=== PATIENT | female | born 1985 | race Caucasian/White ===

== ENCOUNTER 2016-11-10 17:27 | Emergency (ER) | payer OTHER ==
[~2016-11-10] VITALS: Ht 167.6 cm; Wt 62.6 kg
[~2016-11-10 17:27] MED LIST: DULO60CA44 PO; FOLI1TAB7 PO; IUD'IUD INT UTER; LAMO100T PO; METH2.5T PO; RMCI IV
[2016-11-10 17:31] VITALS: TEMP 36.8; Ht 167.6 cm; Wt 62.6 kg
[2016-11-10] MEDS ORDERED: NAPR1TAB9 PO (19:05)
[2016-11-10] MEDS ORDERED: SODIUM CHLORIDE 0.9% 1000ML 1,000 ML IV STA ×2 (19:12)
[2016-11-10] MEDS ORDERED: ONDANSETRON INJ 2 MG/ML 2 ML VIAL IV STA (19:12)
[2016-11-10] MEDS ORDERED: METHYLPREDNISOLONE 125 MG VIAL IV STA (19:12)
--- NOTE | 2016-11-10 19:20 | EMERGENCY ROOM VISIT NOTE ---
History Report prepared by Biancaibovi: Elham Alvarado Under the Supervision of: Dr. David Fabian D.O. First contact with patient: 18:57 Chief Complaint: ABDOMINAL PAIN Stated Complaint: STOMACH PAIN,NAUSEA,VOMITING,BLOODY STOOLS Nursing Triage Summary: thinks having flare of ulcerative colitis. diarrhea with some blood, past 4 days. n/v. just moved here doesn't have gastro md yet History of Present Illness The patient is a 31 year old female who presents to the Emergency Room with complaints of worsening LLQ abdominal pain for the past 4 days. She rates her discomfort as a 7/10. She admits to a history of ulcerative colitis and complains of increased nausea, vomiting and bloody diarrhea. She states "I cannot eat without vomiting". She had been on Remicade when she was living in [place], but states she has not yet established with a dry kiln burner here locally yet. She reports she has undergone an appendectomy, cholecystectomy and . Source of History: patient Onset: 4 days OUTSIDE [employer] Position: abdomen (LLQ) Symptom Intensity: 7/10 Timing: worsening Associated Symptoms: + diarrhea, + nausea, + vomiting Review of Systems See HPI for pertinent positives & negatives. A total of 10 systems reviewed and were otherwise negative. Past Medical & Surgical Medical Problems: (1) Anxiety (2) Depression (3) Kidney stone (4) Pericarditis (5) Ulcerative colitis Surgical Problems: (1) H/O section (2) Hx of appendectomy (3) Hx of cholecystectomy Family History FHx: heart disease FATHER UNCLES Hypertension Kidney disease THYROID DISEASE MOTHER Social History Smoking Status: Never Smoker Alcohol Use: none Drug Use: none Marital Status: in relationship Housing Status: lives with significant other Occupation Status: unemployed Current/Historical Medications Scheduled Duloxetine Hcl (Cymbalta), 120 MG PO DAILY Iud's (Paragard Intrauterine Hedis Review Nurse), 1 DOSE INT UTER CONTINOUS Lamotrigine (Lamictal), 200 MG PO DAILY Naproxen (Aleve), 220 MG PO DIRECTED Ondasetron Odt (Zofran Odt), 4 MG SL Q6H Prednisone (Prednisone Tab), 40 MG PO DAILY Scheduled PRN Oxycodone Immediate Rel Tab (Roxicodone Ir), 1-2 TAB PO Q4H PRN for Severe Pain Allergies Coded Allergies: Levofloxacin (Verified Allergy, Unknown, ., 11/10/16) Metoclopramide (Verified Allergy, Unknown, ., 11/10/16) Morphine (Verified Allergy, Unknown, RASH, 11/10/16) Promethazine (Verified Allergy, Unknown, ., 11/10/16) Fentanyl (Verified Adverse Reaction, Unknown, "aggitates me", 11/10/16) Physical Exam Vital Signs Date Time Temp Pulse Resp B/P Pulse Ox O2 Delivery O2 Flow Rate FiO2 11/10/16 20:50 105 18 135/87 99 Room Air 11/10/16 19:42 86 18 117/79 100 Room Air 11/10/16 17:31 36.8 110 16 122/79 100 Room Air Physical Exam GENERAL: Patient is awake and alert somewhat anxious appearing and appears to be uncomfortable EYES: The conjunctivae are clear. The pupils are round and reactive. EARS, NOSE, MOUTH AND THROAT: The nose is without any evidence of any deformity. Mucous membranes are moist tongue is midline NECK: The neck is nontender and supple. RESPIRATORY: Normal respiratory effort is noted there is no evidence of wheezing rhonchi or rales CARDIOVASCULAR: Regular rate and rhythm noted there no murmurs rubs or gallops normal S1 normal S2 GASTROINTESTINAL: The abdomen is soft and non-distended. Diffuse tenderness to palpation, no guarding or rigidity noted. MUSCULOSKELETAL/EXTREMITIES: There is no evidence of gross deformity full range of motion is noted in the hips and shoulders SKIN: There is no obvious evidence of any rash. There are no petechiae, pallor or cyanosis noted. NEUROLOGIC: Patient is awake alert and oriented x3 strength is symmetric patellar reflexes are 2+ bilaterally Medical Decision & Procedures ER Provider Diagnostic Interpretation: This X-Ray was reviewed and interpreted by myself and the radiologist. CHEST AND ABDOMEN 2 VIEWS IMPRESSION: No acute cardiopulmonary process. No evidence for bowel obstruction. Moderate well-formed stool seen throughout the colon. Electronically signed by: Jose Alfredo Allan M.D. 11/10/2016 8:20 PM Laboratory Results 11/10/16 18:50 Red Blood Count 5.45, Mean Corpuscular Volume 69.4, Mean Corpuscular Hemoglobin 22.2, Mean Corpuscular Hemoglobin Concent 32.0, Mean Platelet Volume 9.1, Neutrophils (%) (Auto) 60.1, Lymphocytes (%) (Auto) 27.5, Monocytes (%) (Auto) 7.0, Eosinophils (%) (Auto) 4.1, Basophils (%) (Auto) 1.1, Neutrophils # (Auto) 5.68, Lymphocytes # (Auto) 2.60, Monocytes # (Auto) 0.66, Eosinophils # (Auto) 0.39, Basophils # (Auto) 0.10 11/10/16 18:50 Test 11/10/16 18:45 11/10/16 18:50 Urine Color YELLOW Urine Appearance CLEAR (CLEAR) Urine pH 7.5 (4.5-7.5) Urine Specific [place] 1.016 (1.000-1.030) Urine Protein NEG (NEG) Urine Glucose (UA) NEG (NEG) Urine Ketones NEG (NEG) Urine Occult Blood NEG (NEG) Urine Nitrite NEG (NEG) Urine Bilirubin NEG (NEG) Urine Urobilinogen NEG (NEG) Urine Leukocyte Esterase NEG (NEG) White Blood Count 9.45 K/uL (4.8-10.8) Red Blood Count 5.45 M/uL (4.2-5.4) Hemoglobin 12.1 g/dL (12.0-16.0) Hematocrit 37.8 % (37-47) Mean Corpuscular Volume 69.4 fL (80-100) Mean Corpuscular Hemoglobin 22.2 pg (25-34) Mean Corpuscular Hemoglobin Concent 32.0 g/dl (32-36) Platelet Count 345 K/uL (130-400) Mean Platelet Volume 9.1 fL (7.4-10.4) Neutrophils (%) (Auto) 60.1 % Lymphocytes (%) (Auto) 27.5 % Monocytes (%) (Auto) 7.0 % Eosinophils (%) (Auto) 4.1 % Basophils (%) (Auto) 1.1 % Neutrophils # (Auto) 5.68 K/uL (1.4-6.5) Lymphocytes # (Auto) 2.60 K/uL (1.2-3.4) Monocytes # (Auto) 0.66 K/uL (0.11-0.59) Eosinophils # (Auto) 0.39 K/uL (0-0.5) Basophils # (Auto) 0.10 K/uL (0-0.2) RDW Standard Deviation 42.8 fL (36.4-46.3) RDW Coefficient of Variation 16.8 % (11.5-14.5) Immature Granulocyte % (Auto) 0.2 % Immature Granulocyte # (Auto) 0.02 K/uL (0.00-0.02) Microcytosis PRESENT Anion Gap 10.0 mmol/L (3-11) Est Creatinine Clear Calc Drug Dose 106.9 ml/min Estimated GFR () 131.9 Estimated GFR (Non- 113.8 BUN/Creatinine Ratio 11.3 (10-20) Calcium Level 9.0 mg/dl (8.5-10.1) Total Bilirubin 0.2 mg/dl (0.2-1) Direct Bilirubin < 0.1 mg/dl (0-0.2) Aspartate Amino Transf (AST/SGOT) 19 U/L (15-37) Alanine Aminotransferase (ALT/SGPT) 19 U/L (12-78) Alkaline Phosphatase 125 U/L (45-117) Total Protein 7.2 gm/dl (6.4-8.2) Albumin 3.8 gm/dl (3.4-5.0) Lipase 122 U/L (73-393) Human Chorionic Gonadotropin, Qual NEG (NEG) Laboratory results per my review. Medications Administered Medications (Trade) Dose Ordered Sig/Sally Route Start Time Stop Time Status Last Admin Dose Admin Sodium Chloride (Nss 1000ml) 1,000 ml @ 999 mls/hr Q1H1M STAT IV 11/10/16 19:12 11/10/16 20:12 DC 11/10/16 19:35 999 MLS/HR Ondansetron HCl (Zofran Inj) 4 mg NOW STAT IV 11/10/16 19:12 11/10/16 19:13 DC 11/10/16 19:35 4 MG Hydromorphone HCl (Dilaudid Inj) 1 mg Q30M PRN IV 11/10/16 19:15 11/10/16 21:46 DC 11/10/16 20:37 1 MG Methylprednisolone Sodium Succinate (Solu-Medrol IV) 125 mg NOW STAT IV 11/10/16 19:12 11/10/16 19:13 DC 11/10/16 19:35 125 MG Oxycodone HCl (Roxicodone Immediate Rel 5MG Home Pack) 1 homepack UD ONCE PO 11/10/16 20:45 11/10/16 20:46 DC 11/10/16 20:58 1 HOMEPACK Ondansetron HCl (ZOFRAN ODT 4MG Home Pack) 1 homepack UD ONCE PO 11/10/16 20:45 11/10/16 20:46 DC 11/10/16 20:59 1 L[facility] [place] ED Course 1910: The patient was evaluated in room A12. A complete history and physical examination were performed. 1911: Solu-Medrol 125 mg IV, Zofran 4 mg IV, NSS 1000 ml @ 250 mls/hr IV, NSS 1000 ml @ 999 mls/hr IV. 1914: Dilaudid 1 mg IV. 2044: Zofran 4 mg 1 home pack PO, Roxicodone 5 mg 1 home pack PO. 2029: I reevaluated the patient. She is feeling much better. I discussed her results and discharge instructions and she verbalized complete understanding and agreement. Medical Decision Prior records/ancillary studies reviewed. Triage Nursing notes reviewed. The patient's history was concerning for abdominal pain. Differential diagnosis: Etiologies such as appendicitis, diverticulitis, PUD, biliary pathology, UTI, pancreatitis, obstruction, mesenteric ischemia, aortic pathology, infections, inflammatory bowel disease, renal colic, as well as others were entertained. The patient is a 31-year-old female who presented to the emergency department for evaluation of abdominal pain and rectal bleeding. The patient feels that this is consistent with her previous episodes of ulcerative colitis. The patient was treated with IV fluids IV pain medicine IV antiemetics. She was also given steroids in emergency department. On subsequent reevaluation she was feeling much better. She was encouraged to continue all his as prescribed and drink plenty clear liquids. She is also in between dry kiln burner and she was encouraged to follow-up with one assist possible. Otherwise she was encouraged to return to the emergency department immediately if symptoms change worsen or the need arises. Impression Primary Impression: Abdominal pain Additional Impression: Ulcerative colitis Scribe Attestation The scribe's documentation has been prepared under my direction and personally reviewed by me in its entirety. I confirm that the note above accurately reflects all work, treatment, procedures, and medical decision making performed by me. Departure Information Dispostion Home / Self-Care Prescriptions Ondasetron Odt (ZOFRAN ODT) 4 Mg Tab 4 MG SL Q6H for Nausea, #15 TAB Prov: David Fabian, DO 11/10/16 Prednisone (Prednisone Tab) 20 Mg Tab 40 MG PO DAILY, #10 TAB Prov: David Fabian, DO 11/10/16 Oxycodone Immediate Rel Tab (ROXICODONE IR) 5 Mg Tab 1-2 TAB PO Q4H Y for Severe Pain, #24 TAB Prov: David Fabian, DO 11/10/16 Patient Instructions Colitis Ulcerative, My [facility] Additional Instructions Call your family doctor in the morning to schedule a follow-up appointment. Rest and avoid any strenuous activity. Drink plenty clear liquids. Problem Qualifiers
[2016-11-10 19:21] LABS: BASO % 1.1 %; EOS % 4.1 %; HEMATOCRIT 37.8 % (37-47); IG% 0.2 %; LYMPH % 27.5 %; MEAN CELL VOLUME 69.4 fL (80-100); MEAN CORPUSCULAR HEMOGLOBIN 22.2 pg (25-34); MEAN PLATELET VOLUME 9.1 fL (7.4-10.4); NEUT % 60.1 %; PLATELET COUNT 345 K/uL (130-400); RED BLOOD COUNT 5.45 M/uL (4.2-5.4); WHITE BLOOD COUNT 9.45 K/uL (4.8-10.8)
[2016-11-10 19:28] LABS: ALT/SGPT 19 U/L (12-78); BLOOD UREA NITROGEN 8 mg/dl (7-18); BUN/CREATININE RATIO 11.3 (10-20); CARBON DIOXIDE 28 mmol/L (21-32); CHLORIDE 104 mmol/L (98-107); GLUCOSE 83 mg/dl (70-99); POTASSIUM 3.7 mmol/L (3.5-5.1); SODIUM 142 mmol/L (136-145)
[2016-11-10 19:31] LABS: ALKALINE PHOSPHATASE 125 U/L (45-117); AST/SGOT 19 U/L (15-37)
[2016-11-10] MEDS: HYDROmorphone INJ 1 MG/ML SYR IV PRN ×2 (19:36→20:37)
[2016-11-10 19:45] LABS: URINE APPEARANCE CLEAR (CLEAR); URINE BILIRUBIN NEG (NEG); URINE COLOR YELLOW; URINE NITRITE NEG (NEG); URINE PH 7.5 (4.5-7.5); URINE SPECIFIC GRAVITY 1.016 (1.000-1.030); UROBILINOGEN NEG (NEG)
[2016-11-10 19:50] LABS: MANUAL MICROSCOPIC REQUIRED? NO; REVIEW REQ? NO
[2016-11-10 19:51] LABS: PREG INTERNAL NEGATIVE QC NEG CLEAR BACKGROUND; PREG INTERNAL POSITIVE QC POS CONTROL LINE
[2016-11-10 20:01] LABS: COMPLETE YES; MICROCYTOSIS PRESENT
--- NOTE | 2016-11-10 20:22 | DIAGNOSTIC IMAGING REPORT ---
CHEST AND ABDOMEN 2 VIEWS HISTORY: Generalized abdominal pain. COMPARISON: [facility] 10/06/2015. Abdomen and pelvis CT 10/14/2015. FINDINGS: The lungs are clear. The cardiomediastinal silhouette is within normal limits. There is no pneumoperitoneum or pneumatosis. The bowel gas pattern is unremarkable. No evidence for bowel obstruction. No pathologic calcifications. Prior cholecystectomy. Moderate well-formed stool seen throughout the colon. An intrauterine device is seen within the midline of the pelvis. Stable cervical within the left lower quadrant and multiple stable pelvic phleboliths. IMPRESSION: No acute cardiopulmonary process. No evidence for bowel obstruction. Moderate well-formed stool seen throughout the colon. Electronically signed by: Jose Alfredo Allan M.D. 11/10/2016 8:20 PM Dictated Date/Time: 11/10/2016 8:17 PM
[2016-11-10] MEDS ORDERED: OXYC1TAB3 PO (20:33)
[2016-11-10] MEDS ORDERED: PRED20TA2 PO (20:33)
[2016-11-10] MEDS ORDERED: ONDA4TAB10 SL (20:33)
[2016-11-10] MEDS ORDERED: OXYCODONE IR HOME PACK PO ONE (20:45)
[2016-11-10] MEDS ORDERED: ONDANSETRON HOME PACK 4MG OD TAB PO ONE (20:45)
[2016-11-10 20:50] VITALS: BP 135/87; PULSE 105; O2SAT 99
[2017-05-19] MEDS ORDERED: LORA0.5T12 PO (15:58)
[2017-06-16] MEDS ORDERED: ATR25 PO (15:16)
[2017-06-16] MEDS ORDERED: PRT40 PO (15:16)
[2017-06-16] MEDS ORDERED: CLC100 PO (15:16)
[2017-06-16] MEDS ORDERED: TRAM-10 PO (15:16)
[2017-06-16] MEDS ORDERED: ONDA4TAB10 SL (15:16)
[2017-06-16] MEDS ORDERED: PRED10TA PO (15:16)
[2017-06-16] MEDS ORDERED: RWSE PR (15:16)
[2017-06-16] MEDS ORDERED: ACET-1047 PO (15:16)
[2017-06-16] MEDS ORDERED: KLN1 PO (15:16)
[2017-06-16] MEDS ORDERED: MRLP17X PO (15:16)
[2017-06-25] MEDS ORDERED: LPR25 PO (15:56)
[2017-06-25] MEDS ORDERED: PRED10TA PO (15:56)
[2017-06-25] MEDS ORDERED: NCY50 PO (15:56)
== END 2016-11-10 21:00 | disposition home or self-care (01) ==
LOC: C.EDB 17:29 → C.EDA 21:00
DX: K51.911 Ulcerative colitis, unspecified with rectal bleeding (principal); R10.32 Left lower quadrant pain; Z87.442 Personal history of urinary calculi; F41.9 Anxiety disorder, unspecified; F32.9 Major depressive disorder, single episode, unspecified; Z79.899 Other long term (current) drug therapy

== ENCOUNTER 2017-01-19 19:48 | Emergency (ER) | payer OTHER ==
[~2017-01-19] VITALS: Ht 167.6 cm; Wt 63.5 kg
[~2017-01-19 19:48] MED LIST changes: -FOLI1TAB7 PO; -METH2.5T PO; +NAPR1TAB9 PO; +ONDA4TAB10 SL; +OXYC1TAB3 PO; +PRED20TA2 PO; -RMCI IV
[2017-01-19 20:12] VITALS: BP 128/84; PULSE 97; TEMP 36.6; O2SAT 100; Ht 167.6 cm; Wt 63.5 kg
--- NOTE | 2017-01-19 20:34 | EMERGENCY ROOM VISIT NOTE ---
ED Visit Note First contact with patient: 20:15 CHIEF COMPLAINT: Toothache HISTORY OF PRESENT ILLNESS: This 31-year-old female patient presented to the emergency department ambulatory with a progressive toothache for past to 4 days. The patient believes it is coming from her right lower back molars. The pain is now steady and severe and radiates to the face. The patient does not have a dentist appointment set up, but states that she called them and left a message. They rate their pain a 7/10 and the Aleve they have been taking has not relieved the pain. She denies taking any other medications for pain. Denies facial swelling. The patient denies any discharge from the mouth. The patient states that she believes she has had fevers intermittently. REVIEW OF SYSTEMS: A 6 system review of systems was completed with positives and pertinent negatives listed in the HPI. ALLERGIES: Fentanyl, Levaquin, metoclopramide, morphine, promethazine MEDICATIONS: See med list PMH: No significant past medical history. SOCIAL HISTORY: The patient lives with family. Nonsmoker. PHYSICAL EXAM: Vitals are noted on the nurse's note and reviewed by myself. Vital signs stable. Temperature 36.6C orally. GENERAL: This is a 31-year-old female, in no acute distress, nondiaphoretic, well-developed well-nourished. Mouth: The right lower back molar tooth is very carious and the gum is swollen and tender around it, without any discharge or signs of an abscess. The remainder of the pharynx and tonsils are without erythema, edema, or exudate. The airway is patent. There is no facial swelling, cervical or submandibular lymphadenopathy. The patient appears uncomfortable and in pain. The patient has overall poor dental hygiene. EARS: External auditory canals clear, tympanic membranes pearly gale without erythema or effusion bilaterally. ED COURSE: The patient was evaluated as above. She does have symptoms consistent with an early dental infection. There is no evidence of a drainable abscess or Werner angina at this time. The [place] prescription drug monitoring program was queried and it does appear that the patient had received a prescription for narcotic pain medication just 2 days ago from a provider at the [place] emergency department. I did ask the patient several times if she had received any other prescriptions and she adamantly denied this each time. I did confront the patient regarding this and she then admitted that she had received a prescription, but states "they didn't do anything for me." I explained to her that as she had lied about this prescription, I did not feel comfortable providing her with any further pain medication. The patient did report that she has a prescription for penicillin and I encouraged her to continue this. She was instructed to follow-up with a dentist and was given information for a local dentist for follow-up. The patient verbalized understanding of my assessment and treatment plan and was discharged home in good condition. DIAGNOSIS: Odontalgia Problem List Medical Problems: (1) Anxiety Status: Chronic (2) Depression Status: Chronic (3) Kidney stone Status: Resolved (4) Pericarditis Status: Chronic (5) Ulcerative colitis Status: Chronic Surgical Problems: (1) H/O section Status: Resolved (2) Hx of appendectomy Status: Resolved (3) Hx of cholecystectomy Status: Resolved Current/Historical Medications Scheduled Duloxetine Hcl (Cymbalta), 120 MG PO DAILY Iud's (Paragard Intrauterine Electric Cutter Operator), 1 DOSE INT UTER CONTINOUS Lamotrigine (Lamictal), 200 MG PO DAILY Naproxen (Aleve), 220 MG PO DIRECTED Ondasetron Odt (Zofran Odt), 4 MG SL Q6H Prednisone (Prednisone Tab), 40 MG PO DAILY Scheduled PRN Oxycodone Immediate Rel Tab (Roxicodone Ir), 1-2 TAB PO Q4H PRN for Severe Pain Allergies Coded Allergies: Levofloxacin (Verified Allergy, Unknown, ., 11/10/16) Metoclopramide (Verified Allergy, Unknown, ., 11/10/16) Morphine (Verified Allergy, Unknown, RASH, 11/10/16) Promethazine (Verified Allergy, Unknown, ., 11/10/16) Fentanyl (Verified Adverse Reaction, Unknown, "aggitates me", 11/10/16) Vital Signs Date Time Temp Pulse Resp B/P Pulse Ox O2 Delivery O2 Flow Rate FiO2 01/19/17 20:12 36.6 97 18 128/84 100 Room Air Departure Information Impression Primary Impression: Dental caries Dispostion Home / Self-Care Condition GOOD Referrals No Doctor, Assigned (PCP) Patient Instructions My [facility] Additional Instructions You have been treated in the Emergency Department for Dental Pain. Continue penicillin as prescribed. Please contact: Dr. Hola Quan, DMD. [address], [address], [place] [phone] For pain control, you can use the following [id number] medicines (if >12 yo): - Regular strength (325mg/tab) Tylenol (acetaminophen) 2 tabs every 4-6 hours as needed. Do not exceed 12 tablets in a 24 hour period. Avoid taking more than 4 grams (4000 mg) of Tylenol per day. This includes any other sources of acetaminophen you may take on a regular basis. - Regular strength (200 mg/tab) Advil (ibuprofen) 1-2 tabs every 4-6 hours as needed. Do not exceed a dose of 3200 mg per day. Refrain from smoking cigarettes or using chewing tobacco until you have been evaluated by your dentist. Keeping beverages lukewarm and consuming soft foods can decrease your pain. Warm compresses over the affected area may offer some relief. You MUST seek evaluation of your dental pain by a dentist following your visit to the Emergency Department. The Emergency Department is not capable of treating dental issues long-term. You should call your dentist as soon as possible to make an appointment for evaluation of your dental pain. Return to the emergency department if you develop the following symptoms despite treatment course outlined above: fever, intractable pain, increased redness, swelling, or purulent discharge.
[2017-05-19] MEDS ORDERED: LORA0.5T12 PO (15:58)
[2017-06-16] MEDS ORDERED: ONDA4TAB10 SL (15:16)
[2017-06-16] MEDS ORDERED: PRT40 PO (15:16)
[2017-06-16] MEDS ORDERED: ACET-1047 PO (15:16)
[2017-06-16] MEDS ORDERED: RWSE PR (15:16)
[2017-06-16] MEDS ORDERED: MRLP17X PO (15:16)
[2017-06-16] MEDS ORDERED: KLN1 PO (15:16)
[2017-06-16] MEDS ORDERED: TRAM-10 PO (15:16)
[2017-06-16] MEDS ORDERED: ATR25 PO (15:16)
[2017-06-16] MEDS ORDERED: PRED10TA PO (15:16)
[2017-06-16] MEDS ORDERED: CLC100 PO (15:16)
[2017-06-25] MEDS ORDERED: NCY50 PO (15:56)
[2017-06-25] MEDS ORDERED: PRED10TA PO (15:56)
[2017-06-25] MEDS ORDERED: LPR25 PO (15:56)
== END 2017-01-19 20:40 | disposition home or self-care (01) ==
LOC: C.EDB 19:49 → C.EDD 20:40
DX: K02.9 Dental caries, unspecified (principal); F41.9 Anxiety disorder, unspecified; F32.9 Major depressive disorder, single episode, unspecified; Z87.442 Personal history of urinary calculi; K51.90 Ulcerative colitis, unspecified, without complications; Z90.49 Acquired absence of other specified parts of digestive tract; Z79.899 Other long term (current) drug therapy; Z79.3 Long term (current) use of hormonal contraceptives

== ENCOUNTER 2017-05-21 23:56 | Emergency (ER) | payer OTHER ==
[~2017-05-21] VITALS: Ht 167.6 cm; Wt 59.4 kg
[~2017-05-21 23:56] MED LIST changes: +LORA0.5T12 PO; -ONDA4TAB10 SL; -OXYC1TAB3 PO; -PRED20TA2 PO
[2017-05-22 00:04] VITALS: TEMP 36.5; Ht 167.6 cm; Wt 59.4 kg
[2017-05-22] MEDS ORDERED: CLONIDINE HCL 0.1 MG TAB PO STA (00:21)
[2017-05-22 00:53] VITALS: O2SAT 100
[2017-05-22 00:59] LABS: BASO % 0.5 %; BASO ABS # 0.05 K/uL (0-0.2); EOS % 0.7 %; HEMATOCRIT 31.6 % (37-47); IG% 0.2 %; LYMPH % 26.2 %; LYMPH ABS # 2.53 K/uL (1.2-3.4); MEAN CELL VOLUME 62.3 fL (80-100); MEAN CORPUSCULAR HEMOGLOBIN 18.1 pg (25-34); MEAN CORPUSCULAR HGB CONC 29.1 g/dl (32-36); MONO % 7.1 %; NEUT % 65.3 %; PLATELET COUNT 508 K/uL (130-400); RED BLOOD COUNT 5.07 M/uL (4.2-5.4); WHITE BLOOD COUNT 9.66 K/uL (4.8-10.8)
[2017-05-22 01:22] LABS: BUN/CREATININE RATIO 18.2 (10-20); CALCIUM 9.1 mg/dl (8.5-10.1); CREATININE 0.8 mg/dl (0.60-1.20); POTASSIUM 3.5 mmol/L (3.5-5.1)
[2017-05-22] MEDS ORDERED: LORAZEPAM 2 MG/ML 1 ML VIAL IV STA (01:26)
[2017-05-22] MEDS ORDERED: ONDANSETRON INJ 2 MG/ML 2 ML VIAL IV STA (01:26)
[2017-05-22 01:36] LABS: COMPLETE YES; HYPOCHROMIA PRESENT; MICROCYTOSIS PRESENT
[2017-05-22] MEDS ORDERED: CLON0.2T PO (01:50)
[2017-05-22] MEDS ORDERED: ONDA4TAB10 SL (01:50)
--- NOTE | 2017-05-22 01:51 | EMERGENCY ROOM VISIT NOTE ---
History Report prepared by Biancaibovi: Gerardo Beltre Under the Supervision of: Dr. Maury Beck D.O. First contact with patient: 00:15 Chief Complaint: OTHER COMPLAINT Stated Complaint: OPIOID WITHDRAWAL, RACING HEART, RESTLESSNESS History of Present Illness The patient is a 31 year old female who presents to the Emergency Room with complaints of worsening opiate withdrawal symptoms beginning this week. She was seen in the [place] ED yesterday for similar symptoms. She states that she has been on chronic opiate pain medication for the past 10 years due to an autoimmune disease. The patient states that she put herself into a detox program 14 days ago because she was "sick of it". Her symptoms include racing heart rate, and restlessness. Nothing has improved her symptoms. Source of History: patient Onset: This week Quality: other (opiate withdrawal symptoms) Timing: worsening Modifying Factors (Relieving): other (none) Note: The patient's symptoms include racing heart rate, and restlessness. Review of Systems See HPI for pertinent positives and negatives. A total of ten systems were reviewed and were otherwise negative. Past Medical & Surgical Medical Problems: (1) Anxiety (2) Depression (3) Kidney stone (4) Pericarditis (5) Ulcerative colitis Surgical Problems: (1) H/O section (2) Hx of appendectomy (3) Hx of cholecystectomy Family History FHx: heart disease FATHER UNCLES Hypertension Kidney disease THYROID DISEASE MOTHER Social History Smoking Status: Former Smoker Alcohol Use: none Drug Use: none Marital Status: in relationship Housing Status: lives with significant other Occupation Status: unemployed Current/Historical Medications Scheduled Duloxetine Hcl (Cymbalta), 120 MG PO DAILY Iud's (Paragard Intrauterine Community Midwife), 1 DOSE INT UTER CONTINOUS Lamotrigine (Lamictal), 200 MG PO DAILY Allergies Coded Allergies: Diphenhydramine (Verified Allergy, Intermediate, Crawling out of skin, ) Levofloxacin (Verified Allergy, Unknown, ., 05/22/17) Metoclopramide (Verified Allergy, Unknown, ., 05/22/17) Morphine (Verified Allergy, Unknown, RASH, 05/22/17) Promethazine (Verified Allergy, Unknown, ., 05/22/17) Fentanyl (Verified Adverse Reaction, Unknown, "aggitates me", 05/22/17) Physical Exam Vital Signs Date Time Temp Pulse Resp B/P (MAP) Pulse Ox O2 Delivery O2 Flow Rate FiO2 05/22/17 01:36 104 18 137/90 98 Room Air 05/22/17 00:53 100 Room Air 05/22/17 00:53 114 18 122/83 100 Room Air 05/22/17 00:53 100 Room Air 05/22/17 00:35 95 05/22/17 00:04 36.5 145 18 122/84 100 Room Air Physical Exam GENERAL: Awake, alert, well-appearing, in no distress, appears shaky HENT: Normocephalic, atraumatic. Oropharynx unremarkable. EYES: Normal conjunctiva. Sclera non-icteric. NECK: Supple. No nuchal rigidity. FROM. No JVD. RESPIRATORY: Clear to auscultation. CARDIAC: Tachycardic rate, normal rhythm. Extremities warm and well perfused. Pulses equal. ABDOMEN: Soft, non-distended. No tenderness to palpation. No rebound or guarding. No masses. RECTAL: Deferred. MUSCULOSKELETAL: Chest examination reveals no tenderness. The back is symmetrical on inspection without obvious abnormality. There is no CVA tenderness to palpation. No joint edema. LOWER EXTREMITIES: Calves are equal size bilaterally and non-tender. No edema. No discoloration. NEURO: Normal sensorium. No sensory or motor deficits noted. SKIN: No rash or jaundice noted. Medical Decision & Procedures Laboratory Results 05/22/17 00:45 Red Blood Count 5.07, Mean Corpuscular Volume 62.3, Mean Corpuscular Hemoglobin 18.1, Mean Corpuscular Hemoglobin Concent 29.1, Mean Platelet Volume 9.0, Neutrophils (%) (Auto) 65.3, Lymphocytes (%) (Auto) 26.2, Monocytes (%) (Auto) 7.1, Eosinophils (%) (Auto) 0.7, Basophils (%) (Auto) 0.5, Neutrophils # (Auto) 6.30, Lymphocytes # (Auto) 2.53, Monocytes # (Auto) 0.69, Eosinophils # (Auto) 0.07, Basophils # (Auto) 0.05 05/22/17 00:45 Test 05/22/17 00:45 White Blood Count 9.66 K/uL (4.8-10.8) Red Blood Count 5.07 M/uL (4.2-5.4) Hemoglobin 9.2 g/dL (12.0-16.0) Hematocrit 31.6 % (37-47) Mean Corpuscular Volume 62.3 fL (80-100) Mean Corpuscular Hemoglobin 18.1 pg (25-34) Mean Corpuscular Hemoglobin Concent 29.1 g/dl (32-36) Platelet Count 508 K/uL (130-400) Mean Platelet Volume 9.0 fL (7.4-10.4) Neutrophils (%) (Auto) 65.3 % Lymphocytes (%) (Auto) 26.2 % Monocytes (%) (Auto) 7.1 % Eosinophils (%) (Auto) 0.7 % Basophils (%) (Auto) 0.5 % Neutrophils # (Auto) 6.30 K/uL (1.4-6.5) Lymphocytes # (Auto) 2.53 K/uL (1.2-3.4) Monocytes # (Auto) 0.69 K/uL (0.11-0.59) Eosinophils # (Auto) 0.07 K/uL (0-0.5) Basophils # (Auto) 0.05 K/uL (0-0.2) RDW Standard Deviation 37.6 fL (36.4-46.3) RDW Coefficient of Variation 16.6 % (11.5-14.5) Immature Granulocyte % (Auto) 0.2 % Immature Granulocyte # (Auto) 0.02 K/uL (0.00-0.02) Hypochromasia PRESENT Microcytosis PRESENT Anion Gap 8.0 mmol/L (3-11) Est Creatinine Clear Calc Drug Dose 93.6 ml/min Estimated GFR () 112.3 Estimated GFR (Non- 96.9 BUN/Creatinine Ratio 18.2 (10-20) Calcium Level 9.1 mg/dl (8.5-10.1) Total Bilirubin 0.5 mg/dl (0.2-1) Direct Bilirubin 0.1 mg/dl (0-0.2) Aspartate Amino Transf (AST/SGOT) 15 U/L (15-37) Alanine Aminotransferase (ALT/SGPT) 18 U/L (12-78) Alkaline Phosphatase 139 U/L (45-117) Total Protein 7.4 gm/dl (6.4-8.2) Albumin 4.0 gm/dl (3.4-5.0) Laboratory results reviewed by me Medications Administered Medications (Trade) Dose Ordered Sig/Sally Route Start Time Stop Time Status Last Admin Dose Admin Clonidine HCl (Catapres Tab) 0.2 mg ONE STAT PO 05/22/17 00:21 05/22/17 00:22 DC 05/22/17 00:52 0.2 MG Lorazepam (Ativan Inj) 1 mg NOW STAT IV 05/22/17 01:26 05/22/17 01:28 DC 05/22/17 01:34 1 MG Ondansetron HCl (Zofran Inj) 4 mg NOW STAT IV 05/22/17 01:26 05/22/17 01:28 DC 05/22/17 01:32 4 MG ED Course 0016: The patient was evaluated in room C2B. A complete history and physical exam was performed. 0021: Ordered Catapres Tab 0.2 mg PO. 0126: Ordered Zofran Inj 4 mg IV, Ativan Inj 1 mg IV. 0145: I reevaluated the patient. Discussed results and discharge instructions: she verbalized understanding and agreement. The patient is ready for discharge. Medical Decision Differential diagnoses include but are not limited to; anxiety, and opiate withdrawal. Impression Primary Impression: Opiate withdrawal Scribe Attestation The scribe's documentation has been prepared under my direction and personally reviewed by me in its entirety. I confirm that the note above accurately reflects all work, treatment, procedures, and medical decision making performed by me. Departure Information Dispostion Home / Self-Care Prescriptions Clonidine Hcl (CATAPRES) 0.2 Mg Tab 0.2 MG PO TID, #30 TAB 2 Refills Prov: Maury Beck, DO 05/22/17 Ondasetron Odt (ZOFRAN ODT) 4 Mg Tab 4 MG SL Q6H for Nausea for 5 Days, #20 TAB Prov: Maury Beck, DO 05/22/17 Referrals No Doctor, Assigned (PCP) Patient Instructions ED Withdrawal Narcotic, My [facility]
[2017-05-22 02:28] VITALS: BP 112/73; PULSE 108; O2SAT 98
[2017-05-22] MEDS ORDERED: ONDANSETRON HOME PACK 4MG OD TAB PO ONE (04:00)
[2017-05-22] MEDS ORDERED: CTP2 PO (15:58)
[2017-05-22] MEDS ORDERED: PROP20TA67 PO (15:58)
[2017-06-16] MEDS ORDERED: ONDA4TAB10 SL (15:16)
[2017-06-16] MEDS ORDERED: TRAM-10 PO (15:16)
[2017-06-16] MEDS ORDERED: PRT40 PO (15:16)
[2017-06-16] MEDS ORDERED: CLC100 PO (15:16)
[2017-06-16] MEDS ORDERED: MRLP17X PO (15:16)
[2017-06-16] MEDS ORDERED: ACET-1047 PO (15:16)
[2017-06-16] MEDS ORDERED: RWSE PR (15:16)
[2017-06-16] MEDS ORDERED: PRED10TA PO (15:16)
[2017-06-16] MEDS ORDERED: ATR25 PO (15:16)
[2017-06-16] MEDS ORDERED: KLN1 PO (15:16)
[2017-06-25] MEDS ORDERED: PRED10TA PO (15:56)
[2017-06-25] MEDS ORDERED: LPR25 PO (15:56)
[2017-06-25] MEDS ORDERED: NCY50 PO (15:56)
== END 2017-05-22 02:28 | disposition home or self-care (01) ==
LOC: C.EDB 23:58 → C.EDC 05-22 02:28
DX: F11.23 Opioid dependence with withdrawal (principal); F41.9 Anxiety disorder, unspecified; F32.9 Major depressive disorder, single episode, unspecified; M35.9 Systemic involvement of connective tissue, unspecified; Z87.891 Personal history of nicotine dependence; Z87.442 Personal history of urinary calculi; Z82.49 Family history of ischemic heart disease and other diseases of the circulatory system

== ENCOUNTER 2017-05-28 15:25 | Inpatient (IN) | payer OTHER ==
[~2017-05-28] VITALS: Ht 167.6 cm; Wt 59.1 kg
[~2017-05-28 15:25] MED LIST changes: +CLON0.2T PO; +CTP2 PO; -NAPR1TAB9 PO; +ONDA4TAB10 SL; +PROP20TA67 PO
[2017-05-28] MEDS ORDERED: ONDANSETRON INJ 2 MG/ML 2 ML VIAL IV STA ×2 (15:47→20:50)
[2017-05-28] MEDS ORDERED: SODIUM CHLORIDE 0.9% 1000ML 1,000 ML IV STA (15:47)
[2017-05-28] MEDS ORDERED: HYDROmorphone INJ 0.5 MG/0.5 ML SYR IV STA ×3 (15:47→22:02)
[2017-05-28] MEDS ORDERED: OPTIRAY 320 IV PRN (16:00)
--- NOTE | 2017-05-28 16:04 | EMERGENCY ROOM VISIT NOTE ---
History First contact with patient: 15:40 Chief Complaint: GI ASSESSMENT Stated Complaint: BLOODY STOOL/STOMACH PAIN, VOMITING Nursing Triage Summary: pt c/o "i'm having a flare up of my ulcerative colitis." pt c/o nausea, vomiting and diarrhea. pt states she has had bloody stools for past couple weeks History of Present Illness The patient is a 31 year old female who presents to the Emergency Room with complaints of left-sided abdominal pain for the past week and half with bright red blood per rectum and loose stools. She states that the pain and bleeding have been increasing over the past few days. She states large amounts of blood that "make the toilet water look like Riley-Aid." She states 2 days ago she also began to have nausea and vomiting associated with this. 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 She has been on Humira in the past, but has been off of this for the past 1-1/2 years. She states today that her pain became so severe that she decided come to the ER. She states she did speak with her PCP who told her to go to the ER. She denies any fevers or chills, chest pain, shortness of breath, back pain, vomiting up blood, dysuria or frequency. She has an IUD, states last menstrual period was 05/09. Review of Systems A complete 10 point review of systems was reviewed with the patient with pertinent positives and negatives as per history of present illness. All else were negative. Past Medical/Surgical History Medical Problems: (1) Anxiety (2) Depression (3) Kidney stone (4) Pericarditis (5) Ulcerative colitis Surgical Problems: (1) H/O section (2) Hx of appendectomy (3) Hx of cholecystectomy Family History FHx: heart disease FATHER UNCLES Hypertension Kidney disease THYROID DISEASE MOTHER Social History Smoking Status: Never Smoker Alcohol Use: none Drug Use: none Marital Status: in relationship Housing Status: lives with significant other Occupation Status: unemployed Current/Historical Medications Scheduled Clonidine HCl (Clonidine HCl), 1 TAB PO TID Duloxetine Hcl (Cymbalta), 120 MG PO DAILY Iud's ([employer]), 1 DOSE INT UTER CONTINOUS Lamotrigine (Lamictal), 200 MG PO DAILY Prednisone (Prednisone Tab), 0 PO DAILY Propranolol (Inderal), 1 TAB PO BID Miscellaneous Medications Lorazepam (Lorazepam), 1 TAB PO Physical Exam Vital Signs Date Time Temp Pulse Resp B/P (MAP) Pulse Ox O2 Delivery O2 Flow Rate FiO2 05/28/17 22:34 69 20 106/78 100 Room Air 05/28/17 19:42 74 18 107/75 98 Room Air 05/28/17 18:00 107/75 05/28/17 17:59 74 18 97/70 100 Room Air 05/28/17 17:55 76 19 05/28/17 17:30 97/70 05/28/17 17:25 76 19 05/28/17 17:22 73 18 97/71 100 Room Air 05/28/17 17:00 97/71 05/28/17 16:55 74 23 100 05/28/17 16:50 72 18 117/78 100 Room Air 05/28/17 16:49 117/78 05/28/17 16:25 65 15 05/28/17 16:21 69 05/28/17 15:36 36.8 84 18 104/73 94 Room Air Physical Exam CONSTITUTIONAL: No acute distress, but patient is visibly uncomfortable and holding her left side. Alert and oriented X 4 with normal affect. HEENT: Normocephalic, atraumatic. Pupils equal, round and reactive to light, EOMI. TMs normal. Pharynx normal. Tacky mucus membranes. NECK: Supple, full active range of motion without discomfort. RESPIRATORY: Clear to auscultation bilaterally with no wheezing, crackles, rhonchi or stridor. Equal expansion bilaterally. CARDIOVASCULAR: Regular rate and rhythm with no murmurs, rubs or gallops. Normal peripheral perfusion. No edema. GASTROINTESTINAL: Significantly tender in the left lower quadrant and left flank area. No rebound tenderness. Soft, nondistended. Bowel sounds present in all quadrants. MUSCULOSKELETAL: Full range of motion of all joints without discomfort. INTEGUMENTARY: No rash or other significant dermatologic conditions noted. NEUROLOGIC: Cranial nerves II-XII grossly intact. No focal neurologic deficits noted. Medical Decision & Procedures Laboratory Results 05/28/17 16:05 Red Blood Count 5.12, Mean Corpuscular Volume 62.7, Mean Corpuscular Hemoglobin 18.6, Mean Corpuscular Hemoglobin Concent 29.6, Mean Platelet Volume 9.2, Neutrophils (%) (Auto) 72.2, Lymphocytes (%) (Auto) 17.6, Monocytes (%) (Auto) 7.6, Eosinophils (%) (Auto) 1.8, Basophils (%) (Auto) 0.6, Neutrophils # (Auto) 8.88, Lymphocytes # (Auto) 2.16, Monocytes # (Auto) 0.94, Eosinophils # (Auto) 0.22, Basophils # (Auto) 0.07 05/28/17 16:05 Test 05/28/17 16:00 05/28/17 16:05 05/28/17 16:12 05/28/17 22:44 Urine Color YELLOW Urine Appearance TURBID (CLEAR) Urine pH 7.5 (4.5-7.5) Urine Specific [place] 1.023 (1.000-1.030) Urine Protein NEG (NEG) Urine Glucose (UA) NEG (NEG) Urine Ketones NEG (NEG) Urine Occult Blood NEG (NEG) Urine Nitrite NEG (NEG) Urine Bilirubin NEG (NEG) Urine Urobilinogen NEG (NEG) Urine Leukocyte Esterase NEG (NEG) Urine WBC (Auto) 1-5 /hpf (0-5) Urine RBC (Auto) 5-10 /hpf (0-4) Urine Hyaline Casts (Auto) 5-10 /lpf (0-5) Urine Epithelial Cells (Auto) >30 /lpf (0-5) Urine Bacteria (Auto) NEG (NEG) Urine Test NEG (NEG) White Blood Count 12.30 K/uL (4.8-10.8) Red Blood Count 5.12 M/uL (4.2-5.4) Hemoglobin 9.5 g/dL (12.0-16.0) Hematocrit 32.1 % (37-47) Mean Corpuscular Volume 62.7 fL (80-100) Mean Corpuscular Hemoglobin 18.6 pg (25-34) Mean Corpuscular Hemoglobin Concent 29.6 g/dl (32-36) Platelet Count 485 K/uL (130-400) Mean Platelet Volume 9.2 fL (7.4-10.4) Neutrophils (%) (Auto) 72.2 % Lymphocytes (%) (Auto) 17.6 % Monocytes (%) (Auto) 7.6 % Eosinophils (%) (Auto) 1.8 % Basophils (%) (Auto) 0.6 % Neutrophils # (Auto) 8.88 K/uL (1.4-6.5) Lymphocytes # (Auto) 2.16 K/uL (1.2-3.4) Monocytes # (Auto) 0.94 K/uL (0.11-0.59) Eosinophils # (Auto) 0.22 K/uL (0-0.5) Basophils # (Auto) 0.07 K/uL (0-0.2) RDW Standard Deviation 38.1 fL (36.4-46.3) RDW Coefficient of Variation 16.7 % (11.5-14.5) Immature Granulocyte % (Auto) 0.2 % Immature Granulocyte # (Auto) 0.03 K/uL (0.00-0.02) Microcytosis PRESENT Ovalocytes 1+ Erythrocyte Sedimentation Rate 15 mm/hr (0-21) Anion Gap 5.0 mmol/L (3-11) Est Creatinine Clear Calc Drug Dose 78.6 ml/min Estimated GFR () 91.2 Estimated GFR (Non- 78.7 BUN/Creatinine Ratio 13.3 (10-20) Calcium Level 9.1 mg/dl (8.5-10.1) Total Bilirubin 0.4 mg/dl (0.2-1) Direct Bilirubin 0.1 mg/dl (0-0.2) Aspartate Amino Transf (AST/SGOT) 14 U/L (15-37) Alanine Aminotransferase (ALT/SGPT) 17 U/L (12-78) Alkaline Phosphatase 120 U/L (45-117) C-Reactive Protein < 0.29 mg/dl (0-0.29) Total Protein 7.4 gm/dl (6.4-8.2) Albumin 3.7 gm/dl (3.4-5.0) Lipase 222 U/L (73-393) Bedside Lactic Acid Venous 1.22 mmol/L (0.90-1.70) Date/Time Source Procedure Growth Status 05/28/17 21:30 Stool C.difficile Toxin B Gene (PCR) - Final No C. difficile toxin B gene detected Complete Medications Administered Medications (Trade) Dose Ordered Sig/Sally Route Start Time Stop Time Status Last Admin Dose Admin Ondansetron HCl (Zofran Inj) 4 mg NOW STAT IV 05/28/17 15:47 05/28/17 15:51 DC 05/28/17 16:09 4 MG Sodium Chloride 1,000 ml @ 999 mls/hr Q1H1M STAT IV 05/28/17 15:47 05/28/17 16:47 DC 05/28/17 16:09 999 MLS/HR Hydromorphone HCl (Dilaudid Inj) 0.5 mg NOW STAT IV 05/28/17 15:47 05/28/17 15:51 DC 05/28/17 16:09 0.5 MG Dicyclomine HCl (Bentyl Cap) 10 mg NOW ONCE PO 05/28/17 17:00 05/28/17 17:01 DC 05/28/17 17:06 10 MG Acetaminophen (Ofirmev Iv) 1,000 mg STK-MED ONCE IV 05/28/17 16:58 05/28/17 16:59 DC 05/28/17 17:08 1,000 MG Hydromorphone HCl (Dilaudid Inj) 0.5 mg NOW ONCE IV 05/28/17 19:00 05/28/17 19:01 CA 05/28/17 18:52 0.5 MG Prednisone (PredniSONE TAB) 40 mg NOW STAT PO 05/28/17 20:20 05/28/17 20:23 DC 05/28/17 20:59 40 MG Ondansetron HCl (Zofran Inj) 4 mg NOW STAT IV 05/28/17 20:50 05/28/17 20:51 CA 05/28/17 20:59 4 MG Hydromorphone HCl (Dilaudid Inj) 0.5 mg NOW STAT IV 05/28/17 22:02 05/28/17 22:03 CA 05/28/17 22:29 0.5 MG Medical Decision CC: Patient presenting with complaint of left-sided abdominal pain and bloody stools Interpretation of Labs: Leukocytosis with left shift, anemia, no significant electrolyte abnormalities, normal renal function, normal liver enzymes and lipase, lactic acid within normal limits, negative inflammatory markers, no UTI. Differential Diagnosis: Includes, but not limited to ulcerative colitis flare, gastroenteritis, infectious colitis, lower GI bleed, anemia, among others. Medication Reconciliation: I attest that I have personally reviewed the patient' s current medication list. Vital signs review: I reviewed the patient's vital signs and interpret them as follows: T: Afebrile; BP: Normotensive; HR: Within normal limits; RR: Within normal limits; Pulse Ox: Within normal limits on room air. Blood pressure screening: The patient was found to have normal blood pressure on screening and does not require follow-up for repeat blood pressure check. Summary: Patient was evaluated at bedside, history of physical exam performed. She is alert and in no acute distress but appears uncomfortable and in pain. Left lower abdomen is tender with minimal guarding, but not rigid and no rebound tenderness. Orders were placed at bedside for labs, UA, IV fluids, morphine and Zofran, and CT abdomen/pelvis to evaluate for ulcerative colitis flare other intra- abdominal pathology. Patient discussed with Dr. Arciniega, who agrees with my assessment and plan. Labs reviewed as above, concerning for leukocytosis and anemia in setting of abdominal pain and GI bleeding. Otherwise unremarkable. CT reviewed, findings consistent with mild colitis, no evidence of abscess or perforation. Patient was discussed with Dr. Izquierdo, GI, who recommends sending additional stool studies and starting the patient on steroid treatment. He agrees to see the patient tomorrow for follow-up. Patient reassessed multiple times throughout ED stay, she initially appears much more comfortable after pain medication and IV fluids, reports that she is feeling much better. However, upon reassessment later, patient is nauseated and vomiting multiple times and states her pain has gotten worse again. Nursing staff also notified me of a large amount of bright red blood and blood clots in patient's stool sample. I discussed the option of admission with the patient, she states she would like to be admitted because of her pain and vomiting. Patient was discussed with Dr. Tayolr, hospitalist, who agrees to evaluate the patient for admission. Impression Primary Impression: Colitis, acute Departure Information Dispostion Admitted as an inpatient Condition FAIR Prescriptions Prednisone (Prednisone Tab) 20 Mg Tab 0 PO DAILY for 7 Days, #14 TAB 2 TABS DAILY FOR 2 DAYS, THEN 1 TAB DAILY FOR 2 DAYS, THEN 1/2 TAB DAILY FOR 2 DAYS. Prov: Chayo Mac CRNP 05/28/17 Referrals No Doctor, Assigned (PCP) Gibran Izquierdo D.O. Patient Instructions [facility]
[2017-05-28 16:15] LABS: BASO % 0.6 %; BASO ABS # 0.07 K/uL (0-0.2); EOS % 1.8 %; HEMATOCRIT 32.1 % (37-47); IG% 0.2 %; LYMPH % 17.6 %; LYMPH ABS # 2.16 K/uL (1.2-3.4); MEAN CELL VOLUME 62.7 fL (80-100); MEAN CORPUSCULAR HEMOGLOBIN 18.6 pg (25-34); MEAN CORPUSCULAR HGB CONC 29.6 g/dl (32-36); MEAN PLATELET VOLUME 9.2 fL (7.4-10.4); MONO % 7.6 %; NEUT % 72.2 %; PLATELET COUNT 485 K/uL (130-400); RED BLOOD COUNT 5.12 M/uL (4.2-5.4)
[2017-05-28 16:21] LABS: URINE APPEARANCE TURBID (CLEAR); URINE BILIRUBIN NEG (NEG); URINE COLOR YELLOW; URINE EPITHELIAL CELL AUTO >30 /lpf (0-5); URINE NITRITE NEG (NEG); URINE PH 7.5 (4.5-7.5); URINE SPECIFIC GRAVITY 1.023 (1.000-1.030); UROBILINOGEN NEG (NEG)
[2017-05-28 16:22] LABS: MANUAL MICROSCOPIC REQUIRED? NO; REVIEW REQ? NO
[2017-05-28 16:31] LABS: ALT/SGPT 17 U/L (12-78); BLOOD UREA NITROGEN 13 mg/dl (7-18); BUN/CREATININE RATIO 13.3 (10-20); CALCIUM 9.1 mg/dl (8.5-10.1); CARBON DIOXIDE 29 mmol/L (21-32); CHLORIDE 105 mmol/L (98-107); CREATININE 0.95 mg/dl (0.60-1.20); GLUCOSE 94 mg/dl (70-99); SODIUM 139 mmol/L (136-145)
[2017-05-28 16:34] LABS: ALKALINE PHOSPHATASE 120 U/L (45-117); AST/SGOT 14 U/L (15-37)
[2017-05-28 16:38] LABS: COMPLETE YES; MICROCYTOSIS PRESENT; OVALOCYTES 1+
[2017-05-28 16:48] LABS: C-REACTIVE PROTEIN < 0.29 mg/dl (0-0.29)
[2017-05-28] MEDS ORDERED: ACETAMINOPHEN IV 1,000 MG in EMPTY BAG 0 ML IV STA (16:52)
[2017-05-28] MEDS ORDERED: ACETAMINOPHEN 1000 MG/100 ML IV IV ONE (16:58)
[2017-05-28] MEDS ORDERED: DICYCLOMINE HCL 10 MG CAP PO ONE (17:00)
--- NOTE | 2017-05-28 18:43 | DIAGNOSTIC IMAGING REPORT ---
ABD/PELVIS IV AND ORAL CONT CT DOSE: 263.70 mGy.cm HISTORY: Pain. Nausea. ABD. PAIN/GI TECHNIQUE: Multiaxial CT images of the abdomen and pelvis were performed following the use of intravenous and oral contrast. A dose lowering technique was utilized adhering to the principles of ALARA. COMPARISON STUDY: 10/14/2015 FINDINGS: Lung bases are clear. Mild fatty infiltration of liver. Prior cholecystectomy. Upper abdominal bowel pattern is unremarkable. Evaluation of the pelvis confirms moderate edematous change of the sigmoid and distal descending colon. There is a small amount of pericolonic infiltrative change. Bladder is midline. Intrauterine device appears to be present. 1.3 cm right ovarian cyst. Several small left ovarian follicular cyst. IMPRESSION: 1. Mild/moderate nonspecific colitis of the sigmoid and distal descending colon. 2. No evidence for abscess collection or obstruction. 3. Prior appendectomy and cholecystectomy. 4. Mild fatty infiltration of liver. Small bilateral ovarian follicular cyst. The above report was generated using voice recognition software. It may contain grammatical, syntax or spelling errors. Electronically signed by: Kole London M.D. 05/28/2017 6:41 PM Dictated Date/Time: 05/28/2017 6:38 PM
[2017-05-28] MEDS ORDERED: NURSING VERBAL MED ORDER ONE (18:45)
[2017-05-28] MEDS: HYDROmorphone INJ 0.5 MG/0.5 ML SYR IV ONE ×2 (18:50→18:52)
[2017-05-28] MEDS ORDERED: PRED20TA2 PO (20:34)
[2017-05-28] MEDS ORDERED: LORAZEPAM 2 MG/ML 1 ML VIAL IV PRN (23:45)
[2017-05-28] MEDS ORDERED: METOCLOPRAMIDE HCL INJ 5 MG/ML 2 ML VIAL IV PRN (23:45)
[2017-05-28] MEDS ORDERED: ACETAMINOPHEN 325 MG TAB PO PRN (23:45)
[2017-05-28 23:46] LABS: MAGNESIUM 2.4 mg/dl (1.8-2.4)
[2017-05-29] VITALS (8 sets, daily range): BP systolic 103–158; BP diastolic 68–95; PULSE 73–146; TEMP 36.3–36.8; O2SAT 98–99; Ht 167.6 cm; Wt 59.1 kg
[2017-05-29] MEDS ORDERED: IBUPROFEN 200 MG TAB PO PRN
[2017-05-29] MEDS ORDERED: KETOROLAC TROMETHAMINE 15 MG/ML VIAL IV. STA (00:09)
[2017-05-29] MEDS ORDERED: SODIUM CHLORIDE 0.9% 1000ML 1,000 ML IV ONE (00:15)
[2017-05-29 00:22] LABS: PARTIAL THROMBOPLASTIN RATIO 0.9; PROTHROMBIN TIME (PATIENT) 11.2 SECONDS (9.0-12.0)
[2017-05-29 00:29] LABS: FERRITIN 1.7 ng/ml (8.0-388.0)
[2017-05-29] MEDS ORDERED: LORAZEPAM INJ 0.5 MG in SYRINGE 0.75 ML IV PRN (00:30)
[2017-05-29 00:47] LABS: HEMATOCRIT 30.7 % (37-47)
[2017-05-29] MEDS: METHYLPREDNISOLONE IV 20 MG in SYRINGE 0 ML IV SCH ×2 (00:57→07:29)
[2017-05-29] MEDS: CEFTRIAXONE SOD INJ 1 GM in DEXTROSE 5% ADD-VANTAGE 50ML 50 ML IV SCH ×2 (01:06→22:29)
[2017-05-29] MEDS: METRONIDAZOLE / NSS 500 MG in PREMIXED NSS 100 ML IV SCH ×4 (01:06→23:53)
--- NOTE | 2017-05-29 03:15 | HISTORY & PHYSICAL EXAMINATION ---
DATE OF ADMISSION: 05/28/2017 PRIMARY CARE PHYSICIAN: Dr. Everett. CHIEF COMPLAINT: Abdominal pain, bloody diarrhea. HISTORY OF PRESENT ILLNESS: History obtained from patient and records. Medical history significant for ulcerative colitis, IBD arthropathy, past tobacco abuse, mood disorder. Recent confinement September 2015 for abdominal flank pain attributed to constipation, UTI and incomplete bladder emptying. Patient had moved back into [place] after living in [place] last year. She had not been in touch with her assistant project manager from [place], [place] (Dr. Flores) the last 2 years. Patient also has not reconnected with a desizing machine back tender for her IBD arthropathy after her desizing machine back tender left [place] more than a year ago. Patient consequently has been off biological agents for her autoimmune disease. Tolerable abdominal pain, occasional blood streaking. Worsening chronic back and bilateral hip pain from IBD arthropathy. Patient was seen at the Emergency Room last week for worsening opioid withdrawal symptoms. Hemoglobin noted to be 9.2 during visit. She felt she was getting addicted to her home Vicodin and she decided to stop it. The patient was prescribed clonidine and Zofran outpatient. At home bloody diarrhea 10 episodes a day, worsening generalized abdominal pain with nausea, and nonbloody (neither coffee-ground) emesis. No fever, no chills. Intractable pain in the Emergency Room despite prednisone administration for IBD flare up as per GI recommendation. MEDICAL HISTORY: As above. History of pericarditis as per records. SURGICAL HISTORY: She has had cholecystectomy, appendectomy, section. HOME MEDICATIONS: Include lorazepam, clonidine, Vicodin. ALLERGIES: BENADRYL, FENTANYL, LEVAQUIN, REGLAN, MORPHINE, PROMETHAZINE. FAMILY HISTORY: No family history of IBD. Family history of hypertension, thyroid disease, heart disease. PERSONAL AND SOCIAL HISTORY: Past tobacco abuse. No chronic intake of alcohol beverages. 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 REVIEW OF SYSTEMS: As per HPI, all other ROS negative. PHYSICAL EXAMINATION: VITAL SIGNS: Blood pressure was noted to be 105/72, pulse rate 70, RR 16, temperature 36.6, sats 98 on room air. GENERAL: Noted to be uncomfortable. No respiratory distress. SKIN: Pallor. HEENT: Pale palpebral conjunctivae. Dry mucosa. NECK: No JVD. Supple. CHEST: Clear to auscultation. HEART: Regular rate and rhythm. ABDOMEN: Generalized abdominal tenderness. EXTREMITIES: No edema, nontender. NEUROLOGIC: No gross focality. LABORATORY DATA: Hemoglobin was noted to 9, white cells 10 platelets 400. Sodium 139, potassium 4, chloride 105, CO2 of 29, BUN 13, creatinine 0.9, glucose 94. Abdomen CT pelvis, [id number] nonspecific colitis, sigmoid and distal descending colon, no abscess, prior appendectomy, cholecystectomy, mild fatty infiltration of the liver, small bilateral ovarian cyst. C. diff was negative. ASSESSMENT: 1. Lower gastrointestinal bleed secondary to inflammatory bowel disease flare- up. No signs of toxicity. Patient has not seen her assistant project manager and has been off biologicals for the last 2 years, 2. worsening inflammatory bowel disease arthropathy. 3. Anemia secondary to chronic disease /slow LGIB over the last several months. 4. Past tobacco abuse. PLAN: GMF Analgesia, antiemetics IV steroids for now for IBD flare up Ceftriaxone and Flagyl for hemorrhagic colitis. GI consult. Re: IBD flare up ER provider already in touch with Dr. Izquierdo, Rheumatology consult for worsening IBD arthropathy. Anemia workup Follow H&H, transfuse packed RBC if hemoglobin less than 7 and/or for symptomatic anemia. DVT prophylaxis, SCDs RE LGIB Full code. MTDD
[2017-05-29] MEDS: ONDANSETRON INJ 2 MG/ML 2 ML VIAL IV PRN ×3 (03:25→23:50)
[2017-05-29] MEDS ORDERED: PROMETHAZINE HCL INJ 12.5 MG in SODIUM CHLORIDE 0.9% 50ML 50 ML IV ONE (04:37)
[2017-05-29] MEDS: HYDROmorphone INJ 0.5 MG/0.5 ML SYR IV PRN ×2 (05:10→11:17)
[2017-05-29 06:00] LABS: BASO % 0.4 %; BASO ABS # 0.04 K/uL (0-0.2); EOS % 0.4 %; HEMATOCRIT 30.7 % (37-47); IG% 0.2 %; LYMPH % 10.5 %; LYMPH ABS # 1.13 K/uL (1.2-3.4); MEAN CELL VOLUME 62.7 fL (80-100); MEAN CORPUSCULAR HEMOGLOBIN 18.2 pg (25-34); MEAN PLATELET VOLUME 9.5 fL (7.4-10.4); MONO % 0.8 %; NEUT % 87.7 %; PLATELET COUNT 423 K/uL (130-400); WHITE BLOOD COUNT 10.73 K/uL (4.8-10.8)
[2017-05-29 06:23] LABS: COMPLETE YES; HYPOCHROMIA PRESENT; OVALOCYTES 1+
[2017-05-29 06:31] LABS: BUN/CREATININE RATIO 9.3 (10-20); CALCIUM 8.8 mg/dl (8.5-10.1); CREATININE 0.76 mg/dl (0.60-1.20)
[2017-05-29] MEDS: DULOXETINE HCL 60 MG CAP PO SCH (07:30)
--- NOTE | 2017-05-29 09:52 | Gastrointestinal Consultation ---
Gastrointestinal Consultation Date of Consultation: May 29, 2017 Attending Physician: Dr. Salinas Consulting Physician: Pina Pollock PA-C Reason for Consultation: Abdominal pain, bloody diarrhea History of Present Illness Patient is a 31 year old female who presented to the emergency room with abdominal pain & diarrhea. The patient has a past medical history of Ulcerative Colitis for which she has been very noncompliant with therapy as prescribed by her hearing aid specialist Dr. Flores of [place], [place]. Patient reports she took herself off of her UC medications including biologic therapy several years ago. She had been living in [place] prior to moving back to [place], so she has not had follow-up with her GI. She has followed in the past with a metal bench patternmaker for her IBD arthropathy but has been noncompliant with this as well. She reports that recently her pain medication was stopped and she began to have a flare of her UC symptoms. She describes left sided abdominal pain and cramping accompanied by bloody stools. She reports that her back pain and hip pain has escalated as well. She was seen in the ER last week with opioid withdrawal symptoms. She was previously prescribed Vicodin to take for her pain , but discontinued this at home for fear of addiction. She reports bloody diarrhea started at home with 10 episodes daily. She reports nausea and vomiting (without blood). Her hemoglobin has been around 9 as of late. She reports fatigue. She denies fever or chills. She reportedly has no family history of IBD or GI malignancy. Her CT scan indicated bowel wall thickening consistent with a mild to moderate nonspecific colitis in the sigmoid and distal descending colon. Past Medical/Surgical History Medical Problems: (1) Abdominal pain Status: Acute (2) Colitis, acute Status: Acute (3) Opiate withdrawal Status: Acute Past Medical History: UC, IBD arthropathy, opioid addiction and withdrawal Past Surgical History: cholecystectomy, appendectomy, section Family History FHx: heart disease FATHER UNCLES Hypertension Kidney disease THYROID DISEASE MOTHER Social History Smoking Status: Never Smoker Alcohol Use: none Drug Use: none Marital Status: in relationship Housing Status: lives with significant other Occupation Status: unemployed Allergies Coded Allergies: Diphenhydramine (Verified Allergy, Intermediate, Crawling out of skin, 05/28) Levofloxacin (Verified Allergy, Unknown, ., 05/28/17) Morphine (Verified Allergy, Unknown, RASH, 05/28/17) Metoclopramide (Verified Adverse Reaction, Mild, ., 05/29/17) makes skin crawl as per px Promethazine (Verified Adverse Reaction, Mild, ., 05/29/17) makes skin crawl as per px Fentanyl (Verified Adverse Reaction, Unknown, "aggitates me", 05/28/17) Current Medications Home Meds and Scripts Medications Dose Route/Sig Max Daily Dose Days Date Category Dose Instructions Prednisone Tab (Prednisone) 20 Mg Tab 0 PO DAILY 7 05/28/17 Rx 2 TABS DAILY FOR 2 DAYS, THEN 1 TAB DAILY FOR 2 DAYS, THEN 1/2 TAB DAILY FOR 2 DAYS. Lorazepam 0.5 Mg Tab 1 Tab PO 05/28/17 Reported Clonidine HCl 0.2 Mg Tab 1 Tab PO TID 10 05/28/17 Reported Inderal (Propranolol HCl) 20 Mg Tab 1 Tab PO BID 05/28/17 Reported Paragard Intrauterine Welfare Service Aide (Iud's) 1 Iud Iud 1 Dose INT UTER CONTINOUS 03/05/16 Reported Lamictal (Lamotrigine) 100 Mg Tab 200 Mg PO DAILY 10/14/15 Reported Cymbalta (Duloxetine Hcl) 60 Mg Cap 120 Mg PO DAILY 10/14/15 Reported Review of Systems Constitutional: + fatigue, No fever, No chills Eyes: No problem reported Respiratory: No cough, No dyspnea on exertion Cardiac: No chest pain Abdomen: + pain, + nausea, + diarrhea, + GI bleeding, No vomiting, No constipation Musculoskeletal: + joint pain Psych: No problem reported Endo: + fatigue Skin: No problem reported Physical Exam Date Time Temp Pulse Resp B/P (MAP) Pulse Ox O2 Delivery O2 Flow Rate FiO2 05/29/17 07:45 36.3 73 16 103/68 (80) 99 Room Air 05/29/17 00:31 36.6 73 16 105/72 Room Air 05/28/17 23:41 65 20 123/87 98 05/28/17 23:30 65 20 123/87 98 Room Air 05/28/17 22:56 63 05/28/17 22:34 69 20 106/78 100 Room Air 05/28/17 19:42 74 18 107/75 98 Room Air 05/28/17 18:00 107/75 05/28/17 17:59 74 18 97/70 100 Room Air 05/28/17 17:55 76 19 05/28/17 17:30 97/70 05/28/17 17:25 76 19 05/28/17 17:22 73 18 97/71 100 Room Air 05/28/17 17:00 97/71 05/28/17 16:55 74 23 100 05/28/17 16:50 72 18 117/78 100 Room Air 05/28/17 16:49 117/78 05/28/17 16:25 65 15 05/28/17 16:21 69 05/28/17 15:36 36.8 84 18 104/73 94 Room Air General Appearance: WD/WN, no apparent distress Eyes: normal inspection, PERRL Respiratory/Chest: lungs clear Cardiovascular: regular rate, rhythm Abdomen: normal bowel sounds, non tender, soft Extremities: non-tender Neurologic/Psych: alert, oriented x 3 Skin: normal color Laboratory Results Last 24 Hours Test 05/28/17 16:00 05/28/17 16:05 05/28/17 16:12 05/28/17 23:48 Urine Color YELLOW Urine Appearance TURBID Urine pH 7.5 Urine Specific [place] 1.023 Urine Protein NEG Urine Glucose (UA) NEG Urine Ketones NEG Urine Occult Blood NEG Urine Nitrite NEG Urine Bilirubin NEG Urine Urobilinogen NEG Urine Leukocyte Esterase NEG Urine WBC (Auto) 1-5 /hpf Urine RBC (Auto) 5-10 /hpf Urine Hyaline Casts (Auto) 5-10 /lpf Urine Epithelial Cells (Auto) >30 /lpf Urine Bacteria (Auto) NEG Urine Test NEG White Blood Count 12.30 K/uL Red Blood Count 5.12 M/uL Hemoglobin 9.5 g/dL 8.9 g/dL Hematocrit 32.1 % 30.7 % Mean Corpuscular Volume 62.7 fL Mean Corpuscular Hemoglobin 18.6 pg Mean Corpuscular Hemoglobin Concent 29.6 g/dl Platelet Count 485 K/uL Mean Platelet Volume 9.2 fL Neutrophils (%) (Auto) 72.2 % Lymphocytes (%) (Auto) 17.6 % Monocytes (%) (Auto) 7.6 % Eosinophils (%) (Auto) 1.8 % Basophils (%) (Auto) 0.6 % Neutrophils # (Auto) 8.88 K/uL Lymphocytes # (Auto) 2.16 K/uL Monocytes # (Auto) 0.94 K/uL Eosinophils # (Auto) 0.22 K/uL Basophils # (Auto) 0.07 K/uL RDW Standard Deviation 38.1 fL RDW Coefficient of Variation 16.7 % Immature Granulocyte % (Auto) 0.2 % Immature Granulocyte # (Auto) 0.03 K/uL Microcytosis PRESENT Ovalocytes 1+ Erythrocyte Sedimentation Rate 15 mm/hr Sodium Level 139 mmol/L Potassium Level 4.0 mmol/L Chloride Level 105 mmol/L Carbon Dioxide Level 29 mmol/L Anion Gap 5.0 mmol/L Blood Urea Nitrogen 13 mg/dl Creatinine 0.95 mg/dl Est Creatinine Clear Calc Drug Dose 78.6 ml/min Estimated GFR () 91.2 Estimated GFR (Non- 78.7 BUN/Creatinine Ratio 13.3 Random Glucose 94 mg/dl Calcium Level 9.1 mg/dl Magnesium Level 2.4 mg/dl Total Bilirubin 0.4 mg/dl Direct Bilirubin 0.1 mg/dl Aspartate Amino Transf (AST/SGOT) 14 U/L Alanine Aminotransferase (ALT/SGPT) 17 U/L Alkaline Phosphatase 120 U/L C-Reactive Protein < 0.29 mg/dl Total Protein 7.4 gm/dl Albumin 3.7 gm/dl Lipase 222 U/L Thyroid Stimulating Hormone (TSH) 2.070 uIu/ml Bedside Lactic Acid Venous 1.22 mmol/L Absolute Reticulocyte Count 0.04 10^6/uL Percent Reticulocyte Count 0.8 % Prothrombin Time 11.2 SECONDS Prothromb Time International Ratio 1.0 Activated Partial Thromboplast Time 22.9 SECONDS Partial Thromboplastin Ratio 0.9 Iron Level 18 mcg/dl Total Iron Binding Capacity 397 mcg/dl Transferrin 314 mg/dl Transferrin % Saturation 4 % Ferritin 1.7 ng/ml Vitamin B12 Level 809 pg/mL Folate 22.62 ng/mL Test 05/29/17 05:23 White Blood Count 10.73 K/uL Red Blood Count 4.90 M/uL Hemoglobin 8.9 g/dL Hematocrit 30.7 % Mean Corpuscular Volume 62.7 fL Mean Corpuscular Hemoglobin 18.2 pg Mean Corpuscular Hemoglobin Concent 29.0 g/dl Platelet Count 423 K/uL Mean Platelet Volume 9.5 fL Neutrophils (%) (Auto) 87.7 % Lymphocytes (%) (Auto) 10.5 % Monocytes (%) (Auto) 0.8 % Eosinophils (%) (Auto) 0.4 % Basophils (%) (Auto) 0.4 % Neutrophils # (Auto) 9.41 K/uL Lymphocytes # (Auto) 1.13 K/uL Monocytes # (Auto) 0.09 K/uL Eosinophils # (Auto) 0.04 K/uL Basophils # (Auto) 0.04 K/uL RDW Standard Deviation 38.3 fL RDW Coefficient of Variation 16.7 % Immature Granulocyte % (Auto) 0.2 % Immature Granulocyte # (Auto) 0.02 K/uL Hypochromasia PRESENT Ovalocytes 1+ Sodium Level 138 mmol/L Potassium Level 4.0 mmol/L Chloride Level 106 mmol/L Carbon Dioxide Level 25 mmol/L Anion Gap 7.0 mmol/L Blood Urea Nitrogen 7 mg/dl Creatinine 0.76 mg/dl Est Creatinine Clear Calc Drug Dose 98.2 ml/min Estimated GFR () 119.5 Estimated GFR (Non- 103.1 BUN/Creatinine Ratio 9.3 Random Glucose 111 mg/dl Calcium Level 8.8 mg/dl Impression Patient is a 31 year old female with a history of Ulcerative colitis and noncompliance with medications & GI follow-up who presents 1 week after being evaluated for opioid withdrawal for abdominal pain, bloody stools, & CT findings of nonspecific colitis of the sigmoid & descending colon. Differential diagnosis to include UC flare vs ischemic colitis vs infectious colitis vs other. Plan 1) Will initiate IV Solumedrol 40 mg BID at present with intentions of tapering to eventual oral course. She is presently also prescribed Ceftriaxone & Flagyl per primary team. 2) Check stool studies to include culture, gram stain, & C diff studies. 3) Patient will need eventual colonoscopy (timing to be determined) and will need outpatient follow-up to discuss maintenance therapy & screening for her UC. 4) Continue to monitor H/H. 5) Supportive care per primary team. Thank you for allowing us to participate in the care of this patient. If you should have any further questions or concerns, do not hesitate to contact us. Agree with Pina Finch, SAHIL Abd: Soft, Tender throughout, ND, +BS Continue IV solumedrol Stool studies normal thusfar Will need prednisone taper when discharged.
--- NOTE | 2017-05-29 10:48 | Rheumatology Consultation ---
Rheumatology Consultation Date of Consultation: May 29, 2017. Reason for Consultation: Ulcerative colitis now with bloody diarrhea abdominal pain could be ulcerative colitis flare ischemia or infection Also has a history of arthritis that is associated with active ulcerative colitis. Patient has been noncompliant History of Present Illness Patient is a 31-year-old female who has long history of ulcerative colitis. Her ulcerative colitis has been managed in the past by GI. She has been on biologics and had been well controlled. She has been noncompliant with her medication and she has been off her ulcerative colitis medicine for over 2 years. She has not followed up with her employment agency manager. She had seen a debrander in the past and she has some arthritis that can be associated with active ulcerative colitis. But she has not followed up with debrander either. One week ago she noticed that she had increased pain and bloody diarrhea. The patient was admitted. The differential diagnosis at this point would be ulcerative colitis flare ischemia or infection. Gastroenterology has been consulted appreciate their note. In terms of her arthralgias she has some hip discomfort and some low back discomfort. This would be expected with active ulcerative colitis flare. Past Medical/Surgical History Medical History: colitis Social History Smoking Status: Never Smoker History of Alcohol Use: No Drug Use: none Marital Status: in relationship Occupation Status: unemployed Review of Systems Constitutional: + fatigue Eyes: No see HPI, No worsening of vision, No eye pain, No redness, No discharge , No diplopia, No problem reported ENT: No see HPI, No hearing loss, No unusual epistaxis, No nasal symptoms, No sore throat, No tinnitus, No dental problems, No trouble swallowing, No problem reported Respiratory: No see HPI, No cough, No sputum, No wheezing, No shortness of breath, No dyspnea on exertion, No dyspnea at rest, No hemoptysis, No problem reported Cardiac: No see HPI, No chest pain, No orthopnea, No PND, No edema, No claudication, No palpitations, No problem reported Abdomen: + diarrhea, + GI bleeding Musculoskeletal: + joint pain (Mild bilateral hips good range of motion.) Endo: + fatigue Allergies Coded Allergies: Diphenhydramine (Verified Allergy, Intermediate, Crawling out of skin, 05/28) Levofloxacin (Verified Allergy, Unknown, ., 05/28/17) Morphine (Verified Allergy, Unknown, RASH, 05/28/17) Metoclopramide (Verified Adverse Reaction, Mild, ., 05/29/17) makes skin crawl as per px Promethazine (Verified Adverse Reaction, Mild, ., 05/29/17) makes skin crawl as per px Fentanyl (Verified Adverse Reaction, Unknown, "aggitates me", 05/28/17) Medications Current Inpatient Medications Medications (Trade) Dose Ordered Sig/Sally Route Start Time Stop Time Status Last Admin Dose Admin Ioversol (Optiray 320) 111 ml UD PRN IV 05/28/17 16:00 06/01/17 15:59 Ceftriaxone Sodium 1 gm/ Dextrose 50 ml @ 100 mls/hr DAILY@2300 IV 05/29/17 00:15 06/08/17 00:14 05/29/17 01:06 100 MLS/HR Metronidazole 500 mg/Prmx 100 ml @ 100 mls/hr Q8H IV 05/29/17 00:00 06/08/17 00:00 05/29/17 07:29 100 MLS/HR Ketorolac Tromethamine (Toradol Inj) 15 mg Q6H PRN IV. 05/28/17 23:45 06/02/17 23:44 Ondansetron HCl (Zofran Inj) 4 mg Q6H PRN IV 05/28/17 23:45 06/27/17 23:44 05/29/17 03:25 4 MG Lorazepam (Ativan Inj) 0.5 mg Q4H PRN IV 05/28/17 23:45 06/27/17 23:44 Tramadol HCl (Ultram Tab) not relieved by tylenol @ Q6H PRN PO 05/28/17 23:45 06/27/17 23:44 Hydromorphone HCl (Dilaudid Inj) 0.5 mg Q6H PRN IV 05/28/17 23:45 06/11/17 23:44 05/29/17 05:10 0.5 MG Sodium Chloride 1,000 ml @ 75 mls/hr [id number] ONCE IV 05/29/17 00:15 05/29/17 13:34 05/29/17 00:57 75 MLS/HR Duloxetine HCl (Cymbalta Cap) 120 mg DAILY PO 05/29/17 08:00 06/28/17 08:59 05/29/17 07:30 120 MG Lamotrigine (Lamictal Tab) 200 mg DAILY PO 05/29/17 08:00 06/28/17 08:59 05/29/17 07:30 200 MG Acetaminophen (Tylenol Tab) 650 mg Q4H PRN PO 05/28/17 23:45 06/27/17 23:44 Ibuprofen (Advil Tab) 400 mg Q6H PRN PO 05/29/17 00:00 06/28/17 00:00 Lorazepam 0.5 mg/ Syringe 1 ml @ 1 mls/min Q4H PRN IV 05/29/17 00:30 06/28/17 00:29 05/29/17 01:41 1 MLS/MIN Promethazine HCl 12.5 mg/Sodium Chloride 50.5 ml @ 204 mls/hr Q6H PRN IV 05/29/17 04:45 06/28/17 04:44 Methylprednisolone Sodium Succinate 40 mg/Syringe 0.64 ml @ 1.5 mls/min BID IV 05/29/17 20:00 06/28/17 19:59 UNV Physical Exam Date Time Temp Pulse Resp B/P (MAP) Pulse Ox O2 Delivery O2 Flow Rate FiO2 05/29/17 08:00 99 Room Air 05/29/17 07:45 36.3 73 16 103/68 (80) 99 Room Air 05/29/17 00:31 36.6 73 16 105/72 Room Air 05/28/17 23:41 65 20 123/87 98 05/28/17 23:30 65 20 123/87 98 Room Air 05/28/17 22:56 63 05/28/17 22:34 69 20 106/78 100 Room Air 05/28/17 19:42 74 18 107/75 98 Room Air 05/28/17 18:00 107/75 05/28/17 17:59 74 18 97/70 100 Room Air 05/28/17 17:55 76 19 05/28/17 17:30 97/70 05/28/17 17:25 76 19 05/28/17 17:22 73 18 97/71 100 Room Air 05/28/17 17:00 97/71 05/28/17 16:55 74 23 100 05/28/17 16:50 72 18 117/78 100 Room Air 05/28/17 16:49 117/78 05/28/17 16:25 65 15 05/28/17 16:21 69 05/28/17 15:36 36.8 84 18 104/73 94 Room Air Eyes: bilateral eyes normal inspection, bilateral eyes PERRL, bilateral eyes EOMI ENT: normal ENT inspection Neck: supple Respiratory: chest non-tender, lungs clear Cardiovascular: regular rate, rhythm, no edema Abdomen: normal bowel sounds, + tenderness Musculoskeletal: Patient has some bilateral hip the discomfort in low back discomfort this is mechanical in nature. No active synovitis at this time. Laboratory Results Last 24 Hours Test 05/28/17 16:00 05/28/17 16:05 05/28/17 16:12 05/28/17 23:48 Urine Color YELLOW Urine Appearance TURBID Urine pH 7.5 Urine Specific [place] 1.023 Urine Protein NEG Urine Glucose (UA) NEG Urine Ketones NEG Urine Occult Blood NEG Urine Nitrite NEG Urine Bilirubin NEG Urine Urobilinogen NEG Urine Leukocyte Esterase NEG Urine WBC (Auto) 1-5 /hpf Urine RBC (Auto) 5-10 /hpf Urine Hyaline Casts (Auto) 5-10 /lpf Urine Epithelial Cells (Auto) >30 /lpf Urine Bacteria (Auto) NEG Urine Test NEG White Blood Count 12.30 K/uL Red Blood Count 5.12 M/uL Hemoglobin 9.5 g/dL 8.9 g/dL Hematocrit 32.1 % 30.7 % Mean Corpuscular Volume 62.7 fL Mean Corpuscular Hemoglobin 18.6 pg Mean Corpuscular Hemoglobin Concent 29.6 g/dl Platelet Count 485 K/uL Mean Platelet Volume 9.2 fL Neutrophils (%) (Auto) 72.2 % Lymphocytes (%) (Auto) 17.6 % Monocytes (%) (Auto) 7.6 % Eosinophils (%) (Auto) 1.8 % Basophils (%) (Auto) 0.6 % Neutrophils # (Auto) 8.88 K/uL Lymphocytes # (Auto) 2.16 K/uL Monocytes # (Auto) 0.94 K/uL Eosinophils # (Auto) 0.22 K/uL Basophils # (Auto) 0.07 K/uL RDW Standard Deviation 38.1 fL RDW Coefficient of Variation 16.7 % Immature Granulocyte % (Auto) 0.2 % Immature Granulocyte # (Auto) 0.03 K/uL Microcytosis PRESENT Ovalocytes 1+ Erythrocyte Sedimentation Rate 15 mm/hr Sodium Level 139 mmol/L Potassium Level 4.0 mmol/L Chloride Level 105 mmol/L Carbon Dioxide Level 29 mmol/L Anion Gap 5.0 mmol/L Blood Urea Nitrogen 13 mg/dl Creatinine 0.95 mg/dl Est Creatinine Clear Calc Drug Dose 78.6 ml/min Estimated GFR () 91.2 Estimated GFR (Non- 78.7 BUN/Creatinine Ratio 13.3 Random Glucose 94 mg/dl Calcium Level 9.1 mg/dl Magnesium Level 2.4 mg/dl Total Bilirubin 0.4 mg/dl Direct Bilirubin 0.1 mg/dl Aspartate Amino Transf (AST/SGOT) 14 U/L Alanine Aminotransferase (ALT/SGPT) 17 U/L Alkaline Phosphatase 120 U/L C-Reactive Protein < 0.29 mg/dl Total Protein 7.4 gm/dl Albumin 3.7 gm/dl Lipase 222 U/L Thyroid Stimulating Hormone (TSH) 2.070 uIu/ml Bedside Lactic Acid Venous 1.22 mmol/L Absolute Reticulocyte Count 0.04 10^6/uL Percent Reticulocyte Count 0.8 % Prothrombin Time 11.2 SECONDS Prothromb Time International Ratio 1.0 Activated Partial Thromboplast Time 22.9 SECONDS Partial Thromboplastin Ratio 0.9 Iron Level 18 mcg/dl Total Iron Binding Capacity 397 mcg/dl Transferrin 314 mg/dl Transferrin % Saturation 4 % Ferritin 1.7 ng/ml Vitamin B12 Level 809 pg/mL Folate 22.62 ng/mL Test 05/29/17 05:23 White Blood Count 10.73 K/uL Red Blood Count 4.90 M/uL Hemoglobin 8.9 g/dL Hematocrit 30.7 % Mean Corpuscular Volume 62.7 fL Mean Corpuscular Hemoglobin 18.2 pg Mean Corpuscular Hemoglobin Concent 29.0 g/dl Platelet Count 423 K/uL Mean Platelet Volume 9.5 fL Neutrophils (%) (Auto) 87.7 % Lymphocytes (%) (Auto) 10.5 % Monocytes (%) (Auto) 0.8 % Eosinophils (%) (Auto) 0.4 % Basophils (%) (Auto) 0.4 % Neutrophils # (Auto) 9.41 K/uL Lymphocytes # (Auto) 1.13 K/uL Monocytes # (Auto) 0.09 K/uL Eosinophils # (Auto) 0.04 K/uL Basophils # (Auto) 0.04 K/uL RDW Standard Deviation 38.3 fL RDW Coefficient of Variation 16.7 % Immature Granulocyte % (Auto) 0.2 % Immature Granulocyte # (Auto) 0.02 K/uL Hypochromasia PRESENT Ovalocytes 1+ Sodium Level 138 mmol/L Potassium Level 4.0 mmol/L Chloride Level 106 mmol/L Carbon Dioxide Level 25 mmol/L Anion Gap 7.0 mmol/L Blood Urea Nitrogen 7 mg/dl Creatinine 0.76 mg/dl Est Creatinine Clear Calc Drug Dose 98.2 ml/min Estimated GFR () 119.5 Estimated GFR (Non- 103.1 BUN/Creatinine Ratio 9.3 Random Glucose 111 mg/dl Calcium Level 8.8 mg/dl Assessment & Plan Assessment & Plan: Patient presents with a history of ulcerative colitis now with bloody diarrhea Bloody diarrhea: The differential would include infection ischemia or ulcerative colitis flare. Recommendations as per GI Arthralgia associated with active bowel disease: No specific therapy or workup at this time. The arthropathy that can be associated with bowel disease the goal is to treat the underlying bowel disease.
[2017-05-29 12:27] LABS: HEMATOCRIT 32.6 % (37-47)
[2017-05-29] MEDS: HYDROmorphone INJ 1 MG/ML SYR IV PRN ×3 (16:41→23:47)
[2017-05-29] MEDS: FERROUS SULFATE 325 MG TAB PO SCH (17:00)
--- NOTE | 2017-05-29 18:19 | Progress Note ---
Internal Med Progress Note Date of Service: May 29, 2017. Provider Documentation: SUBJECTIVE: pt found crying in abdominal pain , still having bloody diarrhea feels pain radiating to her rt side of chest very anxious OBJECTIVE: Vital Signs-as noted below Exam: General-in distress due to abdominal pain Eyes-sclera non icteric ENT-nad Neck-no JVD Lungs-CTA , tenderness on rt chest wall Heart-regular Abdomen-soft, tenderness in lower abdomen , RUQ Extremities-no rash or deformity , complain of diffuse joint pain , no swelling or rash noted Neuro-AAO x3, no focal deficit Lab data as noted below. ASSESSMENT & PLAN: ABDOMINAL PAIN /BLOODY DIARRHEA -due to Inflammatory bowel disease /ulcerative colitis flare appreciate input form GI started on IV Solumedrol 40 mg BID cont IV Ceftriaxone & Flagyl Patient will need eventual colonoscopy will be done as out patient after acute flare subsides will need outpatient GI follow-up to discuss maintenance therapy & screening for her UC. BLOODY DIARRHEA : due to above ordered for stool studies to include culture, gram stain, & C diff studies. Continue to monitor H/H. RT SIDED CHEST PAIN : No hypoxia , pt mentions of having severe radiating pain form abdomen tenderness on palpation of rt chest wall cont pain control no hypoxia noted ARTHRALGIA /PAIN IN HIP JOINTS ; associated with IBD due to ulcerative colitis flare appreciate input form Rheumatology cont management fo active GI disease which subsequently improved joint pain symptoms cont on IV steroid and later PO prednisone taper as indicated out pt follow up with Rheumatology DVT PROPHYLAXIS scd and teds ambulate DISPOSITION discharge home when medically stable Vital Signs: Date Time Temp Pulse Resp B/P (MAP) Pulse Ox O2 Delivery O2 Flow Rate FiO2 05/29/17 16:50 130 134/84 (101) 98 Room Air 05/29/17 16:40 146 158/95 (116) 99 Room Air 05/29/17 15:44 36.8 107 18 121/85 (97) 99 Room Air 05/29/17 08:00 99 Room Air 05/29/17 07:45 36.3 73 16 103/68 (80) 99 Room Air 05/29/17 00:31 36.6 73 16 105/72 Room Air 05/28/17 23:41 65 20 123/87 98 05/28/17 23:30 65 20 123/87 98 Room Air 05/28/17 22:56 63 05/28/17 22:34 69 20 106/78 100 Room Air 05/28/17 19:42 74 18 107/75 98 Room Air Lab Results: Results Past 24 Hours Test 05/28/17 23:48 05/29/17 05:23 05/29/17 12:03 05/29/17 18:16 Range/Units Hemoglobin 8.9 8.9 9.7 12.0-16.0 g/dL Hematocrit 30.7 30.7 32.6 37-47 % Absolute Reticulocyte Count 0.04 0.02-0.10 10^6/uL Percent Reticulocyte Count 0.8 0.5-2.0 % Prothrombin Time 11.2 9.0-12.0 SECONDS Prothromb Time International Ratio 1.0 0.9-1.1 Activated Partial Thromboplast Time 22.9 21.0-31.0 SECONDS Partial Thromboplastin Ratio 0.9 Iron Level 18 35-150 mcg/dl Total Iron Binding Capacity 397 250-450 mcg/dl Transferrin 314 200-360 mg/dl Transferrin % Saturation 4 15-50 % Ferritin 1.7 8.0-388.0 ng/ml Vitamin B12 Level 809 211-911 pg/mL Folate 22.62 >5.38 ng/mL White Blood Count 10.73 4.8-10.8 K/uL Red Blood Count 4.90 4.2-5.4 M/uL Mean Corpuscular Volume 62.7 80-100 fL Mean Corpuscular Hemoglobin 18.2 25-34 pg Mean Corpuscular Hemoglobin Concent 29.0 32-36 g/dl Platelet Count 423 130-400 K/uL Mean Platelet Volume 9.5 7.4-10.4 fL Neutrophils (%) (Auto) 87.7 % Lymphocytes (%) (Auto) 10.5 % Monocytes (%) (Auto) 0.8 % Eosinophils (%) (Auto) 0.4 % Basophils (%) (Auto) 0.4 % Neutrophils # (Auto) 9.41 1.4-6.5 K/uL Lymphocytes # (Auto) 1.13 1.2-3.4 K/uL Monocytes # (Auto) 0.09 0.11-0.59 K/uL Eosinophils # (Auto) 0.04 0-0.5 K/uL Basophils # (Auto) 0.04 0-0.2 K/uL RDW Standard Deviation 38.3 36.4-46.3 fL RDW Coefficient of Variation 16.7 11.5-14.5 % Immature Granulocyte % (Auto) 0.2 % Immature Granulocyte # (Auto) 0.02 0.00-0.02 K/uL Hypochromasia PRESENT Ovalocytes 1+ Sodium Level 138 136-145 mmol/L Potassium Level 4.0 3.5-5.1 mmol/L Chloride Level 106 98-107 mmol/L Carbon Dioxide Level 25 21-32 mmol/L Anion Gap 7.0 3-11 mmol/L Blood Urea Nitrogen 7 7-18 mg/dl Creatinine 0.76 0.60-1.20 mg/dl Est Creatinine Clear Calc Drug Dose 98.2 ml/min Estimated GFR () 119.5 Estimated GFR (Non- 103.1 BUN/Creatinine Ratio 9.3 10-20 Random Glucose 111 70-99 mg/dl Calcium Level 8.8 8.5-10.1 mg/dl Microbiology Results 05/28/17 C.difficile Toxin B Gene (PCR) - Final, Complete No C. difficile toxin B gene detected 05/28/17 WBC Smear - Final, Resulted 05/28/17 Shiga Toxin Test - Preliminary, Resulted No E. Coli shiga toxin 1 or shiga tox... 05/28/17 Stool Culture - Preliminary, Resulted NO SALMONELLA ISOLATED TO DATE,...
[2017-05-29] MEDS: ALPRAZOLAM 0.5 MG TAB PO PRN (18:27)
[2017-05-29 18:28] LABS: HEMATOCRIT 31.2 % (37-47)
[2017-05-29] MEDS: METHYLPREDNISOLONE IV 40 MG in SYRINGE 0 ML IV SCH (20:02)
[2017-05-29] MEDS: CYCLOBENZAPRINE HCL 10 MG TAB PO SCH (20:12)
[2017-05-30] MEDS: ALPRAZOLAM 0.5 MG TAB PO PRN ×3 (01:19→17:27)
[2017-05-30] MEDS: HYDROmorphone INJ 1 MG/ML SYR IV PRN ×7 (03:42→21:02)
[2017-05-30 06:02] LABS: BASO % 0.1 %; BASO ABS # 0.01 K/uL (0-0.2); HEMATOCRIT 34.2 % (37-47); IG% 0.3 %; LYMPH % 8.8 %; LYMPH ABS # 1.38 K/uL (1.2-3.4); MEAN CELL VOLUME 62.8 fL (80-100); MEAN CORPUSCULAR HEMOGLOBIN 18.5 pg (25-34); MEAN CORPUSCULAR HGB CONC 29.5 g/dl (32-36); MEAN PLATELET VOLUME 9.3 fL (7.4-10.4); NEUT % 88.8 %; PLATELET COUNT 543 K/uL (130-400); RED BLOOD COUNT 5.45 M/uL (4.2-5.4); WHITE BLOOD COUNT 15.71 K/uL (4.8-10.8)
[2017-05-30 06:53] LABS: COMPLETE YES; HYPOCHROMIA PRESENT; MICROCYTOSIS PRESENT; OVALOCYTES 1+
[2017-05-30 07:24] VITALS: BP 113/75; PULSE 77; TEMP 36.6; O2SAT 100
[2017-05-30] MEDS: ONDANSETRON INJ 2 MG/ML 2 ML VIAL IV PRN ×3 (07:24→21:01)
[2017-05-30] MEDS: METRONIDAZOLE / NSS 500 MG in PREMIXED NSS 100 ML IV SCH ×3 (07:25→23:30)
[2017-05-30] MEDS: METHYLPREDNISOLONE IV 40 MG in SYRINGE 0 ML IV SCH ×2 (07:25→21:00)
[2017-05-30] MEDS: DULOXETINE HCL 60 MG CAP PO SCH (09:14)
[2017-05-30] MEDS: CYCLOBENZAPRINE HCL 10 MG TAB PO SCH ×3 (09:15→21:01)
[2017-05-30] MEDS: FERROUS SULFATE 325 MG TAB PO SCH ×2 (09:22→17:27)
--- NOTE | 2017-05-30 13:32 | GASTROENTEROLOGY PROGRESS NOTE ---
DATE: 05/30/2017 DATE: 05/30/2017 HISTORY OF PRESENT ILLNESS: I had the pleasure of seeing Sammie Valladares at her bedside today. She continues to complain today of midepigastric abdominal pain radiating into her right upper quadrant which she describes as a 5/10 in intensity. She describes the pain as chronic ache and does state that it is associated with nausea and vomiting. She currently states that she cannot hold any food down. She states that she continues to have bright red blood per rectum as well and multiple bowel movements daily. She states that she does not feel that she is improving at this time. REVIEW OF SYSTEMS: Negative otherwise times a 10 system review other than pertinent positives listed in the HPI. PHYSICAL EXAMINATION: VITAL SIGNS: Include a temp of 36.6, pulse 77, respirations 18, blood pressure 113/75, pulse ox 100% on room air. GENERAL EXAMINATION: She is awake, cooperative, chronic ill appearing, in no acute distress. HEAD: Normocephalic, atraumatic. EYES: Pupils equally round. Extraocular muscles are intact. EARS, NOSE, THROAT: External evaluation of ears and nose are normal. Oropharynx is clear. NECK: Soft and supple. There is no JVD or lymphadenopathy. CHEST: Clear to auscultation bilaterally. CARDIOVASCULAR SYSTEM: Regular rate and rhythm. ABDOMEN: Soft, tender in the midepigastric area as well as the left lower quadrant, nondistended. There are positive bowel sounds. EXTREMITIES: No clubbing, cyanosis, or edema. LABORATORY STUDIES: Include an H&H of 10.1 and 34.2. White blood cell count 15.71, platelet count 543. IMPRESSION: A 31-year-old female with history of left-sided ulcerative colitis with associated epigastric pain, nausea and vomiting. PLAN: At the present time, I would continue her on methylprednisolone 40 mg IV b.i.d. I would also add Protonix 40 mg p.o. b.i.d. to her regimen. I would recommend continuing Zofran 4 mg IV q. 6 p.r.n. nausea and I would recommend limiting the use of narcotic analgesics or other pain medications as they can decrease GI motility and worsen GI symptoms. Once again, thanks for allowing me to participate in the care of this patient. I will follow her clinical course and make further recommendations as needed.
[2017-05-30 15:32] VITALS: BP 118/74; PULSE 106; TEMP 36.6; O2SAT 95
--- NOTE | 2017-05-30 17:40 | Progress Note ---
Internal Med Progress Note Date of Service: May 30, 2017. Provider Documentation: SUBJECTIVE: continues to complain of abdominal pain vomited earlier with liquid diet -mentions of having blood in vomit " I can taste blood in my mouth" pain in abdomen is worse after vomiting went up higher to her chest no improvement with blood in stool and diarrhea ordered for NPO except ice chips and med OBJECTIVE: Vital Signs-as noted below Exam: General-in distress due to abdominal pain Eyes-sclera non icteric ENT-nad Neck-no JVD Lungs-CTA , tenderness on rt chest wall Heart-regular Abdomen-soft, tenderness in lower abdomen , RUQ Extremities-no rash or deformity , complain of diffuse joint pain , no swelling or rash noted Neuro-AAO x3, no focal deficit Lab data as noted below. ASSESSMENT & PLAN: ABDOMINAL PAIN /BLOODY DIARRHEA -due to Inflammatory bowel disease /ulcerative colitis flare pt has been non compliant , stopped taking her med approx 2 yrs back appreciate input form GI -recommends to limit narcotics cont on IV Solumedrol 40 mg BID cont IV Ceftriaxone & Flagyl Patient will need eventual colonoscopy will be done as out patient after acute flare subsides will need outpatient GI follow-up to discuss maintenance therapy & screening for her UC. BLOODY DIARRHEA : due to above ordered for stool studies to include culture, gram stain, & C diff studies. pt mentions of ongoing passage of blood and blood clots unable to provide any stool sample so far Continue to monitor H/H. NAUSEA /VOMITING : mentions of blood in vomit possible jacqueline jazzy ordered for NPO -hold clear diet as it is making her more nauseas ordered PPI RT SIDED CHEST PAIN : No hypoxia , pt mentions of having severe radiating pain form abdomen tenderness on palpation of rt chest wall cont pain control no hypoxia noted ARTHRALGIA /PAIN IN HIP JOINTS ; associated with IBD due to ulcerative colitis flare appreciate input form Rheumatology cont management fo active GI disease which subsequently improved joint pain symptoms cont on IV steroid and later PO prednisone taper as indicated out pt follow up with Rheumatology DVT PROPHYLAXIS scd and teds ambulate DISPOSITION discharge home when medically stable Vital Signs: Date Time Temp Pulse Resp B/P (MAP) Pulse Ox O2 Delivery O2 Flow Rate FiO2 05/30/17 16:00 Room Air 05/30/17 15:32 36.6 106 18 118/74 (89) 95 Room Air 05/30/17 08:00 Room Air 05/30/17 07:24 36.6 77 18 113/75 (88) 100 Room Air 05/30/17 00:30 Room Air 05/29/17 23:38 36.7 92 18 121/82 (95) 98 Room Air 05/29/17 20:09 102 16 136/89 (105) 98 Room Air Lab Results: Results Past 24 Hours Test 05/29/17 18:16 05/30/17 05:23 Range/Units Hemoglobin 9.2 10.1 12.0-16.0 g/dL Hematocrit 31.2 34.2 37-47 % White Blood Count 15.71 4.8-10.8 K/uL Red Blood Count 5.45 4.2-5.4 M/uL Mean Corpuscular Volume 62.8 80-100 fL Mean Corpuscular Hemoglobin 18.5 25-34 pg Mean Corpuscular Hemoglobin Concent 29.5 32-36 g/dl Platelet Count 543 130-400 K/uL Mean Platelet Volume 9.3 7.4-10.4 fL Neutrophils (%) (Auto) 88.8 % Lymphocytes (%) (Auto) 8.8 % Monocytes (%) (Auto) 2.0 % Eosinophils (%) (Auto) 0.0 % Basophils (%) (Auto) 0.1 % Neutrophils # (Auto) 13.96 1.4-6.5 K/uL Lymphocytes # (Auto) 1.38 1.2-3.4 K/uL Monocytes # (Auto) 0.32 0.11-0.59 K/uL Eosinophils # (Auto) 0.00 0-0.5 K/uL Basophils # (Auto) 0.01 0-0.2 K/uL RDW Standard Deviation 38.2 36.4-46.3 fL RDW Coefficient of Variation 17.0 11.5-14.5 % Immature Granulocyte % (Auto) 0.3 % Immature Granulocyte # (Auto) 0.04 0.00-0.02 K/uL Hypochromasia PRESENT Microcytosis PRESENT Ovalocytes 1+
[2017-05-30] MEDS ORDERED: NURSING VERBAL MED ORDER ONE (18:00)
[2017-05-30] MEDS ORDERED: PANTOprazole SOD 40 MG TAB PO SCH (20:00)
[2017-05-30] MEDS: PANTOprazole INJ 40 MG in SYRINGE 0 ML IV SCH (21:01)
[2017-05-30] MEDS: CEFTRIAXONE SOD INJ 1 GM in DEXTROSE 5% ADD-VANTAGE 50ML 50 ML IV SCH (22:34)
[2017-05-30 23:20] VITALS: BP 129/89; PULSE 95; TEMP 36.6; O2SAT 95
[2017-05-31] MEDS: HYDROmorphone INJ 1 MG/ML SYR IV PRN ×4 (02:39→14:07)
[2017-05-31] MEDS: ONDANSETRON INJ 2 MG/ML 2 ML VIAL IV PRN ×4 (03:03→22:31)
[2017-05-31] MEDS: ALPRAZOLAM 0.5 MG TAB PO PRN ×4 (03:03→22:34)
[2017-05-31 05:58] LABS: HEMATOCRIT 28.6 % (37-47); MEAN CELL VOLUME 63.3 fL (80-100); MEAN CORPUSCULAR HEMOGLOBIN 18.4 pg (25-34); MEAN PLATELET VOLUME 9.5 fL (7.4-10.4); PLATELET COUNT 410 K/uL (130-400); RED BLOOD COUNT 4.52 M/uL (4.2-5.4)
[2017-05-31 06:14] LABS: BASO % 0.1 %; BASO ABS # 0.01 K/uL (0-0.2); COMPLETE YES; HYPOCHROMIA PRESENT; IG% 0.4 %; LYMPH % 7.5 %; LYMPH ABS # 0.98 K/uL (1.2-3.4); MICROCYTOSIS PRESENT; MONO % 2.4 %; NEUT % 89.6 %; OVALOCYTES 1+
[2017-05-31 07:27] VITALS: BP 115/78; PULSE 70; TEMP 36.4; O2SAT 96
[2017-05-31] MEDS: PANTOprazole INJ 40 MG in SYRINGE 0 ML IV SCH ×2 (08:00→20:55)
[2017-05-31] MEDS: CYCLOBENZAPRINE HCL 10 MG TAB PO SCH ×4 (08:00→20:01)
[2017-05-31] MEDS: METRONIDAZOLE / NSS 500 MG in PREMIXED NSS 100 ML IV SCH ×3 (08:00→23:53)
[2017-05-31] MEDS: DULOXETINE HCL 60 MG CAP PO SCH ×2 (08:00→09:15)
[2017-05-31] MEDS: FERROUS SULFATE 325 MG TAB PO SCH ×3 (08:00→17:00)
[2017-05-31] MEDS: METHYLPREDNISOLONE IV 40 MG in SYRINGE 0 ML IV SCH ×2 (08:00→20:03)
[2017-05-31] MEDS: TRAMADOL HCL 50 MG TAB PO PRN (08:01)
[2017-05-31] MEDS: KETOROLAC TROMETHAMINE 15 MG/ML VIAL IV. PRN ×2 (09:17→18:17)
--- NOTE | 2017-05-31 11:22 | GASTROENTEROLOGY PROGRESS NOTE ---
DATE: 05/31/2017 RACE: . I had the pleasure of seeing Sammie Valladares at her bedside today. She continues to complain of midepigastric abdominal pain radiating to her right upper quadrant. She describes the pain as 6/10 in intensity, alleviated with narcotic analgesics. Nursing staff did pull me aside today and is worried that the patient is exhibiting signs of drug-seeking behavior. She currently denies any hematemesis or melena. She does continue to have some bloody bowel movements per the patient. Her H&H this morning did decline to 8.3 and 28.6 from yesterday's of 10.1 and 34.2. She denies any further complaints at this time. REVIEW OF SYSTEMS: Negative x10 system review other than pertinent positives listed in the HPI. PHYSICAL EXAMINATION: VITAL SIGNS: Include a temp 36.4, pulse 70, respirations 16, blood pressure 115/78, and pulse ox 96% on room air. GENERAL: She is awake, cooperative, chronic ill appearing, in no acute distress. HEAD: Normocephalic and atraumatic. EYES: Pupils equally round. Extraocular muscles are intact. ENT: External evaluation of ears and nose is normal. Oropharynx is clear. NECK: Soft and supple. CHEST: Clear to auscultation bilaterally. CARDIOVASCULAR SYSTEM: Regular rate and rhythm. ABDOMEN: Soft. Tender in the mid epigastric area, right upper quadrant and left lower quadrant. Nondistended. There are positive bowel sounds. There is no hepatosplenomegaly or stigmata of chronic liver disease. EXTREMITIES: No clubbing, cyanosis, or edema. LABORATORY DATA: Her laboratory studies from today include the H&H of 8.3 and 28.6. Her white blood cell count is 13.1 and her platelet count is 410. IMPRESSION: This is a 31-year-old female who has a history of ulcerative colitis with continued hematochezia as well as epigastric abdominal pain. PLAN: 1. In regards to her ulcerative colitis and continued hematochezia, I would recommend that she undergo a colonoscopy tomorrow. She will be given a bowel prep tonight and we will evaluate her disease activity with colonoscopy. She will be continued on her current dosing of methylprednisolone 40 mg IV b.i.d. and I will make further recommendations following the above noted testing. 2. In regards to her epigastric abdominal pain, she was started on Protonix 40 mg IV b.i.d. yesterday as well as Carafate 1 gram p.o. q.i.d. I will perform an upper endoscopy tomorrow to further evaluate her symptoms and make further recommendations at that time. I would recommend that nursing staff tries to hold off on giving narcotic analgesics as this can decrease her GI motility and worsen her symptoms. I explained this to the patient as well. She was agitated at this discussion. I would recommend that she be continued on Flagyl and ceftriaxone therapy as per the primary team. I will follow her clinical course and make further recommendations as needed. Once again, thanks for allowing me to participate in the care of this patient. If you have any further questions, please do not hesitate in contacting. STEWART
--- NOTE | 2017-05-31 11:29 | PROGRESS NOTE ---
DATE: 05/31/2017 ADDENDUM She currently denies any hematemesis or melena. She does continue to have some bloody bowel movements per the patient. Her H&H this morning did decline to 8.3 and 28.6 from yesterday's of 10.1 and 34.2. She denies any further complaints at this time. REVIEW OF SYSTEMS: Negative x10 system review other than pertinent positives listed in the HPI. PHYSICAL EXAMINATION: VITAL SIGNS: Include a temp 36.4, pulse 70, respirations 16, blood pressure 115/78, and pulse ox 96% on room air. GENERAL: She is awake, cooperative, chronic ill appearing, in no acute distress. HEAD: Normocephalic and atraumatic. EYES: Pupils equally round. Extraocular muscles are intact. ENT: External evaluation of ears and nose is normal. Oropharynx is clear. NECK: Soft and supple. CHEST: Clear to auscultation bilaterally. CARDIOVASCULAR SYSTEM: Regular rate and rhythm. ABDOMEN: Soft. Tender in the mid epigastric area, right upper quadrant and left lower quadrant. Nondistended. There are positive bowel sounds. There is no hepatosplenomegaly or stigmata of chronic liver disease. EXTREMITIES: No clubbing, cyanosis, or edema. LABORATORY DATA: Her laboratory studies from today include the H&H of 8.3 and 28.6. Her white blood cell count is 13.1 and her platelet count is 410. IMPRESSION: This is a 31-year-old female who has a history of ulcerative colitis with continued hematochezia as well as epigastric abdominal pain. PLAN: 1. In regards to her ulcerative colitis and continued hematochezia, I would recommend that she undergo a colonoscopy tomorrow. She will be given a bowel prep tonight and we will evaluate her disease activity with colonoscopy. She will be continued on her current dosing of methylprednisolone 40 mg IV b.i.d. and I will make further recommendations following the above noted testing. 2. In regards to her epigastric abdominal pain, she was started on Protonix 40 mg IV b.i.d. yesterday as well as Carafate 1 gram p.o. q.i.d. I will perform an upper endoscopy tomorrow to further evaluate her symptoms and make further recommendations at that time. I would recommend that nursing staff tries to hold off on giving narcotic analgesics as this can decrease her GI motility and worsen her symptoms. I explained this to the patient as well. She was agitated at this discussion. I would recommend that she be continued on Flagyl and ceftriaxone therapy as per the primary team. I will follow her clinical course and make further recommendations as needed. Once again, thanks for allowing me to participate in the care of this patient. If you have any further questions, please do not hesitate in contacting.
[2017-05-31] MEDS: SUCRALFATE 1 GM/10 ML UDC PO SCH ×3 (11:49→20:01)
[2017-05-31] MEDS ORDERED: NURSING VERBAL MED ORDER ONE (15:00)
[2017-05-31 15:20] VITALS: O2SAT 96
--- NOTE | 2017-05-31 15:29 | Progress Note ---
Medicine Progress Note Date & Time of Visit: May 31, 2017 at 15:05. Subjective Pt was seen and examined Lying in bed complaint of abdominal pain Pt said that she is having a lot of abdominal pain she said that she has been having episode of bloody stool she said that she is vomiting bile with trace of blood Objective Last 8 Hrs Date Time Temp Pulse Resp B/P (MAP) Pulse Ox O2 Delivery O2 Flow Rate FiO2 05/31/17 09:06 Room Air 05/31/17 07:27 36.4 70 16 115/78 (90) 96 Room Air Physical Exam: General- No acute distress Head- atraumatic Eyes- PERRL, EOMI ENT- oropharynx clear Neck- supple, no JVD Lungs- clear to auscultation Heart- regular rhythm; no murmur Abdomen- normal bowel sounds, +tenderness Extremities-no calf tenderness Neuro- alert, oriented x 3; PERRL, EOMI; no facial palsy Skin- warm & dry Laboratory Results: Last 24 Hours Test 05/31/17 05:04 White Blood Count 13.10 K/uL Red Blood Count 4.52 M/uL Hemoglobin 8.3 g/dL Hematocrit 28.6 % Mean Corpuscular Volume 63.3 fL Mean Corpuscular Hemoglobin 18.4 pg Mean Corpuscular Hemoglobin Concent 29.0 g/dl Platelet Count 410 K/uL Mean Platelet Volume 9.5 fL Neutrophils (%) (Auto) 89.6 % Lymphocytes (%) (Auto) 7.5 % Monocytes (%) (Auto) 2.4 % Eosinophils (%) (Auto) 0.0 % Basophils (%) (Auto) 0.1 % Neutrophils # (Auto) 11.74 K/uL Lymphocytes # (Auto) 0.98 K/uL Monocytes # (Auto) 0.32 K/uL Eosinophils # (Auto) 0.00 K/uL Basophils # (Auto) 0.01 K/uL RDW Standard Deviation 38.7 fL RDW Coefficient of Variation 17.0 % Immature Granulocyte % (Auto) 0.4 % Immature Granulocyte # (Auto) 0.05 K/uL Hypochromasia PRESENT Microcytosis PRESENT Ovalocytes 1+ Assessment & Plan ABDOMINAL PAIN /BLOODY DIARRHEA Has been having multiples episodes Due to Inflammatory bowel disease /ulcerative colitis flare Non compliant has not seen GI for about 2 yrs Stools sample has not collected because pt has not been provided any sample GI on board As per GI recommended to reduce the amount of narcotic due to decrease GI motility Will decrease Dilaudid to 0.5 mg cont on IV Solumedrol 40 mg BID cont IV Ceftriaxone & Flagyl Monitor CBC Bowel prep tonight Keep NPO schedule for colonoscopy in am NAUSEA /VOMITING Mentioned of trace of blood NPO continue PPI monitor H/H schedule for EGD in am ATYPICAL RT SIDED CHEST PAIN tenderness on palpation of rt chest wall cont pain control no hypoxia noted ARTHRALGIA /PAIN IN HIP JOINTS ; associated with IBD due to ulcerative colitis flare Rheumatology ON board cont management fo active GI disease which subsequently improved joint pain symptoms cont on IV steroid Will follow with Rheumatology as an outpatient Anemia Low iron level Hbg 8.3 will transfuse if h/h drops below 8 monitor H/H Continue iron supplement DVT PROPHYLAXIS scd and teds ambulate DISPOSITION discharge home when medically stable Consultants: Gastro Rheumatology Current Inpatient Medications: Current Inpatient Medications Medications (Trade) Dose Ordered Sig/Sally Route Start Time Stop Time Status Last Admin Dose Admin Ioversol (Optiray 320) 111 ml UD PRN IV 05/28/17 16:00 06/01/17 15:59 Ceftriaxone Sodium 1 gm/ Dextrose 50 ml @ 100 mls/hr DAILY@2300 IV 05/29/17 00:15 06/08/17 00:14 05/30/17 22:34 100 MLS/HR Metronidazole 500 mg/Prmx 100 ml @ 100 mls/hr Q8H IV 05/29/17 00:00 06/08/17 00:00 05/31/17 08:00 100 MLS/HR Ketorolac Tromethamine (Toradol Inj) 15 mg Q6H PRN IV. 05/28/17 23:45 06/02/17 23:44 05/31/17 09:17 15 MG Ondansetron HCl (Zofran Inj) 4 mg Q6H PRN IV 05/28/17 23:45 06/27/17 23:44 05/31/17 09:12 4 MG Tramadol HCl (Ultram Tab) not relieved by tylenol @ Q6H PRN PO 05/28/17 23:45 06/27/17 23:44 Duloxetine HCl (Cymbalta Cap) 120 mg DAILY PO 05/29/17 08:00 06/28/17 08:59 05/30/17 09:14 120 MG Lamotrigine (Lamictal Tab) 200 mg DAILY PO 05/29/17 08:00 06/28/17 08:59 05/30/17 09:15 200 MG Acetaminophen (Tylenol Tab) 650 mg Q4H PRN PO 05/28/17 23:45 06/27/17 23:44 Ibuprofen (Advil Tab) 400 mg Q6H PRN PO 05/29/17 00:00 06/28/17 00:00 Promethazine HCl 12.5 mg/Sodium Chloride 50.5 ml @ 204 mls/hr Q6H PRN IV 05/29/17 04:45 06/28/17 04:44 Methylprednisolone Sodium Succinate 40 mg/Syringe 0.64 ml @ 1.5 mls/min BID IV 05/29/17 20:00 06/28/17 19:59 05/31/17 08:00 1.5 MLS/MIN Ferrous Sulfate (Feosol Tab) 325 mg BIDM PO 05/29/17 17:00 06/28/17 16:59 05/30/17 17:27 325 MG Cyclobenzaprine HCl (Flexeril Tab) 10 mg TID PO 05/29/17 20:00 06/28/17 19:59 05/30/17 21:01 10 MG Alprazolam (Xanax Tab) 0.5 mg Q6H PRN PO 05/29/17 18:00 06/28/17 17:59 05/31/17 09:12 0.5 MG Pantoprazole Sodium 40 mg/ Syringe 10 ml @ 5 mls/min DAILY@21 IV 05/30/17 21:00 06/29/17 20:59 05/31/17 08:00 5 MLS/MIN Sucralfate (Carafate Susp) 1 gm QID PO 05/31/17 12:00 06/30/17 11:59 05/31/17 11:49 1 GM Polyethylene (Polyethylene Glycol) 119 gm TODAY@0200,2000 PO 05/31/17 20:00 06/01/17 02:01 Hydromorphone HCl (Dilaudid Inj) 0.5 mg Q3HWA PRN IV 05/31/17 15:15 06/14/17 15:14
[2017-05-31 16:15] VITALS: BP 131/85; PULSE 81; TEMP 36.7; O2SAT 98
[2017-05-31] MEDS: HYDROmorphone INJ 0.5 MG/0.5 ML SYR IV PRN ×3 (17:24→23:54)
[2017-05-31] MEDS: POLYETHYLENE GLYCER PWD 238 GM BTL PO SCH (20:01)
[2017-05-31] MEDS: CEFTRIAXONE SOD INJ 1 GM in DEXTROSE 5% ADD-VANTAGE 50ML 50 ML IV SCH (22:42)
[2017-05-31 23:41] VITALS: BP 115/79; PULSE 75; TEMP 36.6; O2SAT 94
[2017-06-01] MEDS: POLYETHYLENE GLYCER PWD 238 GM BTL PO SCH (01:36)
[2017-06-01] MEDS: HYDROmorphone INJ 0.5 MG/0.5 ML SYR IV PRN ×5 (03:31→22:23)
[2017-06-01] MEDS: ONDANSETRON INJ 2 MG/ML 2 ML VIAL IV PRN ×2 (04:26→19:02)
[2017-06-01] MEDS: ALPRAZOLAM 0.5 MG TAB PO PRN ×3 (04:36→23:45)
[2017-06-01 06:08] LABS: BASO % 0.1 %; BASO ABS # 0.01 K/uL (0-0.2); IG% 0.3 %; LYMPH % 10.7 %; LYMPH ABS # 1.32 K/uL (1.2-3.4); MEAN CELL VOLUME 62.2 fL (80-100); MEAN CORPUSCULAR HEMOGLOBIN 18.5 pg (25-34); MEAN CORPUSCULAR HGB CONC 29.7 g/dl (32-36); MONO % 7.6 %; NEUT % 81.3 %; PLATELET COUNT 421 K/uL (130-400); RED BLOOD COUNT 4.98 M/uL (4.2-5.4); WHITE BLOOD COUNT 12.29 K/uL (4.8-10.8)
[2017-06-01 07:00] LABS: ANISOCYTOSIS PRESENT; COMPLETE YES; HYPOCHROMIA PRESENT; MICROCYTOSIS PRESENT; OVALOCYTES 1+
[2017-06-01 07:21] VITALS: BP 120/77; PULSE 69; TEMP 36.5; O2SAT 99
[2017-06-01] MEDS: METRONIDAZOLE / NSS 500 MG in PREMIXED NSS 100 ML IV SCH ×3 (09:20→23:45)
[2017-06-01] MEDS: PANTOprazole INJ 40 MG in SYRINGE 0 ML IV SCH (09:20)
[2017-06-01] MEDS: METHYLPREDNISOLONE IV 40 MG in SYRINGE 0 ML IV SCH ×2 (09:21→20:14)
[2017-06-01] MEDS: SUCRALFATE 1 GM/10 ML UDC PO SCH ×4 (09:26→20:14)
[2017-06-01] MEDS: DULOXETINE HCL 60 MG CAP PO SCH (09:26)
[2017-06-01] MEDS: FERROUS SULFATE 325 MG TAB PO SCH ×2 (09:27→17:45)
[2017-06-01] MEDS: CYCLOBENZAPRINE HCL 10 MG TAB PO SCH ×3 (09:27→20:15)
[2017-06-01 09:42] VITALS: BP 120/77; PULSE 69; TEMP 36.5; O2SAT 99
[2017-06-01] MEDS: KETOROLAC TROMETHAMINE 15 MG/ML VIAL IV. PRN (09:53)
[2017-06-01] MEDS: PROMETHAZINE HCL INJ 12.5 MG in SODIUM CHLORIDE 0.9% 50ML 50 ML IV PRN ×2 (10:45→23:45)
[2017-06-01] MEDS ORDERED: PROPOFOL IV EMULSION 10 MG/ML 20 ML VIAL IV ONE ×3 (11:53→13:24)
[2017-06-01] MEDS ORDERED: LIDOCAINE HCL 2% 2 ML VIAL (20MG/ML) ONE ×2 (11:53→12:09)
[2017-06-01] MEDS ORDERED: ONDANSETRON INJ 2 MG/ML 2 ML VIAL ONE (12:09)
[2017-06-01] MEDS ORDERED: DEXAMETHASONE SOD INJ 4 MG/ML VIAL ONE ×2 (12:09)
[2017-06-01] MEDS ORDERED: MIDAZOLAM HCL 1 MG/ML 2ML VIAL ONE (12:40)
--- NOTE | 2017-06-01 12:59 | Gastroenterology Progress Note ---
Progress Note Date of Service: Jun 01, 2017 Subjective Pt evaluation today including: conversation w/ patient, physical exam, chart review, review of inpatient medication list Continues to complain of midepigastric abdominal pain, 4/10 in intensity, radiating to RUQ, alleviated with Narcotic analgesia. Continued hematochezia. Review of Systems Constitutional: No fever, No chills Abdomen: + pain, + diarrhea, + GI bleeding, No nausea, No vomiting Medications Current Inpatient Medications Medications (Trade) Dose Ordered Sig/Sally Route Start Time Stop Time Status Last Admin Dose Admin Ioversol (Optiray 320) 111 ml UD PRN IV 05/28/17 16:00 06/01/17 15:59 Ceftriaxone Sodium 1 gm/ Dextrose 50 ml @ 100 mls/hr DAILY@2300 IV 05/29/17 00:15 06/08/17 00:14 05/31/17 22:42 100 MLS/HR Metronidazole 500 mg/Prmx 100 ml @ 100 mls/hr Q8H IV 05/29/17 00:00 06/08/17 00:00 06/01/17 09:20 100 MLS/HR Ketorolac Tromethamine (Toradol Inj) 15 mg Q6H PRN IV. 05/28/17 23:45 06/02/17 23:44 06/01/17 09:53 15 MG Ondansetron HCl (Zofran Inj) 4 mg Q6H PRN IV 05/28/17 23:45 06/27/17 23:44 06/01/17 04:26 4 MG Tramadol HCl (Ultram Tab) not relieved by tylenol @ Q6H PRN PO 05/28/17 23:45 06/27/17 23:44 Duloxetine HCl (Cymbalta Cap) 120 mg DAILY PO 05/29/17 08:00 06/28/17 08:59 06/01/17 09:26 120 MG Lamotrigine (Lamictal Tab) 200 mg DAILY PO 05/29/17 08:00 06/28/17 08:59 06/01/17 09:26 200 MG Acetaminophen (Tylenol Tab) 650 mg Q4H PRN PO 05/28/17 23:45 06/27/17 23:44 Ibuprofen (Advil Tab) 400 mg Q6H PRN PO 05/29/17 00:00 06/28/17 00:00 Promethazine HCl 12.5 mg/Sodium Chloride 50.5 ml @ 204 mls/hr Q6H PRN IV 05/29/17 04:45 06/28/17 04:44 06/01/17 10:45 204 MLS/HR Methylprednisolone Sodium Succinate 40 mg/Syringe 0.64 ml @ 1.5 mls/min BID IV 05/29/17 20:00 06/28/17 19:59 06/01/17 09:21 1.5 MLS/MIN Ferrous Sulfate (Feosol Tab) 325 mg BIDM PO 05/29/17 17:00 06/28/17 16:59 05/30/17 17:27 325 MG Cyclobenzaprine HCl (Flexeril Tab) 10 mg TID PO 05/29/17 20:00 06/28/17 19:59 05/31/17 20:01 10 MG Alprazolam (Xanax Tab) 0.5 mg Q6H PRN PO 05/29/17 18:00 06/28/17 17:59 06/01/17 04:36 0.5 MG Pantoprazole Sodium 40 mg/ Syringe 10 ml @ 5 mls/min DAILY@09,21 IV 05/30/17 21:00 06/29/17 20:59 06/01/17 09:20 5 MLS/MIN Sucralfate (Carafate Susp) 1 gm QID PO 05/31/17 12:00 06/30/17 11:59 05/31/17 20:01 1 GM Hydromorphone HCl (Dilaudid Inj) 0.5 mg Q3HWA PRN IV 05/31/17 15:15 06/14/17 15:14 06/01/17 06:37 0.5 MG Objective Vital Signs Date Time Temp Pulse Resp B/P (MAP) Pulse Ox O2 Delivery O2 Flow Rate FiO2 06/01/17 11:58 36.6 80 16 124/78 (93) 97 Room Air 80 06/01/17 09:42 36.5 69 16 120/77 99 Room Air 06/01/17 09:20 Room Air 06/01/17 07:21 36.5 69 16 120/77 (91) 99 Room Air 06/01/17 00:00 Room Air 05/31/17 23:41 36.6 75 18 115/79 (91) 94 Room Air 05/31/17 16:15 36.7 81 18 131/85 (100) 98 Room Air 05/31/17 15:20 96 Room Air Physical Exam General Appearance: WD/WN, no apparent distress Respiratory/Chest: lungs clear Cardiovascular: regular rate, rhythm Abdomen: non tender, soft Laboratory Results Last 24 Hours Test 05/31/17 17:28 06/01/17 05:37 Hemoglobin 9.1 g/dL 9.2 g/dL Hematocrit 31.0 % 31.0 % White Blood Count 12.29 K/uL Red Blood Count 4.98 M/uL Mean Corpuscular Volume 62.2 fL Mean Corpuscular Hemoglobin 18.5 pg Mean Corpuscular Hemoglobin Concent 29.7 g/dl Platelet Count 421 K/uL Mean Platelet Volume 9.0 fL Neutrophils (%) (Auto) 81.3 % Lymphocytes (%) (Auto) 10.7 % Monocytes (%) (Auto) 7.6 % Eosinophils (%) (Auto) 0.0 % Basophils (%) (Auto) 0.1 % Neutrophils # (Auto) 9.99 K/uL Lymphocytes # (Auto) 1.32 K/uL Monocytes # (Auto) 0.93 K/uL Eosinophils # (Auto) 0.00 K/uL Basophils # (Auto) 0.01 K/uL RDW Standard Deviation 38.0 fL RDW Coefficient of Variation 17.1 % Immature Granulocyte % (Auto) 0.3 % Immature Granulocyte # (Auto) 0.04 K/uL Hypochromasia PRESENT Anisocytosis PRESENT Microcytosis PRESENT Ovalocytes 1+ Assessment and Plan Assessment: 31 yo CF with Ulcerative colitis, hematochezia and Epigastric abdominal pain. Plan: Proceed with EGD and Colonoscopy.
--- NOTE | 2017-06-01 13:36 | GI REPORT ---
Procedure Date: 06/01/2017 12:34 PM Procedure: Colonoscopy Indications: Ulcerative colitis Medicines: Monitored Anesthesia Care Complications: No immediate complications. Estimated Blood Loss: Estimated blood loss: none. Procedure: Pre-Anesthesia Assessment: - Prior to the procedure, a History and Physical was performed, and patient medications and allergies were reviewed. The patient's tolerance of previous anesthesia was also reviewed. The risks and benefits of the procedure and the sedation options and risks were discussed with the patient. All questions were answered, and informed consent was obtained. Prior Anticoagulants: The patient has taken no previous anticoagulant or antiplatelet agents. ASA Grade Assessment: II - A patient with mild systemic disease. After reviewing the risks and benefits, the patient was deemed in satisfactory condition to undergo the procedure. After I obtained informed consent, the scope was passed under direct vision. Throughout the procedure, the patient's blood pressure, pulse, and oxygen saturations were monitored continuously. The On-site loaner was introduced through the anus and advanced to the terminal ileum. The colonoscopy was performed without difficulty. The patient tolerated the procedure well. The quality of the bowel preparation was good. The terminal ileum, the ileocecal valve and the appendiceal orifice were photographed. Findings: Inflammation characterized by erosions, erythema and friability was found in a continuous and circumferential pattern from the anus to the sigmoid colon. This was moderate in severity. Biopsies were taken with a cold forceps for histology. Several random biopsies were obtained with cold forceps for histology in the descending colon, in the transverse colon, in the ascending colon and in the cecum. Impression: - Inflammation was found from the anus to the sigmoid colon secondary to proctosigmoid ulcerative colitis. Biopsied. - Several random biopsies were obtained in the descending colon, in the transverse colon, in the ascending colon and in the cecum. Recommendation: - Resume previous diet. - Continue present medications. - Return patient to [facility] for ongoing care. Gibran Izquierdo DO 06/01/2017 1:35:21 PM This report has been signed electronically. Note Initiated On: 06/01/2017 12:34 PM I attest to the content of the Intraoperative Record and orders documented therein, exceptions below
--- NOTE | 2017-06-01 13:58 | GI REPORT ---
Procedure Date: 06/01/2017 12:34 PM Procedure: Upper GI endoscopy Indications: Epigastric abdominal pain Medicines: Monitored Anesthesia Care Complications: No immediate complications. Estimated Blood Loss: Estimated blood loss: none. Procedure: Pre-Anesthesia Assessment: - Prior to the procedure, a History and Physical was performed, and patient medications and allergies were reviewed. The patient's tolerance of previous anesthesia was also reviewed. The risks and benefits of the procedure and the sedation options and risks were discussed with the patient. All questions were answered, and informed consent was obtained. Prior Anticoagulants: The patient has taken no previous anticoagulant or antiplatelet agents. ASA Grade Assessment: II - A patient with mild systemic disease. After reviewing the risks and benefits, the patient was deemed in satisfactory condition to undergo the procedure. After obtaining informed consent, the endoscope was passed under direct vision. Throughout the procedure, the patient's blood pressure, pulse, and oxygen saturations were monitored continuously. The scope was introduced through the mouth, and advanced to the second part of duodenum. The upper GI endoscopy was accomplished without difficulty. The patient tolerated the procedure well. Findings: The examined esophagus was normal. Localized mild inflammation characterized by erythema was found in the gastric antrum. Biopsies were taken with a cold forceps for histology. The examined duodenum was normal. Impression: - Normal esophagus. - Gastritis. Biopsied. - Normal examined duodenum. Recommendation: - [facility]. - Await pathology results. - Continue present medications. Gibran Izquierdo DO 06/01/2017 1:57:51 PM This report has been signed electronically. Note Initiated On: 06/01/2017 12:34 PM I attest to the content of the Intraoperative Record and orders documented therein, exceptions below
--- NOTE | 2017-06-01 14:22 | Anesthesiology Progress Note ---
Anesthesia Post Op Note Date & Time Jun 01, 2017 at 14:22 Vital Signs Pain Intensity: 0 Vital Signs Past 12 Hours Date Time Temp Pulse Resp B/P (MAP) Pulse Ox O2 Delivery O2 Flow Rate FiO2 06/01/17 14:02 70 20 97/66 (76) 98 Room Air 06/01/17 13:47 73 20 93/64 (74) 97 Room Air 06/01/17 13:32 85 20 93/59 (70) 99 Room Air 06/01/17 11:58 36.6 80 16 124/78 (93) 97 Room Air 80 06/01/17 09:42 36.5 69 16 120/77 99 Room Air 06/01/17 09:20 Room Air 06/01/17 07:21 36.5 69 16 120/77 (91) 99 Room Air Notes Mental Status: alert / awake / arousable, participated in evaluation Pt Amnestic to Procedure: Yes Nausea / Vomiting: adequately controlled Pain: adequately controlled Airway Patency, RR, SpO2: stable & adequate BP & HR: stable & adequate Hydration State: stable & adequate Anesthetic Complications: no major complications apparent
[2017-06-01 14:30] VITALS: BP 128/87; PULSE 73; TEMP 36.4; O2SAT 99
[2017-06-01 15:01] VITALS: BP 134/86; PULSE 68; TEMP 36.4; O2SAT 100
[2017-06-01 15:48] VITALS: BP 122/84; PULSE 98; TEMP 36.6; O2SAT 97
[2017-06-01 16:48] VITALS: BP 131/81; PULSE 98; TEMP 36.7; O2SAT 100
--- NOTE | 2017-06-01 18:53 | Progress Note ---
Medicine Progress Note Date & Time of Visit: Jun 01, 2017 at 18:33. Subjective Pt was seen and examined lying in bed with no distress with mother at bedside pt said that she continues to have abdominal pain she said that pain is the same continue to have diarrhea, but she thinks the diarrhea might be related to the bowel prep denies any chest pain, palpitation and sob Objective Last 8 Hrs Date Time Temp Pulse Resp B/P (MAP) Pulse Ox O2 Delivery O2 Flow Rate FiO2 06/01/17 16:48 36.7 98 18 131/81 (98) 100 Room Air 06/01/17 16:00 Room Air 06/01/17 15:48 36.6 98 18 122/84 (97) 97 Room Air 06/01/17 15:01 36.4 68 18 134/86 (102) 100 Room Air 06/01/17 14:30 36.4 73 18 128/87 (101) 99 Room Air 06/01/17 14:02 70 20 97/66 (76) 98 Room Air 06/01/17 13:47 73 20 93/64 (74) 97 Room Air 06/01/17 13:32 85 20 93/59 (70) 99 Room Air 06/01/17 11:58 36.6 80 16 124/78 (93) 97 Room Air 80 Physical Exam: General- No acute distress Head- atraumatic Eyes- PERRL, EOMI ENT- oropharynx clear Neck- supple, no JVD Lungs- clear to auscultation Heart- regular rhythm; no murmur Abdomen- normal bowel sounds, +tenderness Extremities-no calf tenderness Neuro- alert, oriented x 3; PERRL, EOMI; no facial palsy Skin- warm & dry Laboratory Results: Last 24 Hours Test 06/01/17 05:37 White Blood Count 12.29 K/uL Red Blood Count 4.98 M/uL Hemoglobin 9.2 g/dL Hematocrit 31.0 % Mean Corpuscular Volume 62.2 fL Mean Corpuscular Hemoglobin 18.5 pg Mean Corpuscular Hemoglobin Concent 29.7 g/dl Platelet Count 421 K/uL Mean Platelet Volume 9.0 fL Neutrophils (%) (Auto) 81.3 % Lymphocytes (%) (Auto) 10.7 % Monocytes (%) (Auto) 7.6 % Eosinophils (%) (Auto) 0.0 % Basophils (%) (Auto) 0.1 % Neutrophils # (Auto) 9.99 K/uL Lymphocytes # (Auto) 1.32 K/uL Monocytes # (Auto) 0.93 K/uL Eosinophils # (Auto) 0.00 K/uL Basophils # (Auto) 0.01 K/uL RDW Standard Deviation 38.0 fL RDW Coefficient of Variation 17.1 % Immature Granulocyte % (Auto) 0.3 % Immature Granulocyte # (Auto) 0.04 K/uL Hypochromasia PRESENT Anisocytosis PRESENT Microcytosis PRESENT Ovalocytes 1+ Assessment & Plan ABDOMINAL PAIN /BLOODY DIARRHEA Has been having multiples episodes Due to Inflammatory bowel disease /ulcerative colitis flare Non compliant has not seen GI for about 2 yrs Stools sample has not collected because pt has not been provided any sample GI on board As per GI recommended to reduce the amount of narcotic due to decrease GI motility Will decrease Dilaudid to 0.5 mg cont on IV Solumedrol 40 mg BID cont IV Ceftriaxone & Flagyl Monitor CBC resume clear liquid diet Will need to follow with GI as an outpatient Colonoscopy done today showed: Inflammation characterized by erosions, erythema and friability was found in a continuous and circumferential pattern from the anus to the sigmoid colon NAUSEA /VOMITING Mentioned of trace of blood continue PPI monitor H/H Resume clear liquid diet and advanced as tolerated EGD done today showed: Localized mild inflammation characterized by erythema was found in the gastric antrum. ATYPICAL RT SIDED CHEST PAIN tenderness on palpation of rt chest wall cont pain control no hypoxia noted ARTHRALGIA /PAIN IN HIP JOINTS ; associated with IBD due to ulcerative colitis flare Rheumatology ON board cont management fo active GI disease which subsequently improved joint pain symptoms cont on IV steroid Will follow with Rheumatology as an outpatient Anemia Low iron level Hbg 9.2- stable will transfuse if h/h drops below 8 monitor H/H Continue iron supplement DVT PROPHYLAXIS scd and teds ambulate DISPOSITION discharge home when medically stable Consultants: Gastro Rheumatology Procedures: Colonoscopy and EGD Current Inpatient Medications: Current Inpatient Medications Medications (Trade) Dose Ordered Sig/Sally Route Start Time Stop Time Status Last Admin Dose Admin Ceftriaxone Sodium 1 gm/ Dextrose 50 ml @ 100 mls/hr DAILY@2300 IV 05/29/17 00:15 06/08/17 00:14 05/31/17 22:42 100 MLS/HR Metronidazole 500 mg/Prmx 100 ml @ 100 mls/hr Q8H IV 05/29/17 00:00 06/08/17 00:00 06/01/17 15:37 100 MLS/HR Ketorolac Tromethamine (Toradol Inj) 15 mg Q6H PRN IV. 05/28/17 23:45 06/02/17 23:44 06/01/17 09:53 15 MG Ondansetron HCl (Zofran Inj) 4 mg Q6H PRN IV 05/28/17 23:45 06/27/17 23:44 06/01/17 04:26 4 MG Tramadol HCl (Ultram Tab) not relieved by tylenol @ Q6H PRN PO 05/28/17 23:45 06/27/17 23:44 Duloxetine HCl (Cymbalta Cap) 120 mg DAILY PO 05/29/17 08:00 06/28/17 08:59 06/01/17 09:26 120 MG Lamotrigine (Lamictal Tab) 200 mg DAILY PO 05/29/17 08:00 06/28/17 08:59 06/01/17 09:26 200 MG Acetaminophen (Tylenol Tab) 650 mg Q4H PRN PO 05/28/17 23:45 06/27/17 23:44 Ibuprofen (Advil Tab) 400 mg Q6H PRN PO 05/29/17 00:00 06/28/17 00:00 Promethazine HCl 12.5 mg/Sodium Chloride 50.5 ml @ 204 mls/hr Q6H PRN IV 05/29/17 04:45 06/28/17 04:44 06/01/17 10:45 204 MLS/HR Methylprednisolone Sodium Succinate 40 mg/Syringe 0.64 ml @ 1.5 mls/min BID IV 05/29/17 20:00 06/28/17 19:59 06/01/17 09:21 1.5 MLS/MIN Ferrous Sulfate (Feosol Tab) 325 mg BIDM PO 05/29/17 17:00 06/28/17 16:59 06/01/17 17:45 325 MG Cyclobenzaprine HCl (Flexeril Tab) 10 mg TID PO 05/29/17 20:00 06/28/17 19:59 05/31/17 20:01 10 MG Alprazolam (Xanax Tab) 0.5 mg Q6H PRN PO 05/29/17 18:00 06/28/17 17:59 06/01/17 17:44 0.5 MG Pantoprazole Sodium 40 mg/ Syringe 10 ml @ 5 mls/min DAILY@,21 IV 05/30/17 21:00 06/29/17 20:59 06/01/17 09:20 5 MLS/MIN Sucralfate (Carafate Susp) 1 gm QID PO 05/31/17 12:00 06/30/17 11:59 06/01/17 17:44 1 GM Hydromorphone HCl (Dilaudid Inj) 0.5 mg Q3HWA PRN IV 05/31/17 15:15 06/14/17 15:14 06/01/17 15:35 0.5 MG
[2017-06-01] MEDS: CEFTRIAXONE SOD INJ 1 GM in DEXTROSE 5% ADD-VANTAGE 50ML 50 ML IV SCH (22:22)
[2017-06-02 00:06] VITALS: BP 133/89; PULSE 68; TEMP 36.8; O2SAT 94
[2017-06-02] MEDS: HYDROmorphone INJ 0.5 MG/0.5 ML SYR IV PRN ×2 (01:27→04:31)
[2017-06-02] MEDS: ONDANSETRON INJ 2 MG/ML 2 ML VIAL IV PRN ×3 (04:31→20:45)
[2017-06-02 06:02] LABS: BASO % 0.1 %; BASO ABS # 0.01 K/uL (0-0.2); HEMATOCRIT 32.8 % (37-47); IG% 0.3 %; LYMPH % 8.6 %; MEAN CELL VOLUME 62.6 fL (80-100); MEAN CORPUSCULAR HEMOGLOBIN 18.3 pg (25-34); MEAN CORPUSCULAR HGB CONC 29.3 g/dl (32-36); MEAN PLATELET VOLUME 9.3 fL (7.4-10.4); MONO % 8.4 %; NEUT % 82.6 %; PLATELET COUNT 407 K/uL (130-400); RED BLOOD COUNT 5.24 M/uL (4.2-5.4)
[2017-06-02] MEDS: ALPRAZOLAM 0.5 MG TAB PO PRN (06:33)
[2017-06-02] MEDS: PROMETHAZINE HCL INJ 12.5 MG in SODIUM CHLORIDE 0.9% 50ML 50 ML IV PRN (06:33)
[2017-06-02 06:35] LABS: COMPLETE YES; HYPOCHROMIA PRESENT; MICROCYTOSIS PRESENT; OVALOCYTES 1+; VACUOLIZATION 1+
[2017-06-02 07:18] VITALS: BP 120/78; PULSE 79; TEMP 36.9; O2SAT 99
[2017-06-02] MEDS: METRONIDAZOLE / NSS 500 MG in PREMIXED NSS 100 ML IV SCH ×3 (09:33→23:53)
[2017-06-02] MEDS: METHYLPREDNISOLONE IV 40 MG in SYRINGE 0 ML IV SCH ×2 (09:37→20:45)
[2017-06-02] MEDS: CYCLOBENZAPRINE HCL 10 MG TAB PO SCH ×3 (09:38→20:44)
[2017-06-02] MEDS: FERROUS SULFATE 325 MG TAB PO SCH ×2 (09:38→16:39)
[2017-06-02] MEDS: DULOXETINE HCL 60 MG CAP PO SCH (09:38)
[2017-06-02] MEDS: SUCRALFATE 1 GM/10 ML UDC PO SCH ×4 (09:38→20:45)
--- NOTE | 2017-06-02 10:50 | Progress Note ---
Medicine Progress Note Date & Time of Visit: Jun 02, 2017 at 10:34. (Regina Redmond, P.A.-C.) Subjective Patient seen and examined. Continued to experience bloody episodes of diarrhea with associated abd pain, followed by nausea and vomiting. Endorsed 3 episodes overnight, with the last one occurring at 6 am. Was tearful and anxious about returning home without narcotics (patient has self -identified dependence on narcotics and wants to d/c all use). Has noticed some improvement with appetite while on anti-emetics. Denies lightheadedness, CP, SOB, hematemesis. (Regina Redmond, P.A.-C.) Objective Last 8 Hrs Date Time Temp Pulse Resp B/P (MAP) Pulse Ox O2 Delivery O2 Flow Rate FiO2 06/02/17 07:18 36.9 79 16 120/78 (92) 99 Room Air Physical Exam: General Appearance: WD/WN, +mild distress. Tearful 2/2 anxiety. Head: normocephalic, atraumatic Eyes: normal inspection, PERRL ENT: hearing grossly normal, Neck: supple, no JVD, no adenopathy Respiratory/Chest: lungs clear to auscultation. No wheezes, rales or rhonci. No respiratory distress or accessory muscle use Cardiovascular: regular rate, rhythm, no murmur, normal peripheral pulses Abdomen/GI: normal bowel sounds, soft, Tender to palpation of bilateral lower quadrants, LLQ > RLQ Extremities/Musculoskelatal: normal inspection, no calf tenderness, normal capillary refill, no pedal edema Neurologic/Psych: alert, oriented x 3. Anxious with tearful episodes during interview Skin: normal color, warm/dry Laboratory Results: Last 24 Hours Test 06/02/17 05:44 White Blood Count 13.90 K/uL Red Blood Count 5.24 M/uL Hemoglobin 9.6 g/dL Hematocrit 32.8 % Mean Corpuscular Volume 62.6 fL Mean Corpuscular Hemoglobin 18.3 pg Mean Corpuscular Hemoglobin Concent 29.3 g/dl Platelet Count 407 K/uL Mean Platelet Volume 9.3 fL Neutrophils (%) (Auto) 82.6 % Lymphocytes (%) (Auto) 8.6 % Monocytes (%) (Auto) 8.4 % Eosinophils (%) (Auto) 0.0 % Basophils (%) (Auto) 0.1 % Neutrophils # (Auto) 11.48 K/uL Lymphocytes # (Auto) 1.20 K/uL Monocytes # (Auto) 1.17 K/uL Eosinophils # (Auto) 0.00 K/uL Basophils # (Auto) 0.01 K/uL RDW Standard Deviation 38.7 fL RDW Coefficient of Variation 17.2 % Immature Granulocyte % (Auto) 0.3 % Immature Granulocyte # (Auto) 0.04 K/uL Toxic Vacuolation 1+ Hypochromasia PRESENT Microcytosis PRESENT Ovalocytes 1+ Date/Time Source Procedure Growth Status 06/01/17 22:27 Stool Gram Stain - Final Complete (Regina Redmond, P.A.-C.) Assessment & Plan Bloody diarrhea/abdominal pain: -Continues to have multiples episodes/day -2/2 to Inflammatory bowel disease /ulcerative colitis flare -Non-compliant; has not seen GI for about 2 yrs -Stools sample has not collected because pt has not been provided any sample -GI on board; recommended to reduce the amount of narcotic due to decrease GI motility -Colonoscopy (06/01/17): "inflammation characterized by erosions, erythema and friability...was found in a continuous and circumferential pattern from anus to sigmoid colon" -Stopped Dilaudid today to prepare pt for discharge home without narcotics -Pain regimen includes Toradol, Tylenol, tapentadol -Cont on IV Solumedrol 40 mg BID, Ceftriaxone and Flagyl for UC flare -Monitor CBC -Will need to follow with GI as an outpatient Nausea/vomiting: -Associated with episodes of abd pain/bloody diarrhea -Continue PPI -Monitor H/H. -Advance diet as tolerated -EGD (06/01/17): "Localized mild inflammation characterized by erythema was found in the gastric antrum" Anxiety/depression: -H/o depression and anxiety managed by PCP -On Cymbalta, Lamictal as home meds -Has heightened anxiety 2/2 making a decision to stop taking Vicodin at home due to self-identified dependence -Switched from Xanax to Klonopin per pain management recs Opioid withdrawal: -Patient with h/o narcotic dependence -Unable to tolerate side effects of withdrawal at home previous to admission -Has been on Dilaudid as an in-patient for UC Flare. Stopped today -Per pain management recs, will trial Tapentadol and monitor for serotonin syndrome symptoms -If tolerated, will schedule Tapentadol 50mg Q6 -Discussed what to expect while in withdrawal. Patient is motivated. Atypical R-Sided Chest Pain: -Tenderness on palpation of rt chest wall -Cont pain control -No hypoxia noted Arthralgia/Pain in Hip Joints: -Associated with IBD 2/2 UC flare -Rheumatology on board -Cont management for active GI disease which subsequently improved joint pain symptoms -Cont on IV steroid -Will follow with Rheumatology as an out-patient Anemia: -Low iron level -Hbg improved to 9.6; stable -Will transfuse if h/h drops below 8 -Monitor H/H -Continue iron supplement DVT Ppx: SCDs and Teds Code status: FULL Dispo: Plan to return home once medically stable/ Consultants: Gastro Rheumatology Procedures: Colonoscopy and EGD Current Inpatient Medications: Current Inpatient Medications Medications (Trade) Dose Ordered Sig/Sally Route Start Time Stop Time Status Last Admin Dose Admin Ceftriaxone Sodium 1 gm/ Dextrose 50 ml @ 100 mls/hr DAILY@2300 IV 05/29/17 00:15 06/08/17 00:14 06/01/17 22:22 100 MLS/HR Metronidazole 500 mg/Prmx 100 ml @ 100 mls/hr Q8H IV 05/29/17 00:00 06/08/17 00:00 06/02/17 09:33 100 MLS/HR Ketorolac Tromethamine (Toradol Inj) 15 mg Q6H PRN IV. 05/28/17 23:45 06/02/17 23:44 06/01/17 09:53 15 MG Ondansetron HCl (Zofran Inj) 4 mg Q6H PRN IV 05/28/17 23:45 06/27/17 23:44 06/02/17 04:31 4 MG Tramadol HCl (Ultram Tab) not relieved by tylenol @ Q6H PRN PO 05/28/17 23:45 06/27/17 23:44 Duloxetine HCl (Cymbalta Cap) 120 mg DAILY PO 05/29/17 08:00 06/28/17 08:59 06/02/17 09:38 120 MG Lamotrigine (Lamictal Tab) 200 mg DAILY PO 05/29/17 08:00 06/28/17 08:59 06/02/17 09:39 200 MG Acetaminophen (Tylenol Tab) 650 mg Q4H PRN PO 05/28/17 23:45 06/27/17 23:44 Ibuprofen (Advil Tab) 400 mg Q6H PRN PO 05/29/17 00:00 06/28/17 00:00 Promethazine HCl 12.5 mg/Sodium Chloride 50.5 ml @ 204 mls/hr Q6H PRN IV 05/29/17 04:45 06/28/17 04:44 06/02/17 06:33 204 MLS/HR Methylprednisolone Sodium Succinate 40 mg/Syringe 0.64 ml @ 1.5 mls/min BID IV 05/29/17 20:00 06/28/17 19:59 06/02/17 09:37 1.5 MLS/MIN Ferrous Sulfate (Feosol Tab) 325 mg BIDM PO 05/29/17 17:00 06/28/17 16:59 06/02/17 09:38 325 MG Cyclobenzaprine HCl (Flexeril Tab) 10 mg TID PO 05/29/17 20:00 06/28/17 19:59 06/02/17 09:38 10 MG Alprazolam (Xanax Tab) 0.5 mg Q6H PRN PO 05/29/17 18:00 06/28/17 17:59 06/02/17 06:33 0.5 MG Pantoprazole Sodium 40 mg/ Syringe 10 ml @ 5 mls/min DAILY@09,21 IV 05/30/17 21:00 06/29/17 20:59 Future Hold 06/01/17 09:20 5 MLS/MIN Sucralfate (Carafate Susp) 1 gm QID PO 05/31/17 12:00 06/30/17 11:59 06/02/17 09:38 1 GM Lansoprazole (Prevacid Solutab) 30 mg BID SL 06/02/17 08:00 07/02/17 07:59 (Regina Redmond ., P.A.-C.) ATTENDING ADDENDUM care coordinated with FIDE Rosas please refer to her notes for full details, I agree with her notes patient seen and examined, records reviewed by myself as well on exam, patient seen and examined, comfortable, smiling states pain is under control denies nausea, requesting to advance diet no other symptoms VS noted and reviewed oriented x 3, not in distress, speaks in sentences with no effort nor accessory muscle use normal rate, regular rhythm, no murmurs clear breath sounds bilaterally non distended, soft, nontender no bipedal edema, erythema, warmth no neuro deficits WBC 13.9 Hg 9.6 ASSESSMENT/PLAN> ULCERATIVE COLITIS FLARE - continue IV Solumedrol Prednisone taper on discharge - on Ceftri + Metro - transition opiates to Nucynta Xanax to Klonipin - appreciate Pain management input other diagnoses and plan of care as per FIDE Rosas's notes Nelson Bright MD (Nelson Bright MD)
[2017-06-02] MEDS: LANSOPRAZOLE SOLUTAB 30 MG SL SCH ×2 (10:52→20:45)
[2017-06-02] MEDS ORDERED: ALPRAZOLAM 0.5 MG TAB PO PRN (12:00)
--- NOTE | 2017-06-02 12:02 | Gastroenterology Progress Note ---
Progress Note Date of Service: Jun 02, 2017 Subjective Pt evaluation today including: conversation w/ patient, physical exam, lab review, review of studies Patient is a 31 yo female with colitis. The patient underwent an EGD and colonoscopy. Colonoscopy indicated inflammation from the anus to the sigmoid colon. Biopsies are pending. The patient reports nausea & vomiting 3 times in the past 24 hours. She reports she has requested to be off of her pain medications entirely. She is currently on IV steroid therapy. She denies further diarrhea. She reports minimal abdominal pain at present. She offers no further complaints. Review of Systems Constitutional: No fever, No chills Respiratory: No cough, No shortness of breath Cardiac: No chest pain Abdomen: No pain, No nausea, No vomiting Musculoskeletal: + joint pain, No problem reported Psych: No problem reported Skin: No problem reported Medications Current Inpatient Medications Medications (Trade) Dose Ordered Sig/Sally Route Start Time Stop Time Status Last Admin Dose Admin Ceftriaxone Sodium 1 gm/ Dextrose 50 ml @ 100 mls/hr DAILY@2300 IV 05/29/17 00:15 06/08/17 00:14 06/01/17 22:22 100 MLS/HR Metronidazole 500 mg/Prmx 100 ml @ 100 mls/hr Q8H IV 05/29/17 00:00 06/08/17 00:00 06/02/17 09:33 100 MLS/HR Ketorolac Tromethamine (Toradol Inj) 15 mg Q6H PRN IV. 05/28/17 23:45 06/02/17 23:44 06/01/17 09:53 15 MG Ondansetron HCl (Zofran Inj) 4 mg Q6H PRN IV 05/28/17 23:45 06/27/17 23:44 06/02/17 04:31 4 MG Tramadol HCl (Ultram Tab) not relieved by tylenol @ Q6H PRN PO 05/28/17 23:45 06/27/17 23:44 Duloxetine HCl (Cymbalta Cap) 120 mg DAILY PO 05/29/17 08:00 06/28/17 08:59 06/02/17 09:38 120 MG Lamotrigine (Lamictal Tab) 200 mg DAILY PO 05/29/17 08:00 06/28/17 08:59 06/02/17 09:39 200 MG Acetaminophen (Tylenol Tab) 650 mg Q4H PRN PO 05/28/17 23:45 06/27/17 23:44 Ibuprofen (Advil Tab) 400 mg Q6H PRN PO 05/29/17 00:00 06/28/17 00:00 Promethazine HCl 12.5 mg/Sodium Chloride 50.5 ml @ 204 mls/hr Q6H PRN IV 05/29/17 04:45 06/28/17 04:44 06/02/17 06:33 204 MLS/HR Methylprednisolone Sodium Succinate 40 mg/Syringe 0.64 ml @ 1.5 mls/min BID IV 05/29/17 20:00 06/28/17 19:59 06/02/17 09:37 1.5 MLS/MIN Ferrous Sulfate (Feosol Tab) 325 mg BIDM PO 05/29/17 17:00 06/28/17 16:59 06/02/17 09:38 325 MG Cyclobenzaprine HCl (Flexeril Tab) 10 mg TID PO 05/29/17 20:00 06/28/17 19:59 06/02/17 09:38 10 MG Pantoprazole Sodium 40 mg/ Syringe 10 ml @ 5 mls/min DAILY@09,21 IV 05/30/17 21:00 06/29/17 20:59 Future Hold 06/01/17 09:20 5 MLS/MIN Sucralfate (Carafate Susp) 1 gm QID PO 05/31/17 12:00 06/30/17 11:59 06/02/17 09:38 1 GM Lansoprazole (Prevacid Solutab) 30 mg BID SL 06/02/17 08:00 07/02/17 07:59 06/02/17 10:52 30 MG Alprazolam (Xanax Tab) 1 mg Q6H PRN PO 06/02/17 12:00 06/28/17 17:59 Objective Vital Signs Date Time Temp Pulse Resp B/P (MAP) Pulse Ox O2 Delivery O2 Flow Rate FiO2 06/02/17 08:00 Room Air 06/02/17 07:18 36.9 79 16 120/78 (92) 99 Room Air 06/02/17 00:06 36.8 68 16 133/89 (104) 94 Room Air 06/01/17 23:48 Room Air 06/01/17 16:48 36.7 98 18 131/81 (98) 100 Room Air 06/01/17 16:00 Room Air 06/01/17 15:48 36.6 98 18 122/84 (97) 97 Room Air 06/01/17 15:01 36.4 68 18 134/86 (102) 100 Room Air 06/01/17 14:30 36.4 73 18 128/87 (101) 99 Room Air 06/01/17 14:02 70 20 97/66 (76) 98 Room Air 06/01/17 13:47 73 20 93/64 (74) 97 Room Air 06/01/17 13:32 85 20 93/59 (70) 99 Room Air 06/01/17 11:58 36.6 80 16 124/78 (93) 97 Room Air 80 Physical Exam General Appearance: WD/WN, no apparent distress Eyes: normal inspection, PERRL Respiratory/Chest: lungs clear, normal breath sounds Cardiovascular: regular rate, rhythm Abdomen: normal bowel sounds, soft, + tenderness (minimal LLQ ) Extremities: non-tender Neurologic/Psych: alert, oriented x 3 Skin: normal color Laboratory Results Last 24 Hours Test 06/02/17 05:44 White Blood Count 13.90 K/uL Red Blood Count 5.24 M/uL Hemoglobin 9.6 g/dL Hematocrit 32.8 % Mean Corpuscular Volume 62.6 fL Mean Corpuscular Hemoglobin 18.3 pg Mean Corpuscular Hemoglobin Concent 29.3 g/dl Platelet Count 407 K/uL Mean Platelet Volume 9.3 fL Neutrophils (%) (Auto) 82.6 % Lymphocytes (%) (Auto) 8.6 % Monocytes (%) (Auto) 8.4 % Eosinophils (%) (Auto) 0.0 % Basophils (%) (Auto) 0.1 % Neutrophils # (Auto) 11.48 K/uL Lymphocytes # (Auto) 1.20 K/uL Monocytes # (Auto) 1.17 K/uL Eosinophils # (Auto) 0.00 K/uL Basophils # (Auto) 0.01 K/uL RDW Standard Deviation 38.7 fL RDW Coefficient of Variation 17.2 % Immature Granulocyte % (Auto) 0.3 % Immature Granulocyte # (Auto) 0.04 K/uL Toxic Vacuolation 1+ Hypochromasia PRESENT Microcytosis PRESENT Ovalocytes 1+ Assessment and Plan Patient is a 31 yo female who is hospitalized with a flare of her ulcerative colitis. 1) Continue IV Solumedrol while hospitalized. Plan to discharge on an oral Prednisone taper beginning at 40 mg daily and decreasing by 5 mg weekly for a total of 8 weeks. 2) Patient will require outpatient evaluation and plan for maintenance therapy. 3) Supportive care per primary team. Thank you for allowing us to participate in the care of this patient. If you should have any further questions, do not hesitate to contact us. Agree with SAHIL Gamino as above Abd: Soft, NT, ND, +BS Continue current therapy Instructed to followup with our office within 2 weeks of discharge to be started on Maintenance therapy for Ulcerative colitis in addition to her Prednisone taper
[2017-06-02] MEDS: TRAMADOL HCL 50 MG TAB PO PRN ×2 (12:54→22:07)
[2017-06-02] MEDS ORDERED: DIPHENOXYLATE/ATROPINE 2.5/0.025MG TAB PO PRN (16:00)
[2017-06-02 16:04] VITALS: BP 130/84; PULSE 89; TEMP 36.6; O2SAT 94
[2017-06-02] MEDS ORDERED: TAPENTADOL HCL 50 MG TAB PO ONE (16:30)
[2017-06-02] MEDS: CLONAZEPAM 1 MG TAB PO SCH (20:44)
[2017-06-02] MEDS: CEFTRIAXONE SOD INJ 1 GM in DEXTROSE 5% ADD-VANTAGE 50ML 50 ML IV SCH (23:06)
[2017-06-02 23:59] VITALS: BP 145/98; PULSE 77; TEMP 36.5; O2SAT 100
[2017-06-03] MEDS: ONDANSETRON INJ 2 MG/ML 2 ML VIAL IV PRN ×3 (05:14→22:04)
[2017-06-03] MEDS: TRAMADOL HCL 50 MG TAB PO PRN (05:15)
[2017-06-03 07:18] VITALS: BP 130/89; PULSE 64; TEMP 36.5; O2SAT 97
[2017-06-03] MEDS: METHYLPREDNISOLONE IV 40 MG in SYRINGE 0 ML IV SCH ×2 (08:01→19:49)
[2017-06-03] MEDS: METRONIDAZOLE / NSS 500 MG in PREMIXED NSS 100 ML IV SCH (08:01)
[2017-06-03] MEDS: CLONAZEPAM 1 MG TAB PO SCH (08:02)
[2017-06-03] MEDS: LANSOPRAZOLE SOLUTAB 30 MG SL SCH ×2 (08:02→19:50)
[2017-06-03] MEDS: SUCRALFATE 1 GM/10 ML UDC PO SCH ×4 (08:02→19:49)
[2017-06-03] MEDS: CYCLOBENZAPRINE HCL 10 MG TAB PO SCH ×3 (08:03→19:49)
[2017-06-03] MEDS: DULOXETINE HCL 60 MG CAP PO SCH (08:03)
[2017-06-03] MEDS: FERROUS SULFATE 325 MG TAB PO SCH ×2 (08:03→16:20)
--- NOTE | 2017-06-03 08:39 | Pain Management Consultation ---
Pain Management Consultation Date of Consultation Jun 03, 2017. Reason for Consultation Assistance with the pain management and managing symptoms withdrawal after discharge. Pain Location 1 - Diffuse abdominal pain History Sammie Valladares is a 31-year-old female who is admitted to [facility] due to exacerbation of her ulcerative colitis. She experiences chronic abdominal pain with acute episodes with flareups. Her current flareup started several days ago and was treated with symptomatic management including IV hydromorphone for diffuse abdominal pain. She reports that she has been on opiate therapy for prolonged duration with hydrocodone and oxycodone in varying dosages to manage her abdominal pain and multiple large joint pain due to her autoimmune disorder. She further reports that approximately in February, she recognized that she would become dependent on the opiates for more than just analgesia, she elected to discontinue them and participated in a detoxification clinic. She was enrolled in the program for 5 days and then left due to issues with her 12-year-old daughter. She also tried Subutex to mitigate her withdrawal symptoms and at for analgesia without success. She reports experiencing rhinorrhea, constant tearing, abdominal pain, myofascial pain, episodes of anxiety, restlessness, and insomnia. She was able to cope with all the other symptoms of withdrawal however, insomnia and anxiety appears to be intolerable for her. She does have a previous history of depression and anxiety. She denies use of any other opiates and benzodiazepines chronically. She has used alprazolam intermittently for episodes of anxiety in the past. She denies any use of illicit substances in dependence on alcohol or substance abuse disorder. 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 Allergies Coded Allergies: Diphenhydramine (Verified Allergy, Intermediate, Crawling out of skin, 06/01) Levofloxacin (Verified Allergy, Unknown, ., 06/01/17) Morphine (Verified Allergy, Unknown, RASH, 06/01/17) Metoclopramide (Verified Adverse Reaction, Mild, ., 06/01/17) makes skin crawl as per px Promethazine (Verified Adverse Reaction, Mild, ., 06/01/17) makes skin crawl as per px Fentanyl (Verified Adverse Reaction, Unknown, "aggitates me", 06/01/17) Medications Current Inpatient Medications Medications (Trade) Dose Ordered Sig/Sally Route Start Time Stop Time Status Last Admin Dose Admin Ceftriaxone Sodium 1 gm/ Dextrose 50 ml @ 100 mls/hr DAILY@2300 IV 05/29/17 00:15 06/08/17 00:14 06/02/17 23:06 100 MLS/HR Metronidazole 500 mg/Prmx 100 ml @ 100 mls/hr Q8H IV 05/29/17 00:00 06/08/17 00:00 06/02/17 23:53 100 MLS/HR Ondansetron HCl (Zofran Inj) 4 mg Q6H PRN IV 05/28/17 23:45 06/27/17 23:44 06/03/17 05:14 4 MG Tramadol HCl (Ultram Tab) not relieved by tylenol @ Q6H PRN PO 05/28/17 23:45 06/27/17 23:44 06/03/17 05:15 50 MG Duloxetine HCl (Cymbalta Cap) 120 mg DAILY PO 05/29/17 08:00 06/28/17 08:59 06/02/17 09:38 120 MG Lamotrigine (Lamictal Tab) 200 mg DAILY PO 05/29/17 08:00 06/28/17 08:59 06/02/17 09:39 200 MG Acetaminophen (Tylenol Tab) 650 mg Q4H PRN PO 05/28/17 23:45 06/27/17 23:44 Ibuprofen (Advil Tab) 400 mg Q6H PRN PO 05/29/17 00:00 06/28/17 00:00 Promethazine HCl 12.5 mg/Sodium Chloride 50.5 ml @ 204 mls/hr Q6H PRN IV 05/29/17 04:45 06/28/17 04:44 06/02/17 06:33 204 MLS/HR Methylprednisolone Sodium Succinate 40 mg/Syringe 0.64 ml @ 1.5 mls/min BID IV 05/29/17 20:00 06/28/17 19:59 06/02/17 20:45 1.5 MLS/MIN Ferrous Sulfate (Feosol Tab) 325 mg BIDM PO 05/29/17 17:00 06/28/17 16:59 06/02/17 16:39 325 MG Cyclobenzaprine HCl (Flexeril Tab) 10 mg TID PO 05/29/17 20:00 06/28/17 19:59 06/02/17 20:44 10 MG Pantoprazole Sodium 40 mg/ Syringe 10 ml @ 5 mls/min DAILY@09,21 IV 05/30/17 21:00 06/29/17 20:59 Future Hold 06/01/17 09:20 5 MLS/MIN Sucralfate (Carafate Susp) 1 gm QID PO 05/31/17 12:00 06/30/17 11:59 06/02/17 20:45 1 GM Lansoprazole (Prevacid Solutab) 30 mg BID SL 06/02/17 08:00 07/02/17 07:59 06/02/17 20:45 30 MG Clonazepam (Klonopin Tab) 1 mg BID PO 06/02/17 20:00 07/02/17 19:59 06/02/17 20:44 1 MG Diphenoxylate HCl/ Atropine (Lomotil Tab) 1 tab QID PRN PO 06/02/17 16:00 07/02/17 15:59 Physical Exam Height & Weight: Height 5 feet, 6.00 inches. Weight 59.100 (Kilograms) 130 (Pounds) Last Vital Signs Documentation Date Time Temp Pulse Resp B/P (MAP) Pulse Ox O2 Delivery O2 Flow Rate FiO2 06/03/17 07:18 36.5 64 18 130/89 (103) 97 Room Air Exam: Sammie Valladares is alert and oriented. Mood and affect are appropriate. Short- term and long-term memory is intact. Sensorium is clear. She appears comfortable and not in any distress at the present time. [place] Drug Monitoring Program Search Results: patient reviewed within database, no issues identified Opioid Risk Assessment Risk assessment performed, moderate risk identified (due to history of anxiety/ depression, psychosocial stressors and comorbid medical condition.) Assessment 1. Ulcerative colitis with diffuse abdominal pain and joint pain started autoimmune disorder. 2. At risk patient for becoming opiate dependent. Recommendations 1. For analgesia due to acute flareups of ulcerative colitis related pain symptoms recommend Tapentadol 50 mg every 4-6 hours. Close observation is recommended when used with any SSRIs or SSRIs for precipitation of serotonin syndrome. 2. To minimize symptoms of withdrawal, recommend symptomatic management with: -Anti diarrheal medications for GI symptoms and anti-emetics for nausea. -Acetaminophen for musculoskeletal skeletal pain. -Hydroxyzine for anxiety and rhinorrhea. (Patient reports allergic reaction to diphenhydramine with experiencing "crawling out of skin", but these symptoms may be related to withdrawal from opiates rather than true allergic reaction.) -Clonidine 0.1 transdermal patch every weekly to minimize symptoms of sympathetic hyperactivity. -Klonopin on when necessary basis for anxiety. 3. Recommend behavioral health follow-up as an outpatient if she is not seeing a behavioral provider for over one year to optimize her antianxiety and antidepressant medications. 4. Orders written.
[2017-06-03 08:50] LABS: HEMATOCRIT 30.5 % (37-47); MEAN CELL VOLUME 62.2 fL (80-100); MEAN CORPUSCULAR HGB CONC 28.9 g/dl (32-36); MEAN PLATELET VOLUME 9.3 fL (7.4-10.4); PLATELET COUNT 415 K/uL (130-400); WHITE BLOOD COUNT 13.71 K/uL (4.8-10.8)
[2017-06-03 09:11] LABS: BUN/CREATININE RATIO 17.8 (10-20); CREATININE 0.93 mg/dl (0.60-1.20); POTASSIUM 3.8 mmol/L (3.5-5.1)
[2017-06-03 09:22] LABS: COMPLETE YES; IG% 0.2 %; LYMPH % 12.8 %; LYMPH ABS # 1.76 K/uL (1.2-3.4)
[2017-06-03 09:24] LABS: GIANT PLATELETS 1+; HYPERSEGMENTED POLYS 1+; HYPOCHROMIA PRESENT; MICROCYTOSIS PRESENT
[2017-06-03] MEDS: CLONIDINE HCL 0.1 MG/24 HR TRANSDERM SYS TD SCH (09:37)
[2017-06-03] MEDS: TAPENTADOL HCL 50 MG TAB PO PRN ×3 (09:41→22:05)
--- NOTE | 2017-06-03 13:05 | Progress Note ---
Medicine Progress Note Date & Time of Visit: Jun 03, 2017 at 13:04. (Regina Redmond, P.A.-C.) Subjective Patient seen and examined. Continued to experience bloody episodes of diarrhea with associated abd pain with associated nausea/vomiting, but less so than previously. Endorsed 2 episodes overnight, with the last one occurring at 4 am. Has advanced to a normal diet and is tolerating it well with the help of zofran. Says that she feels encouraged with her progress, despite going through withdrawal from opioids. Endorses anxiety, insomnia, excessive tearing from withdrawal. Denies lightheadedness, CP, palpitations, SOB, hematemesis. (Regina Redmond, P.A.-C.) Objective Last 8 Hrs Date Time Temp Pulse Resp B/P (MAP) Pulse Ox O2 Delivery O2 Flow Rate FiO2 06/03/17 08:00 Room Air 06/03/17 07:18 36.5 64 18 130/89 (103) 97 Room Air Physical Exam: General Appearance: WD/WN, +mild distress. Tearful 2/2 anxiety. Head: normocephalic, atraumatic Eyes: normal inspection, PERRL ENT: hearing grossly normal, Neck: supple, no JVD, no adenopathy Respiratory/Chest: lungs clear to auscultation. No wheezes, rales or rhonci. No respiratory distress or accessory muscle use Cardiovascular: regular rate, rhythm, no murmur, normal peripheral pulses Abdomen/GI: normal bowel sounds, soft, Tender to palpation of bilateral lower quadrants, LLQ > RLQ Extremities/Musculoskelatal: normal inspection, no calf tenderness, normal capillary refill, no pedal edema Neurologic/Psych: alert, oriented x 3. Anxious with tearful episodes during interview Skin: normal color, warm/dry Laboratory Results: Last 24 Hours Test 06/03/17 08:19 White Blood Count 13.71 K/uL Red Blood Count 4.90 M/uL Hemoglobin 8.8 g/dL Hematocrit 30.5 % Mean Corpuscular Volume 62.2 fL Mean Corpuscular Hemoglobin 18.0 pg Mean Corpuscular Hemoglobin Concent 28.9 g/dl Platelet Count 415 K/uL Mean Platelet Volume 9.3 fL Neutrophils (%) (Auto) 79.0 % Lymphocytes (%) (Auto) 12.8 % Monocytes (%) (Auto) 8.0 % Eosinophils (%) (Auto) 0.0 % Basophils (%) (Auto) 0.0 % Neutrophils # (Auto) 10.83 K/uL Lymphocytes # (Auto) 1.76 K/uL Monocytes # (Auto) 1.09 K/uL Eosinophils # (Auto) 0.00 K/uL Basophils # (Auto) 0.00 K/uL RDW Standard Deviation 38.9 fL RDW Coefficient of Variation 17.5 % Immature Granulocyte % (Auto) 0.2 % Immature Granulocyte # (Auto) 0.03 K/uL Hypersegmented Polys 1+ Giant Platelets 1+ Hypochromasia PRESENT Microcytosis PRESENT Sodium Level 138 mmol/L Potassium Level 3.8 mmol/L Chloride Level 105 mmol/L Carbon Dioxide Level 27 mmol/L Anion Gap 6.0 mmol/L Blood Urea Nitrogen 17 mg/dl Creatinine 0.93 mg/dl Est Creatinine Clear Calc Drug Dose 80.3 ml/min Estimated GFR () 93.6 Estimated GFR (Non- 80.8 BUN/Creatinine Ratio 17.8 Random Glucose 98 mg/dl Calcium Level 9.0 mg/dl Magnesium Level 2.0 mg/dl (Regina Redmond, P.A.-C.) Assessment & Plan Bloody diarrhea/abdominal pain: -Continues to have multiples episodes/day -2/2 to Inflammatory bowel disease /ulcerative colitis flare -Non-compliant; has not seen GI for about 2 yrs -GI on board; recommended to reduce the amount of narcotic due to decrease GI motility -Colonoscopy (06/01/17): "inflammation characterized by erosions, erythema and friability...was found in a continuous and circumferential pattern from anus to sigmoid colon" -Stopped Dilaudid today to prepare pt for discharge home without narcotics -Pain regimen includes toradol, tylenol, tapentadol -Cont on IV Solumedrol 40 mg BID. Completed course of Ceftriaxone and Flagyl. -Hgb of 8.8 (9.6 yesterday). Will continue to monitor and transfuse if <8. -Will need to follow with GI as an outpatient Nausea/vomiting: -Associated with episodes of abd pain/bloody diarrhea. Endorses one episode of vomiting in the past 24h -Continue PPI -Monitor H/H. -Advanced to regular diet and is tolerating well -EGD (06/01/17): "Localized mild inflammation characterized by erythema was found in the gastric antrum" Anxiety/depression: -H/o depression and anxiety managed by PCP -On Cymbalta, Lamictal as home meds -Has heightened anxiety due to opioid withdrawal -Per pain mgmt recs, started hydroxyzine for anxiety. Klonopin for PRN use. -Recommend out-patient psych follow-up to optimize medications Opioid withdrawal: -Patient with h/o narcotic dependence -Unable to tolerate side effects of withdrawal at home previous to admission -Has been on Dilaudid as an in-patient for UC Flare. Stopped 06/02/17. -Per pain management recs, ordered Tapentadol 50mg Q6 hours. -Close observation is recommended when used with any SSRIs/SNRIs for precipitation of serotonin syndrome. -Patient is experiencing anxiety, insomnia, diarrhea with withdrawal. Is highly motivated to continue process. -Continue managing effects of withdrawal: Lomotil for GI symptoms Anti-emetics for nausea Acetaminophen for MSK pain Hydroxyzine for anxiety/rhinorrhea Clonidine patch for sympathetic hyperactivity Anxiety discussed above Atypical R-Sided Chest Pain: -Tenderness on palpation of rt chest wall -Cont pain control -No hypoxia noted Arthralgia/Pain in Hip Joints: -Associated with IBD 2/2 UC flare -Rheumatology on board -Cont management for active GI disease which subsequently improved joint pain symptoms -Cont on IV steroid -Will follow with Rheumatology as an out-patient Anemia: -Low iron level -Hbg decreased to 8.8 (from 9.6); stable -Will transfuse if h/h drops below 8 -Monitor H/H -Continue iron supplement DVT Ppx: SCDs and Teds Code status: FULL Dispo: Plan to return home once medically stable/ Consultants: Gastro Rheumatology Procedures: Colonoscopy and EGD Current Inpatient Medications: Current Inpatient Medications Medications (Trade) Dose Ordered Sig/Sally Route Start Time Stop Time Status Last Admin Dose Admin Ondansetron HCl (Zofran Inj) 4 mg Q6H PRN IV 05/28/17 23:45 06/27/17 23:44 06/03/17 05:14 4 MG Duloxetine HCl (Cymbalta Cap) 120 mg DAILY PO 05/29/17 08:00 06/28/17 08:59 06/03/17 08:03 120 MG Lamotrigine (Lamictal Tab) 200 mg DAILY PO 05/29/17 08:00 06/28/17 08:59 06/03/17 08:02 200 MG Acetaminophen (Tylenol Tab) 650 mg Q4H PRN PO 05/28/17 23:45 06/27/17 23:44 Ibuprofen (Advil Tab) 400 mg Q6H PRN PO 05/29/17 00:00 06/28/17 00:00 Promethazine HCl 12.5 mg/Sodium Chloride 50.5 ml @ 204 mls/hr Q6H PRN IV 05/29/17 04:45 06/28/17 04:44 06/02/17 06:33 204 MLS/HR Methylprednisolone Sodium Succinate 40 mg/Syringe 0.64 ml @ 1.5 mls/min BID IV 05/29/17 20:00 06/28/17 19:59 06/03/17 08:01 1.5 MLS/MIN Ferrous Sulfate (Feosol Tab) 325 mg BIDM PO 05/29/17 17:00 06/28/17 16:59 06/03/17 08:03 325 MG Cyclobenzaprine HCl (Flexeril Tab) 10 mg TID PO 05/29/17 20:00 06/28/17 19:59 06/03/17 08:03 10 MG Pantoprazole Sodium 40 mg/ Syringe 10 ml @ 5 mls/min DAILY@09,21 IV 05/30/17 21:00 06/29/17 20:59 Future Hold 06/01/17 09:20 5 MLS/MIN Sucralfate (Carafate Susp) 1 gm QID PO 05/31/17 12:00 06/30/17 11:59 06/03/17 12:22 1 GM Lansoprazole (Prevacid Solutab) 30 mg BID SL 06/02/17 08:00 07/02/17 07:59 06/03/17 08:02 30 MG Diphenoxylate HCl/ Atropine (Lomotil Tab) 1 tab QID PRN PO 06/02/17 16:00 07/02/17 15:59 Clonazepam (Klonopin Tab) 1 mg BID PRN PO 06/03/17 20:00 07/02/17 19:59 Tapentadol (Nucynta Tab) 50 mg Q6H PRN PO 06/03/17 08:45 07/03/17 08:44 06/03/17 09:41 50 MG Hydroxyzine HCl (Vistaril Tab) 25 mg Q8 PO 06/03/17 14:00 07/03/17 13:59 Clonidine HCl ([id number]-Tzz-6 0.1mg/24hr Patch) 1 patch Q7D@0900 TD 06/03/17 09:00 07/03/17 08:59 06/03/17 09:37 1 PATCH Miscellaneous (Remove Clonidine Patch) 1 ea Q7D@0859 N/A 06/10/17 08:59 07/10/17 08:58 Miscellaneous Information (Check Clonidine Patch Placement) 1 ea QS N/A 06/03/17 16:00 07/03/17 15:59 (Regina Redmond ., P.A.-C.) ATTENDING ADDENDUM care coordinated with FIDE Redmond please refer to her notes for full details, I agree with her notes patient seen and examined, records reviewed by myself as well on exam, patient seen resting in bed states she feels improved compared to yesterday less hematochezia, abdominal pain pleased with her progress overall no other symptoms VS noted and reviewed oriented x 3 , not in distress, speaks in sentences with no effort nor accessory muscle use normal rate, regular rhythm, no murmurs clear breath sounds bilaterally non distended, soft, nontender no bipedal edema, erythema, warmth no neuro deficits WBC 13.7 Hg 8.8 Crea 0.93 ASSESSMENT/PLAN> ULCERATIVE COLITIS FLARE - improving - will start to taper Solumedrol tomorrow CHRONIC PAIN - tolerating Nucynta well pain well managed - on Clonidine, Klonipin, Vistaril - highly appreciate Dr. Sheffield's input other diagnoses and plan of care as per FIDE Bright MD (Nelson Bright MD)
[2017-06-03] MEDS ORDERED: hydrOXYzine HCL 10 MG TAB PO SCH (14:00)
[2017-06-03 15:46] VITALS: BP 102/69; PULSE 80; TEMP 36.6; O2SAT 98
[2017-06-03] MEDS: CHECK CLONIDINE PATCH PLACEMENT SCH ×2 (16:15→23:51)
[2017-06-03] MEDS: CLONAZEPAM 1 MG TAB PO PRN (19:48)
[2017-06-03] MEDS ORDERED: hydrOXYzine HCL 25 MG TAB PO STA (22:18)
[2017-06-03 23:54] VITALS: BP 141/91; PULSE 80; TEMP 36.7; O2SAT 98
[2017-06-04] MEDS: PROMETHAZINE HCL INJ 12.5 MG in SODIUM CHLORIDE 0.9% 50ML 50 ML IV PRN (00:15)
[2017-06-04] MEDS: TAPENTADOL HCL 50 MG TAB PO PRN ×4 (03:55→22:30)
[2017-06-04] MEDS: hydrOXYzine HCL 25 MG TAB PO SCH ×3 (05:48→21:48)
[2017-06-04 06:37] LABS: HEMATOCRIT 30.9 % (37-47); MEAN CELL VOLUME 62.3 fL (80-100); MEAN CORPUSCULAR HEMOGLOBIN 18.5 pg (25-34); MEAN CORPUSCULAR HGB CONC 29.8 g/dl (32-36); MEAN PLATELET VOLUME 9.3 fL (7.4-10.4); PLATELET COUNT 407 K/uL (130-400); RED BLOOD COUNT 4.96 M/uL (4.2-5.4); WHITE BLOOD COUNT 15.23 K/uL (4.8-10.8)
[2017-06-04 06:41] LABS: BUN/CREATININE RATIO 18.1 (10-20); CALCIUM 8.7 mg/dl (8.5-10.1); CREATININE 0.85 mg/dl (0.60-1.20); MAGNESIUM 2.2 mg/dl (1.8-2.4); POTASSIUM 3.7 mmol/L (3.5-5.1)
[2017-06-04] MEDS: ONDANSETRON INJ 2 MG/ML 2 ML VIAL IV PRN ×2 (06:48→16:56)
[2017-06-04 07:03] LABS: ANISOCYTOSIS PRESENT; COMPLETE YES; HYPOCHROMIA PRESENT; IG% 0.3 %; LYMPH % 10.4 %; LYMPH ABS # 1.58 K/uL (1.2-3.4); MONO % 6.7 %; NEUT % 82.6 %; OVALOCYTES 1+; POLYCHROMASIA 1+
[2017-06-04 07:27] VITALS: BP 113/77; PULSE 72; TEMP 36.9; O2SAT 99
[2017-06-04] MEDS: CLONAZEPAM 1 MG TAB PO PRN ×2 (08:00→21:53)
[2017-06-04] MEDS: METHYLPREDNISOLONE IV 40 MG in SYRINGE 0 ML IV SCH (08:01)
[2017-06-04] MEDS: SUCRALFATE 1 GM/10 ML UDC PO SCH ×4 (08:01→21:46)
[2017-06-04] MEDS: CHECK CLONIDINE PATCH PLACEMENT SCH ×3 (08:01→23:46)
[2017-06-04] MEDS: DULOXETINE HCL 60 MG CAP PO SCH (08:02)
[2017-06-04] MEDS: CYCLOBENZAPRINE HCL 10 MG TAB PO SCH ×3 (08:02→21:46)
[2017-06-04] MEDS: FERROUS SULFATE 325 MG TAB PO SCH ×2 (08:03→16:58)
[2017-06-04] MEDS: LANSOPRAZOLE SOLUTAB 30 MG SL SCH ×2 (08:03→21:47)
[2017-06-04 14:50] VITALS: BP 99/61; PULSE 78; TEMP 36.5; O2SAT 95
--- NOTE | 2017-06-04 14:52 | Progress Note ---
Medicine Progress Note Date & Time of Visit: Jun 04, 2017 at 14:45. (Regina Redmond, P.A.-C.) Subjective Patient seen and examined Having fewer episodes of bloody diarrhea. Last episode was at 8am this morning. Has advanced to a normal diet and is tolerating with the help of zofran. Still endorses lower abd pain associated with episodes of diarrhea. Denies lightheadedness, CP, palpitations, SOB, hematemesis. Feeling better, despite going through withdrawal from opioids. Still experiencing anxiety and insomnia, but both are improving. (Regina Redmond, P.A.-C.) Objective Last 8 Hrs Date Time Temp Pulse Resp B/P (MAP) Pulse Ox O2 Delivery O2 Flow Rate FiO2 06/04/17 08:00 Room Air 06/04/17 07:27 36.9 72 18 113/77 (89) 99 Physical Exam: General Appearance: WD/WN, +mild distress. Tearful 2/2 anxiety. Head: normocephalic, atraumatic Eyes: normal inspection, PERRL ENT: hearing grossly normal, Neck: supple, no JVD, no adenopathy Respiratory/Chest: lungs clear to auscultation. No wheezes, rales or rhonci. No respiratory distress or accessory muscle use Cardiovascular: regular rate, rhythm, no murmur, normal peripheral pulses Abdomen/GI: normal bowel sounds, soft, Tender to palpation of bilateral lower quadrants, LLQ > RLQ Extremities/Musculoskelatal: normal inspection, no calf tenderness, normal capillary refill, no pedal edema Neurologic/Psych: alert, oriented x 3. Anxious with tearful episodes during interview Skin: normal color, warm/dry Laboratory Results: Last 24 Hours Test 06/04/17 05:39 White Blood Count 15.23 K/uL Red Blood Count 4.96 M/uL Hemoglobin 9.2 g/dL Hematocrit 30.9 % Mean Corpuscular Volume 62.3 fL Mean Corpuscular Hemoglobin 18.5 pg Mean Corpuscular Hemoglobin Concent 29.8 g/dl Platelet Count 407 K/uL Mean Platelet Volume 9.3 fL Neutrophils (%) (Auto) 82.6 % Lymphocytes (%) (Auto) 10.4 % Monocytes (%) (Auto) 6.7 % Eosinophils (%) (Auto) 0.0 % Basophils (%) (Auto) 0.0 % Neutrophils # (Auto) 12.58 K/uL Lymphocytes # (Auto) 1.58 K/uL Monocytes # (Auto) 1.02 K/uL Eosinophils # (Auto) 0.00 K/uL Basophils # (Auto) 0.00 K/uL RDW Standard Deviation 38.9 fL RDW Coefficient of Variation 17.5 % Immature Granulocyte % (Auto) 0.3 % Immature Granulocyte # (Auto) 0.05 K/uL Polychromasia 1+ Hypochromasia PRESENT Anisocytosis PRESENT Ovalocytes 1+ Sodium Level 141 mmol/L Potassium Level 3.7 mmol/L Chloride Level 107 mmol/L Carbon Dioxide Level 27 mmol/L Anion Gap 7.0 mmol/L Blood Urea Nitrogen 15 mg/dl Creatinine 0.85 mg/dl Est Creatinine Clear Calc Drug Dose 87.8 ml/min Estimated GFR () 104.3 Estimated GFR (Non- 90.0 BUN/Creatinine Ratio 18.1 Random Glucose 121 mg/dl Calcium Level 8.7 mg/dl Magnesium Level 2.2 mg/dl (Regina Redmond ., P.A.-C.) Assessment & Plan Bloody diarrhea/abdominal pain: improving -Having less episodes per day -2/2 to Inflammatory bowel disease/ulcerative colitis flare -Non-compliant; has not seen GI for about 2 yrs -Colonoscopy (06/01/17): "inflammation characterized by erosions, erythema and friability...was found in a continuous and circumferential pattern from anus to sigmoid colon" -Pain regimen includes tapentadol, tylenol. Stopped dilaudid on 06/02 -Start to taper IV Solumedrol to 40 mg qQM and 20mg aHS. Completed course of Ceftriaxone and Flagyl -Hgb of 9.2 (8.8 yesterday). Will continue to monitor. -Discussed with GI. They are comfortable with patient going home from a GI standpoint -Will need to follow with GI as an outpatient Nausea/vomiting: improving -Associated with episodes of abd pain/bloody diarrhea. Endorses one episode of vomiting in the past 24h -Continue PPI -Monitor H/H. -Advanced to regular diet and is tolerating well -EGD (06/01/17): "Localized mild inflammation characterized by erythema was found in the gastric antrum" Anxiety/depression: -H/o depression and anxiety managed by PCP -On Cymbalta, Lamictal as home meds -Has heightened anxiety due to opioid withdrawal -Per pain mgmt recs, started hydroxyzine for anxiety. Klonopin for PRN use. -Recommend out-patient psych follow-up to optimize medications Generalized weakness: -Likely due to both deconditioning and anemia -Will continue iron supplements; hgb is on the rise with fewer episodes of diarrhea -Encouraged to continue ambulating with supervision to strengthen Opioid withdrawal: -Patient with h/o narcotic dependence -Unable to tolerate side effects of withdrawal at home previous to admission -Has been on Dilaudid as an in-patient for UC Flare. Stopped 06/02/17 -Per pain management recs, ordered Tapentadol 50mg Q6 hours -Close observation is recommended when used with any SSRIs/SNRIs for precipitation of serotonin syndrome -Patient is experiencing anxiety, insomnia, diarrhea with withdrawal. Is highly motivated to continue process -Dr Sheffield is willing to see her in clinic after discharge. Plan to get referral from PCP -Continue managing effects of withdrawal: Lomotil for GI symptoms Anti-emetics for nausea Acetaminophen for MSK pain Hydroxyzine for anxiety/rhinorrhea Clonidine patch for sympathetic hyperactivity Anxiety discussed above Atypical R-Sided Chest Pain: resolved -Tenderness on palpation of rt chest wall -Cont pain control -No hypoxia noted Arthralgia/Pain in Hip Joints: -Associated with IBD 2/2 UC flare -Rheumatology on board -Cont management for active GI disease which subsequently improved joint pain symptoms -Cont on IV steroid -Will follow with Rheumatology as an out-patient Anemia: -Low iron level -Hbg decreased to 9.2 (from 8.8); stable -Will transfuse if h/h drops below 8 -Monitor H/H -Continue iron supplement DVT Ppx: SCDs and Teds Code status: FULL Dispo: Plan to return home once medically stable Consultants: Gastro Rheumatology Procedures: Colonoscopy and EGD Current Inpatient Medications: Current Inpatient Medications Medications (Trade) Dose Ordered Sig/Sally Route Start Time Stop Time Status Last Admin Dose Admin Ondansetron HCl (Zofran Inj) 4 mg Q6H PRN IV 05/28/17 23:45 06/27/17 23:44 06/04/17 06:48 4 MG Duloxetine HCl (Cymbalta Cap) 120 mg DAILY PO 05/29/17 08:00 9/3/17 08:59 06/04/17 08:02 120 MG Lamotrigine (Lamictal Tab) 200 mg DAILY PO 05/29/17 08:00 06/28/17 08:59 06/04/17 08:02 200 MG Acetaminophen (Tylenol Tab) 650 mg Q4H PRN PO 05/28/17 23:45 06/27/17 23:44 Ibuprofen (Advil Tab) 400 mg Q6H PRN PO 05/29/17 00:00 06/28/17 00:00 Promethazine HCl 12.5 mg/Sodium Chloride 50.5 ml @ 204 mls/hr Q6H PRN IV 05/29/17 04:45 06/28/17 04:44 06/04/17 00:15 204 MLS/HR Methylprednisolone Sodium Succinate 40 mg/Syringe 0.64 ml @ 1.5 mls/min BID IV 05/29/17 20:00 06/28/17 19:59 06/04/17 08:01 1.5 MLS/MIN Ferrous Sulfate (Feosol Tab) 325 mg BIDM PO 05/29/17 17:00 06/28/17 16:59 06/04/17 08:03 325 MG Cyclobenzaprine HCl (Flexeril Tab) 10 mg TID PO 05/29/17 20:00 06/28/17 19:59 06/04/17 08:02 10 MG Pantoprazole Sodium 40 mg/ Syringe 10 ml @ 5 mls/min DAILY@09,21 IV 05/30/17 21:00 06/29/17 20:59 Future Hold 06/01/17 09:20 5 MLS/MIN Sucralfate (Carafate Susp) 1 gm QID PO 05/31/17 12:00 06/30/17 11:59 06/04/17 11:19 1 GM Lansoprazole (Prevacid Solutab) 30 mg BID SL 06/02/17 08:00 07/02/17 07:59 06/04/17 08:03 30 MG Diphenoxylate HCl/ Atropine (Lomotil Tab) 1 tab QID PRN PO 06/02/17 16:00 07/02/17 15:59 Clonazepam (Klonopin Tab) 1 mg BID PRN PO 06/03/17 20:00 9/7/17 19:59 06/04/17 08:00 1 MG Tapentadol (Nucynta Tab) 50 mg Q6H PRN PO 06/03/17 08:45 07/03/17 08:44 06/04/17 11:19 50 MG Clonidine HCl ([id number]-Nbw-9 0.1mg/24hr Patch) 1 patch Q7D@0900 TD 06/03/17 09:00 07/03/17 08:59 06/03/17 09:37 1 PATCH Miscellaneous (Remove Clonidine Patch) 1 ea Q7D@0859 N/A 06/10/17 08:59 07/10/17 08:58 Miscellaneous Information (Check Clonidine Patch Placement) 1 ea QS N/A 06/03/17 16:00 07/03/17 15:59 06/04/17 08:01 1 EA Hydroxyzine HCl (Vistaril Tab) 25 mg Q8 PO 06/04/17 06:00 07/04/17 05:59 06/04/17 05:48 25 MG (Regina Redmond ., P.A.-C.) ATTENDING ADDENDUM care coordinated with FIDE Redmond delayed entry, date of service as noted above please refer to her notes for full details, I agree with her notes patient seen and examined, records reviewed by myself as well on exam, patient seen resting in bed, comfortable states nausea, diarrhea continues to improve no other symptoms VS noted and reviewed oriented x 2, not in distress, speaks in sentences with no effort nor accessory muscle use normal rate, regular rhythm, no murmurs clear breath sounds bilaterally non distended, soft, nontender no bipedal edema, erythema, warmth no neuro deficits WBC 15 Hg 9.2 ASSESSMENT/PLAN> ULCERATIVE COLITIS FLARE taper Solumedrol CHRONIC PAIN SYNDROME pain well controlled with Nucynta continue other PRN meds per Pain Mgt other diagnoses and plan of care as per FIDE Redmond's notes Nelson Bright MD (Nelson Bright MD)
[2017-06-04 23:45] VITALS: BP 122/86; PULSE 105; TEMP 36.5; O2SAT 98
[2017-06-05] MEDS: ONDANSETRON INJ 2 MG/ML 2 ML VIAL IV PRN ×4 (04:24→23:54)
[2017-06-05] MEDS: TAPENTADOL HCL 50 MG TAB PO PRN ×4 (04:27→23:54)
[2017-06-05] MEDS: hydrOXYzine HCL 25 MG TAB PO SCH ×3 (06:12→23:53)
[2017-06-05 06:29] LABS: HEMATOCRIT 32.5 % (37-47); MEAN CELL VOLUME 63.1 fL (80-100); MEAN CORPUSCULAR HEMOGLOBIN 17.9 pg (25-34); MEAN CORPUSCULAR HGB CONC 28.3 g/dl (32-36); MEAN PLATELET VOLUME 9.6 fL (7.4-10.4); PLATELET COUNT 394 K/uL (130-400); RED BLOOD COUNT 5.15 M/uL (4.2-5.4); WHITE BLOOD COUNT 15.37 K/uL (4.8-10.8)
[2017-06-05 07:00] LABS: BUN/CREATININE RATIO 15.4 (10-20); CALCIUM 8.8 mg/dl (8.5-10.1); CREATININE 0.98 mg/dl (0.60-1.20); POTASSIUM 3.1 mmol/L (3.5-5.1)
[2017-06-05 07:13] VITALS: BP 120/80; PULSE 90; TEMP 36.3; O2SAT 97
[2017-06-05] MEDS: CHECK CLONIDINE PATCH PLACEMENT SCH ×2 (07:45→15:30)
[2017-06-05] MEDS: LANSOPRAZOLE SOLUTAB 30 MG SL SCH ×2 (07:46→20:29)
[2017-06-05] MEDS: DULOXETINE HCL 60 MG CAP PO SCH (07:46)
[2017-06-05] MEDS: SUCRALFATE 1 GM/10 ML UDC PO SCH ×4 (07:46→19:39)
[2017-06-05] MEDS: CYCLOBENZAPRINE HCL 10 MG TAB PO SCH ×3 (07:46→20:29)
[2017-06-05] MEDS: FERROUS SULFATE 325 MG TAB PO SCH ×2 (07:47→17:20)
[2017-06-05] MEDS: CLONAZEPAM 1 MG TAB PO PRN ×3 (07:49→23:53)
[2017-06-05] MEDS ORDERED: METHYLPREDNISOLONE IV 40 MG in SYRINGE 0 ML IV SCH (08:00)
[2017-06-05 08:30] VITALS: O2SAT 97
[2017-06-05] MEDS ORDERED: POTASSIUM CHLORIDE 10 MEQ TABCR PO ONE (09:15)
[2017-06-05] MEDS ORDERED: POTASSIUM CHLORIDE INJ 40 MEQ in SODIUM CHLORIDE 0.9% 500ML 500 ML IV SCH (10:00)
--- NOTE | 2017-06-05 11:45 | Progress Note ---
Medicine Progress Note Date & Time of Visit: Jun 05, 2017 at 11:36. (Regina Redmond, P.A.-C.) Subjective Patient seen and examined. Feeling okay today; nauseated but no episodes of vomiting. Continues to have episodes of bloody diarrhea but fewer than before.Last episode was overnight. Denies, lightheadedness, CP, SOB, vomiting, pain in extremities. (Regina Redmond, P.A.-C.) Objective Last 8 Hrs Date Time Temp Pulse Resp B/P (MAP) Pulse Ox O2 Delivery O2 Flow Rate FiO2 06/05/17 08:30 97 Room Air 06/05/17 07:13 36.3 90 18 120/80 (93) 97 Physical Exam: General Appearance: WD/WN, +mild distress. Head: normocephalic, atraumatic Eyes: normal inspection, PERRL ENT: hearing grossly normal, Neck: supple, no JVD, no adenopathy Respiratory/Chest: lungs clear to auscultation. No wheezes, rales or rhonci. No respiratory distress or accessory muscle use Cardiovascular: regular rate, rhythm, no murmur, normal peripheral pulses Abdomen/GI: normal bowel sounds, soft, Tender to palpation of bilateral lower quadrants, LLQ > RLQ Extremities/Musculoskelatal: normal inspection, no calf tenderness, normal capillary refill, no pedal edema Neurologic/Psych: Normal mood, alert, oriented x 3. Skin: normal color, warm/dry Laboratory Results: Last 24 Hours Test 06/05/17 05:32 White Blood Count 15.37 K/uL Red Blood Count 5.15 M/uL Hemoglobin 9.2 g/dL Hematocrit 32.5 % Mean Corpuscular Volume 63.1 fL Mean Corpuscular Hemoglobin 17.9 pg Mean Corpuscular Hemoglobin Concent 28.3 g/dl RDW Standard Deviation 40.1 fL RDW Coefficient of Variation 18.0 % Platelet Count 394 K/uL Mean Platelet Volume 9.6 fL Sodium Level 144 mmol/L Potassium Level 3.1 mmol/L Chloride Level 108 mmol/L Carbon Dioxide Level 29 mmol/L Anion Gap 7.0 mmol/L Blood Urea Nitrogen 15 mg/dl Creatinine 0.98 mg/dl Est Creatinine Clear Calc Drug Dose 76.2 ml/min Estimated GFR () 87.8 Estimated GFR (Non- 75.8 BUN/Creatinine Ratio 15.4 Random Glucose 81 mg/dl Calcium Level 8.8 mg/dl Magnesium Level 2.2 mg/dl (Regina Redmond, P.A.-C.) Assessment & Plan Bloody diarrhea/abdominal pain: improving -Having less episodes per day -2/2 to Inflammatory bowel disease/ulcerative colitis flare -Non-compliant; has not seen GI for about 2 yrs -Colonoscopy (06/01/17): "inflammation characterized by erosions, erythema and friability...was found in a continuous and circumferential pattern from anus to sigmoid colon" -Pain regimen includes tapentadol, tylenol. Stopped dilaudid on 06/02 -Continue IV Solumedrol to 40 mg BID -Per GI recs, plan to discharge pt on prednisone taper and follow-up in clinic -GI is comfortable with patient going home from a GI standpoint Nausea/vomiting: -Associated with episodes of abd pain/bloody diarrhea -EGD (06/01/17): "Localized mild inflammation characterized by erythema was found in the gastric antrum" -Continue PPI and PRN anti-emetics -Monitor H/H Hypokalemia: -K of 3.1 secondary to GI losses -Replaced K -Mg is wnl -Monitor labwork and adjust accordingly Opioid withdrawal: -Patient with h/o narcotic dependence -Unable to tolerate side effects of withdrawal at home previous to admission -Has been on Dilaudid as an in-patient for UC Flare. Stopped 06/02/17 -Per pain management recs, ordered Tapentadol 50mg Q6 hours -Patient is experiencing anxiety, insomnia, diarrhea with withdrawal. Is highly motivated to continue process -Dr Sheffield is willing to see her in clinic after discharge. Plan to get referral from PCP -Continue managing effects of withdrawal: Lomotil for GI symptoms Anti-emetics for nausea Acetaminophen for MSK pain Hydroxyzine for anxiety/rhinorrhea Clonidine patch for sympathetic hyperactivity Anxiety discussed above Anxiety/depression: -H/o depression and anxiety managed by PCP -On Cymbalta, Lamictal as home meds -Has heightened anxiety due to opioid withdrawal -Per pain mgmt recs, on hydroxyzine for anxiety. Klonopin for PRN use -Recommend out-patient psych follow-up to optimize medications Generalized weakness: -Likely due to both deconditioning and anemia -Will continue iron supplements; hgb is on the rise with fewer episodes of diarrhea -Encouraged to continue ambulating with supervision to strengthen Atypical R-Sided Chest Pain: resolved -Tenderness on palpation of rt chest wall -Cont pain control -No hypoxia noted Arthralgia/Pain in Hip Joints: -Associated with IBD 2/2 UC flare -Rheumatology on board -Cont management for active GI disease which subsequently improved joint pain symptoms -Cont on IV steroid -Will follow with Rheumatology as an out-patient Anemia 2/2 blood loss: -Low iron level -Hbg stable at 9.2 -Monitor H/H -Continue iron supplement DVT Ppx: SCDs and Teds Code status: FULL Dispo: Plan to return home once medically stable. Consultants: Gastro Rheumatology Procedures: Colonoscopy and EGD Current Inpatient Medications: Current Inpatient Medications Medications (Trade) Dose Ordered Sig/Sally Route Start Time Stop Time Status Last Admin Dose Admin Ondansetron HCl (Zofran Inj) 4 mg Q6H PRN IV 05/28/17 23:45 06/27/17 23:44 06/05/17 10:29 4 MG Duloxetine HCl (Cymbalta Cap) 120 mg DAILY PO 05/29/17 08:00 06/28/17 08:59 06/05/17 07:46 120 MG Lamotrigine (Lamictal Tab) 200 mg DAILY PO 05/29/17 08:00 06/28/17 08:59 06/05/17 07:47 200 MG Acetaminophen (Tylenol Tab) 650 mg Q4H PRN PO 05/28/17 23:45 06/27/17 23:44 Ibuprofen (Advil Tab) 400 mg Q6H PRN PO 05/29/17 00:00 06/28/17 00:00 Promethazine HCl 12.5 mg/Sodium Chloride 50.5 ml @ 204 mls/hr Q6H PRN IV 05/29/17 04:45 06/28/17 04:44 06/04/17 00:15 204 MLS/HR Ferrous Sulfate (Feosol Tab) 325 mg BIDM PO 05/29/17 17:00 06/28/17 16:59 06/05/17 07:47 325 MG Cyclobenzaprine HCl (Flexeril Tab) 10 mg TID PO 05/29/17 20:00 06/28/17 19:59 06/05/17 07:46 10 MG Pantoprazole Sodium 40 mg/ Syringe 10 ml @ 5 mls/min DAILY@09,21 IV 05/30/17 21:00 06/29/17 20:59 Future Hold 06/01/17 09:20 5 MLS/MIN Sucralfate (Carafate Susp) 1 gm QID PO 05/31/17 12:00 06/30/17 11:59 06/05/17 07:46 1 GM Lansoprazole (Prevacid Solutab) 30 mg BID SL 06/02/17 08:00 07/02/17 07:59 06/05/17 07:46 30 MG Diphenoxylate HCl/ Atropine (Lomotil Tab) 1 tab QID PRN PO 06/02/17 16:00 07/02/17 15:59 Clonazepam (Klonopin Tab) 1 mg BID PRN PO 06/03/17 20:00 07/02/17 19:59 06/05/17 07:49 1 MG Tapentadol (Nucynta Tab) 50 mg Q6H PRN PO 06/03/17 08:45 07/03/17 08:44 06/05/17 10:29 50 MG Clonidine HCl (Wlyexcsw-Cxz-5 0.1mg/24hr Patch) 1 patch Q7D@0900 TD 06/03/17 09:00 07/03/17 08:59 06/03/17 09:37 1 PATCH Miscellaneous (Remove Clonidine Patch) 1 ea Q7D@0859 N/A 06/10/17 08:59 07/10/17 08:58 Miscellaneous Information (Check Clonidine Patch Placement) 1 ea QS N/A 06/03/17 16:00 07/03/17 15:59 06/05/17 07:45 1 EA Hydroxyzine HCl (Vistaril Tab) 25 mg Q8 PO 06/04/17 06:00 07/04/17 05:59 06/05/17 06:12 25 MG Methylprednisolone Sodium Succinate 40 mg/Syringe 0.64 ml @ 1.5 mls/min QD@08 IV 06/05/17 08:00 07/05/17 07:59 06/05/17 07:45 1.5 MLS/MIN Methylprednisolone Sodium Succinate 20 mg/Syringe 0.32 ml @ 1.5 mls/min QD@16 IV 06/05/17 16:00 07/05/17 15:59 Potassium Chloride 40 meq/ Sodium Chloride 520 ml @ 125 mls/hr Q4H10M IV 06/05/17 10:00 06/05/17 14:09 06/05/17 10:22 125 MLS/HR (Regina Redmond ., P.A.-C.) ATTENDING ADDENDUM care coordinated with FIDE Redmond delayed entry, date of service as noted above please refer to her notes for full details, I agree with her notes patient seen and examined, records reviewed by myself as well on exam, patient seen resting in bed, comfortable states abdominal pain and diarrhea seems to have increased no other symptoms VS noted and reviewed oriented x 2, not in distress, speaks in sentences with no effort nor accessory muscle use normal rate, regular rhythm clear breath sounds bilaterally non distended, soft, mild tenderness on all quads no bipedal edema, erythema, warmth no neuro deficits K 3.1 Hg 9.2 ASSESSMENT/PLAN> ULCERATIVE COLITIS FLARE resume Solumedrol 40 mg BID monitor CHRONIC PAIN SYNDROME patient satisfied with Nucynta and other PRN meds grateful for the care other diagnoses and plan of care as per FIDE Redmond's notes Nelson Bright MD (Nelson Bright MD)
[2017-06-05 15:33] VITALS: BP 117/78; PULSE 99; TEMP 36.3; O2SAT 96
[2017-06-05] MEDS ORDERED: METHYLPREDNISOLONE IV 20 MG in SYRINGE 0 ML IV SCH (16:00)
[2017-06-05] MEDS: METHYLPREDNISOLONE IV 40 MG in SYRINGE 0 ML IV SCH (19:39)
[2017-06-05 20:00] VITALS: O2SAT 96
[2017-06-05] MEDS ORDERED: CLONAZEPAM 1 MG TAB PO PRN (20:00)
[2017-06-05] MEDS: PROMETHAZINE HCL INJ 12.5 MG in SODIUM CHLORIDE 0.9% 50ML 50 ML IV PRN (20:30)
[2017-06-05 23:49] VITALS: BP 116/77; PULSE 83; TEMP 36.3; O2SAT 97
[2017-06-06] VITALS: O2SAT 96
[2017-06-06] MEDS: CHECK CLONIDINE PATCH PLACEMENT SCH ×3 (00:04→16:00)
[2017-06-06] MEDS: PROMETHAZINE HCL INJ 12.5 MG in SODIUM CHLORIDE 0.9% 50ML 50 ML IV PRN ×5 (02:43→21:50)
[2017-06-06] MEDS: ONDANSETRON INJ 2 MG/ML 2 ML VIAL IV PRN ×3 (05:52→18:37)
[2017-06-06] MEDS: TAPENTADOL HCL 50 MG TAB PO PRN ×3 (05:52→18:37)
[2017-06-06] MEDS: hydrOXYzine HCL 25 MG TAB PO SCH ×3 (05:53→21:50)
[2017-06-06 07:01] LABS: BUN/CREATININE RATIO 16.7 (10-20); CALCIUM 8.9 mg/dl (8.5-10.1); CREATININE 0.92 mg/dl (0.60-1.20); MAGNESIUM 2.2 mg/dl (1.8-2.4); POTASSIUM 3.8 mmol/L (3.5-5.1)
[2017-06-06 07:13] LABS: HEMATOCRIT 32.8 % (37-47); MEAN CELL VOLUME 63.2 fL (80-100); MEAN CORPUSCULAR HEMOGLOBIN 18.9 pg (25-34); MEAN CORPUSCULAR HGB CONC 29.9 g/dl (32-36); MEAN PLATELET VOLUME 9.5 fL (7.4-10.4); PLATELET COUNT 420 K/uL (130-400); RED BLOOD COUNT 5.19 M/uL (4.2-5.4); WHITE BLOOD COUNT 19.83 K/uL (4.8-10.8)
[2017-06-06 07:31] VITALS: BP 99/65; PULSE 100; TEMP 36.8; O2SAT 95
[2017-06-06] MEDS: SUCRALFATE 1 GM/10 ML UDC PO SCH ×5 (08:20→20:19)
[2017-06-06] MEDS: CYCLOBENZAPRINE HCL 10 MG TAB PO SCH ×3 (08:20→20:19)
[2017-06-06] MEDS: LANSOPRAZOLE SOLUTAB 30 MG SL SCH (08:21)
[2017-06-06] MEDS: METHYLPREDNISOLONE IV 40 MG in SYRINGE 0 ML IV SCH (08:21)
[2017-06-06] MEDS: FERROUS SULFATE 325 MG TAB PO SCH ×2 (08:22→16:46)
[2017-06-06] MEDS: CLONAZEPAM 1 MG TAB PO PRN ×2 (08:27→14:42)
[2017-06-06 08:30] VITALS: O2SAT 97
[2017-06-06] MEDS: DULOXETINE HCL 60 MG CAP PO SCH (10:12)
[2017-06-06 15:28] VITALS: BP 109/75; PULSE 101; TEMP 36.6; O2SAT 97
--- NOTE | 2017-06-06 16:06 | Progress Note ---
Medicine Progress Note Date & Time of Visit: Jun 06, 2017 at 16:05. Subjective seen with her mother at bedside seen sitting up in bed, putting nailpolish on states she had multiple episodes of vomiting today, about 3-4x, previously ingested food also had some diarrhea, greenish notes small amount of urine pain and anxiety under control no other symptoms Objective Last 8 Hrs Date Time Temp Pulse Resp B/P (MAP) Pulse Ox O2 Delivery O2 Flow Rate FiO2 06/06/17 15:28 36.6 101 16 109/75 (86) 97 06/06/17 08:30 97 Room Air Physical Exam: Laboratory Results: Last 24 Hours Test 06/06/17 05:32 White Blood Count 19.83 K/uL Red Blood Count 5.19 M/uL Hemoglobin 9.8 g/dL Hematocrit 32.8 % Mean Corpuscular Volume 63.2 fL Mean Corpuscular Hemoglobin 18.9 pg Mean Corpuscular Hemoglobin Concent 29.9 g/dl RDW Standard Deviation 40.4 fL RDW Coefficient of Variation 18.6 % Platelet Count 420 K/uL Mean Platelet Volume 9.5 fL Sodium Level 142 mmol/L Potassium Level 3.8 mmol/L Chloride Level 108 mmol/L Carbon Dioxide Level 25 mmol/L Anion Gap 9.0 mmol/L Blood Urea Nitrogen 15 mg/dl Creatinine 0.92 mg/dl Est Creatinine Clear Calc Drug Dose 81.1 ml/min Estimated GFR () 94.8 Estimated GFR (Non- 81.8 BUN/Creatinine Ratio 16.7 Random Glucose 146 mg/dl Calcium Level 8.9 mg/dl Magnesium Level 2.2 mg/dl Assessment & Plan Bloody diarrhea/abdominal pain: -2/2 to Inflammatory bowel disease/ulcerative colitis flare -Non-compliant; has not seen GI for about 2 yrs -Colonoscopy (06/01/17): "inflammation characterized by erosions, erythema and friability...was found in a continuous and circumferential pattern from anus to sigmoid colon" - having some diarrhea today, non bloody check for C diff decrease Solumedrol to 40mg IV daily -Pain regimen includes tapentadol, tylenol. Stopped dilaudid on 06/02 -Per GI recs, plan to discharge pt on prednisone taper and follow-up in clinic Nausea/vomiting: -Associated with episodes of abd pain/bloody diarrhea -EGD (06/01/17): "Localized mild inflammation characterized by erythema was found in the gastric antrum" -- increased episodes today non bloody -- likely from Withdrawal change to Protonix IV BID clears, IV fluids -- monitor Hypokalemia: -K of 3.1 secondary to GI losses -Replaced K -Mg is wnl -Monitor labwork and adjust accordingly Opioid withdrawal: -Patient with h/o narcotic dependence -Unable to tolerate side effects of withdrawal at home previous to admission -Has been on Dilaudid as an in-patient for UC Flare. Stopped 06/02/17 -Per pain management recs, ordered Tapentadol 50mg Q6 hours -Patient is experiencing anxiety, insomnia, diarrhea with withdrawal. Is highly motivated to continue process -Dr Sheffield is willing to see her in clinic after discharge. Plan to get referral from PCP -Continue managing effects of withdrawal: Lomotil for GI symptoms Anti-emetics for nausea Acetaminophen for MSK pain Hydroxyzine for anxiety/rhinorrhea Clonidine patch for sympathetic hyperactivity Anxiety discussed above Anxiety/depression: -H/o depression and anxiety managed by PCP -On Cymbalta, Lamictal as home meds -Has heightened anxiety due to opioid withdrawal -Per pain mgmt recs, on hydroxyzine for anxiety. Klonopin for PRN use -Recommend out-patient psych follow-up to optimize medications Generalized weakness: -Likely due to both deconditioning and anemia -Will continue iron supplements; h -Encouraged to continue ambulating with supervision to strengthen Atypical R-Sided Chest Pain: resolved -Tenderness on palpation of rt chest wall -Cont pain control -No hypoxia noted Arthralgia/Pain in Hip Joints: -Associated with IBD 2/2 UC flare -Rheumatology on board -Cont management for active GI disease which subsequently improved joint pain symptoms -Will follow with Rheumatology as an out-patient Anemia 2/2 blood loss: -Low iron level -Hbg stable at 9.2 -Monitor H/H -Continue iron supplement DVT Ppx: SCDs and Teds encouraged to ambulate Code status: FULL Dispo: Plan to return home once medically stable. Consultants: Gastro Rheumatology Procedures: Colonoscopy and EGD Current Inpatient Medications: Consultants: Gastro Rheumatology Procedures: Colonoscopy and EGD Current Inpatient Medications: Current Inpatient Medications Medications (Trade) Dose Ordered Sig/Sally Route Start Time Stop Time Status Last Admin Dose Admin Ondansetron HCl (Zofran Inj) 4 mg Q6H PRN IV 05/28/17 23:45 06/27/17 23:44 06/06/17 12:19 4 MG Duloxetine HCl (Cymbalta Cap) 120 mg DAILY PO 05/29/17 08:00 06/28/17 08:59 06/06/17 10:12 120 MG Lamotrigine (Lamictal Tab) 200 mg DAILY PO 05/29/17 08:00 06/28/17 08:59 06/06/17 10:12 200 MG Acetaminophen (Tylenol Tab) 650 mg Q4H PRN PO 05/28/17 23:45 06/27/17 23:44 Ibuprofen (Advil Tab) 400 mg Q6H PRN PO 05/29/17 00:00 06/28/17 00:00 Promethazine HCl 12.5 mg/Sodium Chloride 50.5 ml @ 204 mls/hr Q6H PRN IV 05/29/17 04:45 06/28/17 04:44 06/06/17 10:14 204 MLS/HR Ferrous Sulfate (Feosol Tab) 325 mg BIDM PO 05/29/17 17:00 06/28/17 16:59 06/06/17 08:22 325 MG Cyclobenzaprine HCl (Flexeril Tab) 10 mg TID PO 05/29/17 20:00 06/28/17 19:59 06/06/17 14:42 10 MG Pantoprazole Sodium 40 mg/ Syringe 10 ml @ 5 mls/min DAILY@09,21 IV 05/30/17 21:00 06/29/17 20:59 Future Hold 06/01/17 09:20 5 MLS/MIN Sucralfate (Carafate Susp) 1 gm QID PO 05/31/17 12:00 06/30/17 11:59 06/06/17 11:22 1 GM Lansoprazole (Prevacid Solutab) 30 mg BID SL 06/02/17 08:00 07/02/17 07:59 06/06/17 08:21 30 MG Diphenoxylate HCl/ Atropine (Lomotil Tab) 1 tab QID PRN PO 06/02/17 16:00 07/02/17 15:59 Tapentadol (Nucynta Tab) 50 mg Q6H PRN PO 06/03/17 08:45 07/03/17 08:44 06/06/17 12:19 50 MG Clonidine HCl (Lxmpemed-Brw-4 0.1mg/24hr Patch) 1 patch Q7D@0900 TD 06/03/17 09:00 07/03/17 08:59 06/03/17 09:37 1 PATCH Miscellaneous (Remove Clonidine Patch) 1 ea Q7D@0859 N/A 06/10/17 08:59 07/10/17 08:58 Miscellaneous Information (Check Clonidine Patch Placement) 1 ea QS N/A 06/03/17 16:00 07/03/17 15:59 06/06/17 08:20 1 EA Hydroxyzine HCl (Vistaril Tab) 25 mg Q8 PO 06/04/17 06:00 07/04/17 05:59 06/06/17 14:42 25 MG Methylprednisolone Sodium Succinate 40 mg/Syringe 0.64 ml @ 1.5 mls/min BID IV 06/05/17 20:00 07/05/17 07:59 06/06/17 08:21 1.5 MLS/MIN Clonazepam (Klonopin Tab) 1 mg TID PRN PO 06/05/17 16:00 07/05/17 15:59 06/06/17 14:42 1 MG
[2017-06-06] MEDS: NSS + 20MEQ KCL 1000ML 1,000 ML IV SCH (17:03)
[2017-06-06] MEDS: PANTOprazole INJ 40 MG in SYRINGE 0 ML IV SCH (20:20)
[2017-06-06] MEDS ORDERED: NURSING VERBAL MED ORDER ONE (21:45)
[2017-06-06 23:37] VITALS: BP 113/76; PULSE 85; TEMP 36.6; O2SAT 96
[2017-06-07] MEDS: CHECK CLONIDINE PATCH PLACEMENT SCH ×4 (00:16→23:27)
[2017-06-07] MEDS: NSS + 20MEQ KCL 1000ML 1,000 ML IV SCH ×3 (00:32→16:44)
[2017-06-07] MEDS: TAPENTADOL HCL 50 MG TAB PO PRN ×4 (00:33→20:29)
[2017-06-07] MEDS: CLONAZEPAM 1 MG TAB PO PRN ×3 (00:37→20:28)
[2017-06-07] MEDS: PROMETHAZINE HCL INJ 12.5 MG in SODIUM CHLORIDE 0.9% 50ML 50 ML IV PRN ×3 (04:09→18:35)
[2017-06-07] MEDS: hydrOXYzine HCL 25 MG TAB PO SCH ×3 (05:50→20:30)
[2017-06-07 07:04] VITALS: BP 114/74; PULSE 85; TEMP 36.3; O2SAT 93
[2017-06-07 07:07] LABS: BUN/CREATININE RATIO 14.8 (10-20); CALCIUM 8.7 mg/dl (8.5-10.1); CREATININE 0.77 mg/dl (0.60-1.20); POTASSIUM 3.6 mmol/L (3.5-5.1)
[2017-06-07 07:28] LABS: HEMATOCRIT 30.9 % (37-47); MEAN CELL VOLUME 63.7 fL (80-100); MEAN CORPUSCULAR HEMOGLOBIN 18.4 pg (25-34); MEAN CORPUSCULAR HGB CONC 28.8 g/dl (32-36); MEAN PLATELET VOLUME 9.7 fL (7.4-10.4); PLATELET COUNT 357 K/uL (130-400); RED BLOOD COUNT 4.85 M/uL (4.2-5.4); WHITE BLOOD COUNT 21.03 K/uL (4.8-10.8)
[2017-06-07 07:31] LABS: BASO ABS # 0.01 K/uL (0-0.2); COMPLETE YES; ECHINOCYTES 1+; EOS % 0.1 %; HYPOCHROMIA PRESENT; IG% 0.5 %; LYMPH % 10.4 %; LYMPH ABS # 2.18 K/uL (1.2-3.4); MICROCYTOSIS PRESENT; MONO % 7.2 %; NEUT % 81.8 %; OVALOCYTES 1+
[2017-06-07] MEDS: PANTOprazole INJ 40 MG in SYRINGE 0 ML IV SCH ×2 (07:49→19:24)
[2017-06-07] MEDS: CYCLOBENZAPRINE HCL 10 MG TAB PO SCH ×3 (07:50→19:24)
[2017-06-07] MEDS: DULOXETINE HCL 60 MG CAP PO SCH (07:51)
[2017-06-07] MEDS: FERROUS SULFATE 325 MG TAB PO SCH ×2 (07:51→17:21)
[2017-06-07] MEDS: SUCRALFATE 1 GM/10 ML UDC PO SCH ×4 (07:52→19:24)
[2017-06-07] MEDS: ONDANSETRON INJ 2 MG/ML 2 ML VIAL IV PRN (07:57)
[2017-06-07] MEDS ORDERED: METHYLPREDNISOLONE IV 40 MG in SYRINGE 0 ML IV SCH (08:00)
[2017-06-07 08:30] VITALS: O2SAT 93
[2017-06-07 14:50] VITALS: BP 113/74; PULSE 109; TEMP 36.9; O2SAT 96
[2017-06-07] MEDS ORDERED: ACETAMINOPHEN IV 650 MG in EMPTY BAG 0 ML IV PRN (19:15)
--- NOTE | 2017-06-07 19:18 | Progress Note ---
Medicine Progress Note Date & Time of Visit: Jun 07, 2017 at 19:15. Subjective patient seen sitting up in bed, comfortable states she is having a rough day though still having abdominal pain today with hematochezia, about 3 episodes, and nausea denies dysuria but reports that she is not urinating that much no other symptoms Objective Last 8 Hrs Date Time Temp Pulse Resp B/P (MAP) Pulse Ox O2 Delivery O2 Flow Rate FiO2 06/07/17 16:49 Room Air 06/07/17 14:50 36.9 109 16 113/74 (87) 96 Physical Exam: General- oriented x 3, not in distress, speaks in sentences with no effort Eyes- anicteric Neck- supple, no JVD Lungs- clear breath sounds bilaterally no rales/wheezes Heart- regular rhythm; no murmur, normal rate Abdomen- normal bowel sounds, soft, non distended, mild LLQ tenderness Extremities- no pretibial edema, no calf tenderness Neuro- alert, oriented x 3; no gross focal deficits Skin- warm & dry Laboratory Results: Last 24 Hours Test 06/07/17 05:18 White Blood Count 21.03 K/uL Red Blood Count 4.85 M/uL Hemoglobin 8.9 g/dL Hematocrit 30.9 % Mean Corpuscular Volume 63.7 fL Mean Corpuscular Hemoglobin 18.4 pg Mean Corpuscular Hemoglobin Concent 28.8 g/dl Platelet Count 357 K/uL Mean Platelet Volume 9.7 fL Neutrophils (%) (Auto) 81.8 % Lymphocytes (%) (Auto) 10.4 % Monocytes (%) (Auto) 7.2 % Eosinophils (%) (Auto) 0.1 % Basophils (%) (Auto) 0.0 % Neutrophils # (Auto) 17.18 K/uL Lymphocytes # (Auto) 2.18 K/uL Monocytes # (Auto) 1.52 K/uL Eosinophils # (Auto) 0.03 K/uL Basophils # (Auto) 0.01 K/uL RDW Standard Deviation 41.1 fL RDW Coefficient of Variation 19.6 % Immature Granulocyte % (Auto) 0.5 % Immature Granulocyte # (Auto) 0.11 K/uL Hypochromasia PRESENT Microcytosis PRESENT Ovalocytes 1+ Echinocytes 1+ Sodium Level 142 mmol/L Potassium Level 3.6 mmol/L Chloride Level 109 mmol/L Carbon Dioxide Level 24 mmol/L Anion Gap 9.0 mmol/L Blood Urea Nitrogen 11 mg/dl Creatinine 0.77 mg/dl Est Creatinine Clear Calc Drug Dose 97.0 ml/min Estimated GFR () 117.6 Estimated GFR (Non- 101.4 BUN/Creatinine Ratio 14.8 Random Glucose 100 mg/dl Calcium Level 8.7 mg/dl Magnesium Level 2.0 mg/dl Date/Time Source Procedure Growth Status 06/07/17 00:35 Stool C.difficile Toxin B Gene (PCR) - Final No C. difficile toxin B gene detected Complete Assessment & Plan Bloody diarrhea/abdominal pain: -2/2 to Inflammatory bowel disease/ulcerative colitis flare -Non-compliant; has not seen GI for about 2 yrs -Colonoscopy (06/01/17): "inflammation characterized by erosions, erythema and friability...was found in a continuous and circumferential pattern from anus to sigmoid colon" - still having abdominal pain, hematochezia today check for C diff restart Solumedrol 40mg IV BID will reconsult GI -Pain regimen includes tapentadol, tylenol. Stopped dilaudid on 06/02 will add IV ofirmev per patient request Nausea/vomiting: -Associated with episodes of abd pain/bloody diarrhea -EGD (06/01/17): "Localized mild inflammation characterized by erythema was found in the gastric antrum" -- about the same Protonix IV BID clears, IV fluids -- will reconsult GI -- monitor Hypokalemia: -K of 3.1 secondary to GI losses -Replaced K -Mg is wnl -Monitor labwork and adjust accordingly Opioid withdrawal: -Patient with h/o narcotic dependence -Unable to tolerate side effects of withdrawal at home previous to admission -Has been on Dilaudid as an in-patient for UC Flare. Stopped 06/02/17 -Per pain management recs, ordered Tapentadol 50mg Q6 hours -Patient is experiencing anxiety, insomnia, diarrhea with withdrawal. Is highly motivated to continue process -Dr Sheffield is willing to see her in clinic after discharge. Plan to get referral from PCP -Continue managing effects of withdrawal: Lomotil for GI symptoms Anti-emetics for nausea Acetaminophen for MSK pain Hydroxyzine for anxiety/rhinorrhea Clonidine patch for sympathetic hyperactivity Anxiety discussed above Anxiety/depression: -H/o depression and anxiety managed by PCP -On Cymbalta, Lamictal as home meds -Has heightened anxiety due to opioid withdrawal -Per pain mgmt recs, on hydroxyzine for anxiety. Klonopin for PRN use -Recommend out-patient psych follow-up to optimize medications Generalized weakness: -Likely due to both deconditioning and anemia Atypical R-Sided Chest Pain: resolved -Tenderness on palpation of rt chest wall -Cont pain control -No hypoxia noted Arthralgia/Pain in Hip Joints: -Associated with IBD 2/2 UC flare -Rheumatology on board -Cont management for active GI disease which subsequently improved joint pain symptoms -Will follow with Rheumatology as an out-patient Anemia 2/2 blood loss: -Low iron level -Hbg stable so far -Monitor H/H -Continue iron supplement DVT Ppx: SCDs and Teds encouraged to ambulate Code status: FULL Dispo: Plan to return home once medically stable. Consultants: Gastro Rheumatology Procedures: Colonoscopy and EGD Current Inpatient Medications: Consultants: Gastro Rheumatology Procedures: Colonoscopy and EGD Consultants: Gastro Rheumatology Procedures: Colonoscopy and EGD Current Inpatient Medications: Current Inpatient Medications Medications (Trade) Dose Ordered Sig/Sally Route Start Time Stop Time Status Last Admin Dose Admin Ondansetron HCl (Zofran Inj) 4 mg Q6H PRN IV 05/28/17 23:45 06/27/17 23:44 06/07/17 07:57 4 MG Duloxetine HCl (Cymbalta Cap) 120 mg DAILY PO 05/29/17 08:00 06/28/17 08:59 06/07/17 07:51 120 MG Lamotrigine (Lamictal Tab) 200 mg DAILY PO 05/29/17 08:00 06/28/17 08:59 06/07/17 07:51 200 MG Acetaminophen (Tylenol Tab) 650 mg Q4H PRN PO 05/28/17 23:45 06/27/17 23:44 Ibuprofen (Advil Tab) 400 mg Q6H PRN PO 05/29/17 00:00 06/28/17 00:00 Promethazine HCl 12.5 mg/Sodium Chloride 50.5 ml @ 204 mls/hr Q6H PRN IV 05/29/17 04:45 06/28/17 04:44 06/07/17 18:35 204 MLS/HR Ferrous Sulfate (Feosol Tab) 325 mg BIDM PO 05/29/17 17:00 06/28/17 16:59 06/07/17 17:21 325 MG Cyclobenzaprine HCl (Flexeril Tab) 10 mg TID PO 05/29/17 20:00 06/28/17 19:59 06/07/17 14:22 10 MG Sucralfate (Carafate Susp) 1 gm QID PO 05/31/17 12:00 06/30/17 11:59 06/07/17 17:20 1 GM Diphenoxylate HCl/ Atropine (Lomotil Tab) 1 tab QID PRN PO 06/02/17 16:00 07/02/17 15:59 Tapentadol (Nucynta Tab) 50 mg Q6H PRN PO 06/03/17 08:45 07/03/17 08:44 06/07/17 14:25 50 MG Clonidine HCl (Nnnltmqv-Ytn-2 0.1mg/24hr Patch) 1 patch Q7D@0900 TD 06/03/17 09:00 07/03/17 08:59 06/03/17 09:37 1 PATCH Miscellaneous (Remove Clonidine Patch) 1 ea Q7D@0859 N/A 06/10/17 08:59 07/10/17 08:58 Miscellaneous Information (Check Clonidine Patch Placement) 1 ea QS N/A 06/03/17 16:00 07/03/17 15:59 06/07/17 17:21 1 EA Hydroxyzine HCl (Vistaril Tab) 25 mg Q8 PO 06/04/17 06:00 07/04/17 05:59 06/07/17 14:22 25 MG Clonazepam (Klonopin Tab) 1 mg TID PRN PO 06/05/17 16:00 07/05/17 15:59 06/07/17 12:35 1 MG Potassium Chloride/Sodium Chloride 1,000 ml @ 125 mls/hr Q8H IV 06/06/17 16:30 07/06/17 16:29 06/07/17 16:44 125 MLS/HR Pantoprazole Sodium 40 mg/ Syringe 10 ml @ 5 mls/min DAILY@09,21 IV 06/06/17 21:00 07/06/17 20:59 06/07/17 07:49 5 MLS/MIN Methylprednisolone Sodium Succinate 40 mg/Syringe 0.64 ml @ 1.5 mls/min DAILY IV 06/07/17 08:00 07/07/17 07:59 06/07/17 07:50 1.5 MLS/MIN
[2017-06-07] MEDS: METHYLPREDNISOLONE IV 40 MG in SYRINGE 0 ML IV SCH (19:36)
[2017-06-07 23:25] VITALS: BP 126/87; PULSE 85; TEMP 36.7; O2SAT 95
[2017-06-08] MEDS: NSS + 20MEQ KCL 1000ML 1,000 ML IV SCH ×3 (01:52→15:56)
[2017-06-08] MEDS: PROMETHAZINE HCL INJ 12.5 MG in SODIUM CHLORIDE 0.9% 50ML 50 ML IV PRN ×4 (01:52→21:22)
[2017-06-08] MEDS: TAPENTADOL HCL 50 MG TAB PO PRN ×4 (03:50→22:14)
[2017-06-08] MEDS: ONDANSETRON INJ 2 MG/ML 2 ML VIAL IV PRN ×3 (03:53→17:27)
[2017-06-08] MEDS: CLONAZEPAM 1 MG TAB PO PRN ×3 (04:58→21:29)
[2017-06-08 07:19] VITALS: BP 132/97; PULSE 108; TEMP 36.6; O2SAT 96
[2017-06-08 07:38] LABS: BUN/CREATININE RATIO 8.8 (10-20); CALCIUM 8.9 mg/dl (8.5-10.1); CREATININE 0.86 mg/dl (0.60-1.20); MAGNESIUM 2.1 mg/dl (1.8-2.4); POTASSIUM 3.9 mmol/L (3.5-5.1)
[2017-06-08 07:59] LABS: HEMATOCRIT 30.9 % (37-47); MEAN CELL VOLUME 63.8 fL (80-100); MEAN CORPUSCULAR HEMOGLOBIN 18.4 pg (25-34); MEAN CORPUSCULAR HGB CONC 28.8 g/dl (32-36); MEAN PLATELET VOLUME 9.1 fL (7.4-10.4); PLATELET COUNT 421 K/uL (130-400); RED BLOOD COUNT 4.84 M/uL (4.2-5.4); WHITE BLOOD COUNT 17.55 K/uL (4.8-10.8)
[2017-06-08 08:15] LABS: ANISOCYTOSIS PRESENT; BASO % 0.1 %; BASO ABS # 0.01 K/uL (0-0.2); COMPLETE YES; HYPOCHROMIA PRESENT; IG% 0.7 %; LYMPH % 5.5 %; LYMPH ABS # 0.97 K/uL (1.2-3.4); MICROCYTOSIS PRESENT; MONO % 4.3 %; NEUT % 89.4 %; OVALOCYTES 1+; POIKILOCYTOSIS PRESENT
[2017-06-08] MEDS: FERROUS SULFATE 325 MG TAB PO SCH ×2 (08:30→15:57)
[2017-06-08] MEDS: CYCLOBENZAPRINE HCL 10 MG TAB PO SCH ×3 (08:30→20:28)
[2017-06-08] MEDS: DULOXETINE HCL 60 MG CAP PO SCH (08:30)
[2017-06-08] MEDS: CHECK CLONIDINE PATCH PLACEMENT SCH ×2 (08:31→16:00)
[2017-06-08] MEDS: PANTOprazole INJ 40 MG in SYRINGE 0 ML IV SCH ×2 (08:31→20:28)
[2017-06-08] MEDS: SUCRALFATE 1 GM/10 ML UDC PO SCH ×4 (08:31→20:28)
--- NOTE | 2017-06-08 09:01 | Progress Note ---
Medicine Progress Note Date & Time of Visit: Jun 08, 2017 at 08:57. Subjective patient seen sitting up in bed, not in distress, seems anxious states she had significant hematochezia today still having some abdominal pain and nausea reports mild dizziness no chest pain, dyspnea, palpitations no other symptoms Objective Last 8 Hrs Date Time Temp Pulse Resp B/P (MAP) Pulse Ox O2 Delivery O2 Flow Rate FiO2 06/08/17 07:19 36.6 108 16 132/97 (109) 96 Room Air Physical Exam: General- oriented x 3, not in distress, speaks in sentences with no effort Neck- no JVD Lungs- clear BS BL Heart- regular rhythm; no murmur, normal rate Abdomen- normal bowel sounds, soft, non distended, mild LLQ tenderness Extremities- no pretibial edema, no calf tenderness Neuro- alert, oriented x 3; no gross focal deficits Skin- warm & dry Laboratory Results: Last 24 Hours Test 06/08/17 06:50 White Blood Count 17.55 K/uL Red Blood Count 4.84 M/uL Hemoglobin 8.9 g/dL Hematocrit 30.9 % Mean Corpuscular Volume 63.8 fL Mean Corpuscular Hemoglobin 18.4 pg Mean Corpuscular Hemoglobin Concent 28.8 g/dl Platelet Count 421 K/uL Mean Platelet Volume 9.1 fL Neutrophils (%) (Auto) 89.4 % Lymphocytes (%) (Auto) 5.5 % Monocytes (%) (Auto) 4.3 % Eosinophils (%) (Auto) 0.0 % Basophils (%) (Auto) 0.1 % Neutrophils # (Auto) 15.69 K/uL Lymphocytes # (Auto) 0.97 K/uL Monocytes # (Auto) 0.75 K/uL Eosinophils # (Auto) 0.00 K/uL Basophils # (Auto) 0.01 K/uL RDW Standard Deviation 41.5 fL RDW Coefficient of Variation 20.1 % Immature Granulocyte % (Auto) 0.7 % Immature Granulocyte # (Auto) 0.13 K/uL Hypochromasia PRESENT Poikilocytosis PRESENT Anisocytosis PRESENT Microcytosis PRESENT Ovalocytes 1+ Sodium Level 141 mmol/L Potassium Level 3.9 mmol/L Chloride Level 106 mmol/L Carbon Dioxide Level 27 mmol/L Anion Gap 8.0 mmol/L Blood Urea Nitrogen 8 mg/dl Creatinine 0.86 mg/dl Est Creatinine Clear Calc Drug Dose 86.8 ml/min Estimated GFR () 102.9 Estimated GFR (Non- 88.8 BUN/Creatinine Ratio 8.8 Random Glucose 111 mg/dl Calcium Level 8.9 mg/dl Magnesium Level 2.1 mg/dl Date/Time Source Procedure Growth Status 06/07/17 21:40 Stool C.difficile Toxin B Gene (PCR) - Final No C. difficile toxin B gene detected Complete 06/07/17 21:40 Urine , Clean Catch Urine Culture Pending Received Assessment & Plan Bloody diarrhea/abdominal pain: -2/2 to Inflammatory bowel disease/ulcerative colitis flare -Non-compliant; has not seen GI for about 2 yrs -Colonoscopy (06/01/17): "inflammation characterized by erosions, erythema and friability...was found in a continuous and circumferential pattern from anus to sigmoid colon" - had significant hematochezia this AM will repeat H&H at noon repeat C diff negative resumed Solumedrol 40mg IV BID will reconsult GI -Pain regimen includes tapentadol, tylenol. Stopped dilaudid on 06/02 will add IV ofirmev per patient request Nausea/vomiting: -Associated with episodes of abd pain/bloody diarrhea -EGD (06/01/17): "Localized mild inflammation characterized by erythema was found in the gastric antrum" -- about the same Protonix IV BID clears, IV fluids, advance diet as tolerated -- will reconsult GI -- monitor Hypokalemia: -K of 3.1 secondary to GI losses -Replaced K -Mg is wnl -Monitor labwork and adjust accordingly Opioid withdrawal: -Patient with h/o narcotic dependence -Unable to tolerate side effects of withdrawal at home previous to admission -Has been on Dilaudid as an in-patient for UC Flare. Stopped 06/02/17 -Per pain management recs, ordered Tapentadol 50mg Q6 hours -Patient is experiencing anxiety, insomnia, diarrhea with withdrawal. Is highly motivated to continue process -Dr Sheffield is willing to see her in clinic after discharge. Plan to get referral from PCP -Continue managing effects of withdrawal: Lomotil for GI symptoms Anti-emetics for nausea Acetaminophen for MSK pain Hydroxyzine for anxiety/rhinorrhea Clonidine patch for sympathetic hyperactivity Anxiety discussed above Anxiety/depression: -H/o depression and anxiety managed by PCP -On Cymbalta, Lamictal as home meds -Has heightened anxiety due to opioid withdrawal -Per pain mgmt recs, on hydroxyzine for anxiety. Klonopin for PRN use -Recommend out-patient psych follow-up to optimize medications Generalized weakness: -Likely due to both deconditioning and anemia Atypical R-Sided Chest Pain: resolved -Tenderness on palpation of rt chest wall -Cont pain control -No hypoxia noted Arthralgia/Pain in Hip Joints: -Associated with IBD 2/2 UC flare -Rheumatology on board -Cont management for active GI disease which subsequently improved joint pain symptoms -Will follow with Rheumatology as an out-patient Anemia 2/2 blood loss: -Low iron level -Hbg stable so far -Monitor H/H -Continue iron supplement DVT Ppx: SCDs and Teds encouraged to ambulate Code status: FULL Dispo: Plan to return home once medically stable. Consultants: [facility] Procedures: Colonoscopy and EGD Current Inpatient Medications: Consultants: [facility] Procedures: Colonoscopy and EGD Consultants: [facility] Procedures: Colonoscopy and EGD Current Inpatient Medications: Current Inpatient Medications Medications (Trade) Dose Ordered Sig/Sally Route Start Time Stop Time Status Last Admin Dose Admin Ondansetron HCl (Zofran Inj) 4 mg Q6H PRN IV 05/28/17 23:45 06/27/17 23:44 06/08/17 03:53 4 MG Duloxetine HCl (Cymbalta Cap) 120 mg DAILY PO 05/29/17 08:00 06/28/17 08:59 06/08/17 08:30 120 MG Lamotrigine (Lamictal Tab) 200 mg DAILY PO 05/29/17 08:00 06/28/17 08:59 06/08/17 08:31 200 MG Acetaminophen (Tylenol Tab) 650 mg Q4H PRN PO 05/28/17 23:45 06/27/17 23:44 Ibuprofen (Advil Tab) 400 mg Q6H PRN PO 05/29/17 00:00 06/28/17 00:00 Promethazine HCl 12.5 mg/Sodium Chloride 50.5 ml @ 204 mls/hr Q6H PRN IV 05/29/17 04:45 06/28/17 04:44 06/08/17 08:41 204 MLS/HR Ferrous Sulfate (Feosol Tab) 325 mg BIDM PO 05/29/17 17:00 06/28/17 16:59 06/08/17 08:30 325 MG Cyclobenzaprine HCl (Flexeril Tab) 10 mg TID PO 05/29/17 20:00 06/28/17 19:59 06/08/17 08:30 10 MG Sucralfate (Carafate Susp) 1 gm QID PO 05/31/17 12:00 06/30/17 11:59 06/08/17 08:31 1 GM Diphenoxylate HCl/ Atropine (Lomotil Tab) 1 tab QID PRN PO 06/02/17 16:00 07/02/17 15:59 Tapentadol (Nucynta Tab) 50 mg Q6H PRN PO 06/03/17 08:45 07/03/17 08:44 06/08/17 03:50 50 MG Clonidine HCl (Gegzmfqf-Fgu-3 0.1mg/24hr Patch) 1 patch Q7D@0900 TD 06/03/17 09:00 07/03/17 08:59 06/03/17 09:37 1 PATCH Miscellaneous (Remove Clonidine Patch) 1 ea Q7D@0859 N/A 06/10/17 08:59 07/10/17 08:58 Miscellaneous Information (Check Clonidine Patch Placement) 1 ea QS N/A 06/03/17 16:00 07/03/17 15:59 06/08/17 08:31 1 EA Hydroxyzine HCl (Vistaril Tab) 25 mg Q8 PO 06/04/17 06:00 07/04/17 05:59 06/07/17 20:30 25 MG Clonazepam (Klonopin Tab) 1 mg TID PRN PO 06/05/17 16:00 07/05/17 15:59 06/08/17 04:58 1 MG Potassium Chloride/Sodium Chloride 1,000 ml @ 125 mls/hr Q8H IV 06/06/17 16:30 07/06/17 16:29 06/08/17 01:52 125 MLS/HR Pantoprazole Sodium 40 mg/ Syringe 10 ml @ 5 mls/min DAILY@, IV 06/06/17 21:00 07/06/17 20:59 06/08/17 08:31 5 MLS/MIN Methylprednisolone Sodium Succinate 40 mg/Syringe 0.64 ml @ 1.5 mls/min BID IV 06/07/17 20:00 07/07/17 07:59 06/07/17 19:36 1.5 MLS/MIN Acetaminophen 650 mg/Empty Bag 65 ml @ 260 mls/hr Q6H PRN IV 06/07/17 19:15 07/07/17 19:14
[2017-06-08] MEDS: METHYLPREDNISOLONE IV 40 MG in SYRINGE 0 ML IV SCH ×2 (09:33→20:28)
--- NOTE | 2017-06-08 10:20 | Gastroenterology Progress Note ---
Progress Note Date of Service: Jun 08, 2017 Subjective Pt evaluation today including: conversation w/ patient, physical exam, chart review, lab review, review of inpatient medication list Patient reports worsening abdominal pain and bleeding. She rates her pain as 7/ 10 at present on the left side of her abdomen. There is nausea without vomiting today although she states she was vomiting over the weekend. Passed 4 softly formed stools in the past 24 hours with blood. States she passed a large, mostly bloody bm this morning. She has been noted to have a 1 g drop in hemoglobin overnight. Continues IV corticosteroids. On a full liquid diet. C Diff testing has been negative. Review of Systems Constitutional: No fever, No chills Respiratory: No problem reported Cardiac: No problem reported Abdomen: + see HPI Medications Current Inpatient Medications Medications (Trade) Dose Ordered Sig/Sally Route Start Time Stop Time Status Last Admin Dose Admin Ondansetron HCl (Zofran Inj) 4 mg Q6H PRN IV 05/28/17 23:45 06/27/17 23:44 06/08/17 03:53 4 MG Duloxetine HCl (Cymbalta Cap) 120 mg DAILY PO 05/29/17 08:00 06/28/17 08:59 06/08/17 08:30 120 MG Lamotrigine (Lamictal Tab) 200 mg DAILY PO 05/29/17 08:00 06/28/17 08:59 06/08/17 08:31 200 MG Acetaminophen (Tylenol Tab) 650 mg Q4H PRN PO 05/28/17 23:45 06/27/17 23:44 Ibuprofen (Advil Tab) 400 mg Q6H PRN PO 05/29/17 00:00 06/28/17 00:00 Promethazine HCl 12.5 mg/Sodium Chloride 50.5 ml @ 204 mls/hr Q6H PRN IV 05/29/17 04:45 06/28/17 04:44 06/08/17 08:41 204 MLS/HR Ferrous Sulfate (Feosol Tab) 325 mg BIDM PO 05/29/17 17:00 06/28/17 16:59 06/08/17 08:30 325 MG Cyclobenzaprine HCl (Flexeril Tab) 10 mg TID PO 05/29/17 20:00 06/28/17 19:59 06/08/17 08:30 10 MG Sucralfate (Carafate Susp) 1 gm QID PO 05/31/17 12:00 06/30/17 11:59 06/08/17 08:31 1 GM Diphenoxylate HCl/ Atropine (Lomotil Tab) 1 tab QID PRN PO 06/02/17 16:00 07/02/17 15:59 Tapentadol (Nucynta Tab) 50 mg Q6H PRN PO 06/03/17 08:45 07/03/17 08:44 06/08/17 09:33 50 MG Clonidine HCl (Eqbzrbni-Xej-3 0.1mg/24hr Patch) 1 patch Q7D@0900 TD 06/03/17 09:00 07/03/17 08:59 06/03/17 09:37 1 PATCH Miscellaneous (Remove Clonidine Patch) 1 ea Q7D@0859 N/A 06/10/17 08:59 07/10/17 08:58 Miscellaneous Information (Check Clonidine Patch Placement) 1 ea QS N/A 06/03/17 16:00 07/03/17 15:59 06/08/17 08:31 1 EA Hydroxyzine HCl (Vistaril Tab) 25 mg Q8 PO 06/04/17 06:00 07/04/17 05:59 06/07/17 20:30 25 MG Clonazepam (Klonopin Tab) 1 mg TID PRN PO 06/05/17 16:00 07/05/17 15:59 06/08/17 04:58 1 MG Potassium Chloride/Sodium Chloride 1,000 ml @ 125 mls/hr Q8H IV 06/06/17 16:30 07/06/17 16:29 06/08/17 01:52 125 MLS/HR Pantoprazole Sodium 40 mg/ Syringe 10 ml @ 5 mls/min DAILY@09,21 IV 06/06/17 21:00 07/06/17 20:59 06/08/17 08:31 5 MLS/MIN Methylprednisolone Sodium Succinate 40 mg/Syringe 0.64 ml @ 1.5 mls/min BID IV 06/07/17 20:00 07/07/17 07:59 06/08/17 09:33 1.5 MLS/MIN Acetaminophen 650 mg/Empty Bag 65 ml @ 260 mls/hr Q6H PRN IV 06/07/17 19:15 07/07/17 19:14 Mesalamine (Rowasa Enema) 4 gm BID IA 06/08/17 10:00 07/08/17 09:59 Objective Vital Signs Date Time Temp Pulse Resp B/P (MAP) Pulse Ox O2 Delivery O2 Flow Rate FiO2 06/08/17 07:19 36.6 108 16 132/97 (109) 96 Room Air 06/08/17 00:00 Room Air 06/07/17 23:25 36.7 85 18 126/87 (100) 95 Room Air 06/07/17 20:00 Room Air 06/07/17 16:49 Room Air 06/07/17 14:50 36.9 109 16 113/74 (87) 96 Physical Exam General Appearance: no apparent distress Eyes: EOMI Respiratory/Chest: lungs clear, normal breath sounds, no respiratory distress Cardiovascular: regular rate, rhythm, no gallop, no murmur Abdomen: normal bowel sounds, soft, + tenderness Neurologic/Psych: alert, normal mood/affect, oriented x 3 Skin: warm/dry Laboratory Results Last 24 Hours Test 06/08/17 06:50 White Blood Count 17.55 K/uL Red Blood Count 4.84 M/uL Hemoglobin 8.9 g/dL Hematocrit 30.9 % Mean Corpuscular Volume 63.8 fL Mean Corpuscular Hemoglobin 18.4 pg Mean Corpuscular Hemoglobin Concent 28.8 g/dl Platelet Count 421 K/uL Mean Platelet Volume 9.1 fL Neutrophils (%) (Auto) 89.4 % Lymphocytes (%) (Auto) 5.5 % Monocytes (%) (Auto) 4.3 % Eosinophils (%) (Auto) 0.0 % Basophils (%) (Auto) 0.1 % Neutrophils # (Auto) 15.69 K/uL Lymphocytes # (Auto) 0.97 K/uL Monocytes # (Auto) 0.75 K/uL Eosinophils # (Auto) 0.00 K/uL Basophils # (Auto) 0.01 K/uL RDW Standard Deviation 41.5 fL RDW Coefficient of Variation 20.1 % Immature Granulocyte % (Auto) 0.7 % Immature Granulocyte # (Auto) 0.13 K/uL Hypochromasia PRESENT Poikilocytosis PRESENT Anisocytosis PRESENT Microcytosis PRESENT Ovalocytes 1+ Sodium Level 141 mmol/L Potassium Level 3.9 mmol/L Chloride Level 106 mmol/L Carbon Dioxide Level 27 mmol/L Anion Gap 8.0 mmol/L Blood Urea Nitrogen 8 mg/dl Creatinine 0.86 mg/dl Est Creatinine Clear Calc Drug Dose 86.8 ml/min Estimated GFR () 102.9 Estimated GFR (Non- 88.8 BUN/Creatinine Ratio 8.8 Random Glucose 111 mg/dl Calcium Level 8.9 mg/dl Magnesium Level 2.1 mg/dl Assessment and Plan Patient is a 31 year-old female with a history of ulcerative colitis noted to have active left-sided colitis on recent colonoscopy with persistent bleeding abdominal pain despite IV steroid therapy. 1. Continue Solu-Medrol 40 mg IV BID. 2. Add Rowasa enemas 1 g BID. 3. Consider dietary advancement to lactose free, low residue diet. 4. Supportive care per primary team. Agree with GALE Johnson as above Abd: Soft, NT, ND, +BS Continue Solumedrol Advance diet to lactose free, low residue diet Continue supportive care Rowasa enemas BID
[2017-06-08] MEDS: MESALAMINE 4 GM/60 ML ENEMA BTL PR SCH ×2 (11:07→20:27)
[2017-06-08 12:11] LABS: HEMATOCRIT 29.7 % (37-47)
[2017-06-08] MEDS: hydrOXYzine HCL 25 MG TAB PO SCH ×2 (14:22→22:14)
[2017-06-08 16:00] VITALS: O2SAT 96
[2017-06-08 16:08] VITALS: BP 106/72; PULSE 93; TEMP 36.5; O2SAT 96
[2017-06-08 23:59] VITALS: BP 138/92; PULSE 84; TEMP 36.3; O2SAT 97
[2017-06-09] MEDS: NSS + 20MEQ KCL 1000ML 1,000 ML IV SCH ×4 (00:30→23:47)
[2017-06-09] MEDS: CHECK CLONIDINE PATCH PLACEMENT SCH ×4 (00:35→23:44)
[2017-06-09] MEDS: ONDANSETRON INJ 2 MG/ML 2 ML VIAL IV PRN ×3 (02:20→20:53)
[2017-06-09] MEDS: TAPENTADOL HCL 50 MG TAB PO PRN ×4 (04:23→22:38)
[2017-06-09] MEDS: PROMETHAZINE HCL INJ 12.5 MG in SODIUM CHLORIDE 0.9% 50ML 50 ML IV PRN ×3 (04:33→23:44)
[2017-06-09] MEDS: hydrOXYzine HCL 25 MG TAB PO SCH ×3 (06:04→20:52)
[2017-06-09 06:27] LABS: HEMATOCRIT 28.1 % (37-47); MEAN CELL VOLUME 64.4 fL (80-100); MEAN CORPUSCULAR HEMOGLOBIN 18.6 pg (25-34); MEAN CORPUSCULAR HGB CONC 28.8 g/dl (32-36); MEAN PLATELET VOLUME 9.2 fL (7.4-10.4); PLATELET COUNT 374 K/uL (130-400); RED BLOOD COUNT 4.36 M/uL (4.2-5.4); WHITE BLOOD COUNT 15.24 K/uL (4.8-10.8)
[2017-06-09 06:54] LABS: BUN/CREATININE RATIO 14.2 (10-20); CALCIUM 8.5 mg/dl (8.5-10.1); CREATININE 0.76 mg/dl (0.60-1.20); MAGNESIUM 2.2 mg/dl (1.8-2.4); POTASSIUM 3.8 mmol/L (3.5-5.1)
[2017-06-09 07:16] VITALS: BP 124/83; PULSE 94; TEMP 36.4; O2SAT 94
[2017-06-09 07:24] LABS: ANISOCYTOSIS PRESENT; COMPLETE YES; HYPOCHROMIA PRESENT; IG% 0.7 %; LYMPH % 3.9 %; MICROCYTOSIS PRESENT; MONO % 3.1 %; NEUT % 92.3 %; OVALOCYTES 1+
[2017-06-09] MEDS: METHYLPREDNISOLONE IV 40 MG in SYRINGE 0 ML IV SCH ×2 (08:39→20:51)
[2017-06-09] MEDS: SUCRALFATE 1 GM/10 ML UDC PO SCH ×4 (08:39→20:51)
[2017-06-09] MEDS: FERROUS SULFATE 325 MG TAB PO SCH ×2 (08:40→18:05)
[2017-06-09] MEDS: CYCLOBENZAPRINE HCL 10 MG TAB PO SCH ×3 (08:40→22:38)
[2017-06-09] MEDS: DULOXETINE HCL 60 MG CAP PO SCH (08:40)
[2017-06-09] MEDS: PANTOprazole INJ 40 MG in SYRINGE 0 ML IV SCH ×2 (08:41→20:53)
[2017-06-09] MEDS: CLONAZEPAM 1 MG TAB PO PRN ×2 (08:52→18:08)
--- NOTE | 2017-06-09 10:24 | Gastroenterology Progress Note ---
Progress Note Date of Service: Jun 09, 2017 Subjective Pt evaluation today including: conversation w/ patient, physical exam, chart review, review of inpatient medication list Patient reports persistent symptoms of rectal bleeding. States "I have 1500cc of blood yesterday". Also complains of persistent abdominal pain diffusely at 8/ 10. States "my pain medication only lasts 4 hours and it's ordered for every 6" . No fevers or chills, nausea or vomiting. States she is tolerating her diet a little better. H&H did drop slightly from 8.8 to 8.1 today. Review of Systems Constitutional: + see HPI Respiratory: No problem reported Cardiac: No problem reported Abdomen: + see HPI Psych: No problem reported Medications Current Inpatient Medications Medications (Trade) Dose Ordered Sig/Sally Route Start Time Stop Time Status Last Admin Dose Admin Ondansetron HCl (Zofran Inj) 4 mg Q6H PRN IV 05/28/17 23:45 06/27/17 23:44 06/09/17 08:41 4 MG Duloxetine HCl (Cymbalta Cap) 120 mg DAILY PO 05/29/17 08:00 06/28/17 08:59 06/09/17 08:40 120 MG Lamotrigine (Lamictal Tab) 200 mg DAILY PO 05/29/17 08:00 06/28/17 08:59 06/09/17 08:40 200 MG Acetaminophen (Tylenol Tab) 650 mg Q4H PRN PO 05/28/17 23:45 06/27/17 23:44 Ibuprofen (Advil Tab) 400 mg Q6H PRN PO 05/29/17 00:00 06/28/17 00:00 Promethazine HCl 12.5 mg/Sodium Chloride 50.5 ml @ 204 mls/hr Q6H PRN IV 05/29/17 04:45 06/28/17 04:44 06/09/17 04:33 204 MLS/HR Ferrous Sulfate (Feosol Tab) 325 mg BIDM PO 05/29/17 17:00 06/28/17 16:59 06/09/17 08:40 325 MG Cyclobenzaprine HCl (Flexeril Tab) 10 mg TID PO 05/29/17 20:00 06/28/17 19:59 06/09/17 08:40 10 MG Sucralfate (Carafate Susp) 1 gm QID PO 05/31/17 12:00 06/30/17 11:59 06/09/17 08:39 1 GM Diphenoxylate HCl/ Atropine (Lomotil Tab) 1 tab QID PRN PO 06/02/17 16:00 07/02/17 15:59 Tapentadol (Nucynta Tab) 50 mg Q6H PRN PO 06/03/17 08:45 07/03/17 08:44 06/09/17 04:23 50 MG Clonidine HCl (Rhcfbtoi-Ctd-5 0.1mg/24hr Patch) 1 patch Q7D@0900 TD 06/03/17 09:00 07/03/17 08:59 06/03/17 09:37 1 PATCH Miscellaneous (Remove Clonidine Patch) 1 ea Q7D@0859 N/A 06/10/17 08:59 07/10/17 08:58 Miscellaneous Information (Check Clonidine Patch Placement) 1 ea QS N/A 06/03/17 16:00 07/03/17 15:59 06/09/17 08:36 1 EA Hydroxyzine HCl (Vistaril Tab) 25 mg Q8 PO 06/04/17 06:00 07/04/17 05:59 06/09/17 06:04 25 MG Clonazepam (Klonopin Tab) 1 mg TID PRN PO 06/05/17 16:00 07/05/17 15:59 06/09/17 08:52 1 MG Potassium Chloride/Sodium Chloride 1,000 ml @ 125 mls/hr Q8H IV 06/06/17 16:30 07/06/17 16:29 06/09/17 08:41 125 MLS/HR Pantoprazole Sodium 40 mg/ Syringe 10 ml @ 5 mls/min DAILY@,21 IV 06/06/17 21:00 07/06/17 20:59 06/09/17 08:41 5 MLS/MIN Methylprednisolone Sodium Succinate 40 mg/Syringe 0.64 ml @ 1.5 mls/min BID IV 06/07/17 20:00 07/07/17 07:59 06/09/17 08:39 1.5 MLS/MIN Acetaminophen 650 mg/Empty Bag 65 ml @ 260 mls/hr Q6H PRN IV 06/07/17 19:15 07/07/17 19:14 Mesalamine (Rowasa Enema) 4 gm BID SD 06/08/17 10:00 07/08/17 09:59 06/08/17 20:27 4 GM Objective Vital Signs Date Time Temp Pulse Resp B/P (MAP) Pulse Ox O2 Delivery O2 Flow Rate FiO2 06/09/17 07:16 36.4 94 16 124/83 (97) 94 Room Air 06/09/17 00:00 Room Air 06/08/17 23:59 36.3 84 18 138/92 (107) 97 Room Air 06/08/17 16:08 36.5 93 18 106/72 (83) 96 Room Air 06/08/17 16:00 96 Room Air 06/08/17 11:12 Room Air Physical Exam General Appearance: no apparent distress Eyes: EOMI ENT: hearing grossly normal Respiratory/Chest: lungs clear, normal breath sounds, no respiratory distress Cardiovascular: regular rate, rhythm, no gallop, no murmur Abdomen: normal bowel sounds, soft, + tenderness Extremities: normal inspection Neurologic/Psych: alert, normal mood/affect, oriented x 3 Skin: warm/dry Laboratory Results Last 24 Hours Test 06/08/17 11:56 06/09/17 05:18 06/09/17 10:14 Hemoglobin 8.8 g/dL 8.1 g/dL Hematocrit 29.7 % 28.1 % White Blood Count 15.24 K/uL Red Blood Count 4.36 M/uL Mean Corpuscular Volume 64.4 fL Mean Corpuscular Hemoglobin 18.6 pg Mean Corpuscular Hemoglobin Concent 28.8 g/dl Platelet Count 374 K/uL Mean Platelet Volume 9.2 fL Neutrophils (%) (Auto) 92.3 % Lymphocytes (%) (Auto) 3.9 % Monocytes (%) (Auto) 3.1 % Eosinophils (%) (Auto) 0.0 % Basophils (%) (Auto) 0.0 % Neutrophils # (Auto) 14.07 K/uL Lymphocytes # (Auto) 0.60 K/uL Monocytes # (Auto) 0.47 K/uL Eosinophils # (Auto) 0.00 K/uL Basophils # (Auto) 0.00 K/uL RDW Standard Deviation 42.4 fL RDW Coefficient of Variation 21.1 % Immature Granulocyte % (Auto) 0.7 % Immature Granulocyte # (Auto) 0.10 K/uL Hypochromasia PRESENT Anisocytosis PRESENT Microcytosis PRESENT Ovalocytes 1+ Sodium Level 140 mmol/L Potassium Level 3.8 mmol/L Chloride Level 106 mmol/L Carbon Dioxide Level 25 mmol/L Anion Gap 9.0 mmol/L Blood Urea Nitrogen 11 mg/dl Creatinine 0.76 mg/dl Est Creatinine Clear Calc Drug Dose 98.2 ml/min Estimated GFR () 119.5 Estimated GFR (Non- 103.1 BUN/Creatinine Ratio 14.2 Random Glucose 116 mg/dl Calcium Level 8.5 mg/dl Magnesium Level 2.2 mg/dl Assessment and Plan Patient is a 31 year-old female with a history of ulcerative colitis noted to have active left-sided colitis on recent colonoscopy with persistent bleeding abdominal pain despite IV steroid therapy. 1. Continue Solu-Medrol 40 mg IV BID. 2. Continue Rowasa enemas 4 g BID. 3. Dietary advancement to lactose free, low residue diet. 4. Check status of TB and Hep B. If negative, will plan to restart Humira with induction dosing. 5. Supportive care per primary team. Agree with GALE Johnson as above Abd: Soft, NT, ND, +BS Continue current therapy Recommend addition of Humira once Hep B and TB testing returns
[2017-06-09] MEDS: MESALAMINE 4 GM/60 ML ENEMA BTL PR SCH ×3 (11:11→20:00)
[2017-06-09 11:15] LABS: HEPATITIS B AB POS
--- NOTE | 2017-06-09 13:48 | Progress Note ---
Medicine Progress Note Date & Time of Visit: Jun 09, 2017 at 13:39. (Regina Redmond, P.A.-C.) Subjective Patient seen and examined. States that diarrhea worsened over the weekend. Endorses 8-10 episodes of bloody diarrhea a day over the past 2 days. Is nauseated but is not vomiting. States that pain medication is only lasting for 4 hours before wearing off. Endorses worsening anxiety and insomnia 2/2 pain. Endorses lightheadedness, generalized weakness. Denies CP, SOB, focal deficits. Complains that since yesterday, she is hearing medical conversations "in my head " that are not actually happening. Denies having any AVH or delusions related to self-harm. (Regina Redmond, P.A.-C.) Objective Last 8 Hrs Date Time Temp Pulse Resp B/P (MAP) Pulse Ox O2 Delivery O2 Flow Rate FiO2 06/09/17 11:13 Room Air 06/09/17 07:16 36.4 94 16 124/83 (97) 94 Room Air Physical Exam: General Appearance: WD/WN, +mild distress. Head: normocephalic, atraumatic Eyes: normal inspection, PERRL ENT: hearing grossly normal, Neck: supple, no JVD, no adenopathy Respiratory/Chest: lungs clear to auscultation. No wheezes, rales or rhonci. No respiratory distress or accessory muscle use Cardiovascular: regular rate, rhythm, no murmur, normal peripheral pulses Abdomen/GI: normal bowel sounds, soft, Tender to palpation of bilateral lower quadrants, LLQ > RLQ Extremities/Musculoskelatal: normal inspection, no calf tenderness, normal capillary refill, no pedal edema Neurologic/Psych: Anxious mood, alert, oriented x 3. Skin: normal color, warm/dry Laboratory Results: Last 24 Hours Test 06/09/17 05:18 06/09/17 10:30 White Blood Count 15.24 K/uL Red Blood Count 4.36 M/uL Hemoglobin 8.1 g/dL Hematocrit 28.1 % Mean Corpuscular Volume 64.4 fL Mean Corpuscular Hemoglobin 18.6 pg Mean Corpuscular Hemoglobin Concent 28.8 g/dl Platelet Count 374 K/uL Mean Platelet Volume 9.2 fL Neutrophils (%) (Auto) 92.3 % Lymphocytes (%) (Auto) 3.9 % Monocytes (%) (Auto) 3.1 % Eosinophils (%) (Auto) 0.0 % Basophils (%) (Auto) 0.0 % Neutrophils # (Auto) 14.07 K/uL Lymphocytes # (Auto) 0.60 K/uL Monocytes # (Auto) 0.47 K/uL Eosinophils # (Auto) 0.00 K/uL Basophils # (Auto) 0.00 K/uL RDW Standard Deviation 42.4 fL RDW Coefficient of Variation 21.1 % Immature Granulocyte % (Auto) 0.7 % Immature Granulocyte # (Auto) 0.10 K/uL Hypochromasia PRESENT Anisocytosis PRESENT Microcytosis PRESENT Ovalocytes 1+ Sodium Level 140 mmol/L Potassium Level 3.8 mmol/L Chloride Level 106 mmol/L Carbon Dioxide Level 25 mmol/L Anion Gap 9.0 mmol/L Blood Urea Nitrogen 11 mg/dl Creatinine 0.76 mg/dl Est Creatinine Clear Calc Drug Dose 98.2 ml/min Estimated GFR () 119.5 Estimated GFR (Non- 103.1 BUN/Creatinine Ratio 14.2 Random Glucose 116 mg/dl Calcium Level 8.5 mg/dl Magnesium Level 2.2 mg/dl Hepatitis B Surface Antigen NEG Hepatitis B Surface Antibody POS (Regina Redmond, P.A.-C.) Assessment & Plan Bloody diarrhea/abdominal pain: -Worsened over the weekend. Endorsing 8/10 episodes/day for past 2 days. -2/2 to Inflammatory bowel disease/ulcerative colitis flare -C diff negative -Colonoscopy (06/01/17): "inflammation characterized by erosions, erythema and friability...was found in a continuous and circumferential pattern from anus to sigmoid colon" -Pain regimen includes tapentadol 50mg Q6 PRN. Stopped dilaudid on 06/02 -Per pain management, added Tapentadol 50mg BID extended release and scheduled Tylenol 500mg Q6 PO -GI re-consulted. Per recs: -Continue IV Solumedrol to 40 mg BID -Continue Rowasa enemas 4g BID -Dietary advancement to lactose free, low residue diet. -Check status of TB and Hep B. If negative, will plan to restart Humira with induction dosing. Nausea/vomiting: -Associated with episodes of abd pain/bloody diarrhea -EGD (06/01/17): "Localized mild inflammation characterized by erythema was found in the gastric antrum" -Continue PPI and PRN anti-emetics -Monitor H/H Anemia 2/2 blood loss: -Low iron level -Hbg stable decreased to 8.1 (from 8.8 yesterday) -Will recheck H/H -Continue iron supplement Auditory hallucinations: -Complains of medical conversations "in my head" that are not actually happening since yesterday -Denies having any AVH or delusions related to self-harm -Likely 2/2 lack of sleep as well as side effect of pain medication -Will monitor overnight and reassess in AM -If it continues, will discuss with pain mgmt Opioid withdrawal: -Patient with h/o narcotic dependence -Unable to tolerate side effects of withdrawal at home previous to admission -Has been on Dilaudid as an in-patient for UC Flare. Stopped 06/02/17 -Per pain management recs, on Tapentadol 50mg Q6 hours, ER Tapentadol, scheduled Tylenol -Patient is experiencing anxiety, insomnia, diarrhea with withdrawal. Is highly motivated to continue process -Dr Sheffield is willing to see her in clinic after discharge. Plan to get referral from PCP -Continue managing effects of withdrawal: Lomotil for GI symptoms Anti-emetics for nausea Acetaminophen for MSK pain Hydroxyzine for anxiety/rhinorrhea Clonidine patch for sympathetic hyperactivity Anxiety discussed above Anxiety/depression: -H/o depression and anxiety managed by PCP -On Cymbalta, Lamictal as home meds -Has heightened anxiety due to opioid withdrawal -Per pain mgmt recs, on hydroxyzine for anxiety. Klonopin for PRN use -Recommend out-patient psych follow-up to optimize medications Generalized weakness: -Likely due to both deconditioning and anemia -Will continue iron supplements; hgb is on the rise with fewer episodes of diarrhea -Encouraged to continue ambulating with supervision to strengthen Hypokalemia: resolved -K of 3.1 secondary to GI losses -Replaced K -Mg is wnl -Monitor labwork and adjust accordingly Atypical R-Sided Chest Pain: resolved -Tenderness on palpation of rt chest wall -Cont pain control -No hypoxia noted Arthralgia/Pain in Hip Joints: -Associated with IBD 2/2 UC flare -Rheumatology on board -Cont management for active GI disease which subsequently improved joint pain symptoms -Cont on IV steroid -Will follow with Rheumatology as an out-patient DVT Ppx: SCDs and Teds Code status: FULL Dispo: Plan to return home once medically stable. Consultants: [facility] Rheumatology Procedures: Colonoscopy and EGD Current Inpatient Medications: Current Inpatient Medications Medications (Trade) Dose Ordered Sig/Sally Route Start Time Stop Time Status Last Admin Dose Admin Ondansetron HCl (Zofran Inj) 4 mg Q6H PRN IV 05/28/17 23:45 06/27/17 23:44 06/09/17 08:41 4 MG Duloxetine HCl (Cymbalta Cap) 120 mg DAILY PO 05/29/17 08:00 06/28/17 08:59 06/09/17 08:40 120 MG Lamotrigine (Lamictal Tab) 200 mg DAILY PO 05/29/17 08:00 06/28/17 08:59 06/09/17 08:40 200 MG Acetaminophen (Tylenol Tab) 650 mg Q4H PRN PO 05/28/17 23:45 06/27/17 23:44 Ibuprofen (Advil Tab) 400 mg Q6H PRN PO 05/29/17 00:00 06/28/17 00:00 Promethazine HCl 12.5 mg/Sodium Chloride 50.5 ml @ 204 mls/hr Q6H PRN IV 05/29/17 04:45 06/28/17 04:44 06/09/17 04:33 204 MLS/HR Ferrous Sulfate (Feosol Tab) 325 mg BIDM PO 05/29/17 17:00 06/28/17 16:59 06/09/17 08:40 325 MG Cyclobenzaprine HCl (Flexeril Tab) 10 mg TID PO 05/29/17 20:00 06/28/17 19:59 06/09/17 13:14 10 MG Sucralfate (Carafate Susp) 1 gm QID PO 05/31/17 12:00 06/30/17 11:59 06/09/17 13:14 1 GM Diphenoxylate HCl/ Atropine (Lomotil Tab) 1 tab QID PRN PO 06/02/17 16:00 07/02/17 15:59 Tapentadol (Nucynta Tab) 50 mg Q6H PRN PO 06/03/17 08:45 07/03/17 08:44 06/09/17 10:29 50 MG Clonidine HCl (Qvujelcu-Goz-7 0.1mg/24hr Patch) 1 patch Q7D@0900 TD 06/03/17 09:00 07/03/17 08:59 06/03/17 09:37 1 PATCH Miscellaneous (Remove Clonidine Patch) 1 ea Q7D@0859 N/A 06/10/17 08:59 07/10/17 08:58 Miscellaneous Information (Check Clonidine Patch Placement) 1 ea QS N/A 06/03/17 16:00 07/03/17 15:59 06/09/17 08:36 1 EA Hydroxyzine HCl (Vistaril Tab) 25 mg Q8 PO 06/04/17 06:00 07/04/17 05:59 06/09/17 13:14 25 MG Clonazepam (Klonopin Tab) 1 mg TID PRN PO 06/05/17 16:00 07/05/17 15:59 06/09/17 08:52 1 MG Potassium Chloride/Sodium Chloride 1,000 ml @ 125 mls/hr Q8H IV 06/06/17 16:30 07/06/17 16:29 06/09/17 08:41 125 MLS/HR Pantoprazole Sodium 40 mg/ Syringe 10 ml @ 5 mls/min DAILY@09,21 IV 06/06/17 21:00 07/06/17 20:59 06/09/17 08:41 5 MLS/MIN Methylprednisolone Sodium Succinate 40 mg/Syringe 0.64 ml @ 1.5 mls/min BID IV 06/07/17 20:00 07/07/17 07:59 06/09/17 08:39 1.5 MLS/MIN Acetaminophen 650 mg/Empty Bag 65 ml @ 260 mls/hr Q6H PRN IV 06/07/17 19:15 07/07/17 19:14 Mesalamine (Rowasa Enema) 4 gm BID NV 06/08/17 10:00 07/08/17 09:59 06/09/17 13:19 4 GM Tapentadol (Nucynta Er Tab) 50 mg Q12 PO 06/09/17 21:00 07/09/17 20:59 UNV Acetaminophen (Tylenol Tab) 500 mg Q6 PO 06/09/17 18:00 06/11/17 18:00 UNV (Regina Redmond, P.A.-C.) Agree with above note. 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
[2017-06-09 15:51] VITALS: BP 118/82; PULSE 103; TEMP 36.4; O2SAT 95
[2017-06-09 16:23] LABS: HEMATOCRIT 28.2 % (37-47)
[2017-06-09] MEDS: ACETAMINOPHEN 500 MG TAB PO SCH ×2 (18:00→23:44)
[2017-06-09] MEDS: TAPENTADOL ER 50 MG TABCR PO SCH (20:52)
[2017-06-09] MEDS ORDERED: TAPENTADOL ER 50 MG TABCR PO PRN (21:00)
[2017-06-10] VITALS (14 sets, daily range): BP systolic 94–128; BP diastolic 64–90; PULSE 89–122; TEMP 36.3–36.8; O2SAT 95–98
[2017-06-10] MEDS: ONDANSETRON INJ 2 MG/ML 2 ML VIAL IV PRN (04:25)
[2017-06-10] MEDS: TAPENTADOL HCL 50 MG TAB PO PRN ×3 (04:27→18:17)
[2017-06-10] MEDS: PROMETHAZINE HCL INJ 12.5 MG in SODIUM CHLORIDE 0.9% 50ML 50 ML IV PRN ×2 (05:55→16:04)
[2017-06-10] MEDS: hydrOXYzine HCL 25 MG TAB PO SCH ×3 (05:55→21:59)
[2017-06-10] MEDS: ACETAMINOPHEN 500 MG TAB PO SCH ×5 (06:00→23:44)
[2017-06-10 08:02] LABS: HEMATOCRIT 24.9 % (37-47); IG% 0.9 %; LYMPH % 3.5 %; MEAN CELL VOLUME 64.3 fL (80-100); MEAN CORPUSCULAR HEMOGLOBIN 19.4 pg (25-34); MEAN CORPUSCULAR HGB CONC 30.1 g/dl (32-36); MEAN PLATELET VOLUME 8.9 fL (7.4-10.4); MONO % 4.3 %; NEUT % 91.3 %; PLATELET COUNT 364 K/uL (130-400); RED BLOOD COUNT 3.87 M/uL (4.2-5.4)
[2017-06-10 08:26] LABS: ANISOCYTOSIS PRESENT; COMPLETE YES; HYPOCHROMIA PRESENT; MICROCYTOSIS PRESENT; OVALOCYTES 1+; POLYCHROMASIA 1+
[2017-06-10] MEDS: CLONAZEPAM 1 MG TAB PO PRN ×2 (08:27→16:49)
[2017-06-10] MEDS: TAPENTADOL ER 50 MG TABCR PO SCH ×2 (08:27→21:59)
[2017-06-10] MEDS: CYCLOBENZAPRINE HCL 10 MG TAB PO SCH ×3 (08:28→20:00)
[2017-06-10] MEDS: DULOXETINE HCL 60 MG CAP PO SCH (08:28)
[2017-06-10] MEDS: FERROUS SULFATE 325 MG TAB PO SCH ×2 (08:28→16:50)
[2017-06-10] MEDS: SUCRALFATE 1 GM/10 ML UDC PO SCH ×4 (08:29→22:00)
[2017-06-10] MEDS: CLONIDINE HCL 0.1 MG/24 HR TRANSDERM SYS TD SCH (08:32)
[2017-06-10] MEDS: CHECK CLONIDINE PATCH PLACEMENT SCH ×3 (08:32→23:44)
[2017-06-10] MEDS: PANTOprazole INJ 40 MG in SYRINGE 0 ML IV SCH ×2 (08:34→21:58)
[2017-06-10 08:35] LABS: BUN/CREATININE RATIO 19.2 (10-20); CALCIUM 8.5 mg/dl (8.5-10.1); CREATININE 0.75 mg/dl (0.60-1.20); MAGNESIUM 2.2 mg/dl (1.8-2.4); POTASSIUM 4.4 mmol/L (3.5-5.1)
[2017-06-10] MEDS: METHYLPREDNISOLONE IV 40 MG in SYRINGE 0 ML IV SCH ×2 (08:35→21:59)
[2017-06-10] MEDS: NSS + 20MEQ KCL 1000ML 1,000 ML IV SCH ×2 (11:52→22:42)
[2017-06-10] MEDS: MESALAMINE 4 GM/60 ML ENEMA BTL PR SCH ×2 (12:17→22:00)
--- NOTE | 2017-06-10 12:19 | Progress Note ---
Medicine Progress Note Date & Time of Visit: Jun 10, 2017 at 12:17. (Regina Redmond, P.A.-C.) Subjective Patient seen and examined. Feels about the same as yesterday. Continues to have episodes of bloody diarrhea. Last episode was at 4am. Continues to feel nauseated but has not vomited. Feels that pain is better controlled with new regimen. Complains of continued lower abdominal pain, lightheadedness and weakness with ambulation. Denies any focal deficits, CP, SOB or falls. Denies fever, chills, cough or dysuria. (Regina Redmond, P.A.-C.) Objective Last 8 Hrs Date Time Temp Pulse Resp B/P (MAP) Pulse Ox O2 Delivery O2 Flow Rate FiO2 06/10/17 08:30 Room Air 06/10/17 07:19 36.6 89 16 114/76 (89) 96 Room Air Physical Exam: General Appearance: WD/WN, +mild distress. Head: normocephalic, atraumatic Eyes: normal inspection, PERRL ENT: hearing grossly normal, Neck: supple, no JVD, no adenopathy Respiratory/Chest: lungs clear to auscultation. No wheezes, rales or rhonci. No respiratory distress or accessory muscle use Cardiovascular: regular rate, rhythm, no murmur, normal peripheral pulses Abdomen/GI: normal bowel sounds, soft, Tender to palpation of bilateral lower quadrants, LLQ > RLQ Extremities/Musculoskelatal: normal inspection, no calf tenderness, normal capillary refill, no pedal edema Neurologic/Psych: Anxious mood, alert, oriented x 3. Skin: normal color, warm/dry Laboratory Results: Last 24 Hours Test 06/09/17 15:21 06/10/17 07:11 Hemoglobin 8.2 g/dL 7.5 g/dL Hematocrit 28.2 % 24.9 % White Blood Count 19.90 K/uL Red Blood Count 3.87 M/uL Mean Corpuscular Volume 64.3 fL Mean Corpuscular Hemoglobin 19.4 pg Mean Corpuscular Hemoglobin Concent 30.1 g/dl Platelet Count 364 K/uL Mean Platelet Volume 8.9 fL Neutrophils (%) (Auto) 91.3 % Lymphocytes (%) (Auto) 3.5 % Monocytes (%) (Auto) 4.3 % Eosinophils (%) (Auto) 0.0 % Basophils (%) (Auto) 0.0 % Neutrophils # (Auto) 18.17 K/uL Lymphocytes # (Auto) 0.70 K/uL Monocytes # (Auto) 0.85 K/uL Eosinophils # (Auto) 0.00 K/uL Basophils # (Auto) 0.00 K/uL RDW Standard Deviation 43.3 fL RDW Coefficient of Variation 21.9 % Immature Granulocyte % (Auto) 0.9 % Immature Granulocyte # (Auto) 0.18 K/uL Polychromasia 1+ Hypochromasia PRESENT Anisocytosis PRESENT Microcytosis PRESENT Ovalocytes 1+ Sodium Level 142 mmol/L Potassium Level 4.4 mmol/L Chloride Level 107 mmol/L Carbon Dioxide Level 28 mmol/L Anion Gap 7.0 mmol/L Blood Urea Nitrogen 14 mg/dl Creatinine 0.75 mg/dl Est Creatinine Clear Calc Drug Dose 99.5 ml/min Estimated GFR () 121.4 Estimated GFR (Non- 104.7 BUN/Creatinine Ratio 19.2 Random Glucose 93 mg/dl Calcium Level 8.5 mg/dl Magnesium Level 2.2 mg/dl (Regina Redmond, P.A.-C.) Assessment & Plan Bloody diarrhea/abdominal pain: -Endorsing 8/10 episodes/day for past 2 days -2/2 to Inflammatory bowel disease/ulcerative colitis flare -Leukocytosis increased from 14.5 to 19.9 -C diff negative. Denies fever, chills, cough, dysuria. -Colonoscopy (06/01/17): "inflammation characterized by erosions, erythema and friability...was found in a continuous and circumferential pattern from anus to sigmoid colon" -Pain regimen includes tapentadol 50mg Q6 PRN. Stopped dilaudid on 06/02 -Per pain management, added Tapentadol 50mg BID extended release and scheduled Tylenol 500mg Q6 PO -GI re-consulted. Per recs: -Continue IV Solumedrol to 40 mg BID -Continue Rowasa enemas 4g BID -Dietary advancement to lactose free, low residue diet. -Check status of TB and Hep B. If negative, will plan to restart Humira with induction dosing. Nausea/vomiting: -Associated with episodes of abd pain/bloody diarrhea -EGD (06/01/17): "Localized mild inflammation characterized by erythema was found in the gastric antrum" -Continue PPI and PRN anti-emetics -Monitor H/H Anemia 2/2 blood loss: -Low iron level -Hbg stable decreased to 7.5 (from 8.1 yesterday) -Type & screen, transfused 2 units prbcs -Will re-check H/H -Continue iron supplement Auditory hallucinations: -Complains of medical conversations "in my head" that are not actually happening since yesterday -Denies having any AVH or delusions related to self-harm -Likely 2/2 lack of sleep as well as side effect of pain medication -Will monitor overnight and reassess in AM -If it continues, will discuss with pain mgmt Opioid withdrawal: -Patient with h/o narcotic dependence -Unable to tolerate side effects of withdrawal at home previous to admission -Has been on Dilaudid as an in-patient for UC Flare. Stopped 06/02/17 -Per pain management recs, on Tapentadol 50mg Q6 hours, ER Tapentadol, scheduled Tylenol -Patient is experiencing anxiety, insomnia, diarrhea with withdrawal. Is highly motivated to continue process -Dr Sheffield is willing to see her in clinic after discharge. Plan to get referral from PCP -Continue managing effects of withdrawal: Lomotil for GI symptoms Anti-emetics for nausea Acetaminophen for MSK pain Hydroxyzine for anxiety/rhinorrhea Clonidine patch for sympathetic hyperactivity Anxiety discussed above Anxiety/depression: -H/o depression and anxiety managed by PCP -On Cymbalta, Lamictal as home meds -Has heightened anxiety due to opioid withdrawal -Per pain mgmt recs, on hydroxyzine for anxiety. Klonopin for PRN use -Recommend out-patient psych follow-up to optimize medications Generalized weakness: -Likely due to both deconditioning and anemia -Will continue iron supplements; hgb is on the rise with fewer episodes of diarrhea -Encouraged to continue ambulating with supervision to strengthen Hypokalemia: resolved -K of 3.1 secondary to GI losses -Replaced K -Mg is wnl -Monitor labwork and adjust accordingly Atypical R-Sided Chest Pain: resolved -Tenderness on palpation of rt chest wall -Cont pain control -No hypoxia noted Arthralgia/Pain in Hip Joints: stable -Associated with IBD 2/2 UC flare -Rheumatology on board -Cont management for active GI disease which subsequently improved joint pain symptoms -Cont on IV steroid -Will follow with Rheumatology as an out-patient DVT Ppx: SCDs and Teds Code status: FULL Dispo: Plan to return home once medically stable. Consultants: [facility]astro Rheumatology Procedures: Colonoscopy and EGD Current Inpatient Medications: Current Inpatient Medications Medications (Trade) Dose Ordered Sig/Sally Route Start Time Stop Time Status Last Admin Dose Admin Ondansetron HCl (Zofran Inj) 4 mg Q6H PRN IV 05/28/17 23:45 06/27/17 23:44 06/10/17 04:25 4 MG Duloxetine HCl (Cymbalta Cap) 120 mg DAILY PO 05/29/17 08:00 06/28/17 08:59 06/10/17 08:28 120 MG Lamotrigine (Lamictal Tab) 200 mg DAILY PO 05/29/17 08:00 06/28/17 08:59 06/10/17 08:29 200 MG Acetaminophen (Tylenol Tab) 650 mg Q4H PRN PO 05/28/17 23:45 06/27/17 23:44 06/09/17 18:09 650 MG Promethazine HCl 12.5 mg/Sodium Chloride 50.5 ml @ 204 mls/hr Q6H PRN IV 05/29/17 04:45 06/28/17 04:44 06/10/17 05:55 204 MLS/HR Ferrous Sulfate (Feosol Tab) 325 mg BIDM PO 05/29/17 17:00 06/28/17 16:59 06/10/17 08:28 325 MG Cyclobenzaprine HCl (Flexeril Tab) 10 mg TID PO 05/29/17 20:00 06/28/17 19:59 06/10/17 08:28 10 MG Sucralfate (Carafate Susp) 1 gm QID PO 05/31/17 12:00 06/30/17 11:59 06/10/17 08:29 1 GM Diphenoxylate HCl/ Atropine (Lomotil Tab) 1 tab QID PRN PO 06/02/17 16:00 07/02/17 15:59 Tapentadol (Nucynta Tab) 50 mg Q6H PRN PO 06/03/17 08:45 07/03/17 08:44 06/10/17 04:27 50 MG Clonidine HCl (Sjmamalo-Wld-2 0.1mg/24hr Patch) 1 patch Q7D@0900 TD 06/03/17 09:00 07/03/17 08:59 06/10/17 08:32 1 PATCH Miscellaneous (Remove Clonidine Patch) 1 ea Q7D@0859 N/A 06/10/17 08:59 07/10/17 08:58 06/10/17 08:33 1 EA Miscellaneous Information (Check Clonidine Patch Placement) 1 ea QS N/A 06/03/17 16:00 07/03/17 15:59 06/10/17 08:32 1 EA Hydroxyzine HCl (Vistaril Tab) 25 mg Q8 PO 06/04/17 06:00 07/04/17 05:59 06/10/17 05:55 25 MG Clonazepam (Klonopin Tab) 1 mg TID PRN PO 06/05/17 16:00 07/05/17 15:59 06/10/17 08:27 1 MG Potassium Chloride/Sodium Chloride 1,000 ml @ 100 mls/hr Q10H IV 06/06/17 16:30 07/06/17 16:29 06/10/17 11:52 100 MLS/HR Pantoprazole Sodium 40 mg/ Syringe 10 ml @ 5 mls/min DAILY@09,21 IV 06/06/17 21:00 07/06/17 20:59 06/10/17 08:34 5 MLS/MIN Methylprednisolone Sodium Succinate 40 mg/Syringe 0.64 ml @ 1.5 mls/min BID IV 06/07/17 20:00 07/07/17 07:59 06/10/17 08:35 1.5 MLS/MIN Acetaminophen 650 mg/Empty Bag 65 ml @ 260 mls/hr Q6H PRN IV 06/07/17 19:15 07/07/17 19:14 Mesalamine (Rowasa Enema) 4 gm BID HI 06/08/17 10:00 07/08/17 09:59 06/09/17 13:19 4 GM Tapentadol (Nucynta Er Tab) 50 mg Q12 PO 06/09/17 21:00 07/09/17 20:59 06/10/17 08:27 50 MG Acetaminophen (Tylenol Tab) 500 mg Q6 PO 06/09/17 18:00 06/11/17 18:00 (Regina Redmond, P.A.-C.) Agree with above note. patient still has bloody bowel movements but getting better . abdominal pain is better with pain meds.Tolerating full liquids. 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
[2017-06-10 21:16] LABS: HEMATOCRIT 31.4 % (37-47)
[2017-06-11] VITALS: O2SAT 98
[2017-06-11 00:30] VITALS: BP 125/83; PULSE 95; TEMP 36.6; O2SAT 96
[2017-06-11] MEDS: CLONAZEPAM 1 MG TAB PO PRN ×3 (00:41→19:08)
[2017-06-11] MEDS: TAPENTADOL HCL 50 MG TAB PO PRN ×4 (00:42→23:33)
[2017-06-11] MEDS: ONDANSETRON INJ 2 MG/ML 2 ML VIAL IV PRN (03:58)
[2017-06-11] MEDS: ACETAMINOPHEN 500 MG TAB PO SCH ×3 (05:19→18:35)
[2017-06-11] MEDS: hydrOXYzine HCL 25 MG TAB PO SCH ×3 (05:19→21:33)
[2017-06-11] MEDS: PROMETHAZINE HCL INJ 12.5 MG in SODIUM CHLORIDE 0.9% 50ML 50 ML IV PRN ×3 (05:19→19:03)
[2017-06-11 07:04] LABS: BASO % 0.1 %; BASO ABS # 0.01 K/uL (0-0.2); HEMATOCRIT 31.4 % (37-47); IG% 1.4 %; LYMPH % 2.8 %; LYMPH ABS # 0.46 K/uL (1.2-3.4); MEAN CELL VOLUME 69.6 fL (80-100); MEAN CORPUSCULAR HGB CONC 31.5 g/dl (32-36); MEAN PLATELET VOLUME 9.3 fL (7.4-10.4); MONO % 2.4 %; NEUT % 93.3 %; PLATELET COUNT 325 K/uL (130-400); RED BLOOD COUNT 4.51 M/uL (4.2-5.4); WHITE BLOOD COUNT 16.57 K/uL (4.8-10.8)
[2017-06-11 07:36] LABS: BUN/CREATININE RATIO 11.9 (10-20); CALCIUM 8.6 mg/dl (8.5-10.1); CREATININE 0.98 mg/dl (0.60-1.20); MAGNESIUM 2.2 mg/dl (1.8-2.4); POTASSIUM 3.9 mmol/L (3.5-5.1)
[2017-06-11] MEDS: CHECK CLONIDINE PATCH PLACEMENT SCH ×3 (07:43→23:41)
[2017-06-11] MEDS: SUCRALFATE 1 GM/10 ML UDC PO SCH ×4 (07:44→21:33)
[2017-06-11] MEDS: DULOXETINE HCL 60 MG CAP PO SCH (07:45)
[2017-06-11] MEDS: FERROUS SULFATE 325 MG TAB PO SCH ×2 (07:45→16:40)
[2017-06-11] MEDS: CYCLOBENZAPRINE HCL 10 MG TAB PO SCH ×3 (07:45→21:32)
[2017-06-11] MEDS: METHYLPREDNISOLONE IV 40 MG in SYRINGE 0 ML IV SCH ×2 (07:47→21:32)
[2017-06-11] MEDS: MESALAMINE 4 GM/60 ML ENEMA BTL PR SCH ×2 (07:47→22:19)
[2017-06-11 07:52] VITALS: BP 127/84; PULSE 81; TEMP 36.4; O2SAT 96
[2017-06-11 08:07] LABS: COMPLETE YES
[2017-06-11 08:09] LABS: ANISOCYTOSIS PRESENT; HYPOCHROMIA PRESENT; POIKILOCYTOSIS PRESENT; POLYCHROMASIA 1+
[2017-06-11] MEDS: NSS + 20MEQ KCL 1000ML 1,000 ML IV SCH ×2 (09:07→18:35)
[2017-06-11] MEDS: TAPENTADOL ER 50 MG TABCR PO SCH ×2 (09:43→21:31)
[2017-06-11] MEDS: PANTOprazole INJ 40 MG in SYRINGE 0 ML IV SCH ×2 (09:44→21:33)
--- NOTE | 2017-06-11 10:11 | Gastroenterology Progress Note ---
Progress Note Date of Service: Jun 11, 2017 Subjective Pt evaluation today including: conversation w/ patient, physical exam, lab review, review of inpatient medication list Patient reports new onset of abdominal bloating. Stable abdominal pain. Stable rectal bleeding. Status post blood transfusion yesterday. Hemoglobin was 10 yesterday after transfusion and noted to be 9.9 today. Continues IV Solu-Medrol and Rowasa enemas. Hep B testing is negative. TB is pending. No fever or chills , nausea or vomiting or other GI complaints. Review of Systems See HPI for pertinent positives & negatives. A total of 6 systems reviewed and were otherwise negative. Medications Current Inpatient Medications Medications (Trade) Dose Ordered Sig/Sally Route Start Time Stop Time Status Last Admin Dose Admin Ondansetron HCl (Zofran Inj) 4 mg Q6H PRN IV 05/28/17 23:45 06/27/17 23:44 06/11/17 03:58 4 MG Duloxetine HCl (Cymbalta Cap) 120 mg DAILY PO 05/29/17 08:00 06/28/17 08:59 06/11/17 07:45 120 MG Lamotrigine (Lamictal Tab) 200 mg DAILY PO 05/29/17 08:00 06/28/17 08:59 06/11/17 07:46 200 MG Acetaminophen (Tylenol Tab) 650 mg Q4H PRN PO 05/28/17 23:45 06/27/17 23:44 06/09/17 18:09 650 MG Promethazine HCl 12.5 mg/Sodium Chloride 50.5 ml @ 204 mls/hr Q6H PRN IV 05/29/17 04:45 06/28/17 04:44 06/11/17 05:19 204 MLS/HR Ferrous Sulfate (Feosol Tab) 325 mg BIDM PO 05/29/17 17:00 06/28/17 16:59 06/11/17 07:45 325 MG Cyclobenzaprine HCl (Flexeril Tab) 10 mg TID PO 05/29/17 20:00 06/28/17 19:59 06/11/17 07:45 10 MG Sucralfate (Carafate Susp) 1 gm QID PO 05/31/17 12:00 06/30/17 11:59 06/11/17 07:44 1 GM Diphenoxylate HCl/ Atropine (Lomotil Tab) 1 tab QID PRN PO 06/02/17 16:00 07/02/17 15:59 Tapentadol (Nucynta Tab) 50 mg Q6H PRN PO 06/03/17 08:45 07/03/17 08:44 06/11/17 07:46 50 MG Clonidine HCl (Slesebcz-Shy-6 0.1mg/24hr Patch) 1 patch Q7D@0900 TD 06/03/17 09:00 07/03/17 08:59 06/10/17 08:32 1 PATCH Miscellaneous (Remove Clonidine Patch) 1 ea Q7D@0859 N/A 06/10/17 08:59 07/10/17 08:58 06/10/17 08:33 1 EA Miscellaneous Information (Check Clonidine Patch Placement) 1 ea QS N/A 06/03/17 16:00 07/03/17 15:59 06/11/17 07:43 1 EA Hydroxyzine HCl (Vistaril Tab) 25 mg Q8 PO 06/04/17 06:00 07/04/17 05:59 06/11/17 05:19 25 MG Clonazepam (Klonopin Tab) 1 mg TID PRN PO 06/05/17 16:00 07/05/17 15:59 06/11/17 09:44 1 MG Potassium Chloride/Sodium Chloride 1,000 ml @ 100 mls/hr Q10H IV 06/06/17 16:30 07/06/17 16:29 06/11/17 09:07 100 MLS/HR Pantoprazole Sodium 40 mg/ Syringe 10 ml @ 5 mls/min DAILY@09,21 IV 06/06/17 21:00 07/06/17 20:59 06/11/17 09:44 5 MLS/MIN Methylprednisolone Sodium Succinate 40 mg/Syringe 0.64 ml @ 1.5 mls/min BID IV 06/07/17 20:00 07/07/17 07:59 06/11/17 07:47 1.5 MLS/MIN Acetaminophen 650 mg/Empty Bag 65 ml @ 260 mls/hr Q6H PRN IV 06/07/17 19:15 07/07/17 19:14 Mesalamine (Rowasa Enema) 4 gm BID RI 06/08/17 10:00 07/08/17 09:59 06/11/17 07:47 4 GM Tapentadol (Nucynta Er Tab) 50 mg Q12 PO 06/09/17 21:00 07/09/17 20:59 06/11/17 09:43 50 MG Acetaminophen (Tylenol Tab) 500 mg Q6 PO 06/09/17 18:00 06/11/17 18:00 06/11/17 05:19 500 MG Objective Vital Signs Date Time Temp Pulse Resp B/P (MAP) Pulse Ox O2 Delivery O2 Flow Rate FiO2 06/11/17 07:52 36.4 81 18 127/84 (98) 96 Room Air 06/11/17 00:30 36.6 95 20 125/83 (97) 96 Room Air 06/11/17 00:00 98 Room Air 06/10/17 16:05 36.4 96 16 128/90 06/10/17 16:00 Room Air 06/10/17 15:35 36.8 98 16 113/75 06/10/17 15:09 36.4 98 16 119/78 (92) 98 06/10/17 14:50 36.4 98 16 119/78 06/10/17 14:35 36.8 94 16 111/75 06/10/17 14:32 36.8 94 16 111/75 06/10/17 14:20 36.5 98 16 117/83 95 06/10/17 14:05 36.5 98 16 101/68 06/10/17 13:35 36.6 112 16 94/64 06/10/17 13:05 36.4 122 16 108/70 06/10/17 12:50 36.3 111 16 115/75 06/10/17 12:32 36.7 118 16 107/70 Physical Exam General Appearance: no apparent distress Eyes: EOMI ENT: hearing grossly normal Respiratory/Chest: lungs clear, normal breath sounds, no respiratory distress Cardiovascular: regular rate, rhythm, no gallop, no murmur Abdomen: normal bowel sounds, soft, + distended, + tenderness (moderate, diffuse) Neurologic/Psych: alert, normal mood/affect, oriented x 3 Skin: warm/dry Laboratory Results Last 24 Hours Test 06/10/17 19:03 06/11/17 06:20 Hemoglobin 10.0 g/dL 9.9 g/dL Hematocrit 31.4 % 31.4 % White Blood Count 16.57 K/uL Red Blood Count 4.51 M/uL Mean Corpuscular Volume 69.6 fL Mean Corpuscular Hemoglobin 22.0 pg Mean Corpuscular Hemoglobin Concent 31.5 g/dl Platelet Count 325 K/uL Mean Platelet Volume 9.3 fL Neutrophils (%) (Auto) 93.3 % Lymphocytes (%) (Auto) 2.8 % Monocytes (%) (Auto) 2.4 % Eosinophils (%) (Auto) 0.0 % Basophils (%) (Auto) 0.1 % Neutrophils # (Auto) 15.47 K/uL Lymphocytes # (Auto) 0.46 K/uL Monocytes # (Auto) 0.39 K/uL Eosinophils # (Auto) 0.00 K/uL Basophils # (Auto) 0.01 K/uL RDW Standard Deviation 65.6 fL RDW Coefficient of Variation 27.6 % Immature Granulocyte % (Auto) 1.4 % Immature Granulocyte # (Auto) 0.24 K/uL Polychromasia 1+ Hypochromasia PRESENT Poikilocytosis PRESENT Anisocytosis PRESENT Sodium Level 140 mmol/L Potassium Level 3.9 mmol/L Chloride Level 105 mmol/L Carbon Dioxide Level 26 mmol/L Anion Gap 9.0 mmol/L Blood Urea Nitrogen 12 mg/dl Creatinine 0.98 mg/dl Est Creatinine Clear Calc Drug Dose 76.2 ml/min Estimated GFR () 87.8 Estimated GFR (Non- 75.8 BUN/Creatinine Ratio 11.9 Random Glucose 129 mg/dl Calcium Level 8.6 mg/dl Magnesium Level 2.2 mg/dl Assessment and Plan Patient is a 31 year-old female with a history of ulcerative colitis noted to have active left-sided colitis on recent colonoscopy with persistent bleeding abdominal pain despite IV steroid therapy and new onset of abdominal distention. 1. Continue Solu-Medrol 40 mg IV BID. 2. Continue Rowasa enemas 4 g BID. 3. Dietary advancement to lactose free, low residue diet. 4. Check status of TB which is pending. If negative, will plan to restart Humira with induction dosing. 5. Abdominal series today due to new onset of abdominal distention. Addendum @ 1418: Abdominal series with fecal stasis and retention. Recommend avoidance of narcotic analgesics which decrease GI motility. Add Colace 100 mg BID and MiraLAX PRN. Agree with GALE Johnson as above Abd: Soft, Distended, NT, +BS Continue current therapy Will start Humira Induction dosing Agree with avoidance of Narcotic analgesics.
--- NOTE | 2017-06-11 11:35 | DIAGNOSTIC IMAGING REPORT ---
ABDOMEN 2VIEW W/PA CHEST RTN CLINICAL HISTORY: abdominal distention pain COMPARISON STUDY: 11/10/2016 FINDINGS: Negative chest. Increased fecal load throughout the colon consistent with fecal stasis. Postoperative changes right upper quadrant and left paraspinal region. Intrauterine device present within the soft tissue pelvis. Nonobstructive bowel pattern. IMPRESSION: 1. Negative chest. 2. Increased fecal load throughout the colon consistent with fecal stasis. 3. No bowel obstructive changes. The above report was generated using voice recognition software. It may contain grammatical, syntax or spelling errors. Electronically signed by: Kole London M.D. 06/11/2017 11:34 AM Dictated Date/Time: 06/11/2017 11:33 AM
[2017-06-11] MEDS: POLYETHYLENE (MIRALAX) 17 GM PACK PO PRN (12:28)
--- NOTE | 2017-06-11 14:36 | Progress Note ---
Medicine Progress Note Date & Time of Visit: Jun 11, 2017 at 14:29. (Regina Redmond, P.A.-C.) Subjective Patient seen and examined. Reports abdominal bloating and distention since last evening. Abd pain and nausea is consistent with previous days. No vomiting. Stable rectal bleeding, with 5 episodes of bloody diarrhea in the past 24h. Lightheadedness and weakness have improved s/p transfusion of 2 units rbcs yesterday. Denies CP, SOB, calf pain, focal neuro deficits. (Regina Redmond, P.A.-C.) Objective Last 8 Hrs Date Time Temp Pulse Resp B/P (MAP) Pulse Ox O2 Delivery O2 Flow Rate FiO2 06/11/17 08:00 Room Air 06/11/17 07:52 36.4 81 18 127/84 (98) 96 Room Air Physical Exam: General Appearance: WD/WN, +mild distress. Head: normocephalic, atraumatic Eyes: normal inspection, PERRL ENT: hearing grossly normal, Neck: supple, no JVD, no adenopathy Respiratory/Chest: lungs clear to auscultation. No wheezes, rales or rhonci. No respiratory distress or accessory muscle use Cardiovascular: regular rate, rhythm, no murmur, normal peripheral pulses Abdomen/GI: normal bowel sounds, soft, diffusely tender in all quadrants, mosr in LLQ. + Distended Extremities/Musculoskelatal: normal inspection, no calf tenderness, normal capillary refill, no pedal edema Neurologic/Psych: Anxious mood, alert, oriented x 3. Skin: normal color, warm/dry Laboratory Results: Last 24 Hours Test 06/10/17 19:03 06/11/17 06:20 Hemoglobin 10.0 g/dL 9.9 g/dL Hematocrit 31.4 % 31.4 % White Blood Count 16.57 K/uL Red Blood Count 4.51 M/uL Mean Corpuscular Volume 69.6 fL Mean Corpuscular Hemoglobin 22.0 pg Mean Corpuscular Hemoglobin Concent 31.5 g/dl Platelet Count 325 K/uL Mean Platelet Volume 9.3 fL Neutrophils (%) (Auto) 93.3 % Lymphocytes (%) (Auto) 2.8 % Monocytes (%) (Auto) 2.4 % Eosinophils (%) (Auto) 0.0 % Basophils (%) (Auto) 0.1 % Neutrophils # (Auto) 15.47 K/uL Lymphocytes # (Auto) 0.46 K/uL Monocytes # (Auto) 0.39 K/uL Eosinophils # (Auto) 0.00 K/uL Basophils # (Auto) 0.01 K/uL RDW Standard Deviation 65.6 fL RDW Coefficient of Variation 27.6 % Immature Granulocyte % (Auto) 1.4 % Immature Granulocyte # (Auto) 0.24 K/uL Polychromasia 1+ Hypochromasia PRESENT Poikilocytosis PRESENT Anisocytosis PRESENT Sodium Level 140 mmol/L Potassium Level 3.9 mmol/L Chloride Level 105 mmol/L Carbon Dioxide Level 26 mmol/L Anion Gap 9.0 mmol/L Blood Urea Nitrogen 12 mg/dl Creatinine 0.98 mg/dl Est Creatinine Clear Calc Drug Dose 76.2 ml/min Estimated GFR () 87.8 Estimated GFR (Non- 75.8 BUN/Creatinine Ratio 11.9 Random Glucose 129 mg/dl Calcium Level 8.6 mg/dl Magnesium Level 2.2 mg/dl (Regina Redmond ., P.A.-C.) Assessment & Plan Abdominal distention: -New onset last evening -Abd XR shows fecal stasis and retention -Per GI, -Ordered abdominal series -Colace 100mg BID and MiriLAX PRN -Recommend avoidance of narcotic analgesics, which decrease GI motility Bloody diarrhea/abdominal pain: -Slightly improved; endorsing 5 episodes in last 24H -2/2 to Inflammatory bowel disease/ulcerative colitis flare -Leukocytosis stable -C diff negative. Denies fever, chills, cough, dysuria. -Colonoscopy (06/01/17): "inflammation characterized by erosions, erythema and friability...was found in a continuous and circumferential pattern from anus to sigmoid colon" -Pain regimen includes tapentadol 50mg Q6 PRN. Stopped dilaudid on 06/02 -Per pain management, added Tapentadol 50mg BID extended release and scheduled Tylenol 500mg Q6 PO -GI re-consulted. Per recs: -Continue IV Solumedrol to 40 mg BID -Continue Rowasa enemas 4g BID -Dietary advancement to lactose free, low residue diet. -Check status of TB and Hep B. If negative, will plan to restart Humira with induction dosing. Nausea/vomiting: -Associated with episodes of abd pain/bloody diarrhea -EGD (06/01/17): "Localized mild inflammation characterized by erythema was found in the gastric antrum" -Continue PPI and PRN anti-emetics -Monitor H/H Anemia 2/2 blood loss: improved -Low iron level -Transfused 2 units prbcs yesterday -Hgb up to 9.9 (7.5 yesterday) -Continue iron supplement -Recheck tomorrow AM Opioid withdrawal: -Patient with h/o narcotic dependence -Unable to tolerate side effects of withdrawal at home previous to admission -Has been on Dilaudid as an in-patient for UC Flare. Stopped 06/02/17 -Per pain management recs, on Tapentadol 50mg Q6 hours, ER Tapentadol, scheduled Tylenol -Patient is experiencing anxiety, insomnia, diarrhea with withdrawal. Is highly motivated to continue process -Dr Sheffield is willing to see her in clinic after discharge. Plan to get referral from PCP -Continue managing effects of withdrawal: Lomotil for GI symptoms Anti-emetics for nausea Acetaminophen for MSK pain Hydroxyzine for anxiety/rhinorrhea Clonidine patch for sympathetic hyperactivity Anxiety discussed above Anxiety/depression: -H/o depression and anxiety managed by PCP -On Cymbalta, Lamictal as home meds -Has heightened anxiety due to opioid withdrawal -Per pain mgmt recs, on hydroxyzine for anxiety. Klonopin for PRN use -Recommend out-patient psych follow-up to optimize medications Generalized weakness: improved -Likely due to both deconditioning and anemia -Will continue iron supplements; hgb is on the rise with fewer episodes of diarrhea -Encouraged to continue ambulating with supervision to strengthen Hypokalemia: resolved -K of 3.1 secondary to GI losses -Replaced K -Mg is wnl -Monitor labwork and adjust accordingly Atypical R-Sided Chest Pain: resolved -Tenderness on palpation of rt chest wall -Cont pain control -No hypoxia noted Auditory hallucinations: resolved -Complains of medical conversations "in my head" that are not actually happening since yesterday -Denies having any AVH or delusions related to self-harm -Likely 2/2 lack of sleep as well as side effect of pain medication -Will monitor overnight and reassess in AM -If it continues, will discuss with pain mgmt Arthralgia/Pain in Hip Joints: stable -Associated with IBD 2/2 UC flare -Rheumatology on board -Cont management for active GI disease which subsequently improved joint pain symptoms -Cont on IV steroid -Will follow with Rheumatology as an out-patient DVT Ppx: SCDs and Teds Code status: FULL Dispo: Plan to return home once medically stable. Consultants: Gastro Rheumatology Procedures: Colonoscopy and EGD Current Inpatient Medications: Current Inpatient Medications Medications (Trade) Dose Ordered Sig/Sally Route Start Time Stop Time Status Last Admin Dose Admin Ondansetron HCl (Zofran Inj) 4 mg Q6H PRN IV 05/28/17 23:45 06/27/17 23:44 06/11/17 03:58 4 MG Duloxetine HCl (Cymbalta Cap) 120 mg DAILY PO 05/29/17 08:00 06/28/17 08:59 06/11/17 07:45 120 MG Lamotrigine (Lamictal Tab) 200 mg DAILY PO 05/29/17 08:00 06/28/17 08:59 06/11/17 07:46 200 MG Acetaminophen (Tylenol Tab) 650 mg Q4H PRN PO 05/28/17 23:45 06/27/17 23:44 06/09/17 18:09 650 MG Promethazine HCl 12.5 mg/Sodium Chloride 50.5 ml @ 204 mls/hr Q6H PRN IV 05/29/17 04:45 06/28/17 04:44 06/11/17 12:22 204 MLS/HR Ferrous Sulfate (Feosol Tab) 325 mg BIDM PO 05/29/17 17:00 06/28/17 16:59 06/11/17 07:45 325 MG Cyclobenzaprine HCl (Flexeril Tab) 10 mg TID PO 05/29/17 20:00 06/28/17 19:59 06/11/17 07:45 10 MG Sucralfate (Carafate Susp) 1 gm QID PO 05/31/17 12:00 06/30/17 11:59 06/11/17 13:22 1 GM Diphenoxylate HCl/ Atropine (Lomotil Tab) 1 tab QID PRN PO 06/02/17 16:00 07/02/17 15:59 Tapentadol (Nucynta Tab) 50 mg Q6H PRN PO 06/03/17 08:45 07/03/17 08:44 06/11/17 07:46 50 MG Clonidine HCl (Xmgfuuqs-Cpz-6 0.1mg/24hr Patch) 1 patch Q7D@0900 TD 06/03/17 09:00 07/03/17 08:59 06/10/17 08:32 1 PATCH Miscellaneous (Remove Clonidine Patch) 1 ea Q7D@0859 N/A 06/10/17 08:59 07/10/17 08:58 06/10/17 08:33 1 EA Miscellaneous Information (Check Clonidine Patch Placement) 1 ea QS N/A 06/03/17 16:00 07/03/17 15:59 06/11/17 07:43 1 EA Hydroxyzine HCl (Vistaril Tab) 25 mg Q8 PO 06/04/17 06:00 07/04/17 05:59 06/11/17 05:19 25 MG Clonazepam (Klonopin Tab) 1 mg TID PRN PO 06/05/17 16:00 07/05/17 15:59 06/11/17 09:44 1 MG Potassium Chloride/Sodium Chloride 1,000 ml @ 100 mls/hr Q10H IV 06/06/17 16:30 07/06/17 16:29 06/11/17 09:07 100 MLS/HR Pantoprazole Sodium 40 mg/ Syringe 10 ml @ 5 mls/min DAILY@09,21 IV 06/06/17 21:00 07/06/17 20:59 06/11/17 09:44 5 MLS/MIN Methylprednisolone Sodium Succinate 40 mg/Syringe 0.64 ml @ 1.5 mls/min BID IV 06/07/17 20:00 07/07/17 07:59 06/11/17 07:47 1.5 MLS/MIN Acetaminophen 650 mg/Empty Bag 65 ml @ 260 mls/hr Q6H PRN IV 06/07/17 19:15 07/07/17 19:14 Mesalamine (Rowasa Enema) 4 gm BID TN 06/08/17 10:00 07/08/17 09:59 06/11/17 07:47 4 GM Tapentadol (Nucynta Er Tab) 50 mg Q12 PO 06/09/17 21:00 07/09/17 20:59 06/11/17 09:43 50 MG Acetaminophen (Tylenol Tab) 500 mg Q6 PO 06/09/17 18:00 06/11/17 18:00 06/11/17 13:23 500 MG Docusate Sodium (coLACE CAP) 100 mg BID PO 06/11/17 20:00 07/11/17 19:59 Polyethylene (Miralax Powder Packet) 17 gm DAILY PRN PO 06/11/17 12:00 07/11/17 11:59 06/11/17 12:28 17 GM (Regina Redmond, P.A.-C.) Agree with above note. patient bloody bowel movements getting better . abdominal pain is better with pain meds.Tolerating full liquids and request to advance the diet. 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
[2017-06-11 15:10] VITALS: BP 122/82; PULSE 111; TEMP 36.5; O2SAT 93
[2017-06-11 16:35] LABS: QUANTIF TB AG-NIL <0.00 IU/ML; QUANTIFERON NIL 0.05 IU/ML
[2017-06-11] MEDS: BOOST VANILLA PO SCH ×2 (16:41)
[2017-06-11] MEDS ORDERED: BOOST VANILLA PO SCH ×2 (20:00)
[2017-06-11] MEDS: DOCUSATE SODIUM 100 MG CAP PO SCH (21:31)
[2017-06-11 23:36] VITALS: BP 143/97; PULSE 92; TEMP 36.7; O2SAT 94
[2017-06-12 00:06] VITALS: BP 137/90; PULSE 87; TEMP 36.4; O2SAT 95
[2017-06-12] MEDS: PROMETHAZINE HCL INJ 12.5 MG in SODIUM CHLORIDE 0.9% 50ML 50 ML IV PRN ×3 (03:14→17:55)
[2017-06-12] MEDS: NSS + 20MEQ KCL 1000ML 1,000 ML IV SCH ×2 (04:49→15:25)
[2017-06-12] MEDS: hydrOXYzine HCL 25 MG TAB PO SCH ×4 (06:02→20:38)
[2017-06-12 06:03] LABS: HEMATOCRIT 30.8 % (37-47); MEAN CORPUSCULAR HEMOGLOBIN 21.2 pg (25-34); MEAN CORPUSCULAR HGB CONC 29.9 g/dl (32-36); MEAN PLATELET VOLUME 9.1 fL (7.4-10.4); PLATELET COUNT 341 K/uL (130-400); RED BLOOD COUNT 4.34 M/uL (4.2-5.4); WHITE BLOOD COUNT 16.69 K/uL (4.8-10.8)
[2017-06-12] MEDS: TAPENTADOL HCL 50 MG TAB PO PRN ×3 (06:27→18:46)
[2017-06-12 06:38] LABS: BUN/CREATININE RATIO 16.4 (10-20); CALCIUM 8.2 mg/dl (8.5-10.1); CREATININE 0.97 mg/dl (0.60-1.20); MAGNESIUM 2.1 mg/dl (1.8-2.4); POTASSIUM 3.8 mmol/L (3.5-5.1)
[2017-06-12 08:06] VITALS: BP 130/88; PULSE 99; TEMP 36.6; O2SAT 96
[2017-06-12] MEDS: CHECK CLONIDINE PATCH PLACEMENT SCH ×2 (08:26→16:03)
[2017-06-12] MEDS: BOOST VANILLA PO SCH ×4 (08:26→17:26)
[2017-06-12] MEDS: METHYLPREDNISOLONE IV 40 MG in SYRINGE 0 ML IV SCH ×2 (08:27→20:36)
[2017-06-12] MEDS: POLYETHYLENE (MIRALAX) 17 GM PACK PO PRN (08:31)
[2017-06-12] MEDS: SUCRALFATE 1 GM/10 ML UDC PO SCH ×4 (08:32→20:36)
[2017-06-12] MEDS: DOCUSATE SODIUM 100 MG CAP PO SCH ×2 (08:33→20:36)
[2017-06-12] MEDS: CYCLOBENZAPRINE HCL 10 MG TAB PO SCH ×4 (08:34→20:36)
[2017-06-12] MEDS: FERROUS SULFATE 325 MG TAB PO SCH ×2 (08:34→17:27)
[2017-06-12] MEDS: DULOXETINE HCL 60 MG CAP PO SCH (08:34)
[2017-06-12] MEDS: TAPENTADOL ER 50 MG TABCR PO SCH ×2 (08:35→20:37)
[2017-06-12] MEDS: CLONAZEPAM 1 MG TAB PO PRN ×3 (08:36→21:39)
[2017-06-12] MEDS: PANTOprazole INJ 40 MG in SYRINGE 0 ML IV SCH ×2 (08:37→20:37)
--- NOTE | 2017-06-12 09:10 | Gastroenterology Progress Note ---
Progress Note Date of Service: Jun 12, 2017 Subjective Pt evaluation today including: conversation w/ patient, physical exam, lab review, review of studies Patient is a 31 yo female who is hospitalized for ulcerative colitis. She reports some improvement of abdominal distention since beginning Miralax & Colace yesterday. Her TB testing has returned negative. She reports persistent bleeding with some improvement. She denies further new complaints at present. Review of Systems Constitutional: No fever, No chills Respiratory: No cough, No shortness of breath Abdomen: + pain, + constipation, No nausea, No vomiting, No diarrhea Musculoskeletal: No joint pain Neuro: No problem reported Skin: No problem reported Medications Current Inpatient Medications Medications (Trade) Dose Ordered Sig/Sally Route Start Time Stop Time Status Last Admin Dose Admin Ondansetron HCl (Zofran Inj) 4 mg Q6H PRN IV 05/28/17 23:45 06/27/17 23:44 06/11/17 03:58 4 MG Duloxetine HCl (Cymbalta Cap) 120 mg DAILY PO 05/29/17 08:00 06/28/17 08:59 06/12/17 08:34 120 MG Lamotrigine (Lamictal Tab) 200 mg DAILY PO 05/29/17 08:00 06/28/17 08:59 06/12/17 08:35 200 MG Acetaminophen (Tylenol Tab) 650 mg Q4H PRN PO 05/28/17 23:45 06/27/17 23:44 06/09/17 18:09 650 MG Promethazine HCl 12.5 mg/Sodium Chloride 50.5 ml @ 204 mls/hr Q6H PRN IV 05/29/17 04:45 06/28/17 04:44 06/12/17 03:14 204 MLS/HR Ferrous Sulfate (Feosol Tab) 325 mg BIDM PO 05/29/17 17:00 06/28/17 16:59 06/12/17 08:34 325 MG Cyclobenzaprine HCl (Flexeril Tab) 10 mg TID PO 05/29/17 20:00 06/28/17 19:59 06/12/17 08:34 10 MG Sucralfate (Carafate Susp) 1 gm QID PO 05/31/17 12:00 06/30/17 11:59 06/12/17 08:32 1 GM Diphenoxylate HCl/ Atropine (Lomotil Tab) 1 tab QID PRN PO 06/02/17 16:00 07/02/17 15:59 Tapentadol (Nucynta Tab) 50 mg Q6H PRN PO 06/03/17 08:45 07/03/17 08:44 06/12/17 06:27 50 MG Clonidine HCl (Hpphmpnn-Blg-7 0.1mg/24hr Patch) 1 patch Q7D@0900 TD 06/03/17 09:00 07/03/17 08:59 06/10/17 08:32 1 PATCH Miscellaneous (Remove Clonidine Patch) 1 ea Q7D@0859 N/A 06/10/17 08:59 07/10/17 08:58 06/10/17 08:33 1 EA Miscellaneous Information (Check Clonidine Patch Placement) 1 ea QS N/A 06/03/17 16:00 07/03/17 15:59 06/12/17 08:26 1 EA Hydroxyzine HCl (Vistaril Tab) 25 mg Q8 PO 06/04/17 06:00 07/04/17 05:59 06/12/17 06:02 25 MG Clonazepam (Klonopin Tab) 1 mg TID PRN PO 06/05/17 16:00 07/05/17 15:59 06/12/17 08:36 1 MG Potassium Chloride/Sodium Chloride 1,000 ml @ 100 mls/hr Q10H IV 06/06/17 16:30 07/06/17 16:29 06/12/17 04:49 100 MLS/HR Pantoprazole Sodium 40 mg/ Syringe 10 ml @ 5 mls/min DAILY@,21 IV 06/06/17 21:00 07/06/17 20:59 06/12/17 08:37 5 MLS/MIN Methylprednisolone Sodium Succinate 40 mg/Syringe 0.64 ml @ 1.5 mls/min BID IV 06/07/17 20:00 07/07/17 07:59 06/12/17 08:27 1.5 MLS/MIN Acetaminophen 650 mg/Empty Bag 65 ml @ 260 mls/hr Q6H PRN IV 06/07/17 19:15 07/07/17 19:14 Tapentadol (Nucynta Er Tab) 50 mg Q12 PO 06/09/17 21:00 07/09/17 20:59 06/12/17 08:35 50 MG Docusate Sodium (coLACE CAP) 100 mg BID PO 06/11/17 20:00 07/11/17 19:59 06/12/17 08:33 100 MG Polyethylene (Miralax Powder Packet) 17 gm DAILY PRN PO 06/11/17 12:00 07/11/17 11:59 06/12/17 08:31 17 GM Enteral Nutritional Formula (Boost) 1 can BIDM PO 06/11/17 17:00 07/11/17 16:59 06/12/17 08:26 1 CAN Adalimumab (Humira) 160 mg ONE ONCE SC 06/12/17 08:30 06/12/17 08:31 UNV Mesalamine (Rowasa Enema) 4 gm BID SC 06/12/17 20:00 07/08/17 09:59 Objective Vital Signs Date Time Temp Pulse Resp B/P (MAP) Pulse Ox O2 Delivery O2 Flow Rate FiO2 06/12/17 08:06 36.6 99 16 130/88 (102) 96 Room Air 06/12/17 00:06 36.4 87 16 137/90 (106) 95 Room Air 06/12/17 00:00 Room Air 06/11/17 23:36 36.7 92 16 143/97 (112) 94 Room Air 06/11/17 16:00 Room Air 06/11/17 15:10 36.5 111 18 122/82 (95) 93 Room Air Physical Exam General Appearance: WD/WN, no apparent distress Eyes: normal inspection, PERRL Respiratory/Chest: lungs clear, normal breath sounds Cardiovascular: regular rate, rhythm Abdomen: normal bowel sounds, + pertinent finding (minimal distention) Extremities: non-tender Neurologic/Psych: alert, oriented x 3 Skin: normal color Laboratory Results Last 24 Hours Test 06/12/17 05:44 White Blood Count 16.69 K/uL Red Blood Count 4.34 M/uL Hemoglobin 9.2 g/dL Hematocrit 30.8 % Mean Corpuscular Volume 71.0 fL Mean Corpuscular Hemoglobin 21.2 pg Mean Corpuscular Hemoglobin Concent 29.9 g/dl RDW Standard Deviation 68.0 fL RDW Coefficient of Variation 28.1 % Platelet Count 341 K/uL Mean Platelet Volume 9.1 fL Sodium Level 140 mmol/L Potassium Level 3.8 mmol/L Chloride Level 106 mmol/L Carbon Dioxide Level 24 mmol/L Anion Gap 10.0 mmol/L Blood Urea Nitrogen 16 mg/dl Creatinine 0.97 mg/dl Est Creatinine Clear Calc Drug Dose 77.0 ml/min Estimated GFR () 88.9 Estimated GFR (Non- 76.7 BUN/Creatinine Ratio 16.4 Random Glucose 129 mg/dl Calcium Level 8.2 mg/dl Magnesium Level 2.1 mg/dl Assessment and Plan Patient is a 31 yo female who is hospitalized with a flare of her ulcerative colitis. 1) Continue IV Solumedrol 40 mg BID. Would anticipate discharge on a Prednisone taper beginning at 40 mg daily for 1 week and decreasing by 5 mg weekly for a total of 8 weeks. 2) Induction dosage of Humira ordered. Will give 160 mg today, plan for 80 mg injection in 2 weeks, then 2 weeks after would begin 40 mg injections subcutaneously every other week. 3) Continue Rowasa 4 gm BID. 4) Continue Colace 100 mg BID & Miralax 17 gm prn abdominal bloating & constipation. 5) Supportive care per primary team. Thank you for allowing us to participate in the care of this patient. If you should have any further questions, do not hesitate to contact us. Agree with SAHIL Gamino as above Abd: Soft, NT, Distended, +BS Prednisone taper on DC Continue Humira induction dosing Continue Rowasa Enemas BID Followup in our office next week Recommend no Narcotic analgesics at present due to abdominal distention and constipation
[2017-06-12] MEDS ORDERED: ADALIMUMAB 40 MG/0.8 ML SYR SC ONE (09:30)
[2017-06-12] MEDS: MESALAMINE 4 GM/60 ML ENEMA BTL PR SCH ×2 (09:41→20:37)
--- NOTE | 2017-06-12 10:05 | Progress Note ---
Medicine Progress Note Date & Time of Visit: Jun 12, 2017 at 09:59. (Regina Redmond, P.A.-C.) Subjective Patient seen and examined. Reports abdominal bloating and distention have improved. Abd pain and nausea is consistent with previous days. No vomiting. Stable rectal bleeding with diarrhea. Lightheadedness and weakness continuing to improve. Denies CP, SOB, calf pain, focal neuro deficits. (Regina Redmond, P.A.-C.) Objective Last 8 Hrs Date Time Temp Pulse Resp B/P (MAP) Pulse Ox O2 Delivery O2 Flow Rate FiO2 06/12/17 08:06 36.6 99 16 130/88 (102) 96 Room Air Physical Exam: General Appearance: WD/WN, +mild distress. Head: normocephalic, atraumatic Eyes: normal inspection, PERRL ENT: hearing grossly normal, Neck: supple, no JVD, no adenopathy Respiratory/Chest: lungs clear to auscultation. No wheezes, rales or rhonci. No respiratory distress or accessory muscle use Cardiovascular: regular rate, rhythm, no murmur, normal peripheral pulses Abdomen/GI: normal bowel sounds, soft, diffusely tender in all quadrants, mosr in LLQ. + Mildly distended Extremities/Musculoskelatal: normal inspection, no calf tenderness, normal capillary refill, no pedal edema Neurologic/Psych: Anxious mood, alert, oriented x 3. Skin: normal color, warm/dry Laboratory Results: Last 24 Hours Test 06/12/17 05:44 White Blood Count 16.69 K/uL Red Blood Count 4.34 M/uL Hemoglobin 9.2 g/dL Hematocrit 30.8 % Mean Corpuscular Volume 71.0 fL Mean Corpuscular Hemoglobin 21.2 pg Mean Corpuscular Hemoglobin Concent 29.9 g/dl RDW Standard Deviation 68.0 fL RDW Coefficient of Variation 28.1 % Platelet Count 341 K/uL Mean Platelet Volume 9.1 fL Sodium Level 140 mmol/L Potassium Level 3.8 mmol/L Chloride Level 106 mmol/L Carbon Dioxide Level 24 mmol/L Anion Gap 10.0 mmol/L Blood Urea Nitrogen 16 mg/dl Creatinine 0.97 mg/dl Est Creatinine Clear Calc Drug Dose 77.0 ml/min Estimated GFR () 88.9 Estimated GFR (Non- 76.7 BUN/Creatinine Ratio 16.4 Random Glucose 129 mg/dl Calcium Level 8.2 mg/dl Magnesium Level 2.1 mg/dl (Regina Redmond, P.A.-C.) Assessment & Plan Bloody diarrhea/abdominal pain: -Stable -2/2 to Inflammatory bowel disease/ulcerative colitis flare -Leukocytosis stable -C diff negative. Denies fever, chills, cough, dysuria. -Colonoscopy (06/01/17): "inflammation characterized by erosions, erythema and friability...was found in a continuous and circumferential pattern from anus to sigmoid colon" -Pain regimen includes tapentadol 50mg Q6 PRN. Stopped dilaudid on 06/02 -Per pain management, added Tapentadol 50mg BID extended release and scheduled Tylenol 500mg Q6 PO -Per GI, patient is appropriate for discharge. GI clinic follow-up in 1 week. -GI discharge recs: -Continue IV Solumedrol to 40 mg BID. Discharge on a taper beginning with 40mg daily x 1 week and then decreasing by 5mg weekly for a total of 8 weeks -Continue Rowasa enemas 4g BID. Continue Colace 100 mg BID & Miralax 17 gm prn abdominal bloating & constipation -Induction dosage of Humira ordered. Will give 160 mg today, plan for 80 mg injection in 2 weeks, then 2 weeks after would begin 40 mg injections SQ every other week Abdominal distention: improving -Abd XR showed fecal stasis and retention -Continue Colace 100mg BID and MiriLAX PRN -GI recommend avoidance of narcotic analgesics, which decrease GI motility Nausea/vomiting: improved -Associated with episodes of abd pain/bloody diarrhea -EGD (06/01/17): "Localized mild inflammation characterized by erythema was found in the gastric antrum" -Continue PPI and PRN anti-emetics -Monitor H/H Anemia 2/2 blood loss: improved -Low iron level -Transfused 2 units prbcs yesterday -Hgb up to 9.2 (9.9 yesterday) -Continue iron supplement -Monitor H&H Opioid withdrawal: improving -Patient with h/o narcotic dependence -Unable to tolerate side effects of withdrawal at home previous to admission -Has been on Dilaudid as an in-patient for UC Flare. Stopped 06/02/17 -Per pain management recs, on Tapentadol 50mg Q6 hours, ER Tapentadol, scheduled Tylenol -Patient is experiencing anxiety, insomnia, diarrhea with withdrawal. Is highly motivated to continue process -Dr Sheffield is willing to see her in clinic after discharge. Plan to get referral from PCP -Continue managing effects of withdrawal: Lomotil for GI symptoms Anti-emetics for nausea Acetaminophen for MSK pain Hydroxyzine for anxiety/rhinorrhea Clonidine patch for sympathetic hyperactivity Anxiety discussed above Anxiety/depression: -H/o depression and anxiety managed by PCP -On Cymbalta, Lamictal as home meds -Has heightened anxiety due to opioid withdrawal -Per pain mgmt recs, on hydroxyzine for anxiety. Klonopin for PRN use -Recommend out-patient psych follow-up to optimize medications Generalized weakness: improved -Likely due to both deconditioning and anemia -Will continue iron supplements; hgb is on the rise with fewer episodes of diarrhea -Encouraged to continue ambulating with supervision to strengthen Hypokalemia: resolved -K of 3.1 secondary to GI losses -Replaced K -Mg is wnl -Monitor labwork and adjust accordingly Atypical R-Sided Chest Pain: resolved -Tenderness on palpation of rt chest wall -Cont pain control -No hypoxia noted Auditory hallucinations: resolved -Complains of medical conversations "in my head" that are not actually happening since yesterday -Denies having any AVH or delusions related to self-harm -Likely 2/2 lack of sleep as well as side effect of pain medication -Will monitor overnight and reassess in AM -If it continues, will discuss with pain mgmt Arthralgia/Pain in Hip Joints: stable -Associated with IBD 2/2 UC flare -Rheumatology on board -Cont management for active GI disease which subsequently improved joint pain symptoms -Cont on IV steroid -Will follow with Rheumatology as an out-patient DVT Ppx: SCDs and Teds Code status: FULL Dispo: Plan to return home once medically stable. Consultants: Gastro Rheumatology Procedures: Colonoscopy and EGD Current Inpatient Medications: Current Inpatient Medications Medications (Trade) Dose Ordered Sig/Sally Route Start Time Stop Time Status Last Admin Dose Admin Ondansetron HCl (Zofran Inj) 4 mg Q6H PRN IV 05/28/17 23:45 06/27/17 23:44 06/11/17 03:58 4 MG Duloxetine HCl (Cymbalta Cap) 120 mg DAILY PO 05/29/17 08:00 06/28/17 08:59 06/12/17 08:34 120 MG Lamotrigine (Lamictal Tab) 200 mg DAILY PO 05/29/17 08:00 06/28/17 08:59 06/12/17 08:35 200 MG Acetaminophen (Tylenol Tab) 650 mg Q4H PRN PO 05/28/17 23:45 06/27/17 23:44 06/09/17 18:09 650 MG Promethazine HCl 12.5 mg/Sodium Chloride 50.5 ml @ 204 mls/hr Q6H PRN IV 05/29/17 04:45 06/28/17 04:44 06/12/17 03:14 204 MLS/HR Ferrous Sulfate (Feosol Tab) 325 mg BIDM PO 05/29/17 17:00 06/28/17 16:59 06/12/17 08:34 325 MG Cyclobenzaprine HCl (Flexeril Tab) 10 mg TID PO 05/29/17 20:00 06/28/17 19:59 06/12/17 08:34 10 MG Sucralfate (Carafate Susp) 1 gm QID PO 05/31/17 12:00 06/30/17 11:59 06/12/17 08:32 1 GM Diphenoxylate HCl/ Atropine (Lomotil Tab) 1 tab QID PRN PO 06/02/17 16:00 07/02/17 15:59 Tapentadol (Nucynta Tab) 50 mg Q6H PRN PO 06/03/17 08:45 07/03/17 08:44 06/12/17 06:27 50 MG Clonidine HCl (Gbhccymm-Mqp-3 0.1mg/24hr Patch) 1 patch Q7D@0900 TD 06/03/17 09:00 07/03/17 08:59 06/10/17 08:32 1 PATCH Miscellaneous (Remove Clonidine Patch) 1 ea Q7D@0859 N/A 06/10/17 08:59 07/10/17 08:58 06/10/17 08:33 1 EA Miscellaneous Information (Check Clonidine Patch Placement) 1 ea QS N/A 06/03/17 16:00 07/03/17 15:59 8/18/17 08:26 1 EA Hydroxyzine HCl (Vistaril Tab) 25 mg Q8 PO 06/04/17 06:00 07/04/17 05:59 06/12/17 06:02 25 MG Clonazepam (Klonopin Tab) 1 mg TID PRN PO 06/05/17 16:00 07/05/17 15:59 06/12/17 08:36 1 MG Potassium Chloride/Sodium Chloride 1,000 ml @ 100 mls/hr Q10H IV 06/06/17 16:30 07/06/17 16:29 06/12/17 04:49 100 MLS/HR Pantoprazole Sodium 40 mg/ Syringe 10 ml @ 5 mls/min DAILY@ IV 06/06/17 21:00 07/06/17 20:59 06/12/17 08:37 5 MLS/MIN Methylprednisolone Sodium Succinate 40 mg/Syringe 0.64 ml @ 1.5 mls/min BID IV 06/07/17 20:00 07/07/17 07:59 06/12/17 08:27 1.5 MLS/MIN Acetaminophen 650 mg/Empty Bag 65 ml @ 260 mls/hr Q6H PRN IV 06/07/17 19:15 07/07/17 19:14 Tapentadol (Nucynta Er Tab) 50 mg Q12 PO 06/09/17 21:00 07/09/17 20:59 06/12/17 08:35 50 MG Docusate Sodium (coLACE CAP) 100 mg BID PO 06/11/17 20:00 07/11/17 19:59 06/12/17 08:33 100 MG Polyethylene (Miralax Powder Packet) 17 gm DAILY PRN PO 06/11/17 12:00 07/11/17 11:59 06/12/17 08:31 17 GM Enteral Nutritional Formula (Boost) 1 can BIDM PO 06/11/17 17:00 07/11/17 16:59 06/12/17 08:26 1 CAN Mesalamine (Rowasa Enema) 4 gm BID NH 06/12/17 20:00 07/08/17 09:59 06/12/17 09:41 4 GM (Regina Redmond, P.A.-C.) Agree with above note. s/p intiation of humira today. complains of some pain in legs. . abdominal pain is better with pain meds.Tolerating soft diet. 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
[2017-06-12 15:35] VITALS: BP 151/98; PULSE 101; TEMP 36.6; O2SAT 97
[2017-06-12] MEDS: ONDANSETRON INJ 2 MG/ML 2 ML VIAL IV PRN (22:37)
[2017-06-12 23:45] VITALS: BP 134/89; PULSE 91; TEMP 36.7; O2SAT 94
[2017-06-13] MEDS: CHECK CLONIDINE PATCH PLACEMENT SCH ×4 (00:02→23:30)
[2017-06-13] MEDS: TAPENTADOL HCL 50 MG TAB PO PRN ×3 (00:59→18:44)
[2017-06-13] MEDS: NSS + 20MEQ KCL 1000ML 1,000 ML IV SCH ×3 (00:59→21:11)
[2017-06-13] MEDS: PROMETHAZINE HCL INJ 12.5 MG in SODIUM CHLORIDE 0.9% 50ML 50 ML IV PRN ×4 (00:59→23:30)
[2017-06-13] MEDS: hydrOXYzine HCL 25 MG TAB PO SCH ×3 (05:34→21:10)
[2017-06-13 05:58] LABS: HEMATOCRIT 30.4 % (37-47); MEAN CELL VOLUME 70.5 fL (80-100); MEAN CORPUSCULAR HGB CONC 31.3 g/dl (32-36); MEAN PLATELET VOLUME 8.9 fL (7.4-10.4); PLATELET COUNT 328 K/uL (130-400); RED BLOOD COUNT 4.31 M/uL (4.2-5.4); WHITE BLOOD COUNT 18.92 K/uL (4.8-10.8)
[2017-06-13 06:24] LABS: BUN/CREATININE RATIO 18.2 (10-20); CALCIUM 8.3 mg/dl (8.5-10.1); CREATININE 0.82 mg/dl (0.60-1.20); POTASSIUM 4.1 mmol/L (3.5-5.1)
[2017-06-13 07:27] VITALS: BP 135/88; PULSE 108; TEMP 36.5; O2SAT 98
[2017-06-13] MEDS: MESALAMINE 4 GM/60 ML ENEMA BTL PR SCH ×2 (07:38→21:10)
[2017-06-13] MEDS: CYCLOBENZAPRINE HCL 10 MG TAB PO SCH ×3 (07:38→21:10)
[2017-06-13] MEDS: SUCRALFATE 1 GM/10 ML UDC PO SCH ×4 (07:39→21:10)
[2017-06-13] MEDS: DULOXETINE HCL 60 MG CAP PO SCH (07:39)
[2017-06-13] MEDS: FERROUS SULFATE 325 MG TAB PO SCH ×2 (07:39→17:19)
[2017-06-13] MEDS: DOCUSATE SODIUM 100 MG CAP PO SCH ×2 (07:39→21:10)
[2017-06-13] MEDS: TAPENTADOL ER 50 MG TABCR PO SCH ×2 (07:39→21:11)
[2017-06-13] MEDS: PANTOprazole INJ 40 MG in SYRINGE 0 ML IV SCH ×2 (07:40→21:10)
[2017-06-13] MEDS: BOOST VANILLA PO SCH ×4 (07:41→17:19)
[2017-06-13] MEDS: CLONAZEPAM 1 MG TAB PO PRN ×2 (11:43→21:11)
[2017-06-13 15:21] VITALS: BP 115/72; PULSE 104; TEMP 36.5; O2SAT 97
--- NOTE | 2017-06-13 19:29 | Progress Note ---
Internal Med Progress Note Date of Service: Jun 13, 2017. Provider Documentation: SUBJECTIVE: feeling some what better but has flu like symptoms since Humira given afebrile less blood in stools abdomen still distended OBJECTIVE: Vital Signs-as noted below Exam: General-alert and awake. Not in distress. ENT-normal hearing Neck-no neck masses Lungs-cta b/l no wheezing or crackles Heart-s1 and s2 heard regular rhythm no murmurs Abdomen-soft bowel sounds present mild diffuse tender mild distension Extremities- no erythema no edema Neuro-alert and awake moves extremities Lab data as noted below. ASSESSMENT & PLAN: Bloody diarrhea/abdominal pain: 2/2 to Inflammatory bowel disease/ulcerative colitis flare Colonoscopy (06/01/17): "inflammation characterized by erosions, erythema and friability...was found in a continuous and circumferential pattern from anus to sigmoid colon" was on iv steroids and Rowasa enema bt dinot improve much intiated with Humira yesterday after hep B and TB test was negative GI discharge recs: -Continue IV Solumedrol to 40 mg BID. Discharge on a taper beginning with 40mg daily x 1 week and then decreasing by 5mg weekly for a total of 8 weeks -Continue Rowasa enemas 4g BID. Continue Colace 100 mg BID & Miralax 17 gm prn abdominal bloating & constipation -Induction dosage of Humira ordered. Will give 160 mg 06/12/17 , plan for 80 mg injection in 2 weeks, then 2 weeks after would begin 40 mg injections SQ every other week Abdominal distention: Abd XR showed fecal stasis and retention On Continue Colace 100mg BID and MiriLAX PRN GI recommends avoidance of narcotic analgesics, which decrease GI motility F/U KUB in am. Nausea/vomiting: improved Associated with episodes of abd pain/bloody diarrhea EGD (06/01/17): "Localized mild inflammation characterized by erythema was found in the gastric antrum" To continue PPI and PRN anti-emetics Will monitor H/H Anemia 2/2 blood loss: Low iron level Received 2 units prbcs so far hb 9.5 today on iron supplement Monitor H&H Opioid withdrawal: improving Currently on tapentadol Hydroxyzine for anxiety/rhinorrhea Clonidine patch for sympathetic hyperactivity klonpin for anxiety stable to followup with pain management Anxiety/depression: On Cymbalta, Lamictal as home meds Has heightened anxiety due to opioid withdrawal Currently on , on hydroxyzine for anxiety. Klonopin for PRN use per pain management recommendations Recommend out-patient psych follow-up Atypical R-Sided Chest Pain: resolved Arthralgia/Pain in Hip Joints: stable Associated with IBD 2/2 UC flare Seen by Rheumatology Cont management for active GI disease which subsequently improved joint pain symptoms f/u Rheumatology as an out-patient DVT Ppx: SCDs and Teds Code status: FULL Dispo: Plan to return home once medically stable. Consultants: Gastro Rheumatology Procedures: Colonoscopy and EGD Vital Signs: Date Time Temp Pulse Resp B/P (MAP) Pulse Ox O2 Delivery O2 Flow Rate FiO2 06/13/17 15:21 36.5 104 20 115/72 (86) 97 Room Air 06/13/17 15:05 Room Air 06/13/17 07:48 Room Air 06/13/17 07:27 36.5 108 20 135/88 (104) 98 Room Air 06/13/17 00:53 Room Air 06/12/17 23:45 36.7 91 18 134/89 (104) 94 Room Air 06/12/17 20:04 Room Air Lab Results: Results Past 24 Hours Test 06/13/17 05:29 Range/Units White Blood Count 18.92 4.8-10.8 K/uL Red Blood Count 4.31 4.2-5.4 M/uL Hemoglobin 9.5 12.0-16.0 g/dL Hematocrit 30.4 37-47 % Mean Corpuscular Volume 70.5 80-100 fL Mean Corpuscular Hemoglobin 22.0 25-34 pg Mean Corpuscular Hemoglobin Concent 31.3 32-36 g/dl RDW Standard Deviation 68.1 36.4-46.3 fL RDW Coefficient of Variation 28.7 11.5-14.5 % Platelet Count 328 130-400 K/uL Mean Platelet Volume 8.9 7.4-10.4 fL Sodium Level 141 136-145 mmol/L Potassium Level 4.1 3.5-5.1 mmol/L Chloride Level 106 98-107 mmol/L Carbon Dioxide Level 29 21-32 mmol/L Anion Gap 6.0 3-11 mmol/L Blood Urea Nitrogen 15 7-18 mg/dl Creatinine 0.82 0.60-1.20 mg/dl Est Creatinine Clear Calc Drug Dose 91.0 ml/min Estimated GFR () 109.0 Estimated GFR (Non- 94.0 BUN/Creatinine Ratio 18.2 10-20 Random Glucose 98 70-99 mg/dl Calcium Level 8.3 8.5-10.1 mg/dl
[2017-06-13 23:12] VITALS: BP 129/87; PULSE 102; TEMP 36.8; O2SAT 96
[2017-06-14] MEDS: TAPENTADOL HCL 50 MG TAB PO PRN ×4 (02:28→19:59)
[2017-06-14] MEDS: NSS + 20MEQ KCL 1000ML 1,000 ML IV SCH ×2 (05:52→16:33)
[2017-06-14] MEDS: hydrOXYzine HCL 25 MG TAB PO SCH ×3 (05:52→21:08)
[2017-06-14 07:31] VITALS: BP 106/74; PULSE 110; TEMP 36.5; O2SAT 96
[2017-06-14] MEDS: CLONAZEPAM 1 MG TAB PO PRN ×3 (08:04→19:58)
[2017-06-14] MEDS: DULOXETINE HCL 60 MG CAP PO SCH (08:04)
[2017-06-14] MEDS: DOCUSATE SODIUM 100 MG CAP PO SCH ×2 (08:04→21:08)
[2017-06-14] MEDS: CYCLOBENZAPRINE HCL 10 MG TAB PO SCH ×3 (08:05→21:08)
[2017-06-14] MEDS: FERROUS SULFATE 325 MG TAB PO SCH ×2 (08:05→16:32)
[2017-06-14] MEDS: SUCRALFATE 1 GM/10 ML UDC PO SCH ×4 (08:05→21:08)
[2017-06-14] MEDS: BOOST VANILLA PO SCH ×4 (08:06→16:34)
[2017-06-14] MEDS: CHECK CLONIDINE PATCH PLACEMENT SCH ×2 (08:07→16:34)
[2017-06-14] MEDS: PANTOprazole INJ 40 MG in SYRINGE 0 ML IV SCH ×2 (09:15→21:08)
[2017-06-14] MEDS: TAPENTADOL ER 50 MG TABCR PO SCH ×2 (09:15→21:08)
[2017-06-14] MEDS: MESALAMINE 4 GM/60 ML ENEMA BTL PR SCH (09:45)
[2017-06-14] MEDS: PROMETHAZINE HCL INJ 12.5 MG in SODIUM CHLORIDE 0.9% 50ML 50 ML IV PRN ×2 (12:52→18:41)
[2017-06-14 15:22] VITALS: BP 121/72; PULSE 118; TEMP 36.7; O2SAT 95
--- NOTE | 2017-06-14 19:58 | Progress Note ---
Internal Med Progress Note Date of Service: Jun 14, 2017. Provider Documentation: SUBJECTIVE: says having pain in her joints since Humira given ambulated ok still has blood in stool but not as before abdominal distension is getting better moving bowels OBJECTIVE: Vital Signs-as noted below Exam: General-alert and awake. Not in distress. ENT-normal hearing Neck-no neck masses Lungs-cta b/l no wheezing or crackles Heart-s1 and s2 heard regular rhythm no murmurs Abdomen-soft bowel sounds present mild diffuse tender mild distension Extremities- no erythema no edema Neuro-alert and awake moves extremities Lab data as noted below. ASSESSMENT & PLAN: 31f presents with ulcerative colitis flare- not much response to steroids and Rowasa enema. Was intiated on Humira on . Awaiting pain regimen to be discharged on. Bloody diarrhea/abdominal pain: 2/2 to Inflammatory bowel disease/ulcerative colitis flare Colonoscopy (06/01/17): "inflammation characterized by erosions, erythema and friability...was found in a continuous and circumferential pattern from anus to sigmoid colon" was on iv steroids and Rowasa enema bt dinot improve much intiated with Humira yesterday after hep B and TB test was negative GI discharge recs: -Continue IV Solumedrol to 40 mg BID. Discharge on a taper beginning with 40mg daily x 1 week and then decreasing by 5mg weekly for a total of 8 weeks -Continue Rowasa enemas 4g BID. Continue Colace 100 mg BID & Miralax 17 gm prn abdominal bloating & constipation -Induction dosage of Humira ordered. Will give 160 mg 06/12/17 , plan for 80 mg injection in 2 weeks, then 2 weeks after would begin 40 mg injections SQ every other week Improving but still has some blood in stool and abdominal pain. Abdominal distention: Abd XR showed fecal stasis and retention On Continue Colace 100mg BID and MiriLAX PRN GI recommends avoidance of narcotic analgesics, which decrease GI motility some what improved F/U KUB in am. Nausea/vomiting: improved Associated with episodes of abd pain/bloody diarrhea EGD (06/01/17): "Localized mild inflammation characterized by erythema was found in the gastric antrum" To continue PPI and PRN anti-emetics Will monitor H/H Anemia 2/2 blood loss: Low iron level Received 2 units prbcs so far hb 9.5 today on iron supplement Monitor H&H Opioid withdrawal: improving Currently on tapentadol Hydroxyzine for anxiety/rhinorrhea Clonidine patch for sympathetic hyperactivity Klonopin for anxiety stable to followup with pain management needs tapentadol approval prior to discharge Anxiety/depression: On Cymbalta, Lamictal as home meds Has heightened anxiety due to opioid withdrawal Currently on , on hydroxyzine for anxiety. Klonopin for PRN use per pain management recommendations Recommend out-patient psych follow-up Atypical R-Sided Chest Pain: resolved Arthralgia/Pain in Hip Joints: stable Associated with IBD 2/2 UC flare Seen by Rheumatology Cont management for active GI disease which subsequently improved joint pain symptoms f/u Rheumatology as an out-patient DVT Ppx: SCDs and Teds Code status: FULL Dispo: Plan to return home once medically stable. possible d/c in 1-2 days Consultants: Gastro Rheumatology Procedures: Colonoscopy and EGD Vital Signs: Date Time Temp Pulse Resp B/P (MAP) Pulse Ox O2 Delivery O2 Flow Rate FiO2 06/14/17 16:19 Room Air 06/14/17 15:22 36.7 118 18 121/72 (88) 95 Room Air 06/14/17 08:15 Room Air 06/14/17 07:31 36.5 110 106/74 (85) 96 06/14/17 00:32 Room Air 06/13/17 23:12 36.8 102 20 129/87 (101) 96 Room Air 06/13/17 19:52 Room Air
[2017-06-14 23:15] VITALS: BP 115/79; PULSE 110; TEMP 36.6; O2SAT 93
[2017-06-15] MEDS: CHECK CLONIDINE PATCH PLACEMENT SCH ×4 (00:04→23:46)
[2017-06-15] MEDS: PROMETHAZINE HCL INJ 12.5 MG in SODIUM CHLORIDE 0.9% 50ML 50 ML IV PRN ×3 (00:28→16:15)
[2017-06-15] MEDS: NSS + 20MEQ KCL 1000ML 1,000 ML IV SCH ×3 (02:01→22:03)
[2017-06-15] MEDS: TAPENTADOL HCL 50 MG TAB PO PRN ×4 (03:02→22:01)
[2017-06-15] MEDS: ONDANSETRON INJ 2 MG/ML 2 ML VIAL IV PRN (05:59)
[2017-06-15] MEDS: hydrOXYzine HCL 25 MG TAB PO SCH ×3 (05:59→22:02)
[2017-06-15 07:05] LABS: BASO % 0.1 %; BASO ABS # 0.02 K/uL (0-0.2); EOS % 1.2 %; HEMATOCRIT 29.3 % (37-47); IG% 4.2 %; LYMPH % 21.4 %; LYMPH ABS # 3.13 K/uL (1.2-3.4); MEAN CELL VOLUME 71.6 fL (80-100); MEAN CORPUSCULAR HEMOGLOBIN 22.2 pg (25-34); MEAN CORPUSCULAR HGB CONC 31.1 g/dl (32-36); MEAN PLATELET VOLUME 8.8 fL (7.4-10.4); MONO % 8.7 %; NEUT % 64.4 %; PLATELET COUNT 315 K/uL (130-400); RED BLOOD COUNT 4.09 M/uL (4.2-5.4)
[2017-06-15 07:34] LABS: BUN/CREATININE RATIO 22.1 (10-20); CALCIUM 8.5 mg/dl (8.5-10.1); CREATININE 0.84 mg/dl (0.60-1.20); MAGNESIUM 2.3 mg/dl (1.8-2.4)
[2017-06-15] MEDS: TAPENTADOL ER 50 MG TABCR PO SCH ×2 (07:43→20:10)
[2017-06-15] MEDS: DOCUSATE SODIUM 100 MG CAP PO SCH ×2 (07:44→20:11)
[2017-06-15] MEDS: CLONAZEPAM 1 MG TAB PO PRN ×3 (07:44→22:01)
[2017-06-15] MEDS: CYCLOBENZAPRINE HCL 10 MG TAB PO SCH ×3 (07:45→20:11)
[2017-06-15] MEDS: FERROUS SULFATE 325 MG TAB PO SCH ×2 (07:46→17:40)
[2017-06-15] MEDS: DULOXETINE HCL 60 MG CAP PO SCH (07:46)
[2017-06-15] MEDS: SUCRALFATE 1 GM/10 ML UDC PO SCH ×4 (07:47→20:10)
[2017-06-15] MEDS: BOOST VANILLA PO SCH ×4 (07:47→17:00)
[2017-06-15] MEDS: PANTOprazole INJ 40 MG in SYRINGE 0 ML IV SCH ×2 (07:48→20:12)
[2017-06-15 07:56] VITALS: BP 106/74; PULSE 115; TEMP 36.4; O2SAT 96
[2017-06-15 08:11] LABS: COMPLETE YES; HYPOCHROMIA PRESENT; OVALOCYTES 1+
[2017-06-15] MEDS: MESALAMINE 4 GM/60 ML ENEMA BTL PR SCH ×2 (10:25→20:12)
[2017-06-15 14:28] VITALS: BP 110/74; PULSE 126; TEMP 36.4; O2SAT 95
[2017-06-15] MEDS ORDERED: OPTIRAY 320 IV PRN ×2 (15:45)
--- NOTE | 2017-06-15 18:04 | Gastroenterology Progress Note ---
Progress Note Date of Service: Jun 15, 2017 Subjective Pt evaluation today including: conversation w/ patient, conversation w/ family , physical exam, chart review, lab review, review of studies, conversation w/ renewable energy consultant, review of inpatient medication list Continues to complain of abdominal bloating. She does have 3/10 abdominal pain , diffuse, non-radiating which is alleviated by pain medications. She did have a small BM a "little while ago." She states that she has noticed decreased blood with her BM's. I again discussed with Sammie the role or lack thereof for narcotic analgesics in the treatment of IBD. Review of Systems Constitutional: No fever, No chills Respiratory: No cough, No sputum, No shortness of breath Cardiac: No chest pain Abdomen: + constipation, + GI bleeding, No nausea, No vomiting, No diarrhea, No jaundice Musculoskeletal: No joint pain Female : No dysuria Endo: + fatigue Medications Current Inpatient Medications Medications (Trade) Dose Ordered Sig/Sally Route Start Time Stop Time Status Last Admin Dose Admin Ondansetron HCl (Zofran Inj) 4 mg Q6H PRN IV 05/28/17 23:45 06/27/17 23:44 06/15/17 05:59 4 MG Duloxetine HCl (Cymbalta Cap) 120 mg DAILY PO 05/29/17 08:00 06/28/17 08:59 06/15/17 07:46 120 MG Lamotrigine (Lamictal Tab) 200 mg DAILY PO 05/29/17 08:00 06/28/17 08:59 06/15/17 07:45 200 MG Acetaminophen (Tylenol Tab) 650 mg Q4H PRN PO 05/28/17 23:45 06/27/17 23:44 06/09/17 18:09 650 MG Promethazine HCl 12.5 mg/Sodium Chloride 50.5 ml @ 204 mls/hr Q6H PRN IV 05/29/17 04:45 06/28/17 04:44 06/15/17 16:15 204 MLS/HR Ferrous Sulfate (Feosol Tab) 325 mg BIDM PO 05/29/17 17:00 06/28/17 16:59 06/15/17 17:40 325 MG Cyclobenzaprine HCl (Flexeril Tab) 10 mg TID PO 05/29/17 20:00 06/28/17 19:59 06/15/17 14:16 10 MG Sucralfate (Carafate Susp) 1 gm QID PO 05/31/17 12:00 06/30/17 11:59 06/15/17 17:39 1 GM Diphenoxylate HCl/ Atropine (Lomotil Tab) 1 tab QID PRN PO 06/02/17 16:00 07/02/17 15:59 Tapentadol (Nucynta Tab) 50 mg Q6H PRN PO 06/03/17 08:45 07/03/17 08:44 06/15/17 15:44 50 MG Clonidine HCl (Umochjyi-Hfr-8 0.1mg/24hr Patch) 1 patch Q7D@0900 TD 06/03/17 09:00 07/03/17 08:59 06/10/17 08:32 1 PATCH Miscellaneous (Remove Clonidine Patch) 1 ea Q7D@0859 N/A 06/10/17 08:59 07/10/17 08:58 06/10/17 08:33 1 EA Miscellaneous Information (Check Clonidine Patch Placement) 1 ea QS N/A 06/03/17 16:00 07/03/17 15:59 06/15/17 15:45 1 EA Hydroxyzine HCl (Vistaril Tab) 25 mg Q8 PO 06/04/17 06:00 07/04/17 05:59 06/15/17 14:16 25 MG Clonazepam (Klonopin Tab) 1 mg TID PRN PO 06/05/17 16:00 07/05/17 15:59 06/15/17 15:44 1 MG Potassium Chloride/Sodium Chloride 1,000 ml @ 100 mls/hr Q10H IV 06/06/17 16:30 07/06/17 16:29 06/15/17 14:15 100 MLS/HR Pantoprazole Sodium 40 mg/ Syringe 10 ml @ 5 mls/min DAILY@ IV 06/06/17 21:00 07/06/17 20:59 06/15/17 07:48 5 MLS/MIN Acetaminophen 650 mg/Empty Bag 65 ml @ 260 mls/hr Q6H PRN IV 06/07/17 19:15 07/07/17 19:14 Tapentadol (Nucynta Er Tab) 50 mg Q12 PO 06/09/17 21:00 07/09/17 20:59 06/15/17 07:43 50 MG Docusate Sodium (coLACE CAP) 100 mg BID PO 06/11/17 20:00 07/11/17 19:59 06/15/17 07:44 100 MG Polyethylene (Miralax Powder Packet) 17 gm DAILY PRN PO 06/11/17 12:00 07/11/17 11:59 06/12/17 08:31 17 GM Enteral Nutritional Formula (Boost) 1 can BIDM PO 06/11/17 17:00 07/11/17 16:59 06/15/17 17:00 1 CAN Mesalamine (Rowasa Enema) 4 gm BID [place] 06/12/17 20:00 07/08/17 09:59 Future hold 06/15/17 10:25 4 GM Prednisone (PredniSONE TAB) 40 mg DAILY PO 06/13/17 08:00 07/13/17 07:59 06/15/17 07:47 40 MG Ioversol (Optiray 320) 111 ml UD PRN IV 06/15/17 15:45 06/19/17 15:44 Ioversol (Optiray 320) 111 ml UD PRN IV 06/15/17 15:45 06/19/17 15:44 Objective Vital Signs Date Time Temp Pulse Resp B/P (MAP) Pulse Ox O2 Delivery O2 Flow Rate FiO2 06/15/17 16:00 Room Air 06/15/17 14:28 36.4 126 18 110/74 (86) 95 06/15/17 08:00 Room Air 06/15/17 07:56 36.4 115 16 106/74 (85) 96 Room Air 06/15/17 00:17 Room Air 06/14/17 23:15 36.6 110 18 115/79 (91) 93 Room Air 06/14/17 20:08 Room Air Physical Exam General Appearance: no apparent distress Eyes: EOMI ENT: hearing grossly normal Neck: no adenopathy Respiratory/Chest: lungs clear Cardiovascular: regular rate, rhythm Abdomen: soft, + distended, + tenderness Extremities: no pedal edema Laboratory Results Last 24 Hours Test 06/15/17 06:18 White Blood Count 14.60 K/uL Red Blood Count 4.09 M/uL Hemoglobin 9.1 g/dL Hematocrit 29.3 % Mean Corpuscular Volume 71.6 fL Mean Corpuscular Hemoglobin 22.2 pg Mean Corpuscular Hemoglobin Concent 31.1 g/dl Platelet Count 315 K/uL Mean Platelet Volume 8.8 fL Neutrophils (%) (Auto) 64.4 % Lymphocytes (%) (Auto) 21.4 % Monocytes (%) (Auto) 8.7 % Eosinophils (%) (Auto) 1.2 % Basophils (%) (Auto) 0.1 % Neutrophils # (Auto) 9.40 K/uL Lymphocytes # (Auto) 3.13 K/uL Monocytes # (Auto) 1.27 K/uL Eosinophils # (Auto) 0.17 K/uL Basophils # (Auto) 0.02 K/uL RDW Standard Deviation 71.0 fL RDW Coefficient of Variation 30.1 % Immature Granulocyte % (Auto) 4.2 % Immature Granulocyte # (Auto) 0.61 K/uL Hypochromasia PRESENT Basophilic Stippling 1+ Ovalocytes 1+ Sodium Level 138 mmol/L Potassium Level 4.0 mmol/L Chloride Level 103 mmol/L Carbon Dioxide Level 30 mmol/L Anion Gap 5.0 mmol/L Blood Urea Nitrogen 19 mg/dl Creatinine 0.84 mg/dl Est Creatinine Clear Calc Drug Dose 88.9 ml/min Estimated GFR () 105.8 Estimated GFR (Non- 91.3 BUN/Creatinine Ratio 22.1 Random Glucose 80 mg/dl Calcium Level 8.5 mg/dl Magnesium Level 2.3 mg/dl Assessment and Plan Patient is a 31 yo female who is hospitalized with a flare of her ulcerative colitis. 1) Discussed with hospitalist service, and will recommend a CT scan of the Abd/ Pelvis with PO and IV contrast. 2) Continue IV Solumedrol 40 mg BID. Would anticipate discharge on a Prednisone taper beginning at 40 mg daily for 1 week and decreasing by 5 mg weekly for a total of 8 weeks. 3) Humira induction dosing started last week, plan for 80 mg injection in 2 weeks, then 2 weeks after would begin 40 mg injections subcutaneously every other week. 4) Continue Rowasa 4 gm BID. 5) Continue Colace 100 mg BID & Miralax 17 gm prn abdominal bloating & constipation.
--- NOTE | 2017-06-15 18:23 | DIAGNOSTIC IMAGING REPORT ---
CT SCAN OF THE ABDOMEN AND PELVIS WITH IV CONTRAST CLINICAL HISTORY: Generalized abdominal pain and abdominal distention. COMPARISON STUDY: Abdominal CT dated 05/28/2017. TECHNIQUE: Following the IV administration of 93 cc of Optiray 320, CT scan of the abdomen and pelvis is performed from the lung bases to the proximal femora. Images are reviewed in the axial, sagittal, and coronal planes. IV contrast was administered without complication. Automated dose control exposure was utilized. A dose lowering technique was utilized adhering to the principles of ALARA. CT DOSE: 285.47 mGy.cm FINDINGS: Lung bases: The heart is normal in size and without pericardial effusion. The lung bases are clear noting dependent atelectasis. Liver: The contrast-enhanced liver is normal in size, contour, and attenuation. There is no intrahepatic biliary ductal dilatation. The hepatic veins and portal veins are patent. Gallbladder: Surgically absent noting clips in the gallbladder fossa. Spleen: Normal in size and attenuation. Pancreas: Unremarkable. Adrenal glands: Unremarkable. Kidneys: The contrast enhanced kidneys are normal in size and without hydronephrosis. The kidneys enhance symmetrically. Scattered subcentimeter cortical hypodensities likely represent cysts but are too small for definitive characterization. Abdominal vasculature: The abdominal aorta is normal in course and caliber. Bowel: There is severe constipation. No colonic wall thickening or pericolonic inflammation is identified. There is no bowel obstruction. The appendix is not identified and reported surgically absent. Peritoneum: There is no intraperitoneal free air or abdominal ascites. Lymphadenopathy: None. Pelvic viscera: The bladder is normal as visualized. The uterus is normal in appearance noting an intrauterine device in place. Adnexa are normal in appearance noting bilateral ovarian follicles. Skeletal structures: No lytic or blastic lesions are seen. IMPRESSION: 1. There are no acute infectious or inflammatory findings in the abdomen or pelvis. 2. Severe constipation. No bowel obstruction is seen. Electronically signed by: Jose Fitzpatrick M.D. 06/15/2017 6:22 PM Dictated Date/Time: 06/15/2017 6:17 PM
[2017-06-15] MEDS: POLYETHYLENE (MIRALAX) 17 GM PACK PO PRN (20:10)
--- NOTE | 2017-06-15 20:55 | Progress Note ---
Medicine Progress Note Date & Time of Visit: Jun 15, 2017 at 20:32. (Regina Redmond, P.A.-C.) Subjective Patient seen and examined. Worsening abdominal bloating and distention over the weekend with associated diffuse abdominal pain. Endorsed 2 episodes of bloody diarrhea today and one small, formed BM. Still nauseous; 2 episodes of vomiting after meals today. Experiencing diffuse arthralgias since yesterday. Denies lightheadedness, hematemesis, CP, SOB. (Regina Redmond, P.A.-C.) Objective Last 8 Hrs Date Time Temp Pulse Resp B/P (MAP) Pulse Ox O2 Delivery O2 Flow Rate FiO2 06/15/17 16:00 Room Air 06/15/17 14:28 36.4 126 18 110/74 (86) 95 Physical Exam: General Appearance: WD/WN, +mild distress. Head: normocephalic, atraumatic Eyes: normal inspection, PERRL ENT: hearing grossly normal, Neck: supple, no JVD, no adenopathy Respiratory/Chest: lungs clear to auscultation. No wheezes, rales or rhonci. No respiratory distress or accessory muscle use Cardiovascular: regular rate, rhythm, no murmur, normal peripheral pulses Abdomen/GI: normal bowel sounds, soft, diffusely tender in all quadrants, most in LLQ. + distended Extremities/Musculoskelatal: normal inspection, no calf tenderness, normal capillary refill, no pedal edema Neurologic/Psych: Normal mood, alert, oriented x 3. Skin: normal color, warm/dry Laboratory Results: Last 24 Hours Test 06/15/17 06:18 White Blood Count 14.60 K/uL Red Blood Count 4.09 M/uL Hemoglobin 9.1 g/dL Hematocrit 29.3 % Mean Corpuscular Volume 71.6 fL Mean Corpuscular Hemoglobin 22.2 pg Mean Corpuscular Hemoglobin Concent 31.1 g/dl Platelet Count 315 K/uL Mean Platelet Volume 8.8 fL Neutrophils (%) (Auto) 64.4 % Lymphocytes (%) (Auto) 21.4 % Monocytes (%) (Auto) 8.7 % Eosinophils (%) (Auto) 1.2 % Basophils (%) (Auto) 0.1 % Neutrophils # (Auto) 9.40 K/uL Lymphocytes # (Auto) 3.13 K/uL Monocytes # (Auto) 1.27 K/uL Eosinophils # (Auto) 0.17 K/uL Basophils # (Auto) 0.02 K/uL RDW Standard Deviation 71.0 fL RDW Coefficient of Variation 30.1 % Immature Granulocyte % (Auto) 4.2 % Immature Granulocyte # (Auto) 0.61 K/uL Hypochromasia PRESENT Basophilic Stippling 1+ Ovalocytes 1+ Sodium Level 138 mmol/L Potassium Level 4.0 mmol/L Chloride Level 103 mmol/L Carbon Dioxide Level 30 mmol/L Anion Gap 5.0 mmol/L Blood Urea Nitrogen 19 mg/dl Creatinine 0.84 mg/dl Est Creatinine Clear Calc Drug Dose 88.9 ml/min Estimated GFR () 105.8 Estimated GFR (Non- 91.3 BUN/Creatinine Ratio 22.1 Random Glucose 80 mg/dl Calcium Level 8.5 mg/dl Magnesium Level 2.3 mg/dl Diagnostic Imaging: CT Abd Pelvis with contrast: IMPRESSION: 1. There are no acute infectious or inflammatory findings in the abdomen or pelvis. 2. Severe constipation. No bowel obstruction is seen. (Regina Redmond ., P.A.-C.) Assessment & Plan Bloody diarrhea/abdominal pain: -Stable -2/2 to Inflammatory bowel disease/ulcerative colitis flare -Leukocytosis stable -C diff negative. Denies fever, chills, cough, dysuria. -Colonoscopy (06/01/17): "inflammation characterized by erosions, erythema and friability...was found in a continuous and circumferential pattern from anus to sigmoid colon" -Pain regimen includes tapentadol 50mg Q6 PRN, Tapentadol 50mg BID extended release and scheduled Tylenol 500mg Q6 PO. -Insurance only authorized 4 days of tapentadol out-pt treatment. Discussing discharging on tramadol, per pain mgmt recs -GI recs: -Continue IV Solumedrol 40 mg BID. Discharge on a taper beginning with 40mg daily x 1 week and then decreasing by 5mg weekly for a total of 8 weeks -Continue Rowasa enemas 4g BID. Continue Colace 100 mg BID & Miralax 17 gm prn abdominal bloating & constipation -Humira induction of 160 mg 06/12. Plan for 80 mg injection in 2 weeks, then 2 weeks after would begin 40 mg injections SQ every other week Abdominal distention: -CT Abd pelvis showing severe constipation. No evidence of bowel obstruction -Continue Colace 100mg BID, Miralax PRN, Rowasa enemas 4g BID -GI recommends avoidance of narcotic analgesics, which decrease GI motility Nausea/vomiting: -Associated with episodes of abd pain/bloody diarrhea -EGD (06/01/17): "Localized mild inflammation characterized by erythema was found in the gastric antrum" -Continue PPI and PRN anti-emetics -Monitor H/H Anemia 2/2 blood loss: improved -Low iron level -Transfused 2 units prbcs last week -Hgb of 9.1 -Continue iron supplement -Monitor H&H Generalized arthralgias: -Likely an adverse effect of Humira, which was started a few days ago -Patient with underlying arthralgia/pain in hip joints -Discussed that pain should decrease as Humira doses continue to taper -Cont on IV steroid -Will follow with Rheumatology as an out-patient Opioid withdrawal: improving -Patient with h/o narcotic dependence -Unable to tolerate side effects of withdrawal at home previous to admission -Has been on Dilaudid as an in-patient for UC Flare. Stopped 06/02/17 -Per pain management recs, on Tapentadol 50mg Q6 hours, ER Tapentadol, scheduled Tylenol -Patient is experiencing anxiety, insomnia, diarrhea with withdrawal. Is highly motivated to continue process -Dr Sheffield is willing to see her in clinic after discharge. Plan to get referral from PCP -Continue managing effects of withdrawal: Lomotil for GI symptoms Anti-emetics for nausea Acetaminophen for MSK pain Hydroxyzine for anxiety/rhinorrhea Clonidine patch for sympathetic hyperactivity Anxiety discussed above Anxiety/depression: -H/o depression and anxiety managed by PCP -On Cymbalta, Lamictal as home meds -Has heightened anxiety due to opioid withdrawal -Per pain mgmt recs, on hydroxyzine for anxiety. Klonopin for PRN use -Recommend out-patient psych follow-up to optimize medications Generalized weakness: improved -Likely due to both deconditioning and anemia -Will continue iron supplements; hgb is on the rise with fewer episodes of diarrhea -Encouraged to continue ambulating with supervision to strengthen Hypokalemia: resolved -K of 3.1 secondary to GI losses -Replaced K -Mg is wnl -Monitor labwork and adjust accordingly Atypical R-Sided Chest Pain: resolved -Tenderness on palpation of rt chest wall -Cont pain control -No hypoxia noted Auditory hallucinations: resolved -Complains of medical conversations "in my head" that are not actually happening since yesterday -Denies having any AVH or delusions related to self-harm -Likely 2/2 lack of sleep as well as side effect of pain medication -Will monitor overnight and reassess in AM -If it continues, will discuss with pain mgmt DVT Ppx: SCDs and Teds Code status: FULL Dispo: Plan to return home once medically stable. Consultants: Gastro Rheumatology Procedures: Colonoscopy and EGD Current Inpatient Medications: Current Inpatient Medications Medications (Trade) Dose Ordered Sig/Sally Route Start Time Stop Time Status Last Admin Dose Admin Ondansetron HCl (Zofran Inj) 4 mg Q6H PRN IV 05/28/17 23:45 06/27/17 23:44 06/15/17 05:59 4 MG Duloxetine HCl (Cymbalta Cap) 120 mg DAILY PO 05/29/17 08:00 06/28/17 08:59 06/15/17 07:46 120 MG Lamotrigine (Lamictal Tab) 200 mg DAILY PO 05/29/17 08:00 06/28/17 08:59 06/15/17 07:45 200 MG Acetaminophen (Tylenol Tab) 650 mg Q4H PRN PO 05/28/17 23:45 06/27/17 23:44 06/09/17 18:09 650 MG Promethazine HCl 12.5 mg/Sodium Chloride 50.5 ml @ 204 mls/hr Q6H PRN IV 05/29/17 04:45 06/28/17 04:44 06/15/17 16:15 204 MLS/HR Ferrous Sulfate (Feosol Tab) 325 mg BIDM PO 05/29/17 17:00 06/28/17 16:59 06/15/17 17:40 325 MG Cyclobenzaprine HCl (Flexeril Tab) 10 mg TID PO 05/29/17 20:00 06/28/17 19:59 06/15/17 20:11 10 MG Sucralfate (Carafate Susp) 1 gm QID PO 05/31/17 12:00 06/30/17 11:59 06/15/17 20:10 1 GM Diphenoxylate HCl/ Atropine (Lomotil Tab) 1 tab QID PRN PO 06/02/17 16:00 07/02/17 15:59 Tapentadol (Nucynta Tab) 50 mg Q6H PRN PO 06/03/17 08:45 07/03/17 08:44 06/15/17 15:44 50 MG Clonidine HCl (Htirovwf-Rup-2 0.1mg/24hr Patch) 1 patch Q7D@0900 TD 06/03/17 09:00 07/03/17 08:59 06/10/17 08:32 1 PATCH Miscellaneous (Remove Clonidine Patch) 1 ea Q7D@0859 N/A 06/10/17 08:59 07/10/17 08:58 06/10/17 08:33 1 EA Miscellaneous Information (Check Clonidine Patch Placement) 1 ea QS N/A 06/03/17 16:00 07/03/17 15:59 06/15/17 15:45 1 EA Hydroxyzine HCl (Vistaril Tab) 25 mg Q8 PO 06/04/17 06:00 07/04/17 05:59 06/15/17 14:16 25 MG Clonazepam (Klonopin Tab) 1 mg TID PRN PO 06/05/17 16:00 07/05/17 15:59 06/15/17 15:44 1 MG Potassium Chloride/Sodium Chloride 1,000 ml @ 100 mls/hr Q10H IV 06/06/17 16:30 07/06/17 16:29 06/15/17 14:15 100 MLS/HR Pantoprazole Sodium 40 mg/ Syringe 10 ml @ 5 mls/min DAILY@ IV 06/06/17 21:00 07/06/17 20:59 06/15/17 20:12 5 MLS/MIN Acetaminophen 650 mg/Empty Bag 65 ml @ 260 mls/hr Q6H PRN IV 06/07/17 19:15 07/07/17 19:14 Tapentadol (Nucynta Er Tab) 50 mg Q12 PO 06/09/17 21:00 07/09/17 20:59 06/15/17 20:10 50 MG Docusate Sodium (coLACE CAP) 100 mg BID PO 06/11/17 20:00 07/11/17 19:59 06/15/17 20:11 100 MG Polyethylene (Miralax Powder Packet) 17 gm DAILY PRN PO 06/11/17 12:00 07/11/17 11:59 06/15/17 20:10 17 GM Enteral Nutritional Formula (Boost) 1 can BIDM PO 06/11/17 17:00 07/11/17 16:59 06/15/17 17:00 1 CAN Mesalamine (Rowasa Enema) 4 gm BID NC 06/12/17 20:00 07/08/17 09:59 Future hold 06/15/17 20:12 4 GM Prednisone (PredniSONE TAB) 40 mg DAILY PO 06/13/17 08:00 07/13/17 07:59 06/15/17 07:47 40 MG Ioversol (Optiray 320) 111 ml UD PRN IV 06/15/17 15:45 06/19/17 15:44 Ioversol (Optiray 320) 111 ml UD PRN IV 06/15/17 15:45 06/19/17 15:44 (Regina Redmond, P.A.-C.) ATTENDING ADDENDUM Record reviewed. Patient interviewed and examined. Care coordinated with Dona Vasquez PA-C. Please refer to her documentation for patient's history. Pt experiencing persistent abdominal pain, bloating, hematochezia. EXAM: General- appears to be uncomfortable VS- as noted Lungs- clear Abdomen- quiet, distended, soft, diffuse moderate tenderness Neuro- alert ASSESSMENT AND PLAN: Ulcerative colitis flare. GI consulted. Received IV steroids transitioned to oral. Received adalimumab 06/12. Persistent abdominal pain and hematochezia. Coordinate care with GI. Please refer to FIDE Redmond's documentation for discussion of other issues. Hola Aguilar MD . (Hola Aguilar M.D.)
[2017-06-15 23:56] VITALS: BP 109/77; PULSE 114; TEMP 36.6; O2SAT 96
[2017-06-16] MEDS: PROMETHAZINE HCL INJ 12.5 MG in SODIUM CHLORIDE 0.9% 50ML 50 ML IV PRN ×2 (00:53→13:55)
[2017-06-16] MEDS: TAPENTADOL HCL 50 MG TAB PO PRN ×3 (04:00→16:02)
[2017-06-16] MEDS ORDERED: hydrOXYzine HCL 25 MG TAB PO PRN (06:00)
[2017-06-16 07:04] LABS: BASO % 0.1 %; BASO ABS # 0.02 K/uL (0-0.2); HEMATOCRIT 31.7 % (37-47); IG% 4.3 %; LYMPH % 24.6 %; MEAN CELL VOLUME 73.4 fL (80-100); MEAN CORPUSCULAR HEMOGLOBIN 22.2 pg (25-34); MEAN CORPUSCULAR HGB CONC 30.3 g/dl (32-36); MEAN PLATELET VOLUME 8.6 fL (7.4-10.4); MONO % 7.9 %; NEUT % 61.1 %; PLATELET COUNT 329 K/uL (130-400); RED BLOOD COUNT 4.32 M/uL (4.2-5.4); WHITE BLOOD COUNT 16.66 K/uL (4.8-10.8)
[2017-06-16 07:16] VITALS: BP 98/64; PULSE 114; TEMP 36.5; O2SAT 97
[2017-06-16 07:33] LABS: BUN/CREATININE RATIO 19.9 (10-20); CALCIUM 8.4 mg/dl (8.5-10.1); CREATININE 0.83 mg/dl (0.60-1.20); MAGNESIUM 2.4 mg/dl (1.8-2.4); POTASSIUM 4.1 mmol/L (3.5-5.1)
[2017-06-16 07:34] LABS: ANISOCYTOSIS PRESENT; COMPLETE YES; HYPOCHROMIA PRESENT; MICROCYTOSIS PRESENT; POLYCHROMASIA 1+
[2017-06-16] MEDS ORDERED: PANTOprazole SOD 40 MG TAB PO SCH (08:00)
[2017-06-16] MEDS: DULOXETINE HCL 60 MG CAP PO SCH (08:05)
[2017-06-16] MEDS: TAPENTADOL ER 50 MG TABCR PO SCH (08:06)
[2017-06-16] MEDS: MESALAMINE 4 GM/60 ML ENEMA BTL PR SCH (08:06)
[2017-06-16] MEDS: BOOST VANILLA PO SCH ×2 (08:06)
[2017-06-16] MEDS: SUCRALFATE 1 GM/10 ML UDC PO SCH ×2 (08:06→11:41)
[2017-06-16] MEDS: DOCUSATE SODIUM 100 MG CAP PO SCH (08:07)
[2017-06-16] MEDS ORDERED: METHYLNALTREXONE BROMIDE INJ 12 MG/0.6 ML SYR SQ SCH (09:00)
[2017-06-16] MEDS ORDERED: BISACODYL 5 MG TABEC PO ONE (09:15)
[2017-06-16] MEDS: CLONAZEPAM 1 MG TAB PO PRN ×2 (09:45→17:03)
--- NOTE | 2017-06-16 09:55 | Gastroenterology Progress Note ---
Progress Note Date of Service: Jun 16, 2017 Subjective Pt evaluation today including: conversation w/ patient, physical exam, lab review, review of studies Patient is a 31 yo female with ulcerative colitis. She has been struggling with abdominal pain. She reports that she started moving her bowels this AM. She reports some relief of abdominal pain. Her CT scan did not indicate any acute findings yesterday. She denies bleeding, diarrhea, fevers, or chills. Review of Systems Constitutional: No fever Eyes: No problem reported Respiratory: No cough, No shortness of breath Cardiac: No chest pain Abdomen: + pain, + constipation, No nausea, No vomiting, No diarrhea, No GI bleeding Musculoskeletal: No joint pain Psych: No problem reported Skin: No problem reported Medications Current Inpatient Medications Medications (Trade) Dose Ordered Sig/Sally Route Start Time Stop Time Status Last Admin Dose Admin Ondansetron HCl (Zofran Inj) 4 mg Q6H PRN IV 05/28/17 23:45 06/27/17 23:44 06/15/17 05:59 4 MG Duloxetine HCl (Cymbalta Cap) 120 mg DAILY PO 05/29/17 08:00 06/28/17 08:59 06/16/17 08:05 120 MG Lamotrigine (Lamictal Tab) 200 mg DAILY PO 05/29/17 08:00 06/28/17 08:59 06/16/17 08:06 200 MG Acetaminophen (Tylenol Tab) 650 mg Q4H PRN PO 05/28/17 23:45 06/27/17 23:44 06/09/17 18:09 650 MG Promethazine HCl 12.5 mg/Sodium Chloride 50.5 ml @ 204 mls/hr Q6H PRN IV 05/29/17 04:45 06/28/17 04:44 06/16/17 00:53 204 MLS/HR Sucralfate (Carafate Susp) 1 gm QID PO 05/31/17 12:00 06/30/17 11:59 06/16/17 08:06 1 GM Diphenoxylate HCl/ Atropine (Lomotil Tab) 1 tab QID PRN PO 06/02/17 16:00 07/02/17 15:59 Tapentadol (Nucynta Tab) 50 mg Q6H PRN PO 06/03/17 08:45 07/03/17 08:44 06/16/17 04:00 50 MG Miscellaneous (Remove Clonidine Patch) 1 ea Q7D@0859 N/A 06/10/17 08:59 07/10/17 08:58 06/10/17 08:33 1 EA Clonazepam (Klonopin Tab) 1 mg TID PRN PO 06/05/17 16:00 07/05/17 15:59 06/15/17 22:01 1 MG Acetaminophen 650 mg/Empty Bag 65 ml @ 260 mls/hr Q6H PRN IV 06/07/17 19:15 07/07/17 19:14 Tapentadol (Nucynta Er Tab) 50 mg Q12 PO 06/09/17 21:00 07/09/17 20:59 06/16/17 08:06 50 MG Docusate Sodium (coLACE CAP) 100 mg BID PO 06/11/17 20:00 07/11/17 19:59 06/16/17 08:07 100 MG Polyethylene (Miralax Powder Packet) 17 gm DAILY PRN PO 06/11/17 12:00 07/11/17 11:59 06/15/17 20:10 17 GM Enteral Nutritional Formula (Boost) 1 can BIDM PO 06/11/17 17:00 07/11/17 16:59 06/16/17 08:06 1 CAN Mesalamine (Rowasa Enema) 4 gm BID OH 06/12/17 20:00 07/08/17 09:59 Future hold 06/16/17 08:06 4 GM Prednisone (PredniSONE TAB) 40 mg DAILY PO 06/13/17 08:00 07/13/17 07:59 06/16/17 08:06 40 MG Ioversol (Optiray 320) 111 ml UD PRN IV 06/15/17 15:45 06/19/17 15:44 Ioversol (Optiray 320) 111 ml UD PRN IV 06/15/17 15:45 06/19/17 15:44 Hydroxyzine HCl (Vistaril Tab) 25 mg Q8 PRN PO 06/16/17 06:00 07/04/17 05:59 Pantoprazole Sodium (Protonix Tab) 40 mg BID PO 06/16/17 08:00 07/16/17 07:59 06/16/17 08:07 40 MG Methylnaltrexone [place] (Relistor Inj) 12 mg Q2D SQ 06/16/17 09:00 07/16/17 08:59 06/16/17 08:06 12 MG Bisacodyl (Dulcolax Tab) 20 mg NOW ONCE PO 06/16/17 09:15 06/16/17 09:16 UNV Polyethylene (Miralax Powder Packet) 238 gm DAILY PO 06/17/17 08:00 07/17/17 07:59 UNV Objective Vital Signs Date Time Temp Pulse Resp B/P (MAP) Pulse Ox O2 Delivery O2 Flow Rate FiO2 06/16/17 07:16 36.5 114 16 98/64 (75) 97 Room Air 06/16/17 00:00 Room Air 06/15/17 23:56 36.6 114 18 109/77 (88) 96 Room Air 06/15/17 16:00 Room Air 06/15/17 14:28 36.4 126 18 110/74 (86) 95 Physical Exam General Appearance: WD/WN, no apparent distress Eyes: normal inspection, PERRL ENT: hearing grossly normal Respiratory/Chest: lungs clear, normal breath sounds Cardiovascular: regular rate, rhythm Abdomen: normal bowel sounds, soft, + tenderness, + pertinent finding (minimal distention) Extremities: non-tender Neurologic/Psych: alert, oriented x 3 Skin: normal color Laboratory Results Last 24 Hours Test 06/16/17 06:29 White Blood Count 16.66 K/uL Red Blood Count 4.32 M/uL Hemoglobin 9.6 g/dL Hematocrit 31.7 % Mean Corpuscular Volume 73.4 fL Mean Corpuscular Hemoglobin 22.2 pg Mean Corpuscular Hemoglobin Concent 30.3 g/dl Platelet Count 329 K/uL Mean Platelet Volume 8.6 fL Neutrophils (%) (Auto) 61.1 % Lymphocytes (%) (Auto) 24.6 % Monocytes (%) (Auto) 7.9 % Eosinophils (%) (Auto) 2.0 % Basophils (%) (Auto) 0.1 % Neutrophils # (Auto) 10.18 K/uL Lymphocytes # (Auto) 4.10 K/uL Monocytes # (Auto) 1.31 K/uL Eosinophils # (Auto) 0.34 K/uL Basophils # (Auto) 0.02 K/uL Immature Granulocyte % (Auto) 4.3 % Immature Granulocyte # (Auto) 0.71 K/uL Polychromasia 1+ Hypochromasia PRESENT Anisocytosis PRESENT Microcytosis PRESENT Sodium Level 139 mmol/L Potassium Level 4.1 mmol/L Chloride Level 104 mmol/L Carbon Dioxide Level 29 mmol/L Anion Gap 6.0 mmol/L Blood Urea Nitrogen 17 mg/dl Creatinine 0.83 mg/dl Est Creatinine Clear Calc Drug Dose 89.9 ml/min Estimated GFR () 107.4 Estimated GFR (Non- 92.7 BUN/Creatinine Ratio 19.9 Random Glucose 78 mg/dl Calcium Level 8.4 mg/dl Magnesium Level 2.4 mg/dl Assessment and Plan Patient is a 31 yo female who is hospitalized with a flare of her ulcerative colitis. 1) Continue IV Solumedrol 40 mg BID. Would anticipate discharge on a Prednisone taper beginning at 40 mg daily for 1 week and decreasing by 5 mg weekly for a total of 8 weeks. 2) Patient has received her first induction dosage of Humira. 3) Continue Rowasa 4 gm BID. 4) Continue Colace 100 mg BID & Miralax 17 gm prn abdominal bloating & constipation. Primary team has ordered for patient to be given Relistor injections. If no improvement, consider utilizing the order for a Miralax/ Dulcolax prep. 5) Supportive care per primary team. Thank you for allowing us to participate in the care of this patient. If you should have any further questions, do not hesitate to contact us. Agree with SAHIL Gamino as above Abd: Soft, Distended, +BS Continue current therapy To followup with our office in 2 weeks post-discharge
[2017-06-16] MEDS ORDERED: POLYETHYLENE (MIRALAX) 17 GM PACK PO SCH (10:15)
[2017-06-16 14:52] VITALS: BP 98/64; PULSE 114; TEMP 36.5; O2SAT 97
[2017-06-16] MEDS ORDERED: LAMO200T38 PO (14:53)
[2017-06-16 15:09] VITALS: BP 102/70; PULSE 120; TEMP 36.6; O2SAT 96
[2017-06-16] MEDS ORDERED: TRAM-10 PO (15:16)
[2017-06-16] MEDS ORDERED: ACET-1047 PO (15:16)
[2017-06-16] MEDS ORDERED: MRLP17X PO (15:16)
[2017-06-16] MEDS ORDERED: KLN1 PO (15:16)
[2017-06-16] MEDS ORDERED: RWSE PR (15:16)
[2017-06-16] MEDS ORDERED: PRT40 PO (15:16)
[2017-06-16] MEDS ORDERED: PRED10TA PO (15:16)
[2017-06-16] MEDS ORDERED: ONDA4TAB10 SL (15:16)
[2017-06-16] MEDS ORDERED: CLC100 PO (15:16)
[2017-06-16] MEDS ORDERED: ATR25 PO (15:16)
--- NOTE | 2017-06-16 15:44 | Progress Note ---
Medicine Progress Note Date & Time of Visit: Jun 16, 2017 at 15:22. (Regina Redmond, P.A.-C.) Subjective Patient seen and examined. States that she is feeling much better than yesterday. Reports lessening abdominal distention and pain. Still experiencing nausea with vomiting after meals. Has not had an episode of bloody diarrhea since yesterday. Started to have small BMs this morning. Endorses dyspnea 2/2 abdominal distention but using incentive spirometry without a problem. Denies fever, chills, CP, palpitations, SOB. (Regina Redmond ., P.A.-C.) Objective Last 8 Hrs Date Time Temp Pulse Resp B/P (MAP) Pulse Ox O2 Delivery O2 Flow Rate FiO2 06/16/17 15:09 36.6 120 18 102/70 (81) 96 Room Air 06/16/17 14:52 36.5 114 16 97 Room Air 06/16/17 08:00 Room Air Physical Exam: General Appearance: WD/WN, no distress. Sitting upright during exam. Head: normocephalic, atraumatic Eyes: normal inspection, PERRL ENT: hearing grossly normal, Neck: supple, no JVD, no adenopathy Respiratory/Chest: lungs clear to auscultation. No wheezes, rales or rhonci. No respiratory distress or accessory muscle use Cardiovascular: tachycardic, rhythm, no murmur, normal peripheral pulses Abdomen/GI: normal bowel sounds, soft, diffusely tender, most in LLQ. + mildly distended Extremities/Musculoskelatal: normal inspection, no calf tenderness, normal capillary refill, no pedal edema Neurologic/Psych: Normal mood, alert, oriented x 3. Skin: normal color, warm/dry Laboratory Results: Last 24 Hours Test 06/16/17 06:29 White Blood Count 16.66 K/uL Red Blood Count 4.32 M/uL Hemoglobin 9.6 g/dL Hematocrit 31.7 % Mean Corpuscular Volume 73.4 fL Mean Corpuscular Hemoglobin 22.2 pg Mean Corpuscular Hemoglobin Concent 30.3 g/dl Platelet Count 329 K/uL Mean Platelet Volume 8.6 fL Neutrophils (%) (Auto) 61.1 % Lymphocytes (%) (Auto) 24.6 % Monocytes (%) (Auto) 7.9 % Eosinophils (%) (Auto) 2.0 % Basophils (%) (Auto) 0.1 % Neutrophils # (Auto) 10.18 K/uL Lymphocytes # (Auto) 4.10 K/uL Monocytes # (Auto) 1.31 K/uL Eosinophils # (Auto) 0.34 K/uL Basophils # (Auto) 0.02 K/uL Immature Granulocyte % (Auto) 4.3 % Immature Granulocyte # (Auto) 0.71 K/uL Polychromasia 1+ Hypochromasia PRESENT Anisocytosis PRESENT Microcytosis PRESENT Sodium Level 139 mmol/L Potassium Level 4.1 mmol/L Chloride Level 104 mmol/L Carbon Dioxide Level 29 mmol/L Anion Gap 6.0 mmol/L Blood Urea Nitrogen 17 mg/dl Creatinine 0.83 mg/dl Est Creatinine Clear Calc Drug Dose 89.9 ml/min Estimated GFR () 107.4 Estimated GFR (Non- 92.7 BUN/Creatinine Ratio 19.9 Random Glucose 78 mg/dl Calcium Level 8.4 mg/dl Magnesium Level 2.4 mg/dl (Regina Redmond ., P.A.-C.) Assessment & Plan Bloody diarrhea/abdominal pain: improving -Stable -2/2 to Inflammatory bowel disease/ulcerative colitis flare -Leukocytosis stable -C diff negative. Denies fever, chills, cough, dysuria. -Colonoscopy (06/01/17): "inflammation characterized by erosions, erythema and friability...was found in a continuous and circumferential pattern from anus to sigmoid colon" -Pain regimen includes tapentadol 50mg Q6 PRN, Tapentadol 50mg BID extended release and scheduled Tylenol 500mg Q6 PO. -Insurance only authorized 4 days of tapentadol out-pt treatment. Will discharge on tramadol, per pain mgmt recs -GI discharge recs: -Discharge on a taper beginning with 40mg daily x 1 week and then decreasing by 5mg weekly for a total of 8 weeks -Continue Rowasa enemas 4g BID. Continue Colace 100 mg BID & Miralax 17 gm prn abdominal bloating & constipation -Humira induction of 160 mg 06/12. Plan for 80 mg injection in 2 weeks, then 2 weeks after would begin 40 mg injections SQ every other week Abdominal distention: improving -CT Abd pelvis showing severe constipation. No evidence of bowel obstruction -GI recommends avoidance of narcotic analgesics, which decrease GI motility -Started to have small BMs this AM with associated decrease in abd pain -Received 1 dose of Relistor 12mg this AM with relief -Discharge on Colace 100mg BID, Miralax PRN, Rowasa enemas 4g BID Nausea/vomiting: -Associated with episodes of abd pain/bloody diarrhea -EGD (06/01/17): "Localized mild inflammation characterized by erythema was found in the gastric antrum" -Continue low fat, dairy free diet at home -Discharge home on Protonix 40mg daily and Zofran PRN -Recheck CBC at PCP follow-up Anemia 2/2 blood loss: improving -Transfused 2 units prbcs last week -Hgb of 9.6 today -Continue iron supplement -Monitor H&H Generalized arthralgias: -Likely an adverse effect of Humira, which was started a few days ago -Patient with underlying arthralgia/pain in hip joints -Discussed that pain should decrease as Humira doses continue to taper -Cont on IV steroid -Will follow with Rheumatology as an out-patient Opioid withdrawal: improving -Patient with h/o narcotic dependence -Unable to tolerate side effects of withdrawal at home previous to admission -Has been on Dilaudid as an in-patient for UC Flare. Stopped 06/02/17 -Per pain management recs, on Tapentadol 50mg Q6 hours, ER Tapentadol, scheduled Tylenol -Patient anxiety, insomnia, diarrhea with withdrawal. Is highly motivated to continue process -Dr Sheffield is willing to see her in clinic after discharge. Plan to get referral from PCP -Managed effects of withdrawal: Lomotil for GI symptoms Anti-emetics for nausea Acetaminophen for MSK pain Hydroxyzine for anxiety/rhinorrhea Clonidine patch for sympathetic hyperactivity Anxiety discussed above Anxiety/depression: -H/o depression and anxiety managed by PCP -On Cymbalta, Lamictal as home meds -Has heightened anxiety due to opioid withdrawal -Per pain mgmt recs, on hydroxyzine for anxiety. Klonopin for PRN use -Recommend out-patient psych follow-up to optimize medications Generalized weakness: improved -Likely due to both deconditioning and anemia -Will continue iron supplements; hgb is on the rise with fewer episodes of diarrhea -Encouraged to continue ambulating with supervision to strengthen Hypokalemia: resolved -K of 3.1 secondary to GI losses -Replaced K -Mg is wnl -Monitor labwork and adjust accordingly Atypical R-Sided Chest Pain: resolved -Tenderness on palpation of rt chest wall -Cont pain control -No hypoxia noted Auditory hallucinations: resolved -Complains of medical conversations "in my head" that are not actually happening since yesterday -Denies having any AVH or delusions related to self-harm -Likely 2/2 lack of sleep as well as side effect of pain medication -Will monitor overnight and reassess in AM -If it continues, will discuss with pain mgmt DVT Ppx: SCDs and Teds Code status: FULL Dispo: Plan to return home once medically stable. Consultants: Gastro Rheumatology Procedures: Colonoscopy and EGD Current Inpatient Medications: Current Inpatient Medications Medications (Trade) Dose Ordered Sig/Sally Route Start Time Stop Time Status Last Admin Dose Admin Ondansetron HCl (Zofran Inj) 4 mg Q6H PRN IV 05/28/17 23:45 06/27/17 23:44 06/15/17 05:59 4 MG Duloxetine HCl (Cymbalta Cap) 120 mg DAILY PO 05/29/17 08:00 06/28/17 08:59 06/16/17 08:05 120 MG Lamotrigine (Lamictal Tab) 200 mg DAILY PO 05/29/17 08:00 06/28/17 08:59 06/16/17 08:06 200 MG Acetaminophen (Tylenol Tab) 650 mg Q4H PRN PO 05/28/17 23:45 06/27/17 23:44 06/09/17 18:09 650 MG Promethazine HCl 12.5 mg/Sodium Chloride 50.5 ml @ 204 mls/hr Q6H PRN IV 05/29/17 04:45 06/28/17 04:44 06/16/17 13:55 204 MLS/HR Sucralfate (Carafate Susp) 1 gm QID PO 05/31/17 12:00 06/30/17 11:59 06/16/17 11:41 1 GM Diphenoxylate HCl/ Atropine (Lomotil Tab) 1 tab QID PRN PO 06/02/17 16:00 07/02/17 15:59 Tapentadol (Nucynta Tab) 50 mg Q6H PRN PO 06/03/17 08:45 07/03/17 08:44 06/16/17 09:45 50 MG Miscellaneous (Remove Clonidine Patch) 1 ea Q7D@0859 N/A 06/10/17 08:59 07/10/17 08:58 06/10/17 08:33 1 EA Clonazepam (Klonopin Tab) 1 mg TID PRN PO 06/05/17 16:00 07/05/17 15:59 06/16/17 09:45 1 MG Acetaminophen 650 mg/Empty Bag 65 ml @ 260 mls/hr Q6H PRN IV 06/07/17 19:15 07/07/17 19:14 Tapentadol (Nucynta Er Tab) 50 mg Q12 PO 06/09/17 21:00 07/09/17 20:59 06/16/17 08:06 50 MG Docusate Sodium (coLACE CAP) 100 mg BID PO 06/11/17 20:00 07/11/17 19:59 06/16/17 08:07 100 MG Polyethylene (Miralax Powder Packet) 17 gm DAILY PRN PO 06/11/17 12:00 07/11/17 11:59 06/15/17 20:10 17 GM Enteral Nutritional Formula (Boost) 1 can BIDM PO 06/11/17 17:00 07/11/17 16:59 06/16/17 08:06 1 CAN Mesalamine (Rowasa Enema) 4 gm BID IL 06/12/17 20:00 07/08/17 09:59 Future hold 06/16/17 08:06 4 GM Prednisone (PredniSONE TAB) 40 mg DAILY PO 06/13/17 08:00 07/13/17 07:59 06/16/17 08:06 40 MG Ioversol (Optiray 320) 111 ml UD PRN IV 06/15/17 15:45 06/19/17 15:44 Ioversol (Optiray 320) 111 ml UD PRN IV 06/15/17 15:45 06/19/17 15:44 Hydroxyzine HCl (Vistaril Tab) 25 mg Q8 PRN PO 06/16/17 06:00 07/04/17 05:59 Pantoprazole Sodium (Protonix Tab) 40 mg BID PO 06/16/17 08:00 07/16/17 07:59 06/16/17 08:07 40 MG Methylnaltrexone [place] (Relistor Inj) 12 mg Q2D SQ 06/16/17 09:00 07/16/17 08:59 06/16/17 08:06 12 MG Polyethylene (Miralax Powder Packet) 238 gm TODAY@1015 PO 06/16/17 10:15 07/16/17 10:14 Enteral Nutritional Formula (Boost) BIDM PO 06/16/17 17:00 07/16/17 16:59 UNV (Regina Redmond ., P.A.-C.) ATTENDING ADDENDUM Record reviewed. Patient interviewed and examined. Care coordinated with Regina Redmond PA-C. Please refer to her documentation for patient's history. Patient feels better today. Moving bowels after receiving Relistor this morning. No further hematochezia. EXAM: General- no distress VS- as noted Lungs- clear Heart- RRR Abdomen- less distended, + BS, soft, nontender Extremities- no pretibial edema or calf tenderness Neuro- alert DATA: Hgb 9.6. WBC 16,660. Other lab studies as noted. ASSESSMENT AND PLAN: Ulcerative colitis flare, resolving. Symptoms improved. Ready for DC. Discharge on prednisone taper, mesalamine enema; to continue adalimumab in GI clinic. Please refer to FIDE Redmond's documentation for discussion of other issues. Hola Aguilar MD . (Hola Aguilar M.D.)
--- NOTE | 2017-06-16 16:04 | Discharge Instructions ---
Discharge Instructions Date of Service Jun 16, 2017. Admission Reason for Admission: Ulcerative Colitis, Ulcerative Colitis Flare Discharge Discharge Diagnosis / Problem: Ulcerative colitis flare Discharge Goals Goal(s): Decrease discomfort, Improve function, Increase independence, Improve disease control, Therapeutic intervention Activity Recommendations Activity Limitations: resume your previous activity Lifting Limitations: none Exercise/Sports Limitations: gradually increase as tolerated . Instructions / Follow-Up Instructions / Follow-Up You were admitted for an acute flare of your ulcerative colitis. You were treated with IV steroids, pain medication and medications for nausea. You were also initiated on Humira for care home management of ulcerative colitis. Also, while at the hospital, you voluntarily began the withdrawal process from narcotics. Per pain management recommendations, you were switched to Nucynta for pain control. You also took Hydroxyzine for anxiety/insomnia and Clonazepam for severe anxiety as needed. Your follow up appointment with Dr. Everett is scheduled for June 22 at 2:15pm. -Please ask for a referral to pain management with Dr. Sheffield -Please ask for a referral to see psychology at pain management site -Please ask for a referral to see Dr. Izquierdo with [facility] for 1 week hospital follow-up The following medications have been prescribed for you to take at home: 1. Prednisone steroid taper with the following schedule: -For week 1, Take 40 mg daily (4 10mg tablets daily) -For week 2, Take 35 mg daily (3.5 10mg tablets daily) -For week 3, Take 30 mg daily (3 10mg tablets daily) -For week 4, Take 25 mg daily (2.5 10mg tablets daily) -For week 5, Take 20 mg daily (2 10mg tablets daily) -For week 6, Take 15 mg daily (1.5 10mg tablets daily) -For week 7, Take 10 mg daily (1 10mg tablets daily) -For week 8, Take 5 mg daily (0.5 10mg tablets daily) 2. Humira injections (will be managed at follow-up GI visit) 3. Mesalamine 4gm enema twice daily 4. Zofran 4mg tablet every 6 hours as needed for nausea 5. Tramadol 50mg as directed for pain 6. Pantoprazole 40mg daily for acid reflux 7. Hydroxyzine 25mg every 8 hours for anxiety 8. Clonazepam 1mg twice daily for severe anxiety The following medications can be purchased over the counter for you to take at home: 1. Docusate sodium 100mg capsule twice a day for constipation 2. Miralax 17gm powder twice daily as needed for constipation 3. Acetaminophen 650mg every 6 hours for musculoskeletal pain Please contact your PCP or return to the emergency department with any worsening symptoms, chest pain, shortness of breath, fever. It was a pleasure taking care of you. You can reach the [facility] Hospitalist team at [facility] by calling [phone] if you have any questions or concerns. My cell phone: [phone] Take care of yourself. Regina Redmond PA-C [facility] Hospitalist Current Hospital Diet Patient's current hospital diet: Low Fiber Diet, Low Lactose Diet Discharge Diet Recommended Diet: Low Fiber Diet, Low Lactose Diet Procedures Procedures Performed: Colonoscopy with biopsy EGD with biopsy Pending Studies Studies pending at discharge: no Medical Emergencies . Who to Call and When: Medical Emergencies: If at any time you feel your situation is an emergency, please call 911 immediately. . Non-Emergent Contact Non-Emergency issues call your: Primary Care Provider . Past History Medical & Surgical History: (1) Ulcerative colitis flare (2) Depression (3) Anxiety (4) Hypokalemia (5) Flank pain (6) Tachycardia . "Provider Documentation" section prepared by Regina Redmond. . VTE Core Measure Inpt VTE Proph given/why not?: [facility] Drug Monitoring Program Search Results: patient reviewed within database, no issues identified
[2017-06-16] MEDS ORDERED: BOOST VANILLA PO SCH ×2 (17:00)
[2017-06-16] MEDS ORDERED: NURSING VERBAL MED ORDER ONE (17:00)
[2017-06-16] MEDS ORDERED: CLONAZEPAM 1 MG TAB PO ONE (17:15)
--- NOTE | 2017-06-16 18:48 | Discharge Summary ---
Discharge Summary Date of Service Jun 16, 2017. Discharge Summary Admission Date: May 28, 2017 at 23:12 Discharge Date: Jun 16, 2017 Discharge Disposition: Home Principal Diagnosis: Ulcerative colitis flare Secondary Diagnoses/Problems: Abdominal distention, nausea/vomiting, anemia 2/2 blood loss, generalized arthralgias, opioid withdrawal, anxiety/depression, generalized weakness, hypokalemia, atypical R sided chest pain, auditory hallucinations Procedures: Colonoscopy: Impression: Inflammation was found from the anus to the sigmoidcolon secondary to proctosigmoid ulcerative colitis. Biopsied.Several random biopsies were obtained in the descending colon, in the transverse colon, in the ascending colon and in the cecum. EGD: Impression: Normal esophagus.Gastritis. Biopsied.Normal examined duodenum. CT abdomen and pelvis 05/28/17 and 06/15/17 IV fluids IV meds . Consultations: Gastro, pain management, rheumatology Pending Studies/Follow-Up: Repeat CBC, BMP and Mg at hospital follow-up appointment. Medication Reconciliation New Medications: Ondasetron Odt (Zofran Odt) 4 Mg Tab 4 MG SL Q6H PRN for Nausea, #12 TAB 5 Refills Prednisone (Prednisone) 10 Mg Tab 0 PO UD, #126 TAB 40 mg (4 pills) daily for first week, then taper as directed Tramadol (Ultram) 50 Mg Tab 50 MG PO UD PRN for Pain, #60 TAB Take 1 pill twice a day. May take extra pill every 6 hrs as needed for severe pain. Acetaminophen (Mapap) 325 Mg Tab 650 MG PO Q6H PRN for Pain or Fever for 30 Days, #240 TAB No prescription necessary. Clonazepam (Clonazepam) 1 Mg Tab 1 MG PO BID PRN for severe anxiety, #28 TAB May cause drowsiness- do not drive after taking. Docusate Sodium (Docusate Sodium) 100 Mg Cap 100 MG PO BID, #60 CAP No prescription necessary. Hydroxyzine HCl (Hydroxyzine HCl) 25 Mg Tab 25 MG PO Q8 PRN for anxiety or allergy symptoms, #42 TAB Try hydroxyzine before clonazepam. May cause drowsiness- do not drive after taking. Mesalamine (Mesalamine) 4 Gm/60 Ml Enem 4 GM FL BID, #60 BTL 5 Refills Pantoprazole (Pantoprazole Sodium) 40 Mg Tab 40 MG PO DAILY, #30 TAB 1 Refill Polyethylene (Miralax) 17 Gm Pow 17 GM PO BID PRN for Constipation, #1 BTL No prescription necessary. Use as directed on bottle twice a day as needed for constipation. Continued Medications: Duloxetine Hcl (Cymbalta) 60 Mg Cap 120 MG PO DAILY, CAP Iud's (Paragard Intrauterine Stock Roller) 1 Iud Iud 1 DOSE INT UTER CONTINOUS Lamotrigine (Lamictal) 200 Mg Tab 200 MG PO DAILY, TAB Discontinued Medications: Clonidine HCl (Clonidine HCl) 0.2 Mg Tab 1 TAB PO TID for 10 Days, #30 Lorazepam (Lorazepam) 0.5 Mg Tab 1 TAB PO for Anxiety, #6 Propranolol (Inderal) 20 Mg Tab 1 TAB PO BID, #60 Admission Information HPI (per Admitting provider): HISTORY OF PRESENT ILLNESS: History obtained from patient and records. Medical history significant for ulcerative colitis, IBD arthropathy, past tobacco abuse, mood disorder. Recent confinement September 2015 for abdominal flank pain attributed to constipation, UTI and incomplete bladder emptying. Patient had moved back into [place] after living in [place] last year. She had not been in touch with her acid bleacher from [place], [place] (Dr. Flores) the last 2 years. Patient also has not reconnected with a stenocaptioner for her IBD arthropathy after her stenocaptioner left [place] more than a year ago. Patient consequently has been off biological agents for her autoimmune disease. Tolerable abdominal pain, occasional blood streaking. Worsening chronic back and bilateral hip pain from IBD arthropathy. Patient was seen at the Emergency Room last week for worsening opioid withdrawal symptoms. Hemoglobin noted to be 9.2 during visit. She felt she was getting addicted to her home Vicodin and she decided to stop it. The patient was prescribed clonidine and Zofran outpatient. At home bloody diarrhea 10 episodes a day, worsening generalized abdominal pain with nausea, and nonbloody (neither coffee-ground) emesis. No fever, no chills. Intractable pain in the Emergency Room despite prednisone administration for IBD flare up as per GI recommendation. Physical Exam (per Admitting): PHYSICAL EXAMINATION: VITAL SIGNS: Blood pressure was noted to be 105/72, pulse rate 70, RR 16, temperature 36.6, sats 98 on room air. GENERAL: Noted to be uncomfortable. No respiratory distress. SKIN: Pallor. HEENT: Pale palpebral conjunctivae. Dry mucosa. NECK: No JVD. Supple. CHEST: Clear to auscultation. HEART: Regular rate and rhythm. ABDOMEN: Generalized abdominal tenderness. EXTREMITIES: No edema, nontender. NEUROLOGIC: No gross focality. Hospital Course Bloody diarrhea/abdominal pain: improved -2/2 to Inflammatory bowel disease/ulcerative colitis flare -Leukocytosis stable -C diff negative. Denies fever, chills, cough, dysuria. -Colonoscopy (06/01/17): "inflammation characterized by erosions, erythema and friability...was found in a continuous and circumferential pattern from anus to sigmoid colon" -Pain regimen includes tapentadol 50mg Q6 PRN, Tapentadol 50mg BID extended release and scheduled Tylenol 500mg Q6 PO. -Insurance only authorized 4 days of tapentadol out-pt treatment. Will discharge on tramadol, per pain mgmt recs -GI discharge recs: -Discharge on a taper beginning with 40mg daily x 1 week and then decreasing by 5mg weekly for a total of 8 weeks -Continue Rowasa enemas 4g BID. Continue Colace 100 mg BID & Miralax 17 gm prn abdominal bloating & constipation -Humira induction of 160 mg 06/12. Plan for 80 mg injection in 2 weeks, then 2 weeks after would begin 40 mg injections SQ every other week Abdominal distention: improved -CT Abd pelvis showing severe constipation. No evidence of bowel obstruction -GI recommends avoidance of narcotic analgesics, which decrease GI motility -Started to have small BMs this AM with associated decrease in abd pain -Received 1 dose of Relistor 12mg this AM with relief -Discharge on Colace 100mg BID, Miralax PRN, Rowasa enemas 4g BID Nausea/vomiting: stable -Associated with episodes of abd pain/bloody diarrhea -EGD (06/01/17): "Localized mild inflammation characterized by erythema was found in the gastric antrum" -Continue low fat, dairy free diet at home -Discharge home on Protonix 40mg daily and Zofran PRN -Recheck CBC, BMP, Mg at PCP follow-up Anemia 2/2 blood loss: improving -Transfused 2 units prbcs last week -Hgb of 9.6 today -Continue iron supplement -Recheck CBC at PCP hospital follow-up Generalized arthralgias: stable -Likely an adverse effect of Humira, which was started a few days ago -Patient with underlying arthralgia/pain in hip joints -Discussed that pain should decrease as Humira doses continue to taper -Cont on IV steroid -Follow-up with rheumatology as an out-patient Opioid withdrawal: improving -Patient with h/o narcotic dependence -Unable to tolerate side effects of withdrawal at home previous to admission -Has been on Dilaudid as an in-patient for UC Flare. Stopped 06/02/17 -Per pain management recs, on Tapentadol 50mg Q6 hours, ER Tapentadol, scheduled Tylenol -Patient anxiety, insomnia, diarrhea from withdrawal is improving. Is highly motivated to continue process -Discharged on tramadol 50mg Q6 PRN for pain, per pain mgmt recs -Dr. Sheffield is willing to see her in clinic after discharge. Plan to get referral from PCP -Discharged with medications to manage effects of withdrawal: Anti-emetics for nausea Acetaminophen for MSK pain Hydroxyzine for anxiety/rhinorrhea Anxiety discussed below Anxiety/depression: -H/o depression and anxiety managed by PCP -On Cymbalta, Lamictal as home meds -Has heightened anxiety due to opioid withdrawal -Per pain mgmt recs, on hydroxyzine for anxiety. Klonopin for PRN use -Recommend out-patient psych follow-up to optimize medications Generalized weakness: improved -Likely due to both deconditioning and anemia -Will continue iron supplements; hgb is on the rise with fewer episodes of diarrhea -Encouraged to continue ambulating with supervision to strengthen Hypokalemia: resolved -K of 3.1 secondary to GI losses -Replaced K -Mg is wnl -Repeat BMP at hospital follow-up Atypical R-Sided Chest Pain: resolved -Tenderness on palpation of rt chest wall -Cont pain control -No hypoxia noted Auditory hallucinations: resolved -Complains of medical conversations "in my head" that are not actually happening since yesterday -Denies having any AVH or delusions related to self-harm -Likely 2/2 lack of sleep as well as side effect of pain medication -Will monitor overnight and reassess in AM -If it continues, will discuss with pain mgmt Dispo: Patient to follow-up with PCP Dr. Everett on Thursday, Jun 23. Will call Dr. Everett to discuss hospital course. Total time spent on discharge = 80 minutes This includes examination of the patient, discharge planning, medication reconciliation, and communication with other providers. Discharge Instructions DI: Medical v4 Discharge Instructions Date of Service Jun 16, 2017. Admission Reason for Admission: Ulcerative Colitis, Ulcerative Colitis Flare Discharge Discharge Diagnosis / Problem: Ulcerative colitis flare Discharge Goals Goal(s): Decrease discomfort, Improve function, Increase independence, Improve disease control, Therapeutic intervention Activity Recommendations Activity Limitations: resume your previous activity Lifting Limitations: none Exercise/Sports Limitations: gradually increase as tolerated . Instructions / Follow-Up Instructions / Follow-Up You were admitted for an acute flare of your ulcerative colitis. You were treated with IV steroids, pain medication and medications for nausea. 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 Also, while at the hospital, you voluntarily began the withdrawal process from narcotics. Per pain management recommendations, you were switched to Nucynta for pain control. You also took Hydroxyzine for anxiety/insomnia and Clonazepam for severe anxiety as needed. Your follow up appointment with Dr. Everett is scheduled for June 22 at 2:15pm. -Please ask for a referral to pain management with Dr. Sheffield -Please ask for a referral to see psychology at pain management site -Please ask for a referral to see Dr. Izquierdo with [facility] for 1 week hospital follow-up The following medications have been prescribed for you to take at home: 1. Prednisone steroid taper with the following schedule: -For week 1, Take 40 mg daily (4 10mg tablets daily) -For week 2, Take 35 mg daily (3.5 10mg tablets daily) -For week 3, Take 30 mg daily (3 10mg tablets daily) -For week 4, Take 25 mg daily (2.5 10mg tablets daily) -For week 5, Take 20 mg daily (2 10mg tablets daily) -For week 6, Take 15 mg daily (1.5 10mg tablets daily) -For week 7, Take 10 mg daily (1 10mg tablets daily) -For week 8, Take 5 mg daily (0.5 10mg tablets daily) 2. Humira injections (will be managed at follow-up GI visit) 3. Mesalamine 4gm enema twice daily 4. Zofran 4mg tablet every 6 hours as needed for nausea 5. Tramadol 50mg as directed for pain 6. Pantoprazole 40mg daily for acid reflux 7. Hydroxyzine 25mg every 8 hours for anxiety 8. Clonazepam 1mg twice daily for severe anxiety The following medications can be purchased over the counter for you to take at home: 1. Docusate sodium 100mg capsule twice a day for constipation 2. Miralax 17gm powder twice daily as needed for constipation 3. Acetaminophen 650mg every 6 hours for musculoskeletal pain Please contact your PCP or return to the emergency department with any worsening symptoms, chest pain, shortness of breath, fever. It was a pleasure taking care of you. You can reach the [facility] Hospitalist team at [facility] by calling [phone] if you have any questions or concerns. My cell phone: [phone] Take care of yourself. Regina Redmond PA-C [facility] Hospitalist Current Hospital Diet Patient's current hospital diet: Low Fiber Diet, Low Lactose Diet Discharge Diet Recommended Diet: Low Fiber Diet, Low Lactose Diet Procedures Procedures Performed: Colonoscopy with biopsy EGD with biopsy Pending Studies Studies pending at discharge: no Medical Emergencies . Who to Call and When: Medical Emergencies: If at any time you feel your situation is an emergency, please call 911 immediately. . Non-Emergent Contact Non-Emergency issues call your: Primary Care Provider . Past History Medical & Surgical History: (1) Ulcerative colitis flare (2) Depression (3) Anxiety (4) Hypokalemia (5) Flank pain (6) Tachycardia . "Provider Documentation" section prepared by Regina Redmond. . VTE Core Measure Inpt VTE Proph given/why not?: [facility] Monitoring Program Search Results: patient reviewed within database, no issues identified Additional Copies To Gibran Izquierdo D.O.; Jorge Everett M.D.; Upendra. Sheffield M.D.
[2017-06-25] MEDS ORDERED: NCY50 PO (15:56)
[2017-06-25] MEDS ORDERED: PRED10TA PO (15:56)
[2017-06-25] MEDS ORDERED: LPR25 PO (15:56)
== END 2017-06-16 17:26 | disposition home or self-care (01) | DRG 386 ==
LOC: C.EDB 15:30 → C.4E 23:12 → ENRESERV 23:20
PROVIDERS: ADMIT Hospitalist; ATTEND Hospitalist
PROC: 0DB68ZX Excision of Stomach, Via Natural or Artificial Opening Endoscopic, Diagnostic (ICD-10-PCS; principal; 2017-06-01 11:55)
PROC: 0DBM8ZX Excision of Descending Colon, Via Natural or Artificial Opening Endoscopic, Diagnostic (ICD-10-PCS; 2017-06-01 11:55)
PROC: 0DBH8ZX Excision of Cecum, Via Natural or Artificial Opening Endoscopic, Diagnostic (ICD-10-PCS; 2017-06-01 11:55)
PROC: 0DBL8ZX Excision of Transverse Colon, Via Natural or Artificial Opening Endoscopic, Diagnostic (ICD-10-PCS; 2017-06-01 11:55)
PROC: 0DBK8ZX Excision of Ascending Colon, Via Natural or Artificial Opening Endoscopic, Diagnostic (ICD-10-PCS; 2017-06-01 11:55)
DX: K51.30 Ulcerative (chronic) rectosigmoiditis without complications (principal); F11.23 Opioid dependence with withdrawal; R44.0 Auditory hallucinations; D62 Acute posthemorrhagic anemia; Z87.891 Personal history of nicotine dependence; F39 Unspecified mood [affective] disorder; F41.8 Other specified anxiety disorders; E87.6 Hypokalemia; R07.89 Other chest pain; Z91.19 Patient's noncompliance with other medical treatment and regimen; K29.70 Gastritis, unspecified, without bleeding; M12.851 Other specific arthropathies, not elsewhere classified, right hip; M12.852 Other specific arthropathies, not elsewhere classified, left hip

== ENCOUNTER 2017-06-19 12:59 | Inpatient (IN) | payer OTHER ==
[~2017-06-19] VITALS: Ht 167.6 cm; Wt 67.1 kg
[~2017-06-19 12:59] MED LIST changes: +ACET-1047 PO; +ATR25 PO; +CLC100 PO; -CLON0.2T PO; -CTP2 PO; +KLN1 PO; -LAMO100T PO; +LAMO200T38 PO; -LORA0.5T12 PO; +MRLP17X PO; +PRED10TA PO; -PROP20TA67 PO; +PRT40 PO; +RWSE PR; +TRAM-10 PO
[2017-06-19] MEDS ORDERED: HYDROmorphone INJ 0.5 MG/0.5 ML SYR IM STA (14:44)
[2017-06-19] MEDS ORDERED: SODIUM CHLORIDE 0.9% 1000ML 1,000 ML IV STA ×2 (14:44→17:16)
[2017-06-19] MEDS ORDERED: ONDANSETRON INJ 2 MG/ML 2 ML VIAL IV STA (14:44)
--- NOTE | 2017-06-19 14:49 | EMERGENCY ROOM VISIT NOTE ---
History Report prepared by Juan: Jasiel Sinclair Under the Supervision of: Dr. Rogelio De La Rosa M.D. First contact with patient: 14:41 Chief Complaint: PAIN (GENERALIZED) Stated Complaint: REACTION TO HUMIRA, SEVERE BODY PAIN, RECENT DC History of Present Illness The patient is a 31 year old female with ulcerative colitis who presents to the Emergency Room with complaints of worsening generalized pain that started 4 days ago after having an initial Humira injection. She says that she was recently admitted to the hospital for ulcerative colitis, and she had her first Humira injection here in her thigh. 6 hours after the pain started, the patient says that she started having "bone pain" that goes from her ankles all the way up her spine. She was put on Nucynta while here, but insurance would not cover it, so she was sent home on Tramadol, which has not touched her pain, she says. She was discharged 2 days ago. The patient has had 4 Humira injections so far. The patient states that her current pain is not related to the colitis, as the abdominal pain is not the problem. She adds that she has been nauseous from the pain. She denies any fevers, chills, vomiting, cough, or urinary symptoms. Source of History: patient Onset: 4 days ago after Humira injection Position: other (global - generalized pain) Quality: other ("bone pain") Timing: worsening Associated Symptoms: + nausea, No fevers, No chills, No cough, No vomiting, No abdominal pain, No urinary symptoms Note: No other associated symptoms noted. Review of Systems See HPI for pertinent positives and negatives. A total of ten systems were reviewed and were otherwise negative. Past Medical & Surgical Medical Problems: (1) Anxiety (2) Arthralgia (3) Depression (4) Kidney stone (5) Pericarditis (6) Ulcerative colitis (7) Ulcerative colitis flare Surgical Problems: (1) H/O section (2) Hx of appendectomy (3) Hx of cholecystectomy Family History FHx: heart disease FATHER UNCLES Hypertension Kidney disease THYROID DISEASE MOTHER Social History Smoking Status: Never Smoker Alcohol Use: none Drug Use: none Marital Status: in relationship Housing Status: lives with significant other Occupation Status: employed, unemployed Current/Historical Medications Scheduled Docusate Sodium (Docusate Sodium), 100 MG PO BID Duloxetine Hcl (Cymbalta), 120 MG PO DAILY Iud's (Paragard Intrauterine International Nurse), 1 DOSE INT UTER CONTINOUS Lamotrigine (Lamictal), 200 MG PO DAILY Mesalamine (Mesalamine), 4 GM SD BID Pantoprazole (Pantoprazole Sodium), 40 MG PO DAILY Prednisone (Prednisone), 0 PO UD Scheduled PRN Acetaminophen (Mapap), 650 MG PO Q6H PRN for Pain or Fever Clonazepam (Clonazepam), 1 MG PO BID PRN for severe anxiety Hydroxyzine HCl (Hydroxyzine HCl), 25 MG PO Q8 PRN for anxiety or allergy symptoms Ondasetron Odt (Zofran Odt), 4 MG SL Q6H PRN for Nausea Polyethylene (Miralax), 17 GM PO BID PRN for Constipation Tramadol (Ultram), 50 MG PO UD PRN for Pain Allergies Coded Allergies: Diphenhydramine (Verified Allergy, Intermediate, Crawling out of skin, ) Levofloxacin (Verified Allergy, Unknown, ., 06/19/17) Morphine (Verified Allergy, Unknown, RASH, 06/19/17) Metoclopramide (Verified Adverse Reaction, Mild, ., 06/19/17) makes skin crawl as per px Promethazine (Verified Adverse Reaction, Mild, ., 06/01/17) makes skin crawl as per px Fentanyl (Verified Adverse Reaction, Unknown, "aggitates me", 06/19/17) Physical Exam Vital Signs Date Time Temp Pulse Resp B/P (MAP) Pulse Ox O2 Delivery O2 Flow Rate FiO2 06/19/17 16:36 104 18 106/72 100 Room Air 06/19/17 13:12 36.7 118 18 106/68 99 Room Air Physical Exam GENERAL: Awake, alert, uncomfortable-appearing, in no distress HENT: Normocephalic, atraumatic. Oropharynx unremarkable. EYES: Normal conjunctiva. Sclera non-icteric. NECK: Supple. No nuchal rigidity. FROM. No JVD. RESPIRATORY: Clear to auscultation. CARDIAC: ST, normal rhythm. Extremities warm and well perfused. Pulses equal. ABDOMEN: Soft, non-distended. No tenderness to palpation. No rebound or guarding. No masses. RECTAL: Deferred. MUSCULOSKELETAL: Severe pain throughout back and extremities with light touch. No edema or warmth to joints. LOWER EXTREMITIES: Calves are equal size bilaterally and non-tender. No edema. No discoloration. NEURO: Normal sensorium. No sensory or motor deficits noted. SKIN: No rash or jaundice noted. Medical Decision & Procedures ER Provider Diagnostic Interpretation: X-ray: Per my interpretation, radiologist review. CHEST ONE VIEW PORTABLE CLINICAL HISTORY: 31 years-old Female presenting with cp. TECHNIQUE: Portable upright AP view of the chest was obtained. COMPARISON: 06/11/2017. FINDINGS: Cardiomediastinal silhouette normal. Minimal linear opacity at the right lung base. Otherwise clear lungs and pleural spaces. Osseous structures normal. Upper abdomen normal. IMPRESSION: 1. No acute cardiopulmonary disease. 2. Chronic minimal linear opacity at the right lung base, likely scarring or atelectasis. Electronically signed by: Matthew Tuttle M.D. 06/19/2017 6:02 PM Dictated Date/Time: 06/19/2017 6:01 PM Laboratory Results 06/19/17 15:12 Red Blood Count 4.15, Mean Corpuscular Volume 75.7, Mean Corpuscular Hemoglobin 23.1, Mean Corpuscular Hemoglobin Concent 30.6, Mean Platelet Volume 9.0, Neutrophils (%) (Auto) 59.4, Lymphocytes (%) (Auto) 26.9, Monocytes (%) (Auto) 8.1, Eosinophils (%) (Auto) 1.4, Basophils (%) (Auto) 0.1, Neutrophils # (Auto) 11.78, Lymphocytes # (Auto) 5.34, Monocytes # (Auto) 1.60, Eosinophils # (Auto) 0.28, Basophils # (Auto) 0.02 06/19/17 15:12 Test 06/19/17 15:12 06/19/17 16:34 06/19/17 17:32 06/19/17 17:50 White Blood Count 19.83 K/uL (4.8-10.8) Red Blood Count 4.15 M/uL (4.2-5.4) Hemoglobin 9.6 g/dL (12.0-16.0) Hematocrit 31.4 % (37-47) Mean Corpuscular Volume 75.7 fL (80-100) Mean Corpuscular Hemoglobin 23.1 pg (25-34) Mean Corpuscular Hemoglobin Concent 30.6 g/dl (32-36) Platelet Count 371 K/uL (130-400) Mean Platelet Volume 9.0 fL (7.4-10.4) Neutrophils (%) (Auto) 59.4 % Lymphocytes (%) (Auto) 26.9 % Monocytes (%) (Auto) 8.1 % Eosinophils (%) (Auto) 1.4 % Basophils (%) (Auto) 0.1 % Neutrophils # (Auto) 11.78 K/uL (1.4-6.5) Lymphocytes # (Auto) 5.34 K/uL (1.2-3.4) Monocytes # (Auto) 1.60 K/uL (0.11-0.59) Eosinophils # (Auto) 0.28 K/uL (0-0.5) Basophils # (Auto) 0.02 K/uL (0-0.2) Immature Granulocyte % (Auto) 4.1 % Immature Granulocyte # (Auto) 0.81 K/uL (0.00-0.02) Nucleated RBC Absolute Count (auto) 0.08 K/uL (0-0) Nucleated Red Blood Cells % 0.4 % Polychromasia 1+ Microcytosis PRESENT Erythrocyte Sedimentation Rate 2 mm/hr (0-21) Anion Gap 7.0 mmol/L (3-11) Est Creatinine Clear Calc Drug Dose 113.4 ml/min Estimated GFR () 134.5 Estimated GFR (Non- 116.1 BUN/Creatinine Ratio 32.4 (10-20) Calcium Level 8.5 mg/dl (8.5-10.1) Total Bilirubin 0.3 mg/dl (0.2-1) Direct Bilirubin < 0.1 mg/dl (0-0.2) Aspartate Amino Transf (AST/SGOT) 16 U/L (15-37) Alanine Aminotransferase (ALT/SGPT) 31 U/L (12-78) Alkaline Phosphatase 82 U/L (45-117) C-Reactive Protein < 0.29 mg/dl (0-0.29) Total Protein 6.0 gm/dl (6.4-8.2) Albumin 3.0 gm/dl (3.4-5.0) Urine Color YELLOW Urine Appearance CLEAR (CLEAR) Urine pH 6.0 (4.5-7.5) Urine Specific [place] 1.022 (1.000-1.030) Urine Protein NEG (NEG) Urine Glucose (UA) NEG (NEG) Urine Ketones NEG (NEG) Urine Occult Blood NEG (NEG) Urine Nitrite NEG (NEG) Urine Bilirubin NEG (NEG) Urine Urobilinogen NEG (NEG) Urine Leukocyte Esterase NEG (NEG) Urine Test NEG (NEG) Total Creatine Kinase 23 U/L (26-192) Lactic Acid Level 1.8 mmol/L (0.4-2.0) Laboratory results reviewed by me Medications Administered Medications (Trade) Dose Ordered Sig/Sally Route Start Time Stop Time Status Last Admin Dose Admin Sodium Chloride 1,000 ml @ 999 mls/hr Q1H1M STAT IV 06/19/17 14:44 06/19/17 15:44 DC 06/19/17 15:20 999 MLS/HR Ondansetron HCl (Zofran Inj) 4 mg NOW STAT IV 06/19/17 14:44 06/19/17 14:48 DC 06/19/17 15:21 4 MG Hydromorphone HCl (Dilaudid Inj) 0.5 mg NOW STAT IV 06/19/17 16:00 06/19/17 16:09 DC 06/19/17 15:45 0.5 MG Sodium Chloride 1,000 ml @ 999 mls/hr Q1H1M STAT IV 06/19/17 17:16 06/19/17 18:16 DC 06/19/17 17:22 999 MLS/HR Hydromorphone HCl (Dilaudid Inj) 0.5 mg NOW STAT IV 06/19/17 17:16 06/19/17 17:18 DC 06/19/17 17:23 0.5 MG ED Course 1441: The patient was evaluated in room C11B. A complete history and physical exam was performed. 1444: Ordered Dilaudid Inj 0.5 mg IM, Zofran Inj 4 mg IV, NSS 1000 ml @ 999 mls/ hr IV. 1731: Upon reexamination, the patient was resting. I discussed the test results and treatment plan with her. She expressed understanding and agreement of the treatment plan. The patient will be evaluated for further management. 1750: I discussed the patient with Sita Mendoza - she will evaluate the patient for further treatment. Medical Decision I reviewed the patient's past medical history, medications, and the nursing notes as described above. Differential diagnoses: medication side effect, infection, pulmonary, urinary, worsening colitis. Patient is a 31-year-old woman with a past medical history ulcerative colitis who presents to the emergency department with worsening body pain after being admitted for a colitis flare and was placed on Humira per history of present illness. On arrival the patient appears uncomfortable but in no acute distress. Patient is afebrile, tachycardia to the 120s. On exam patient is clinically dry, her abdomen is soft nontender nondistended. However the patient has diffuse body pain in extremities and back and legs with significant tenderness with even light touch of the skin. No warmth or swelling in the joints appreciated. Labs notable for an elevated leukocytosis to 19 from 2 days ago that was 15. Of note the patient does appear clinically dry which is consistent with BUN/CR > 30. Patient was given IV fluids and I live for pain with improvement in symptoms but still uncomfortable. UA negative. The setting of the patient's leukocytosis a chest x-ray was done and was unchanged. I was considering the patient's benign abdominal exam and lack of abdominal complaints I do not feel that this patient needs abdominal imaging at this time. CPK and Lactate within normal limits and blood cultures were done. Considering no clear infectious source I discussed the case with the medicine team and we agreed to hold off on antibiotics at this time until seen by their team who is familiar with the patient's recent history. Patient was admitted to hospital medicine for further management. Medication Reconcilliation Current Medication List: was personally reviewed by me Blood Pressure Screening Patient's blood pressure: Normal blood pressure Consults Time Called: 1745 Consulting Physician: Sita Mendoza Returned Call: 1750 I discussed the patient with Sita Mendoza - she will evaluate the patient for further treatment. Impression Primary Impression: Myalgia Scribe Attestation The scribe's documentation has been prepared under my direction and personally reviewed by me in its entirety. I confirm that the note above accurately reflects all work, treatment, procedures, and medical decision making performed by me. Departure Information Dispostion Being Evaluated By Hospitalist Referrals Jorge Everett M.D. (PCP) Patient Instructions My [facility]
[2017-06-19 15:30] LABS: HEMATOCRIT 31.4 % (37-47); MEAN CELL VOLUME 75.7 fL (80-100); MEAN CORPUSCULAR HEMOGLOBIN 23.1 pg (25-34); MEAN CORPUSCULAR HGB CONC 30.6 g/dl (32-36); PLATELET COUNT 371 K/uL (130-400); RED BLOOD COUNT 4.15 M/uL (4.2-5.4); WHITE BLOOD COUNT 19.83 K/uL (4.8-10.8)
[2017-06-19 15:46] LABS: BLOOD UREA NITROGEN 21 mg/dl (7-18); CREATININE 0.66 mg/dl (0.60-1.20); GLUCOSE 86 mg/dl (70-99)
[2017-06-19 15:47] LABS: ALT/SGPT 31 U/L (12-78); AST/SGOT 16 U/L (15-37); BUN/CREATININE RATIO 32.4 (10-20); C-REACTIVE PROTEIN < 0.29 mg/dl (0-0.29); CALCIUM 8.5 mg/dl (8.5-10.1); CARBON DIOXIDE 29 mmol/L (21-32); CHLORIDE 105 mmol/L (98-107); POTASSIUM 4.2 mmol/L (3.5-5.1); SODIUM 141 mmol/L (136-145)
[2017-06-19 15:49] LABS: ALKALINE PHOSPHATASE 82 U/L (45-117)
[2017-06-19] MEDS ORDERED: HYDROmorphone INJ 0.5 MG/0.5 ML SYR IV STA ×2 (16:00→17:16)
[2017-06-19 16:33] LABS: BASO % 0.1 %; BASO ABS # 0.02 K/uL (0-0.2); COMPLETE YES; EOS % 1.4 %; IG% 4.1 %; LYMPH % 26.9 %; LYMPH ABS # 5.34 K/uL (1.2-3.4); MONO % 8.1 %; NEUT % 59.4 %
[2017-06-19 16:35] LABS: MICROCYTOSIS PRESENT; POLYCHROMASIA 1+
[2017-06-19 16:57] LABS: URINE APPEARANCE CLEAR (CLEAR); URINE BILIRUBIN NEG (NEG); URINE COLOR YELLOW; URINE NITRITE NEG (NEG); URINE SPECIFIC GRAVITY 1.022 (1.000-1.030); UROBILINOGEN NEG (NEG); ZZUR CULT IF INDIC CLEAN CATCH NO
[2017-06-19 17:03] LABS: MANUAL MICROSCOPIC REQUIRED? NO; REVIEW REQ? NO
--- NOTE | 2017-06-19 18:03 | DIAGNOSTIC IMAGING REPORT ---
CHEST ONE VIEW PORTABLE CLINICAL HISTORY: 31 years-old Female presenting with cp. TECHNIQUE: Portable upright AP view of the chest was obtained. COMPARISON: 06/11/2017. FINDINGS: Cardiomediastinal silhouette normal. Minimal linear opacity at the right lung base. Otherwise clear lungs and pleural spaces. Osseous structures normal. Upper abdomen normal. IMPRESSION: 1. No acute cardiopulmonary disease. 2. Chronic minimal linear opacity at the right lung base, likely scarring or atelectasis. Electronically signed by: Matthew Tuttle M.D. 06/19/2017 6:02 PM Dictated Date/Time: 06/19/2017 6:01 PM
[2017-06-19] MEDS ORDERED: ONDANSETRON 4MG OD TAB SL PRN (19:15)
--- NOTE | 2017-06-19 19:28 | History and Physical ---
History & Physical Date & Time of Service: Jun 19, 2017 at 19:19 Chief Complaint: Reaction To Humira, Severe Body Pain, Recent Dc Primary Care Physician: Jorge Everett M.D. History of Present Illness Source: patient, hospital records 31 year old female with history of Ulcerative Colitis, presenting with diffuse "bone pains". Patient was recently admitted for Ulcerative Colitis flare. She received Humira Injection 06/12/17 and since then , has been having diffuse bone and joints pain. While admitted, patient was receiving PRN Nucynta which managed the pain adequately. Upon discharge, patient was taking Tramadol PRN for pain. Patient reports increasing diffuse bone and joint pain since discharge to the point that she has difficulty ambulating, hence sought consult at the ER. Patient denies fever but reports occasional chills, sweats. Denies abdominal pain, nausea, hematochezia/melena, poor appetite. At the ER, patient was afebrile, tachycardic with elevated WBC. She was given IV fluids and Dilaudid IV. On exam, patient seen resting in bed, not in distress. States she feels slightly improved. Denies any other active symptoms except for diffuse bone and joint pains. Past Medical/Surgical History Medical Problems: (1) Anxiety Status: Chronic (2) Depression Status: Chronic (3) Kidney stone Status: Resolved (4) Pericarditis Status: Chronic (5) Ulcerative colitis Status: Chronic Surgical Problems: (1) H/O section Status: Resolved (2) Hx of appendectomy Status: Resolved (3) Hx of cholecystectomy Status: Resolved Family History FHx: heart disease FATHER UNCLES Hypertension Kidney disease THYROID DISEASE MOTHER Social History Smoking Status: Never Smoker Drug Use: none Marital Status: in relationship Housing status: lives with significant other Occupational Status: employed, unemployed Allergies Coded Allergies: Diphenhydramine (Verified Allergy, Intermediate, Crawling out of skin, ) Levofloxacin (Verified Allergy, Unknown, ., 06/19/17) Morphine (Verified Allergy, Unknown, RASH, 06/19/17) Metoclopramide (Verified Adverse Reaction, Mild, ., 06/19/17) makes skin crawl as per px Promethazine (Verified Adverse Reaction, Mild, ., 06/01/17) makes skin crawl as per px Fentanyl (Verified Adverse Reaction, Unknown, "aggitates me", 06/19/17) Home Medications Scheduled Docusate Sodium (Docusate Sodium), 100 MG PO BID Duloxetine Hcl (Cymbalta), 120 MG PO DAILY Iud's (Paragard Intrauterine Director Digital Advertising), 1 DOSE INT UTER CONTINOUS Lamotrigine (Lamictal), 200 MG PO DAILY Mesalamine (Mesalamine), 4 GM AL BID Pantoprazole (Pantoprazole Sodium), 40 MG PO DAILY Prednisone (Prednisone), 0 PO UD Scheduled PRN Acetaminophen (Mapap), 650 MG PO Q6H PRN for Pain or Fever Clonazepam (Clonazepam), 1 MG PO BID PRN for severe anxiety Hydroxyzine HCl (Hydroxyzine HCl), 25 MG PO Q8 PRN for anxiety or allergy symptoms Ondasetron Odt (Zofran Odt), 4 MG SL Q6H PRN for Nausea Polyethylene (Miralax), 17 GM PO BID PRN for Constipation Tramadol (Ultram), 50 MG PO UD PRN for Pain Review of Systems Constitutional- no fever; no weight loss Eyes- no acute visual changes ENT- no sinus drainage; no pharyngitis Pulmonary- no cough, no wheezing, no shortness of breath Cardiac- no chest pain, no palpitations, no orthopnea, no dependent edema GI- (+) occasional bloating - no dysuria, no hematuria Musculoskeletal- (+) as noted above Derm- no rashes, no new skin lesions, no changing skin lesions Hematologic- no unusual bruising, no unusual bleeding Lymphatics- no adenopathy Endocrine- no polyuria or polydipsia; no heat or cold intolerance Neuro- no headaches, no focal neurologic symptoms Psych- no anxiety, no depression Physical Exam Vital Signs Date Time Temp Pulse Resp B/P (MAP) Pulse Ox O2 Delivery O2 Flow Rate FiO2 06/19/17 16:36 104 18 106/72 100 Room Air 06/19/17 13:12 36.7 118 18 106/68 99 Room Air General Appearance: WD/WN, no apparent distress Head: normocephalic, atraumatic Eyes: normal inspection, sclerae normal ENT: normal ENT inspection, hearing grossly normal, TMs normal, pharynx normal Neck: supple, no adenopathy, thyroid normal, no JVD Respiratory/Chest: chest non-tender, lungs clear, normal breath sounds, no respiratory distress, no accessory muscle use Cardiovascular: regular rate, rhythm, no edema, no JVD, no murmur, normal peripheral pulses Abdomen/GI: normal bowel sounds, non tender, soft, no organomegaly Back: normal inspection, no CVA tenderness Extremities/Musculoskelatal: normal inspection, no calf tenderness, normal capillary refill, no pedal edema Neurologic/Psych: emergency management coordinator II-XII nml as tested, no motor/sensory deficits, alert, normal mood/affect, oriented x 3 Skin: normal color, warm/dry, no rash Lymphatic: no adenopathy Diagnostics Laboratory Results Results Past 24 Hours Test 06/19/17 15:12 06/19/17 16:34 06/19/17 17:32 06/19/17 17:50 Range/Units White Blood Count 19.83 4.8-10.8 K/uL Red Blood Count 4.15 4.2-5.4 M/uL Hemoglobin 9.6 12.0-16.0 g/dL Hematocrit 31.4 37-47 % Mean Corpuscular Volume 75.7 80-100 fL Mean Corpuscular Hemoglobin 23.1 25-34 pg Mean Corpuscular Hemoglobin Concent 30.6 32-36 g/dl Platelet Count 371 130-400 K/uL Mean Platelet Volume 9.0 7.4-10.4 fL Neutrophils (%) (Auto) 59.4 % Lymphocytes (%) (Auto) 26.9 % Monocytes (%) (Auto) 8.1 % Eosinophils (%) (Auto) 1.4 % Basophils (%) (Auto) 0.1 % Neutrophils # (Auto) 11.78 1.4-6.5 K/uL Lymphocytes # (Auto) 5.34 1.2-3.4 K/uL Monocytes # (Auto) 1.60 0.11-0.59 K/uL Eosinophils # (Auto) 0.28 0-0.5 K/uL Basophils # (Auto) 0.02 0-0.2 K/uL Immature Granulocyte % (Auto) 4.1 % Immature Granulocyte # (Auto) 0.81 0.00-0.02 K/uL Nucleated RBC Absolute Count (auto) 0.08 0-0 K/uL Nucleated Red Blood Cells % 0.4 % Polychromasia 1+ Microcytosis PRESENT Erythrocyte Sedimentation Rate 2 0-21 mm/hr Sodium Level 141 136-145 mmol/L Potassium Level 4.2 3.5-5.1 mmol/L Chloride Level 105 98-107 mmol/L Carbon Dioxide Level 29 21-32 mmol/L Anion Gap 7.0 3-11 mmol/L Blood Urea Nitrogen 21 7-18 mg/dl Creatinine 0.66 0.60-1.20 mg/dl Est Creatinine Clear Calc Drug Dose 113.4 ml/min Estimated GFR () 134.5 Estimated GFR (Non- 116.1 BUN/Creatinine Ratio 32.4 10-20 Random Glucose 86 70-99 mg/dl Calcium Level 8.5 8.5-10.1 mg/dl Total Bilirubin 0.3 0.2-1 mg/dl Direct Bilirubin < 0.1 0-0.2 mg/dl Aspartate Amino Transf (AST/SGOT) 16 15-37 U/L Alanine Aminotransferase (ALT/SGPT) 31 12-78 U/L Alkaline Phosphatase 82 45-117 U/L C-Reactive Protein < 0.29 0-0.29 mg/dl Total Protein 6.0 6.4-8.2 gm/dl Albumin 3.0 3.4-5.0 gm/dl Urine Color YELLOW Urine Appearance CLEAR CLEAR Urine pH 6.0 4.5-7.5 Urine Specific [place] 1.022 1.000-1.030 Urine Protein NEG NEG Urine Glucose (UA) NEG NEG Urine Ketones NEG NEG Urine Occult Blood NEG NEG Urine Nitrite NEG NEG Urine Bilirubin NEG NEG Urine Urobilinogen NEG NEG Urine Leukocyte Esterase NEG NEG Urine Test NEG NEG Total Creatine Kinase 23 26-192 U/L Lactic Acid Level 1.8 0.4-2.0 mmol/L Microbiology Results 06/19/17 Blood Culture, Received Pending 06/19/17 Blood Culture, Received Pending CXR normal Impression Assessment and Plan 31 year old female with history of Ulcerative Colitis, presenting with diffuse "bone pains". PERSISTENT ARTHRALGIAS LIKELY FROM HUMIRA - resume Nucynta ER q12h and regular Nucynta Q6h PRN - CK normal continue IV fluids - monitor ULCERATIVE COLITIS - GI symptoms have been stable since discharge - continue usual Prednisone taper, Row[place], Colace CHRONIC ANEMIA - stable - denies GI bleeding CHRONIC PAIN - will avoid IV narcotics restart Nucynta per Pain Mgt SVC recommendations during last admission DVT prophylaxis SCDs has history of hematochezia Full Code Disposition pending anticipate d/c home when medically stable VTE Prophylaxis VTE Risk Assessment Done? Y/N: Yes Risk Level: Moderate Given or contraindicated: SCD's
[2017-06-19] MEDS ORDERED: ACETAMINOPHEN 325 MG TAB PO PRN (19:30)
[2017-06-19] MEDS: SODIUM CHLORIDE 0.9% 1000ML 1,000 ML IV SCH (21:08)
[2017-06-19] MEDS: DOCUSATE SODIUM 100 MG CAP PO SCH (21:18)
[2017-06-19] MEDS: MESALAMINE 4 GM/60 ML ENEMA BTL PR SCH (21:18)
[2017-06-19] MEDS: TAPENTADOL ER 50 MG TABCR PO SCH (21:23)
[2017-06-19] MEDS: CLONAZEPAM 1 MG TAB PO PRN (21:25)
[2017-06-19] MEDS: hydrOXYzine HCL 25 MG TAB PO PRN (22:48)
[2017-06-19] MEDS: TAPENTADOL HCL 50 MG TAB PO PRN (23:01)
[2017-06-19 23:37] VITALS: BP 105/66; PULSE 105; TEMP 36.6; O2SAT 98
[2017-06-20 01:18] VITALS: BP 119/78; PULSE 97; TEMP 36.5; O2SAT 97; Ht 167.6 cm; Wt 67.1 kg
[2017-06-20] MEDS: SODIUM CHLORIDE 0.9% 1000ML 1,000 ML IV SCH ×3 (03:51→21:00)
[2017-06-20] MEDS: TAPENTADOL HCL 50 MG TAB PO PRN ×4 (05:39→23:19)
[2017-06-20] MEDS: DULOXETINE HCL 60 MG CAP PO SCH (07:34)
[2017-06-20] MEDS: TAPENTADOL ER 50 MG TABCR PO SCH ×2 (07:34→20:59)
[2017-06-20] MEDS: CLONAZEPAM 1 MG TAB PO PRN ×2 (07:34→18:48)
[2017-06-20] MEDS: DOCUSATE SODIUM 100 MG CAP PO SCH ×2 (07:34→20:59)
[2017-06-20] MEDS: MESALAMINE 4 GM/60 ML ENEMA BTL PR SCH ×2 (07:35→20:00)
[2017-06-20] MEDS: PANTOprazole SOD 40 MG TAB PO SCH (07:35)
[2017-06-20 07:37] VITALS: BP 109/77; PULSE 118; TEMP 36.5; O2SAT 98
[2017-06-20] MEDS ORDERED: TAPENTADOL HCL 50 MG TAB PO ONE (08:30)
[2017-06-20 09:12] LABS: HEMATOCRIT 32.1 % (37-47); MEAN CELL VOLUME 75.4 fL (80-100); MEAN CORPUSCULAR HGB CONC 30.5 g/dl (32-36); MEAN PLATELET VOLUME 8.7 fL (7.4-10.4); PLATELET COUNT 377 K/uL (130-400); RED BLOOD COUNT 4.26 M/uL (4.2-5.4); WHITE BLOOD COUNT 14.39 K/uL (4.8-10.8)
[2017-06-20 09:38] LABS: BUN/CREATININE RATIO 20.4 (10-20); CALCIUM 8.6 mg/dl (8.5-10.1); CREATININE 0.71 mg/dl (0.60-1.20); POTASSIUM 4.1 mmol/L (3.5-5.1)
[2017-06-20 09:39] LABS: ANISOCYTOSIS PRESENT; BASO % 0.1 %; BASO ABS # 0.02 K/uL (0-0.2); COMPLETE YES; EOS % 2.4 %; HYPOCHROMIA PRESENT; LYMPH ABS # 5.18 K/uL (1.2-3.4); MICROCYTOSIS PRESENT; MONO % 6.7 %; NEUT % 51.8 %; POIKILOCYTOSIS PRESENT; POLYCHROMASIA 1+
[2017-06-20 14:27] VITALS: BP 135/78; PULSE 51; TEMP 36.7; O2SAT 97
--- NOTE | 2017-06-20 16:34 | Progress Note ---
Medicine Progress Note Date & Time of Visit: Jun 20, 2017 at 16:30. Subjective seen resting in bed, not in distress had severe pain - diffuse bone pains , this morning improving with additional Nucynta denies abdominal pain, nausea, hematochezia reports mild rash on the right side of the face, no itching/pain denies other symptoms Objective Last 8 Hrs Date Time Temp Pulse Resp B/P (MAP) Pulse Ox O2 Delivery O2 Flow Rate FiO2 06/20/17 14:27 36.7 51 20 135/78 (97) 97 Room Air Physical Exam: General- oriented x 3, not in distress, speaks in sentences with no effort Head- (+) mild maculopapular rash on the right preauricular and submandibular area (+) very few similar lesions on the left side of the face, same area Eyes- anicteric ENT- oropharynx clear Neck- supple, no JVD Lungs- clear breath sounds bilaterally Heart- regular rhythm; no murmur, normal rate Abdomen- normal bowel sounds, soft, nontender Extremities- no pretibial edema, no calf tenderness Neuro- alert, oriented x 3; no gross focal deficits Skin- warm & dry Laboratory Results: Last 24 Hours Test 06/19/17 16:34 06/19/17 17:32 06/19/17 17:50 06/20/17 08:49 Urine Color YELLOW Urine Appearance CLEAR Urine pH 6.0 Urine Specific [place] 1.022 Urine Protein NEG Urine Glucose (UA) NEG Urine Ketones NEG Urine Occult Blood NEG Urine Nitrite NEG Urine Bilirubin NEG Urine Urobilinogen NEG Urine Leukocyte Esterase NEG Urine Test NEG Total Creatine Kinase 23 U/L Lactic Acid Level 1.8 mmol/L White Blood Count 14.39 K/uL Red Blood Count 4.26 M/uL Hemoglobin 9.8 g/dL Hematocrit 32.1 % Mean Corpuscular Volume 75.4 fL Mean Corpuscular Hemoglobin 23.0 pg Mean Corpuscular Hemoglobin Concent 30.5 g/dl Platelet Count 377 K/uL Mean Platelet Volume 8.7 fL Neutrophils (%) (Auto) 51.8 % Lymphocytes (%) (Auto) 36.0 % Monocytes (%) (Auto) 6.7 % Eosinophils (%) (Auto) 2.4 % Basophils (%) (Auto) 0.1 % Neutrophils # (Auto) 7.44 K/uL Lymphocytes # (Auto) 5.18 K/uL Monocytes # (Auto) 0.97 K/uL Eosinophils # (Auto) 0.35 K/uL Basophils # (Auto) 0.02 K/uL Immature Granulocyte % (Auto) 3.0 % Immature Granulocyte # (Auto) 0.43 K/uL Polychromasia 1+ Hypochromasia PRESENT Poikilocytosis PRESENT Anisocytosis PRESENT Microcytosis PRESENT Sodium Level 139 mmol/L Potassium Level 4.1 mmol/L Chloride Level 104 mmol/L Carbon Dioxide Level 30 mmol/L Anion Gap 5.0 mmol/L Blood Urea Nitrogen 15 mg/dl Creatinine 0.71 mg/dl Est Creatinine Clear Calc Drug Dose 105.4 ml/min Estimated GFR () 129.7 Estimated GFR (Non- 111.9 BUN/Creatinine Ratio 20.4 Random Glucose 92 mg/dl Calcium Level 8.6 mg/dl Date/Time Source Procedure Growth Status 06/19/17 17:50 Blood Blood Culture Pending Received 06/19/17 17:32 Blood Blood Culture Pending Received Assessment & Plan 31 year old female with history of Ulcerative Colitis, presenting with diffuse "bone pains". PERSISTENT ARTHRALGIAS LIKELY FROM HUMIRA - resumed Nucynta ER q12h and regular Nucynta Q6h PRN - CK normal - pain not adequately controlled today will increase Nucynta to 50mg q4h PRN decrease IV fluids - monitor closely FACIAL RASH - unclear etiology - no pruritus, pain - trial of Hydrocortisone cream ULCERATIVE COLITIS - GI symptoms have been stable since discharge - continue usual Prednisone taper, Rowasa, Colace CHRONIC ANEMIA - stable - denies GI bleeding CHRONIC PAIN - will avoid IV narcotics restarted Nucynta per Pain Mgt SVC recommendations during last admission will monitor response to Nucynta titration DVT prophylaxis SCDs has history of hematochezia encouraged to ambulate Full Code Disposition pending anticipate d/c home when medically stable Current Inpatient Medications: Current Inpatient Medications Medications (Trade) Dose Ordered Sig/Sally Route Start Time Stop Time Status Last Admin Dose Admin Tapentadol (Nucynta Er Tab) 50 mg Q12 PO 06/19/17 21:00 07/19/17 20:59 06/20/17 07:34 50 MG Sodium Chloride 1,000 ml @ 60 mls/hr [id number] IV 06/19/17 19:15 07/19/17 19:14 06/20/17 11:40 125 MLS/HR Clonazepam (Klonopin Tab) 1 mg BID PRN PO 06/19/17 19:15 07/19/17 19:14 06/20/17 07:34 1 MG Docusate Sodium (coLACE CAP) 100 mg BID PO 06/19/17 20:17 07/19/17 20:59 06/20/17 07:34 100 MG Duloxetine HCl (Cymbalta Cap) 120 mg DAILY PO 06/20/17 08:00 07/20/17 08:59 06/20/17 07:34 120 MG Hydroxyzine HCl (Vistaril Tab) 25 mg Q8 PRN PO 06/19/17 19:15 07/19/17 19:14 06/19/17 22:48 25 MG Lamotrigine (Lamictal Tab) 200 mg DAILY PO 06/20/17 08:00 07/20/17 08:59 06/20/17 07:34 200 MG Mesalamine (Rowasa Enema) 4 gm BID VA 06/19/17 20:17 07/19/17 20:59 06/19/17 21:18 4 GM Ondansetron HCl (Zofran Odt) 4 mg Q6H PRN SL 06/19/17 19:15 07/19/17 19:14 Pantoprazole Sodium (Protonix Tab) 40 mg DAILY PO 06/20/17 08:00 07/20/17 08:59 06/20/17 07:35 40 MG Polyethylene (Miralax Powder Packet) 17 gm BID PRN PO 06/19/17 19:15 07/19/17 19:14 Prednisone (PredniSONE TAB) 40 mg DAILY PO 06/20/17 08:00 07/20/17 08:59 06/20/17 07:35 40 MG Acetaminophen (Tylenol Tab) 650 mg Q4H PRN PO 06/19/17 19:30 07/19/17 19:29 Tapentadol (Nucynta Tab) 50 mg Q4H PRN PO 06/20/17 17:15 07/19/17 19:14 UNV
[2017-06-20] MEDS: hydrOXYzine HCL 25 MG TAB PO PRN (21:04)
[2017-06-21] VITALS (8 sets, daily range): BP systolic 110–126; BP diastolic 70–88; PULSE 108–134; TEMP 36.5–37.1; O2SAT 95–98
[2017-06-21] MEDS: TAPENTADOL HCL 50 MG TAB PO PRN ×5 (03:17→20:20)
[2017-06-21] MEDS: CLONAZEPAM 1 MG TAB PO PRN ×2 (07:23→20:20)
[2017-06-21] MEDS ORDERED: HYDROCORTISONE VAL 0.2% OINT 15GM TUBE EXT SCH (08:00)
[2017-06-21] MEDS: DOCUSATE SODIUM 100 MG CAP PO SCH ×2 (08:28→20:21)
[2017-06-21] MEDS: PANTOprazole SOD 40 MG TAB PO SCH (08:29)
[2017-06-21] MEDS: DULOXETINE HCL 60 MG CAP PO SCH (08:29)
[2017-06-21] MEDS: MESALAMINE 4 GM/60 ML ENEMA BTL PR SCH ×2 (08:30→20:11)
[2017-06-21] MEDS: POLYETHYLENE (MIRALAX) 17 GM PACK PO PRN (08:37)
[2017-06-21] MEDS: TAPENTADOL ER 50 MG TABCR PO SCH ×2 (08:37→21:12)
[2017-06-21 13:54] LABS: BASO % 0.1 %; BASO ABS # 0.01 K/uL (0-0.2); EOS % 0.2 %; HEMATOCRIT 33.3 % (37-47); IG% 1.3 %; LYMPH ABS # 1.04 K/uL (1.2-3.4); MEAN CORPUSCULAR HGB CONC 30.6 g/dl (32-36); MEAN PLATELET VOLUME 8.5 fL (7.4-10.4); NEUT % 89.4 %; PLATELET COUNT 350 K/uL (130-400); RED BLOOD COUNT 4.44 M/uL (4.2-5.4); WHITE BLOOD COUNT 12.99 K/uL (4.8-10.8)
--- NOTE | 2017-06-21 14:14 | Progress Note ---
Medicine Progress Note Date & Time of Visit: Jun 21, 2017 at 13:48. Subjective patient seen resting in bed, not in distress, appears anxious states she feels about the same as yesterday still has diffuse "bone pains", and noticed new rash on her chest today, facial rash the same as yesterday denies abdominal pain, nausea/vomiting, hematochezia no chest pain, dyspnea, dizziness, palpitations no other symptoms Objective Last 8 Hrs Date Time Temp Pulse Resp B/P (MAP) Pulse Ox O2 Delivery O2 Flow Rate FiO2 06/21/17 07:52 36.5 112 20 111/81 (91) 98 Room Air 06/21/17 07:35 Room Air Physical Exam: General- oriented x 3, not in distress, speaks in sentences with no effort Head- (+) mild maculopapular rash on the right preauricular and submandibular area (+) very few similar lesions on the left side of the face, same area (+) few maculopapular lesions on the upper chest Eyes- anicteric Neck- no JVD Lungs- clear breath sounds bilaterally, no rales/wheezes Heart- regular rhythm; no murmur, normal rate Abdomen- normal bowel sounds, soft, nontender Extremities- no pretibial edema, no calf tenderness no joint swelling/warmth/tenderness Neuro- alert, oriented x 3; no gross focal deficits Skin- warm & dry Laboratory Results: Last 24 Hours Test 06/21/17 13:37 Assessment & Plan 31 year old female with history of Ulcerative Colitis, presenting with diffuse "bone pains". PERSISTENT ARTHRALGIAS, FACIAL RASH POSSIBLE SIDE EFFECTS OF HUMIRA? - resumed Nucynta ER q12h a Nucynta increased to q4h - arthralgias about the same now has maculopapular lesions on her chest similar to her face - remains afebrile - will consult GI re: possible side effects of Humira, and plans moving forward will also get Rheumatology opinion - continue Nucynta and Hydrocortisone cream ULCERATIVE COLITIS - GI symptoms have been stable since discharge - continue usual Prednisone taper, Jeanette Umaña will need to taper prednisone on discharge CHRONIC ANEMIA - stable - denies GI bleeding CHRONIC PAIN - will avoid IV narcotics restarted Nucynta per Pain Mgt SVC recommendations during last admission - pain level about the same - seen by Pain Management last admission, may need to be re-evaluated DVT prophylaxis SCDs has history of hematochezia encouraged to ambulate Full Code Disposition pending anticipate d/c home when medically stable Current Inpatient Medications: Current Inpatient Medications Medications (Trade) Dose Ordered Sig/Sally Route Start Time Stop Time Status Last Admin Dose Admin Tapentadol (Nucynta Er Tab) 50 mg Q12 PO 06/19/17 21:00 07/19/17 20:59 06/21/17 08:37 50 MG Sodium Chloride 1,000 ml @ 60 mls/hr [id number] IV 06/19/17 19:15 07/19/17 19:14 06/20/17 21:00 60 MLS/HR Clonazepam (Klonopin Tab) 1 mg BID PRN PO 06/19/17 19:15 07/19/17 19:14 06/21/17 07:23 1 MG Docusate Sodium (coLACE CAP) 100 mg BID PO 06/19/17 20:17 07/19/17 20:59 06/21/17 08:28 100 MG Duloxetine HCl (Cymbalta Cap) 120 mg DAILY PO 06/20/17 08:00 07/20/17 08:59 06/21/17 08:29 120 MG Hydroxyzine HCl (Vistaril Tab) 25 mg Q8 PRN PO 06/19/17 19:15 07/19/17 19:14 06/20/17 21:04 25 MG Lamotrigine (Lamictal Tab) 200 mg DAILY PO 06/20/17 08:00 07/20/17 08:59 06/21/17 08:29 200 MG Mesalamine (Rowasa Enema) 4 gm BID ME 06/19/17 20:17 07/19/17 20:59 06/21/17 08:30 4 GM Ondansetron HCl (Zofran Odt) 4 mg Q6H PRN SL 06/19/17 19:15 07/19/17 19:14 Pantoprazole Sodium (Protonix Tab) 40 mg DAILY PO 06/20/17 08:00 07/20/17 08:59 06/21/17 08:29 40 MG Polyethylene (Miralax Powder Packet) 17 gm BID PRN PO 06/19/17 19:15 07/19/17 19:14 06/21/17 08:37 17 GM Prednisone (PredniSONE TAB) 40 mg DAILY PO 06/20/17 08:00 07/20/17 08:59 06/21/17 08:29 40 MG Acetaminophen (Tylenol Tab) 650 mg Q4H PRN PO 06/19/17 19:30 07/19/17 19:29 Tapentadol (Nucynta Tab) 50 mg Q4H PRN PO 06/20/17 17:15 07/19/17 19:14 06/21/17 12:34 50 MG Hydrocortisone Valerate (Westcort 0.2% Oint) 1 appln DAILY EXT 06/21/17 08:00 07/21/17 07:59 06/21/17 08:29 1 APPLN
[2017-06-21 14:19] LABS: ANISOCYTOSIS PRESENT; COMPLETE YES; HYPOCHROMIA PRESENT; MICROCYTOSIS PRESENT; POLYCHROMASIA 1+
[2017-06-21 14:21] LABS: ALT/SGPT 36 U/L (12-78); AST/SGOT 18 U/L (15-37); BLOOD UREA NITROGEN 17 mg/dl (7-18); BUN/CREATININE RATIO 17.3 (10-20); CALCIUM 8.6 mg/dl (8.5-10.1); CARBON DIOXIDE 27 mmol/L (21-32); CHLORIDE 106 mmol/L (98-107); GLUCOSE 173 mg/dl (70-99); POTASSIUM 4.5 mmol/L (3.5-5.1); SODIUM 139 mmol/L (136-145)
[2017-06-21 14:24] LABS: ALKALINE PHOSPHATASE 82 U/L (45-117)
[2017-06-21] MEDS: SODIUM CHLORIDE 0.9% 1000ML 1,000 ML IV SCH (15:03)
--- NOTE | 2017-06-21 15:57 | Rheumatology Consultation ---
Rheumatology Consultation Date of Consultation: Jun 21, 2017. Requesting Physician: Arlen Bright Attending Physician: Dr Bright Reason for Consultation: UC, reported IBD arthritis in past, worsening joint pains History of Present Illness Sammie was recently admitted to [facility] for a UC flare and was followed by Dr Izquierdo. Colonoscopy noted active inflammatory disease and she was started on Humira. she did receive just one dose last week prior to leaving the hospital. she felt like the jont pains started to worsen after humira dosing. she was discharged and reports that once she got home her pain got significant worse and was re-admitted. she reports that her joint pains are mainly her knees and ankles. never had something like this before. she states she could not walk around or bare weight because of the pain. she reports that while in the hospital last time she was on nucynta that helped the pain but was discharged with tramadol because nucynta would not be covered by her insurance. she has had previous narcotic use for many years and was recently hospitalized for withdrawals form narcotics - at that time states was detoxing herself. she reports to me she does not want to be be on narcotics but needs something for her pains. currently in house she is back on nucynta and it is helping her pains. she was seen today lying in bed. she reports in the past was seeing rheumatology in [place] with her GI doctor. felt to have IBD related arthritis. she reports in past had swelling of here toes - called sausage digits but has not had that for some time. she also has a long history of chronic low back pain and lateral hip pain. she reports that she was tried on MTX and imuran and this did not help either her bowels or the joints pains (but at that time here low back/hip pain was not bad). she was then on remicade for 1 yr and received max dosing of 10mg/kg every 6 weeks. she was switched to humira and took 2 doses but moved to [place] so stopped taking it. this was about 1 yr ago. she reports no issues with humira in the past. when she was hospitalized last time for her UC flare she was started on IV solumedrol and was discharged on 40mg of prednisone. she developed her worsening arthritis on high doses of steroids. previous use of steroids as well. she also reports receiving to [facility]'s last visit as well. wonders if that had something to do with her pains. at last visit had CT abd/pelvis and bones appear normal - no lytic lesions or erosions of SI joints. she is HLA B27 negative. her esr this visit is normal. she denies any history of enthesitis, uveitis, psoriasis. no family history of autoimmune diseases. she also reports long history of depression (history of being a cutter) and has been on cymbalta for many years now. she has not used gabapentin and lyrica. she reports trying her friends rosalba one time and made her feel weird. she reports her bowels seem to be okay - no bloody diarrhea, still with some abd pain. Past Medical/Surgical History Medical History: colitis (UC), depression Surgical History: appendectomy, , other (cholecystectomy) Family History no family history of autoimmune diseases Social History Smoking Status: Never Smoker History of Alcohol Use: No Drug Use: none Marital Status: in relationship Housing Status: lives with significant other Occupation Status: employed, unemployed Review of Systems Constitutional: + chills, No fever Eyes: + see HPI Cardiac: No chest pain, No edema Abdomen: + see HPI Musculoskeletal: + see HPI Psychiatric: + see HPI Skin: + rash All Other Systems: Reviewed and Negative Allergies Coded Allergies: Diphenhydramine (Verified Allergy, Intermediate, Crawling out of skin, ) Levofloxacin (Verified Allergy, Unknown, ., 06/19/17) Morphine (Verified Allergy, Unknown, RASH, 06/19/17) Metoclopramide (Verified Adverse Reaction, Mild, ., 06/19/17) makes skin crawl as per px Promethazine (Verified Adverse Reaction, Mild, ., 06/01/17) makes skin crawl as per px Fentanyl (Verified Adverse Reaction, Unknown, "aggitates me", 06/19/17) Medications Current Inpatient Medications Medications (Trade) Dose Ordered Sig/Sally Route Start Time Stop Time Status Last Admin Dose Admin Tapentadol (Nucynta Er Tab) 50 mg Q12 PO 06/19/17 21:00 07/19/17 20:59 06/21/17 08:37 50 MG Sodium Chloride 1,000 ml @ 60 mls/hr [id number] IV 06/19/17 19:15 07/19/17 19:14 06/20/17 21:00 60 MLS/HR Clonazepam (Klonopin Tab) 1 mg BID PRN PO 06/19/17 19:15 07/19/17 19:14 06/21/17 07:23 1 MG Docusate Sodium (coLACE CAP) 100 mg BID PO 06/19/17 20:17 07/19/17 20:59 06/21/17 08:28 100 MG Duloxetine HCl (Cymbalta Cap) 120 mg DAILY PO 06/20/17 08:00 07/20/17 08:59 06/21/17 08:29 120 MG Hydroxyzine HCl (Vistaril Tab) 25 mg Q8 PRN PO 06/19/17 19:15 07/19/17 19:14 06/20/17 21:04 25 MG Lamotrigine (Lamictal Tab) 200 mg DAILY PO 06/20/17 08:00 07/20/17 08:59 06/21/17 08:29 200 MG Mesalamine (Rowasa Enema) 4 gm BID TX 06/19/17 20:17 07/19/17 20:59 06/21/17 08:30 4 GM Ondansetron HCl (Zofran Odt) 4 mg Q6H PRN SL 06/19/17 19:15 07/19/17 19:14 Pantoprazole Sodium (Protonix Tab) 40 mg DAILY PO 06/20/17 08:00 07/20/17 08:59 06/21/17 08:29 40 MG Polyethylene (Miralax Powder Packet) 17 gm BID PRN PO 06/19/17 19:15 07/19/17 19:14 06/21/17 08:37 17 GM Prednisone (PredniSONE TAB) 40 mg DAILY PO 06/20/17 08:00 07/20/17 08:59 06/21/17 08:29 40 MG Acetaminophen (Tylenol Tab) 650 mg Q4H PRN PO 06/19/17 19:30 07/19/17 19:29 Tapentadol (Nucynta Tab) 50 mg Q4H PRN PO 06/20/17 17:15 07/19/17 19:14 06/21/17 12:34 50 MG Hydrocortisone Valerate (Westcort 0.2% Oint) 1 appln BID EXT 06/21/17 20:00 07/21/17 07:59 Physical Exam Date Time Temp Pulse Resp B/P (MAP) Pulse Ox O2 Delivery O2 Flow Rate FiO2 06/21/17 07:52 36.5 112 20 111/81 (91) 98 Room Air 06/21/17 07:35 Room Air 06/21/17 00:20 36.6 108 16 115/79 (91) 98 Room Air 06/20/17 23:20 Room Air 06/20/17 16:00 Room Air General Appearance: WD/WN, no apparent distress Eyes: bilateral eyes normal inspection, bilateral eyes EOMI Respiratory: chest non-tender, lungs clear, normal breath sounds, no respiratory distress Cardiovascular: regular rate, rhythm, no edema, no gallop, no murmur Abdomen: normal bowel sounds, soft, + tenderness (diffuse lowere quadrants) Musculoskeletal: normal ROM of both hips + trochanteric pain both hips no synovitis, dactylitis or enthesitis + pain to palpation both knees and ankles normal flex/ext knees but causes pain Normal ROM of ankles but causes pain Neurologic/Psychiatric: alert, normal mood/affect, oriented x 3 Skin: + pertinent finding (acne on lateral face, upper chest - no concerning findings for SLE rash) Laboratory Results Last 24 Hours Test 06/21/17 13:37 White Blood Count 12.99 K/uL Red Blood Count 4.44 M/uL Hemoglobin 10.2 g/dL Hematocrit 33.3 % Mean Corpuscular Volume 75.0 fL Mean Corpuscular Hemoglobin 23.0 pg Mean Corpuscular Hemoglobin Concent 30.6 g/dl Platelet Count 350 K/uL Mean Platelet Volume 8.5 fL Neutrophils (%) (Auto) 89.4 % Lymphocytes (%) (Auto) 8.0 % Monocytes (%) (Auto) 1.0 % Eosinophils (%) (Auto) 0.2 % Basophils (%) (Auto) 0.1 % Neutrophils # (Auto) 11.62 K/uL Lymphocytes # (Auto) 1.04 K/uL Monocytes # (Auto) 0.13 K/uL Eosinophils # (Auto) 0.02 K/uL Basophils # (Auto) 0.01 K/uL Immature Granulocyte % (Auto) 1.3 % Immature Granulocyte # (Auto) 0.17 K/uL Polychromasia 1+ Hypochromasia PRESENT Anisocytosis PRESENT Microcytosis PRESENT Sodium Level 139 mmol/L Potassium Level 4.5 mmol/L Chloride Level 106 mmol/L Carbon Dioxide Level 27 mmol/L Anion Gap 6.0 mmol/L Blood Urea Nitrogen 17 mg/dl Creatinine 1.00 mg/dl Est Creatinine Clear Calc Drug Dose 74.9 ml/min Estimated GFR () 85.7 Estimated GFR (Non- 74.0 BUN/Creatinine Ratio 17.3 Random Glucose 173 mg/dl Calcium Level 8.6 mg/dl Total Bilirubin 0.5 mg/dl Direct Bilirubin < 0.1 mg/dl Aspartate Amino Transf (AST/SGOT) 18 U/L Alanine Aminotransferase (ALT/SGPT) 36 U/L Alkaline Phosphatase 82 U/L Total Creatine Kinase 21 U/L Total Protein 6.2 gm/dl Albumin 3.3 gm/dl Assessment & Plan Assessment & Plan: assessment: Sammie is a 31 y/o female with known history of UC and reported IBD arthritis who presented back to the hospital with worsening knee and ankle pains in setting of recent introduction of humira for active UC. she has a previous history of chronic low back pain and trochanteric pain. She describes significant joint pains but no exam there is no synovitis, enthesitis of dactylitis. she has normal ROM of the lower extremities. I doubt that she is having active inflammatory arthritis or drug induced lupus from one dose of humira - not too mention her arthritis pains worsened on high doses of steroids. She likely has steroid acne on her face/upper chest. unclear if the one dose of humira is involved in her worsening joint pains as well but if it is should get better in 7-10 days. I would avoid continued use of humira though. I do wonder about possible AVN espeically of the knees as a cause of her joint pains given her steroid use and previous use. I would suggest x ryas of the knees and ankles and would likely get a nuclear bone scan. I would also be concerned about narcotic seeking potential for her pains given past history. she was seen by pain clinic in the past and needs to continue with them. one might consider adding gabapentin maybe at 100mg nightly and titrate up. also awaiting GI input for her management of bowel disease. likely needs an agent outside of the TNF class at this point. could possibly consider sulfasalazine but since remicade, imuran, humira and MTX did not help her MSK pains I doubt SSZ will help. I did discuss her case with Dr Bright. At this point no further rheumatology outpatient care is needed since does not have active inflammatory arthritis and is seeing pain clinic for her chronic pains. Plan: 1. check x ryas of knees, ankles 2 suggest Nuclear bone scan 3. consider gabapentin and would avoid narcotics 4. await GI input - ? utility of sulfasalazine 5. Rheumatology out patient follow up not needed at this point 6. Thank you for the consult and involving me in this patient's care
[2017-06-21] MEDS: hydrOXYzine HCL 25 MG TAB PO PRN (16:14)
[2017-06-21] MEDS ORDERED: SODIUM CHLORIDE 0.9% 500ML 500 ML IV SCH (18:15)
[2017-06-21] MEDS ORDERED: CLONIDINE HCL 0.1 MG/24 HR TRANSDERM SYS TD SCH (18:30)
[2017-06-21] MEDS: HYDROCORTISONE VAL 0.2% OINT 15GM TUBE EXT SCH (20:20)
[2017-06-21] MEDS ORDERED: LORAZEPAM 0.5 MG TAB PO PRN (20:30)
--- NOTE | 2017-06-21 23:39 | DERMATOLOGY CONSULTATION ---
DATE OF CONSULTATION: 06/21/2017 HISTORY OF PRESENT ILLNESS: Ms. Valladares is a 31-year-old white female who was admitted 2 days ago for bone and joint pain from the waist down. She has a history of ulcerative colitis. She was restarted on Humira 9 days ago, at I believe was 160 mg dosage. She is due for her maintenance dosage in about 5 days. She had been on Humira for several doses in 2016 with no problems. At the time of the Humira, she was also on Solu-Medrol infusion. She is currently on prednisone 40 mg per day. She is also on clonidine patches. She has no prior history of acne. She has multiple drug allergies. REVIEW OF SYSTEMS: Otherwise, negative. PHYSICAL EXAMINATION: GENERAL: She is a well-developed, well-nourished white female, type 2 skin. NEUROLOGIC: She is alert and oriented x3. Mood and affect are normal. She is pleasant and cooperative. VITAL SIGNS: She is afebrile. Of note, her CBC was reported as normal. Examination of the face, ears, neck, back, chest, hands, arms and legs reveal scattered small erythematous papules on the lateral cheeks sideburns jawline, some on the occipital hairline with a rare pustule in these areas. Central face is not involved. Right side of the face is more involved than the left. There was some similar papules on the shoulders, few on the mid back, few on the upper back and very few on the chest as well. Hands, arms, remainder of the trunk, oral mucosa is not involved. IMPRESSION: Acneiform eruption, probably steroidal induced; however, cannot rule out an atypical Humira reaction. PLAN: We are going to go with Benzaclin gel topically for the acneiform eruption, this will be b.i.d. I reassured her about the benign nature of this and reassured about the non-contagiousness of this rash. Also, I feel there are no contraindications to continuation of her Humira. I did give her my information and she can follow up with me as an outpatient on a p.r.n. basis. [facility]
[2017-06-22] VITALS (9 sets, daily range): BP systolic 102–121; BP diastolic 74–92; PULSE 98–149; TEMP 36.4–37; O2SAT 95–98
[2017-06-22] MEDS: CHECK CLONIDINE PATCH PLACEMENT SCH ×4 (00:34→23:17)
[2017-06-22] MEDS: TAPENTADOL HCL 50 MG TAB PO PRN ×4 (00:53→23:16)
[2017-06-22] MEDS: hydrOXYzine HCL 25 MG TAB PO PRN ×2 (00:53→14:43)
[2017-06-22 05:58] LABS: BASO % 0.2 %; BASO ABS # 0.03 K/uL (0-0.2); EOS % 1.1 %; HEMATOCRIT 30.5 % (37-47); IG% 0.8 %; LYMPH ABS # 3.66 K/uL (1.2-3.4); MEAN CELL VOLUME 74.4 fL (80-100); MEAN CORPUSCULAR HEMOGLOBIN 22.9 pg (25-34); MEAN CORPUSCULAR HGB CONC 30.8 g/dl (32-36); MEAN PLATELET VOLUME 8.5 fL (7.4-10.4); MONO % 7.9 %; PLATELET COUNT 335 K/uL (130-400); WHITE BLOOD COUNT 15.89 K/uL (4.8-10.8)
[2017-06-22 06:49] LABS: CALCIUM 8.8 mg/dl (8.5-10.1); CREATININE 0.68 mg/dl (0.60-1.20); POTASSIUM 4.1 mmol/L (3.5-5.1)
[2017-06-22 06:50] LABS: ANISOCYTOSIS PRESENT; COMPLETE YES; HYPOCHROMIA PRESENT; OVALOCYTES 1+; POLYCHROMASIA 1+
[2017-06-22] MEDS: SODIUM CHLORIDE 0.9% 1000ML 1,000 ML IV SCH ×2 (08:03→20:19)
[2017-06-22] MEDS: TAPENTADOL ER 50 MG TABCR PO SCH ×2 (08:04→20:19)
[2017-06-22] MEDS: HYDROCORTISONE VAL 0.2% OINT 15GM TUBE EXT SCH ×2 (08:04→20:18)
[2017-06-22] MEDS: CLONAZEPAM 1 MG TAB PO PRN ×2 (08:04→23:16)
[2017-06-22] MEDS: PANTOprazole SOD 40 MG TAB PO SCH (08:04)
[2017-06-22] MEDS: DOCUSATE SODIUM 100 MG CAP PO SCH ×2 (08:04→20:19)
[2017-06-22] MEDS: MESALAMINE 4 GM/60 ML ENEMA BTL PR SCH ×2 (08:05→20:18)
[2017-06-22] MEDS: DULOXETINE HCL 60 MG CAP PO SCH (08:05)
--- NOTE | 2017-06-22 10:14 | Gastrointestinal Consultation ---
Gastrointestinal Consultation Date of Consultation: Jun 22, 2017 Attending Physician: Dr. Bright Consulting Physician: Dr. Izquierdo/GALE Johnson Reason for Consultation: Ulcerative colitis History of Present Illness Patient is a 31 year old female with a history of left-sided ulcerative colitis admitted to the hospital on 05/28/17 with symptoms of abdominal pain, diarrhea and rectal bleeding. Her symptoms were refractory to IV corticosteroids and she was subsequently initiated on Rowasa enemas as well as induction of Humira ( which she has previously taken). The patient's hospitalization was prolonged due to ongoing pain issues. Eventually, she developed significant constipation and bloating and had required laxatives. Dr. Izquierdo and I had recommended avoidance of narcotic analgesics at that time. Prior to discharge, she did receive a single Humira injection. She states that after discharge, she developed worsening arthralgias in her knees and ankles. She states the joint pain intensified after starting Humira and returned to the hospital on 06/19/17 for the arthralgias. Patient was seen by rheumatology and has been recommended to discontinue Humira. Unfortunately, it appears the Humira has been beneficial in regard to her GI symptoms as she denies any abdominal pain, diarrhea or significant bleeding at present. The patient's H&H has remained stable at 9.6 upon prior discharge on 06/16 and 9.4 today. Current treatment includes Prednisone 40 mg PO daily and Rowasa enemas 4 g BID which she has consistently refused in the hospital. Past Medical/Surgical History Medical Problems: (1) Abdominal pain Status: Acute (2) Colitis, acute Status: Acute (3) Myalgia Status: Acute (4) Opiate withdrawal Status: Acute Past Medical History: 1. UC 2. IBD arthropathy 3. Opioid addiction and withdrawal Past Surgical History: 1. Cholecystectomy, 2. Appendectomy 3. section 4. Complete colonoscopy Family History FHx: heart disease FATHER UNCLES Hypertension Kidney disease THYROID DISEASE MOTHER Social History Smoking Status: Never Smoker Alcohol Use: none Drug Use: none Marital Status: in relationship Housing Status: lives with significant other Occupation Status: unemployed Allergies Coded Allergies: Diphenhydramine (Verified Allergy, Intermediate, Crawling out of skin, ) Levofloxacin (Verified Allergy, Unknown, ., 06/19/17) Morphine (Verified Allergy, Unknown, RASH, 06/19/17) Metoclopramide (Verified Adverse Reaction, Mild, ., 06/19/17) makes skin crawl as per px Promethazine (Verified Adverse Reaction, Mild, ., 06/01/17) makes skin crawl as per px Fentanyl (Verified Adverse Reaction, Unknown, "aggitates me", 06/19/17) Current Medications Home Meds and Scripts Medications Dose Route/Sig Max Daily Dose Days Date Category Dose Instructions Ultram (Tramadol HCl) 50 Mg Tab 50 Mg PO UD PRN 06/16/17 Rx Take 1 pill twice a day. May take extra pill every 6 hrs as needed for severe pain. Prednisone 10 Mg Tab 0 PO UD 06/16/17 Rx 40 mg (4 pills) daily for first week, then taper as directed Zofran Odt (Ondansetron HCl) 4 Mg Tab 4 Mg SL Q6H PRN 06/16/17 Rx Miralax (Polyethylene) 17 Gm Pow 17 Gm PO BID PRN 06/16/17 Rx No prescription necessary. Use as directed on bottle twice a day as needed for constipation. Mesalamine 4 Gm/60 Ml Enem 4 Gm CO BID 06/16/17 Rx Pantoprazole Sodium (Pantoprazole) 40 Mg Tab 40 Mg PO DAILY 06/16/17 Rx Docusate Sodium 100 Mg Cap 100 Mg PO BID 06/16/17 Rx No prescription necessary. Hydroxyzine HCl 25 Mg Tab 25 Mg PO Q8 PRN 06/16/17 Rx Try hydroxyzine before clonazepam. May cause drowsiness- do not drive after taking. Clonazepam 1 Mg Tab 1 Mg PO BID PRN 06/16/17 Rx May cause drowsiness- do not drive after taking. Mapap (Acetaminophen) 325 Mg Tab 650 Mg PO Q6H PRN 30 06/16/17 Rx No prescription necessary. Lamictal (Lamotrigine) 200 Mg Tab 200 Mg PO DAILY 06/16/17 Reported Paragard Intrauterine Child & Adolescent Psychiatrist (Iud's) 1 Iud Iud 1 Dose INT UTER CONTINOUS 03/05/16 Reported Cymbalta (Duloxetine Hcl) 60 Mg Cap 120 Mg PO DAILY 10/14/15 Reported Review of Systems See HPI for pertinent positives & negatives. A total of 10 systems reviewed and were otherwise negative. Physical Exam Date Time Temp Pulse Resp B/P (MAP) Pulse Ox O2 Delivery O2 Flow Rate FiO2 06/22/17 08:00 Room Air 06/22/17 07:02 37.0 98 20 115/87 (96) 98 Room Air 06/22/17 04:00 Room Air 06/22/17 03:36 36.7 110 15 111/84 (93) 95 Room Air 06/21/17 23:59 Room Air 06/21/17 23:19 36.8 111 17 126/88 (101) 96 Room Air 06/21/17 19:33 37.1 125 18 110/73 (85) 97 Room Air 06/21/17 18:31 134 110/70 (83) 06/21/17 17:53 134 06/21/17 17:30 128 06/21/17 16:02 Room Air 06/21/17 15:43 36.8 132 18 110/79 (89) 95 General Appearance: WD/WN, no apparent distress Eyes: EOMI ENT: hearing grossly normal Neck: supple Respiratory/Chest: lungs clear, normal breath sounds, no respiratory distress Cardiovascular: regular rate, rhythm, no gallop, no murmur Abdomen: normal bowel sounds, non tender, soft Extremities: no pedal edema Neurologic/Psych: normal mood/affect, oriented x 3, + pertinent finding (drowsy ) Skin: warm/dry Laboratory Results Last 24 Hours Test 06/21/17 13:37 06/21/17 18:54 06/22/17 05:15 White Blood Count 12.99 K/uL 15.89 K/uL Red Blood Count 4.44 M/uL 4.10 M/uL Hemoglobin 10.2 g/dL 9.4 g/dL Hematocrit 33.3 % 30.5 % Mean Corpuscular Volume 75.0 fL 74.4 fL Mean Corpuscular Hemoglobin 23.0 pg 22.9 pg Mean Corpuscular Hemoglobin Concent 30.6 g/dl 30.8 g/dl Platelet Count 350 K/uL 335 K/uL Mean Platelet Volume 8.5 fL 8.5 fL Neutrophils (%) (Auto) 89.4 % 67.0 % Lymphocytes (%) (Auto) 8.0 % 23.0 % Monocytes (%) (Auto) 1.0 % 7.9 % Eosinophils (%) (Auto) 0.2 % 1.1 % Basophils (%) (Auto) 0.1 % 0.2 % Neutrophils # (Auto) 11.62 K/uL 10.64 K/uL Lymphocytes # (Auto) 1.04 K/uL 3.66 K/uL Monocytes # (Auto) 0.13 K/uL 1.25 K/uL Eosinophils # (Auto) 0.02 K/uL 0.18 K/uL Basophils # (Auto) 0.01 K/uL 0.03 K/uL Immature Granulocyte % (Auto) 1.3 % 0.8 % Immature Granulocyte # (Auto) 0.17 K/uL 0.13 K/uL Polychromasia 1+ 1+ Hypochromasia PRESENT PRESENT Anisocytosis PRESENT PRESENT Microcytosis PRESENT Sodium Level 139 mmol/L 141 mmol/L Potassium Level 4.5 mmol/L 4.1 mmol/L Chloride Level 106 mmol/L 107 mmol/L Carbon Dioxide Level 27 mmol/L 29 mmol/L Anion Gap 6.0 mmol/L 5.0 mmol/L Blood Urea Nitrogen 17 mg/dl 16 mg/dl Creatinine 1.00 mg/dl 0.68 mg/dl Est Creatinine Clear Calc Drug Dose 74.9 ml/min 110.1 ml/min Estimated GFR () 85.7 133.2 Estimated GFR (Non- 74.0 114.9 BUN/Creatinine Ratio 17.3 24.0 Random Glucose 173 mg/dl 88 mg/dl Calcium Level 8.6 mg/dl 8.8 mg/dl Total Bilirubin 0.5 mg/dl Direct Bilirubin < 0.1 mg/dl Aspartate Amino Transf (AST/SGOT) 18 U/L Alanine Aminotransferase (ALT/SGPT) 36 U/L Alkaline Phosphatase 82 U/L Total Creatine Kinase 21 U/L Total Protein 6.2 gm/dl Albumin 3.3 gm/dl D-Dimer 220 ug/L FEU Ovalocytes 1+ Impression Patient is a 31 year old female with steroid refractory left-sided colitis admitted with worsening arthralgias. Plan 1. Agree with discontinuation of Humira. Previously treated with Remicade and was intolerant as well. Therefore, would avoid Simponi as this is another TNF-a. 2. Will plan to initiate Entyvio infusions 300 mg IV with induction dosing at week 0, 2, 6 and 8 weeks thereafter. Unfortunately, this medication is a non- formulary medication and will need to be started on an outpatient basis. 3. Continue Prednisone 40 mg daily but would recommend dose reduction to 35 mg tomorrow as she has been on 40 mg daily since 06/16/17. 4. Avoid all narcotic analgesics. 5. Avoid NSAID pain relievers. 6. Supportive care per primary team. Thank you for allowing us to participate in the care of this patient. If you have any questions or concerns, please do not hesitate to contact us. Agree with GALE Johnson as above Abd: Soft, NT, Slightly distended, +BS Continue corticosteroid therapy Humira discontinued, Entyvio to be started as outpatient
[2017-06-22] MEDS ORDERED: NURSING VERBAL MED ORDER ONE ×2 (14:45→16:30)
[2017-06-22] MEDS ORDERED: SODIUM CHLORIDE 0.9% 500ML 500 ML IV SCH (15:00)
[2017-06-22] MEDS: POLYETHYLENE (MIRALAX) 17 GM PACK PO PRN (15:32)
[2017-06-22] MEDS ORDERED: CLONAZEPAM 1 MG TAB PO SCH (17:00)
--- NOTE | 2017-06-22 18:54 | DIAGNOSTIC IMAGING REPORT ---
RIGHT KNEE 1 OR 2 VIEWS ROUTINE CLINICAL HISTORY: Possible avascular necrosis. COMPARISON: None FINDINGS: Alignment of the right knee is anatomic and there is no fracture or joint effusion. There is no suspicious osseous lesion. There is no radiographic evidence of avascular necrosis. IMPRESSION: Unremarkable right knee radiographs. No radiographic evidence of avascular necrosis. MRI would have increased sensitivity for detection of avascular necrosis/bone infarcts. Electronically signed by: Marc Bass M.D. 06/22/2017 6:52 PM Dictated Date/Time: 06/22/2017 6:51 PM
--- NOTE | 2017-06-22 18:54 | DIAGNOSTIC IMAGING REPORT ---
LEFT KNEE 1 OR 2 VIEWS ROUTINE CLINICAL HISTORY: Possible avascular necrosis. COMPARISON: None FINDINGS: Alignment of left knee is anatomic. There is no fracture or joint effusion. No lesion or evidence of avascular necrosis is noted by radiography. IMPRESSION: Unremarkable left knee radiographs. Electronically signed by: Marc Bass M.D. 06/22/2017 6:53 PM Dictated Date/Time: 06/22/2017 6:53 PM
[2017-06-22] MEDS ORDERED: METOPROLOL TARTRATE 1 MG/ML VIAL IV STA (18:58)
--- NOTE | 2017-06-22 18:59 | DIAGNOSTIC IMAGING REPORT ---
LEFT ANKLE MIN 3 VIEWS ROUTINE CLINICAL HISTORY: Possible avascular necrosis. Joint pain. COMPARISON: None FINDINGS: Alignment of the left ankle is anatomic. No fracture or suspicious lesion is present. Talar dome is intact. IMPRESSION: Unremarkable left ankle radiographs. Electronically signed by: Marc Bass M.D. 06/22/2017 6:58 PM Dictated Date/Time: 06/22/2017 6:57 PM
--- NOTE | 2017-06-22 18:59 | DIAGNOSTIC IMAGING REPORT ---
RIGHT ANKLE MIN 3 VIEWS ROUTINE CLINICAL HISTORY: Possible avascular necrosis. Joint pain. COMPARISON: None FINDINGS: Alignment of the right ankle is anatomic. There is minimal joint space narrowing and osteophytosis of the talonavicular articulation. No acute fracture is identified. There is a possible 5 mm subchondral lucency of the medial talar dome. IMPRESSION: 1. No acute fracture. 2. Possible 5 mm subchondral lucency within the medial talar dome. This is probably artifactual although an osteochondral defect. The appearance is not suggestive of avascular necrosis although an MRI could be obtained if persistent pain. Electronically signed by: Marc Bass M.D. 06/22/2017 6:57 PM Dictated Date/Time: 06/22/2017 6:53 PM
--- NOTE | 2017-06-22 21:06 | Progress Note ---
Medicine Progress Note Date & Time of Visit: Jun 22, 2017 at 16:12. Subjective patient seen resting in bed, comfortable in good spirits states he feels much better noted to be more tachycardic this afternoon HR 140s-150s, BP stable reports palpitations but no chest pain, dizziness, nausea, diaphoresis diffuse bone pain about the same, Nucynta helping rash on face and chest is resolving no other symptoms Objective Last 8 Hrs Date Time Temp Pulse Resp B/P (MAP) Pulse Ox O2 Delivery O2 Flow Rate FiO2 06/22/17 16:08 96 Room Air 06/22/17 15:33 36.6 136 20 117/92 (100) 96 Room Air 06/22/17 14:31 149 20 120/89 (99) 96 06/22/17 11:39 Room Air 06/22/17 11:19 36.8 108 16 102/77 (85) 98 Room Air Physical Exam: General- oriented x 3, not in distress, speaks in sentences with no effort Head- (+) mild maculopapular rash on the right preauricular and submandibular area: resolved (+) very few similar lesions on the left side of the face, same area: resolved (+) few maculopapular lesions on the upper chest : resolving Eyes- anicteric Neck- no JVD Lungs- clear breath sounds bilaterally, no rales/wheezes Heart- tachycardic, regular rhythm, Abdomen- normal bowel sounds, soft, nontender Extremities- no pretibial edema, no calf tenderness no joint swelling/warmth/tenderness Neuro- alert, oriented x 3; no gross focal deficits Skin- warm & dry Laboratory Results: Last 24 Hours Test 06/21/17 18:54 06/22/17 05:15 D-Dimer 220 ug/L FEU White Blood Count 15.89 K/uL Red Blood Count 4.10 M/uL Hemoglobin 9.4 g/dL Hematocrit 30.5 % Mean Corpuscular Volume 74.4 fL Mean Corpuscular Hemoglobin 22.9 pg Mean Corpuscular Hemoglobin Concent 30.8 g/dl Platelet Count 335 K/uL Mean Platelet Volume 8.5 fL Neutrophils (%) (Auto) 67.0 % Lymphocytes (%) (Auto) 23.0 % Monocytes (%) (Auto) 7.9 % Eosinophils (%) (Auto) 1.1 % Basophils (%) (Auto) 0.2 % Neutrophils # (Auto) 10.64 K/uL Lymphocytes # (Auto) 3.66 K/uL Monocytes # (Auto) 1.25 K/uL Eosinophils # (Auto) 0.18 K/uL Basophils # (Auto) 0.03 K/uL Immature Granulocyte % (Auto) 0.8 % Immature Granulocyte # (Auto) 0.13 K/uL Polychromasia 1+ Hypochromasia PRESENT Anisocytosis PRESENT Ovalocytes 1+ Sodium Level 141 mmol/L Potassium Level 4.1 mmol/L Chloride Level 107 mmol/L Carbon Dioxide Level 29 mmol/L Anion Gap 5.0 mmol/L Blood Urea Nitrogen 16 mg/dl Creatinine 0.68 mg/dl Est Creatinine Clear Calc Drug Dose 110.1 ml/min Estimated GFR () 133.2 Estimated GFR (Non- 114.9 BUN/Creatinine Ratio 24.0 Random Glucose 88 mg/dl Calcium Level 8.8 mg/dl Thyroid Stimulating Hormone (TSH) 1.470 uIu/ml Assessment & Plan 31 year old female with history of Ulcerative Colitis, presenting with diffuse "bone pains". PERSISTENT ARTHRALGIAS, FACIAL RASH POSSIBLE SIDE EFFECTS OF HUMIRA? - resumed Nucynta ER q12h a Nucynta increased to q4h - arthralgias about the same developed maculopapular lesions on her face and chest, now resolving -GI consulted, recommend to stop Humira and start Entyvio as outpatient Dr. Izquierdo who has been following the patient, unfortunately cannot see the patient as outpatient due to Insurance coverage discussed with [facility], they are checking Insurance coverage to see if patient can follow with them - Rheumatology consulted xrays of knees and ankles ordered may need bone scan if symptoms persist - Derm consulted for the Rash likely Acneiform reaction, recommend Benzoyl peroxide ULCERATIVE COLITIS - GI symptoms have been stable since discharge after Humira loading dose 06/12/17 - continue usual Prednisone taper, Jeanette Umaña will need to taper prednisone slowly, now at 35mg po daily - patient needs to be established with [facility] that accepts her insurance [facility] checking if they can accept the patient PERSISTENT SINUS TACHYCARDIA - started evening of 06/21/17 D dimer negative - Clonidine patch re-started (patient was receiving this last week for possible hypersympathetic activity while being weaned off narcotics) - HR still elevated- as high as 150s , BP stable will start Lopressor 2.5mg IV echo ordered TSH normal, D dimer normal - will order CT chest tonight to r/o pericardial effusion patient has a history of pericarditis in 2013 CHRONIC ANEMIA - stable - denies GI bleeding CHRONIC PAIN - patient's Nucynta was only approved for 4 days during last admission, discharged on Tramadol which did not help with her pain - will avoid IV narcotics restarted Nucynta per Pain Mgt [facility] recommendations during last admission - pain level about the same - seen by Pain Management last admission, may need to be re-evaluated plans for medication on discharge DVT prophylaxis SCDs has history of hematochezia encouraged to ambulate Full Code Disposition pending anticipate d/c home when medically stable will need to be established with [facility] that accepts her Insurance Pain Management ff up with Dr. Sheffield Current Inpatient Medications: Current Inpatient Medications Medications (Trade) Dose Ordered Sig/Sally Route Start Time Stop Time Status Last Admin Dose Admin Tapentadol (Nucynta Er Tab) 50 mg Q12 PO 06/19/17 21:00 07/19/17 20:59 06/22/17 08:04 50 MG Sodium Chloride 1,000 ml @ 80 mls/hr [id number] IV 06/19/17 19:15 07/19/17 19:14 06/22/17 08:03 60 MLS/HR Clonazepam (Klonopin Tab) 1 mg BID PRN PO 06/19/17 19:15 07/19/17 19:14 06/22/17 08:04 1 MG Docusate Sodium (coLACE CAP) 100 mg BID PO 06/19/17 20:17 07/19/17 20:59 06/22/17 08:04 100 MG Duloxetine HCl (Cymbalta Cap) 120 mg DAILY PO 06/20/17 08:00 07/20/17 08:59 06/22/17 08:05 120 MG Hydroxyzine HCl (Vistaril Tab) 25 mg Q8 PRN PO 06/19/17 19:15 07/19/17 19:14 06/22/17 14:43 25 MG Lamotrigine (Lamictal Tab) 200 mg DAILY PO 06/20/17 08:00 07/20/17 08:59 06/22/17 08:05 200 MG Mesalamine (Rowasa Enema) 4 gm BID [place] 06/19/17 20:17 07/19/17 20:59 06/21/17 08:30 4 GM Ondansetron HCl (Zofran Odt) 4 mg Q6H PRN SL 06/19/17 19:15 07/19/17 19:14 Pantoprazole Sodium (Protonix Tab) 40 mg DAILY PO 06/20/17 08:00 07/20/17 08:59 06/22/17 08:04 40 MG Polyethylene (Miralax Powder Packet) 17 gm BID PRN PO 06/19/17 19:15 07/19/17 19:14 06/22/17 15:32 17 GM Acetaminophen (Tylenol Tab) 650 mg Q4H PRN PO 06/19/17 19:30 07/19/17 19:29 Tapentadol (Nucynta Tab) 50 mg Q4H PRN PO 06/20/17 17:15 07/19/17 19:14 06/22/17 12:40 50 MG Hydrocortisone Valerate (Westcort 0.2% Oint) 1 appln BID EXT 06/21/17 20:00 07/21/17 07:59 Clonidine HCl (Bovvzsop-Ljz-0 0.1mg/24hr Patch) 1 patch Obando@1830 TD 06/21/17 18:30 07/21/17 18:29 06/21/17 18:34 1 PATCH Miscellaneous (Remove Clonidine Patch) 1 ea Obando@1829 N/A 06/28/17 18:29 07/28/17 18:28 Miscellaneous Information (Check Clonidine Patch Placement) 1 ea QS N/A 06/22/17 00:00 07/22/17 00:00 06/22/17 15:23 1 EA Lorazepam (Ativan Tab) 0.5 mg Q6 PRN PO 06/21/17 20:30 07/21/17 20:29 Prednisone (PredniSONE TAB) 35 mg DAILY PO 06/23/17 09:00 07/20/17 08:59
--- NOTE | 2017-06-22 21:24 | DIAGNOSTIC IMAGING REPORT ---
CT OF THE CHEST WITHOUT IV CONTRAST CLINICAL HISTORY: Tachycardia. Evaluate for pericardial effusion. COMPARISON STUDY: Chest CT June 20, 2014 and chest radiograph June 19, 2017. CT DOSE: 232.80 mGy.cm TECHNIQUE: Axial images of the chest were obtained without IV contrast. Images were reviewed in the axial, sagittal, and coronal planes. IV contrast was not administered for this examination. A dose lowering technique was utilized adhering to the principles of ALARA. FINDINGS: No enlarged axillary, mediastinal or hilar lymph nodes are present. The size of the heart is normal. There is no pericardial effusion. Central airways are patent. There is no consolidation to suggest pneumonia. Subsegmental atelectasis within the right lower lobe is noted. Bony thorax is unremarkable. The gallbladder is surgically absent. A large amount of stool is noted within visualized portions of the colon. IMPRESSION: 1. No pericardial effusion. 2. No acute intrathoracic findings on unenhanced chest CT. Electronically signed by: Marc Bass M.D. 06/22/2017 9:23 PM Dictated Date/Time: 06/22/2017 9:18 PM
[2017-06-23] VITALS (8 sets, daily range): BP systolic 102–123; BP diastolic 70–89; PULSE 102–133; TEMP 36.4–36.9; O2SAT 95–96
[2017-06-23] MEDS: TAPENTADOL HCL 50 MG TAB PO PRN ×5 (03:12→22:24)
[2017-06-23] MEDS: SODIUM CHLORIDE 0.9% 1000ML 1,000 ML IV SCH ×2 (03:12→08:29)
[2017-06-23] MEDS ORDERED: SODIUM CHLORIDE 0.9% 500ML 500 ML IV ONE (06:00)
[2017-06-23 06:20] LABS: BASO % 0.1 %; BASO ABS # 0.02 K/uL (0-0.2); IG% 0.6 %; LYMPH ABS # 4.16 K/uL (1.2-3.4); MEAN CELL VOLUME 75.8 fL (80-100); MEAN CORPUSCULAR HGB CONC 30.3 g/dl (32-36); MEAN PLATELET VOLUME 8.5 fL (7.4-10.4); NEUT % 65.3 %; PLATELET COUNT 324 K/uL (130-400); RED BLOOD COUNT 4.09 M/uL (4.2-5.4); WHITE BLOOD COUNT 15.42 K/uL (4.8-10.8)
[2017-06-23 06:38] LABS: BUN/CREATININE RATIO 27.4 (10-20); CALCIUM 8.6 mg/dl (8.5-10.1); CREATININE 0.68 mg/dl (0.60-1.20); MAGNESIUM 2.2 mg/dl (1.8-2.4); POTASSIUM 3.9 mmol/L (3.5-5.1)
[2017-06-23 07:04] LABS: ACANTHOCYTES 1+; ANISOCYTOSIS PRESENT; COMPLETE YES; HYPOCHROMIA PRESENT; OVALOCYTES 1+; POLYCHROMASIA 1+
[2017-06-23] MEDS: HYDROCORTISONE VAL 0.2% OINT 15GM TUBE EXT SCH ×2 (08:14→20:15)
[2017-06-23] MEDS: CHECK CLONIDINE PATCH PLACEMENT SCH ×2 (08:14→16:07)
[2017-06-23] MEDS: DOCUSATE SODIUM 100 MG CAP PO SCH ×2 (08:15→20:22)
[2017-06-23] MEDS: DULOXETINE HCL 60 MG CAP PO SCH (08:15)
[2017-06-23] MEDS: PANTOprazole SOD 40 MG TAB PO SCH (08:15)
[2017-06-23] MEDS: CLONAZEPAM 1 MG TAB PO PRN ×2 (08:22→20:23)
[2017-06-23] MEDS: POLYETHYLENE (MIRALAX) 17 GM PACK PO PRN (08:22)
[2017-06-23] MEDS: MESALAMINE 4 GM/60 ML ENEMA BTL PR SCH ×2 (08:28→20:15)
[2017-06-23] MEDS: TAPENTADOL ER 50 MG TABCR PO SCH ×2 (08:28→20:22)
[2017-06-23] MEDS ORDERED: POTASSIUM CHLORIDE 10 MEQ TABCR PO ONE (08:30)
--- NOTE | 2017-06-23 08:45 | ECHOCARDIOGRAM REPORT ---
*NOTICE TO RECEIVING [employer] This information is strictly Confidential and protected under [place] law. [place] law prohibits you from making any further disclosure of this information unless further disclosure is expressly permitted by the written consent of the person to whom it pertains or is authorized by law. A general authorization for the release of medical or other information is not sufficient for this purpose. Hospital accepts no responsibility if the information is made available to any other person, INCLUDING THE PATIENT. Interpretation Summary * Name: ACE VALLES Study Date: 06/23/2017 07:23 AM BP: 123/85 mmHg * Patient Location: C.2E\S\E201\S\1 HR: 100 * : 1985 (M/d/yyyy) Gender: Female Height: 66 in * Age: 31 yrs Ethnicity: CA Weight: 146 lb * Ordering Physician: Nelson Bright * Referring Physician: Self, Referred * Performed By: Clarisse Valencia RCS * * Reason For Study: PERSISTENT TACHYCARDIA * BSA: 1.7 m2 * -- Conclusions -- * The left ventricle is normal in size. * There is borderline concentric left ventricular hypertrophy. * Left ventricular systolic function is normal. * The left ventricular wall motion is normal. * Ejection Fraction = 60-65%. * There is no signifcatn valvular disease. * There is no pericardial effusion. Procedure Details * A complete two-dimensional transthoracic echocardiogram was performed (2D, M-mode, Doppler and color flow Doppler). Left Ventricle * The left ventricle is normal in size. * There is borderline concentric left ventricular hypertrophy. * Left ventricular systolic function is normal. * Ejection Fraction = 60-65%. * The left ventricular wall motion is normal. Right Ventricle * The right ventricle is normal in size and function. Atria * The left atrial size is normal. * Right atrial size is normal. * No ASD detected; PFO is not assessed. Mitral Valve * The mitral valve anatomy is normal. * There is no mitral valve stenosis. * There is trace mitral regurgitation. Tricuspid Valve * The tricuspid valve anatomy is normal. * There is no tricuspid stenosis. * There is trace tricuspid regurgitation. Aortic Valve * The aortic valve is trileaflet. * No hemodynamically significant valvular aortic stenosis. * No aortic regurgitation is present. Pulmonic Valve * The pulmonary valve is inadequately visualized, but the Doppler data is adequate for interpretation. * There is no pulmonic valvular stenosis. * There is no pulmonic valvular regurgitation. Great Vessels * The aortic root is normal size. Pericardium/Pleural * There is no pericardial effusion. Great Vessels * Normal inferior vena cava diameter and respiratory variation suggests normal central venous pressure. MMode 2D Measurements and Calculations IVSd 1.5 cm IVSs 1.7 cm LVIDd 3.7 cm LVIDs 2.8 cm LVPWd 1.2 cm LVPWs 1.3 cm IVS/LVPW 1.2 FS 24.4 % EDV(Teich) 56.7 ml ESV(Teich) 28.7 ml EF(Teich) 49.3 % EDV(cubed) 49.1 ml ESV(cubed) 21.2 ml EF(cubed) 56.8 % % IVS thick 14.1 % % LVPW thick 6.8 % LV mass(C)d 180.5 grams LV mass(C)dI 103.2 grams/m\S\2 LV mass(C)s 148.0 grams LV mass(C)sI 84.6 grams/m\S\2 SV(Teich) 28.0 ml SI(Teich) 16.0 ml/m\S\2 SV(cubed) 27.9 ml SI(cubed) 15.9 ml/m\S\2 Ao root diam 3.2 cm Ao root area 7.9 cm\S\2 ACS 1.6 cm LA dimension 2.9 cm LA/Ao 0.93 LVOT diam 1.9 cm LVOT area 2.9 cm\S\2 LVAd ap4 31.2 cm\S\2 LVLd ap4 8.0 cm EDV(MOD-sp4) 98.0 ml EDV(sp4-el) 103.3 ml LVAs ap4 21.6 cm\S\2 LVLs ap4 7.4 cm ESV(MOD-sp4) 51.7 ml ESV(sp4-el) 53.7 ml EF(MOD-sp4) 47.2 % EF(sp4-el) 48.0 % LVAd ap2 34.1 cm\S\2 LVLd ap2 8.4 cm EDV(MOD-sp2) 112.2 ml EDV(sp2-el) 117.7 ml LVAs ap2 21.6 cm\S\2 LVLs ap2 7.1 cm ESV(MOD-sp2) 53.6 ml ESV(sp2-el) 55.7 ml EF(MOD-sp2) 52.3 % EF(sp2-el) 52.7 % LVLd %diff 4.2 % EDV(MOD-bp) 107.3 ml LVLs %diff -2.95 % ESV(MOD-bp) 52.6 ml EF(MOD-bp) 51.0 % SV(MOD-sp4) 46.3 ml SI(MOD-sp4) 26.5 ml/m\S\2 SV(MOD-sp2) 58.6 ml SI(MOD-sp2) 33.5 ml/m\S\2 SV(MOD-bp) 54.7 ml SI(MOD-bp) 31.3 ml/m\S\2 SV(sp4-el) 49.5 ml SI(sp4-el) 28.3 ml/m\S\2 SV(sp2-el) 62.0 ml SI(sp2-el) 35.4 ml/m\S\2 Doppler Measurements and Calculations Ao V2 max 100.2 cm/sec Ao max PG 4.0 mmHg Ao max PG (full) 0.33 mmHg KIM(V,A) 2.8 cm\S\2 KIM(V,D) 2.8 cm\S\2 LV V1 max PG 3.7 mmHg LV V1 max 96.0 cm/sec MR max arianna 437.9 cm/sec MR max PG 76.7 mmHg PA V2 max 75.3 cm/sec PA max PG 2.3 mmHg
--- NOTE | 2017-06-23 09:19 | Progress Note ---
Internal Med Progress Note Date of Service: Jun 23, 2017. Provider Documentation: SUBJECTIVE: Seen and examined at bedside. States extremity pain is about the same Maculopapular rash much improved Lower abd pain about 2/10 Denies diarrhea, blood in stools, tolerates diet OBJECTIVE: Vital Signs-as noted below Physical Exam: General Appearance:Moderately built and nourished, no apparent distress Head: normocephalic, Atraumatic Eyes: normal inspection, EOMI, PERRL Neck: supple, Trachea midline Respiratory/Chest: Normal breath sounds, CTA Cardiovascular: S1, S2, +Tachycardia, No murmur Abdomen/GI:Soft, Non tender, Bowel sounds present Extremities/Musculoskelatal:normal inspection, no edema Neurologic/Psych:grossly no focal neurological deficits Skin: normal color, warm Lab data as noted below. ASSESSMENT & PLAN: Patient is a 31 yr female with H/O Ulcerative Colitis, presenting with diffuse "bone pains". Persistent Arthralgias (?IBD arthritis), Facial Rash ? Possible side effects of Humira continue Nucynta ER Q12H and Q4H PRN maculopapular lesions on face and chest resolving Humira discontinued, plan to start Entyvio as outpatient (As Non formulary) Previously seen by Dr. Izquierdo, unfortunately cannot see the patient as outpatient due to Insurance coverage [facility] Appreciate Rheumatology Input. X rays of Knees and ankles:unremarkable. ? Need for bone scan May consider starting on gabapentin Appreciate Dermatology input likely Acneiform reaction, Improving Ulcerative Colitis GI symptoms have been stable since discharge after Humira loading dose 06/12/17 continue Prednisone taper, Jeanette Umaña patient needs to be established with [facility] that accepts her insurance [facility] [place] if they can [place] the patient Sinus Tachycardia: ? Physiological/ Secondary to steroids Clonidine patch re-started (patient was receiving this last week for possible hypersympathetic activity while being weaned off narcotics) ECHO:mild LVH TSH normal, D dimer, CT chest normal Appreciate cardiology Input Continue Metoprolol Chronic Anemia stable denies GI bleeding Chronic Pain patient's Nucynta was only approved for 4 days during last admission, discharged on Tramadol which did not help with her pain will avoid IV narcotics restarted Nucynta per Pain [facility] recommendations during last admission pain level about the same seen by Pain Management last admission, may need to be re-evaluated plans for medication on discharge DVT x SCDs has history of hematochezia encouraged to ambulate Code Status Full Code Disposition anticipate d/c home when medically stable will need to be established with [facility] that accepts her Insurance Pain Management ff up with Dr. Sheffield Vital Signs: Date Time Temp Pulse Resp B/P (MAP) Pulse Ox O2 Delivery O2 Flow Rate FiO2 06/23/17 08:00 Room Air 06/23/17 07:06 36.5 102 20 109/76 (87) 96 Room Air 06/23/17 05:38 123/85 (98) 06/23/17 04:00 95 Room Air 06/23/17 03:43 36.8 108 16 108/89 (95) 95 Room Air 06/23/17 00:00 96 Room Air 06/22/17 23:12 36.4 107 17 121/84 (96) 96 Room Air 06/22/17 20:00 97 Room Air 06/22/17 19:21 124 117/74 06/22/17 18:59 36.8 141 20 117/74 (88) 97 Room Air 06/22/17 18:59 142 117/74 (88) 06/22/17 16:08 96 Room Air 06/22/17 15:33 36.6 136 20 117/92 (100) 96 Room Air 06/22/17 14:31 149 20 120/89 (99) 96 06/22/17 11:39 Room Air 06/22/17 11:19 36.8 108 16 102/77 (85) 98 Room Air Lab Results: Results Past 24 Hours Test 06/23/17 05:56 Range/Units White Blood Count 15.42 4.8-10.8 K/uL Red Blood Count 4.09 4.2-5.4 M/uL Hemoglobin 9.4 12.0-16.0 g/dL Hematocrit 31.0 37-47 % Mean Corpuscular Volume 75.8 80-100 fL Mean Corpuscular Hemoglobin 23.0 25-34 pg Mean Corpuscular Hemoglobin Concent 30.3 32-36 g/dl Platelet Count 324 130-400 K/uL Mean Platelet Volume 8.5 7.4-10.4 fL Neutrophils (%) (Auto) 65.3 % Lymphocytes (%) (Auto) 27.0 % Monocytes (%) (Auto) 6.0 % Eosinophils (%) (Auto) 1.0 % Basophils (%) (Auto) 0.1 % Neutrophils # (Auto) 10.07 1.4-6.5 K/uL Lymphocytes # (Auto) 4.16 1.2-3.4 K/uL Monocytes # (Auto) 0.92 0.11-0.59 K/uL Eosinophils # (Auto) 0.16 0-0.5 K/uL Basophils # (Auto) 0.02 0-0.2 K/uL Immature Granulocyte % (Auto) 0.6 % Immature Granulocyte # (Auto) 0.09 0.00-0.02 K/uL Polychromasia 1+ Hypochromasia PRESENT Anisocytosis PRESENT Ovalocytes 1+ Acanthocytes 1+ Sodium Level 142 136-145 mmol/L Potassium Level 3.9 3.5-5.1 mmol/L Chloride Level 106 98-107 mmol/L Carbon Dioxide Level 29 21-32 mmol/L Anion Gap 7.0 3-11 mmol/L Blood Urea Nitrogen 19 7-18 mg/dl Creatinine 0.68 0.60-1.20 mg/dl Est Creatinine Clear Calc Drug Dose 110.1 ml/min Estimated GFR () 133.2 Estimated GFR (Non- 114.9 BUN/Creatinine Ratio 27.4 10-20 Random Glucose 71 70-99 mg/dl Calcium Level 8.6 8.5-10.1 mg/dl Magnesium Level 2.2 1.8-2.4 mg/dl
[2017-06-23] MEDS ORDERED: METOPROLOL TARTRATE 25 MG TAB PO ONE (09:28)
--- NOTE | 2017-06-23 09:48 | Cardiology Consultation ---
Cardiology Consultation Date of Service Jun 23, 2017. (Parul Dyson, KIM) Cardiology Consultation Attending Orthophoto Tech/Draftsman: Dr. Roberts Requesting Physician: Dr. Bright Reason for Consult: Tachycardia HISTORY OF PRESENT ILLNESS: Sammie Valladares is a 31-year-old female with a history of severe ulcerative colitis with recurrent flares, chronic anemia, depression/anxiety, and prior narcotic use who was admitted on several occasions over the last few weeks with associated UC flares. Last admission she required 2 units PRBC's for anemia. She has required high dose steroids as well. She has been following with GI and rheumatology. She has been evaluated by [facility] (Dr. Wright) in 2013 for persistnet sinus tachycardia, and possible pericarditis in the setting of acute illness and acute UC flare. Echo was u robby at the time. She was treated with metoprolol tartrate and short course of colchicine. She weaned off metoprolol as outpatient as flare respolved. This admission, patient has developed recurrent sinus tachycardia with rates ranging 100-150 with minimal exertion. She is relatively asymtpomatic but is aware of her "heart pounding" when she ambulates in her room. She notes ongoing dull ache with the tachypalptiations. No dizziness, syncoep or near syncope. No SOB. No orthopnea, PND or edema. Abdominal pain improving. No recurrent melena or hematochezia. She notes continued diffuse joint aches/pains. Review of Systems: See HPI for pertinent positives. All other 10 point revie of systems is negative. PAST MEDICAL HISTORY: 1. Ulcerative colitis diagnosed at age 20. 2. Depression. 3. Anxiety. 4. Nephrolithiasis. 5. Recurrent urinary tract infections. 6. Prior history of tachy arrhythmias as well as hypokalemia with hypokalemia being induced due to her diarrhea that she has from ulcerative colitis. 7. History of pericarditis, treated with colchicine in 2013 PAST SURGICAL HISTORY: 1. section delivery. 2. Appendectomy. 3. Cholecystectomy. 4. Right-sided kidney stenting. SOCIAL HISTORY: Patient denies chronic tobacco abuse, but admits to "vaping" on occassion. No ilicit drug use. Has one child. She denies chronic intake of alcoholic beverages. FAMILY HISTORY: Father with history of premature coronary artery disease with NV and stents age 40's. ALLERGIES: 1. Levofloxacin 2. Metoclopramide. 3. Morphine. 4. Promethazine. 5. Fentanyl 6. Diphenhydramine Reported Home Medications Medications Dose Route/Sig Max Daily Dose Days Date Category Dose Instructions Ultram (Tramadol HCl) 50 Mg Tab 50 Mg PO UD PRN 06/16/17 Rx Take 1 pill twice a day. May take extra pill every 6 hrs as needed for severe pain. Prednisone 10 Mg Tab 0 PO UD 06/16/17 Rx 40 mg (4 pills) daily for first week, then taper as directed Zofran Odt (Ondansetron HCl) 4 Mg Tab 4 Mg SL Q6H PRN 06/16/17 Rx Miralax (Polyethylene) 17 Gm Pow 17 Gm PO BID PRN 06/16/17 Rx No prescription necessary. Use as directed on bottle twice a day as needed for constipation. Mesalamine 4 Gm/60 Ml Enem 4 Gm SC BID 06/16/17 Rx Pantoprazole Sodium (Pantoprazole) 40 Mg Tab 40 Mg PO DAILY 06/16/17 Rx Docusate Sodium 100 Mg Cap 100 Mg PO BID 06/16/17 Rx No prescription necessary. Hydroxyzine HCl 25 Mg Tab 25 Mg PO Q8 PRN 06/16/17 Rx Try hydroxyzine before clonazepam. May cause drowsiness- do not drive after taking. Clonazepam 1 Mg Tab 1 Mg PO BID PRN 06/16/17 Rx May cause drowsiness- do not drive after taking. Mapap (Acetaminophen) 325 Mg Tab 650 Mg PO Q6H PRN 30 06/16/17 Rx No prescription necessary. Lamictal (Lamotrigine) 200 Mg Tab 200 Mg PO DAILY 06/16/17 Reported Paragard Intrauterine Weathercaster (Iud's) 1 Iud Iud 1 Dose INT UTER CONTINOUS 03/05/16 Reported Cymbalta (Duloxetine Hcl) 60 Mg Cap 120 Mg PO DAILY 10/14/15 Reported PHYSICAL EXAMINATION: Last 8 Hrs Date Time Temp Pulse Resp B/P (MAP) Pulse Ox O2 Delivery O2 Flow Rate FiO2 06/23/17 07:06 36.5 102 20 109/76 (87) 96 Room Air 06/23/17 05:38 123/85 (98) 06/23/17 04:00 95 Room Air 06/23/17 03:43 36.8 108 16 108/89 (95) 95 Room Air GENERAL APPEARANCE: Awake and oriented x3, NAD. NECK: No bruits. No cervical lymphadenopathy. LUNGS: Clear no rales, rhonchi or wheezing. CARDIOVASCULAR: Regular rate. No murmurs, rubs, or gallops. ABDOMEN: Positive bowel sounds. Soft, nontender, nondistended. EXTREMITIES: No edema DIAGNOSTIC DATA: Telemetry reviewed - Sinus and sinus tachycardia, rates ranging 100-150 bpm. No concerning arrhythmias. Chest CT: IMPRESSION: 1. No pericardial effusion. 2. No acute intrathoracic findings on unenhanced chest CT. Echocardiogram: -- Conclusions -- * The left ventricle is normal in size. * There is borderline concentric left ventricular hypertrophy. * Left ventricular systolic function is normal. * The left ventricular wall motion is normal. * Ejection Fraction = 60-65%. * There is no significant valvular disease. * There is no pericardial effusion. FINAL IMPRESSION: 31-year-old female. 1. Sinus tachycardia, likely physiologic response to acute illness/UC flare, high dose steroids, anemia of chronic disease. 2. No pericardial effusion. Normal LV function 3. Borderline LVH RECOMMENDATIONS: Patient was previously on low dose metoprolol tartrate 25 mg BID in 2013 after developing sinus tachycardia during acute UC flare. She then weaned off metoprolol as her symptoms resolved and no longer needed high dose steroid treatment. Will re-initiate metoprolol tartrate 25 mg BID this morning to aid her symptoms. Echo unremarkable other than mild LVH. Patient is agreeable. No further cardiac testing warranted at this time. Case to be discussed with Dr. Roberts. (Parul Dyson PA-C) Patient was seen and examined, evaluation as well outlined above. Sinus tachycardia being driven by underlying medical issues. Metoprolol will be restarted as it has provided symptomatic relief in the past. Dave Roberts MD (Dave Roberts M.D.)
[2017-06-23] MEDS: METOPROLOL TARTRATE 25 MG TAB PO SCH (20:23)
[2017-06-24] VITALS: BP 104/78; PULSE 101; TEMP 36.8; O2SAT 98
[2017-06-24] MEDS: CHECK CLONIDINE PATCH PLACEMENT SCH ×2 (00:26→08:00)
[2017-06-24 03:36] VITALS: BP 99/68; PULSE 102; TEMP 36.5; O2SAT 96
[2017-06-24] MEDS: TAPENTADOL HCL 50 MG TAB PO PRN ×5 (04:51→21:44)
[2017-06-24 06:02] LABS: BASO % 0.2 %; BASO ABS # 0.04 K/uL (0-0.2); EOS % 1.2 %; HEMATOCRIT 32.7 % (37-47); IG% 0.7 %; LYMPH % 29.2 %; LYMPH ABS # 4.68 K/uL (1.2-3.4); MEAN CELL VOLUME 76.9 fL (80-100); MEAN CORPUSCULAR HEMOGLOBIN 22.4 pg (25-34); MEAN CORPUSCULAR HGB CONC 29.1 g/dl (32-36); MEAN PLATELET VOLUME 8.7 fL (7.4-10.4); MONO % 5.6 %; NEUT % 63.1 %; PLATELET COUNT 343 K/uL (130-400); RED BLOOD COUNT 4.25 M/uL (4.2-5.4); WHITE BLOOD COUNT 16.05 K/uL (4.8-10.8)
[2017-06-24 06:33] LABS: BUN/CREATININE RATIO 28.6 (10-20); CALCIUM 8.7 mg/dl (8.5-10.1); CREATININE 0.63 mg/dl (0.60-1.20)
[2017-06-24 06:45] LABS: ANISOCYTOSIS PRESENT; COMPLETE YES; HYPOCHROMIA PRESENT; MICROCYTOSIS PRESENT; OVALOCYTES 1+; POLYCHROMASIA 1+
[2017-06-24 07:45] VITALS: BP 109/81; PULSE 109; TEMP 36.9; O2SAT 98
[2017-06-24] MEDS: CLONAZEPAM 1 MG TAB PO PRN ×2 (08:57→21:03)
[2017-06-24] MEDS: HYDROCORTISONE VAL 0.2% OINT 15GM TUBE EXT SCH ×2 (08:58→20:00)
[2017-06-24] MEDS: METOPROLOL TARTRATE 25 MG TAB PO SCH ×2 (08:59→21:02)
[2017-06-24] MEDS: DULOXETINE HCL 60 MG CAP PO SCH (08:59)
[2017-06-24] MEDS: DOCUSATE SODIUM 100 MG CAP PO SCH ×2 (08:59→21:01)
[2017-06-24] MEDS: MESALAMINE 4 GM/60 ML ENEMA BTL PR SCH ×2 (09:00→20:00)
[2017-06-24] MEDS: PANTOprazole SOD 40 MG TAB PO SCH (09:00)
[2017-06-24] MEDS: TAPENTADOL ER 50 MG TABCR PO SCH (09:11)
[2017-06-24] MEDS: POLYETHYLENE (MIRALAX) 17 GM PACK PO PRN (09:11)
--- NOTE | 2017-06-24 09:44 | Progress Note ---
Internal Med Progress Note Date of Service: Jun 24, 2017. Provider Documentation: SUBJECTIVE: Seen and examined at bedside. States extremity pain hasn't changed Maculopapular rash improved Minimal abdominal discomfort Denies diarrhea, blood in stools, tolerates diet OBJECTIVE: Vital Signs-as noted below Physical Exam: General Appearance:Moderately built and nourished, no apparent distress Head: normocephalic, Atraumatic Eyes: normal inspection, EOMI, PERRL Neck: supple, Trachea midline Respiratory/Chest: Normal breath sounds, CTA Cardiovascular: S1, S2, +Tachycardia, No murmur Abdomen/GI:Soft, Non tender, Bowel sounds present Extremities/Musculoskelatal:normal inspection, no edema Neurologic/Psych:grossly no focal neurological deficits Skin: normal color, warm Lab data as noted below. ASSESSMENT & PLAN: Patient is a 31 yr female with H/O Ulcerative Colitis, presenting with diffuse "bone pains". Persistent Arthralgias (?IBD arthritis), Facial Rash ? Possible side effects of Humira continue Nucynta Q4H PRN Discussed with on 06/24/17: IV Toradol 15mg Q8H for 2 days. Stop Nucynta ER for now Consider short course of Decadron 5mg BID for 3-5 days (OK to continue PO Prednisone while on Decadron) Needs referral from PCP once discharged to follow up with Pain clinic as outpatient Other Outpatient options : Tylenol with Codeine Also discussed with on 06/24/17 (Agreed with use of IV Toradol but avoid any narcotics) Discussed again with as patient refused IV toradol. Recommendations : Absolutely no Opioids upon discharge Decadron 5mg BID for 5 days Humira discontinued, plan to start Entyvio as outpatient (As Non formulary) Previously seen by Dr. Izquierdo, unfortunately cannot see the patient as outpatient due to Insurance coverage Discussed with [facility], checking for Insurance coverage Appreciate Rheumatology Input. X rays of Knees and ankles:unremarkable. ? Need for bone scan May consider starting on gabapentin Appreciate Dermatology input likely Acneiform reaction, Improved Ulcerative Colitis GI symptoms have been stable since discharge after Humira loading dose 06/12/17 continue Prednisone taper, Jeanette Umaña patient needs to be established with [facility] that accepts her insurance [facility] checking if they can accept the patient Sinus Tachycardia: ? Physiological/ Secondary to steroids Clonidine patch re-started (patient was receiving this last week for possible hypersympathetic activity while being weaned off narcotics) ECHO:mild LVH TSH normal, D dimer, CT chest normal Appreciate cardiology Input Continue Metoprolol Chronic Anemia stable denies GI bleeding Chronic Pain patient's Nucynta was only approved for 4 days during last admission, discharged on Tramadol which did not help with her pain will avoid IV narcotics restarted Nucynta per Pain Mgt [facility] recommendations during last admission pain level about the same seen by Pain Management last admission, may need to be re-evaluated plans for medication on discharge DVT x SCDs has history of hematochezia encouraged to ambulate Code Status Full Code Disposition Plan to discharge home Follow up with your PCP Dr.Brandon Quach on Jul 03, 2017 at 2:20 pm Follow up with your senior industrial engineer on Jul 01 at 9:30 am Follow up with Pain Management Dr. Sheffield as advised Seek immediate medical attention if your symptoms reoccur or worsen Vital Signs: Date Time Temp Pulse Resp B/P (MAP) Pulse Ox O2 Delivery O2 Flow Rate FiO2 06/24/17 12:00 36.5 104 18 109/76 (87) 98 Room Air 06/24/17 11:52 Room Air 06/24/17 10:51 36.9 109 20 98 06/24/17 08:00 Room Air 06/24/17 07:45 36.9 109 20 109/81 (90) 98 06/24/17 04:00 Room Air 06/24/17 03:36 36.5 102 15 99/68 (78) 96 Room Air 06/24/17 00:29 Room Air 06/24/17 00:00 36.8 101 18 104/78 (87) 98 Room Air 06/23/17 20:25 36.5 113 16 102/70 (81) 96 Room Air 06/23/17 20:20 Room Air 06/23/17 16:00 Room Air 06/23/17 15:36 36.4 114 20 109/76 (87) 96 Room Air Lab Results: Results Past 24 Hours Test 06/24/17 05:19 Range/Units White Blood Count 16.05 4.8-10.8 K/uL Red Blood Count 4.25 4.2-5.4 M/uL Hemoglobin 9.5 12.0-16.0 g/dL Hematocrit 32.7 37-47 % Mean Corpuscular Volume 76.9 80-100 fL Mean Corpuscular Hemoglobin 22.4 25-34 pg Mean Corpuscular Hemoglobin Concent 29.1 32-36 g/dl Platelet Count 343 130-400 K/uL Mean Platelet Volume 8.7 7.4-10.4 fL Neutrophils (%) (Auto) 63.1 % Lymphocytes (%) (Auto) 29.2 % Monocytes (%) (Auto) 5.6 % Eosinophils (%) (Auto) 1.2 % Basophils (%) (Auto) 0.2 % Neutrophils # (Auto) 10.12 1.4-6.5 K/uL Lymphocytes # (Auto) 4.68 1.2-3.4 K/uL Monocytes # (Auto) 0.90 0.11-0.59 K/uL Eosinophils # (Auto) 0.19 0-0.5 K/uL Basophils # (Auto) 0.04 0-0.2 K/uL Immature Granulocyte % (Auto) 0.7 % Immature Granulocyte # (Auto) 0.12 0.00-0.02 K/uL Polychromasia 1+ Hypochromasia PRESENT Anisocytosis PRESENT Microcytosis PRESENT Ovalocytes 1+ Sodium Level 142 136-145 mmol/L Potassium Level 4.0 3.5-5.1 mmol/L Chloride Level 106 98-107 mmol/L Carbon Dioxide Level 31 21-32 mmol/L Anion Gap 5.0 3-11 mmol/L Blood Urea Nitrogen 18 7-18 mg/dl Creatinine 0.63 0.60-1.20 mg/dl Est Creatinine Clear Calc Drug Dose 118.8 ml/min Estimated GFR () 136.6 Estimated GFR (Non- 117.9 BUN/Creatinine Ratio 28.6 10-20 Random Glucose 76 70-99 mg/dl Calcium Level 8.7 8.5-10.1 mg/dl
[2017-06-24] MEDS ORDERED: NURSING VERBAL MED ORDER ONE (10:15)
--- NOTE | 2017-06-24 10:19 | Cardiology Follow-Up ---
Subjective General Date of Service: Jun 24, 2017. Chief Complaint: UC; LE pain; tachycardia Pt evaluation today including: conversation w/ patient, physical exam, chart review, lab review, review of studies, conversation w/ sap business objects consultant, review of inpatient medication list History of Present Illness Patient feeling ok this AM. Improved HR on telemetry, ranging 90-110 predominantly. Patient reports improved sensation of palpitations and tachypalpitations since starting metoprolol. No dizziness, syncope or near syncope. No chest pain or SOB. Primary complaint is ongoing LE pain. Allergies Coded Allergies: Diphenhydramine (Verified Allergy, Intermediate, Crawling out of skin, ) Levofloxacin (Verified Allergy, Unknown, ., 06/19/17) Morphine (Verified Allergy, Unknown, RASH, 06/19/17) Metoclopramide (Verified Adverse Reaction, Mild, ., 06/19/17) makes skin crawl as per px Promethazine (Verified Adverse Reaction, Mild, ., 06/01/17) makes skin crawl as per px Fentanyl (Verified Adverse Reaction, Unknown, "aggitates me", 06/19/17) Social History Smoking Status: Never Smoker Hx Tobacco Use In Past Year?: No Hx Alcohol Use - Type And Amou: No Hx Substance Use - Type And Am: No Problem List Medical Problems: (1) Abdominal pain Status: Acute (2) Colitis, acute Status: Acute (3) Myalgia Status: Acute (4) Opiate withdrawal Status: Acute Review of Systems Respiratory: No cough, No sputum, No wheezing, No shortness of breath, No dyspnea at rest, No hemoptysis Cardiac: No chest pain, No orthopnea, No PND, No edema, No palpitations Physical Exam Vital Signs Last Vital Signs Documentation Date Time Temp Pulse Resp B/P (MAP) Pulse Ox O2 Delivery O2 Flow Rate FiO2 06/24/17 08:00 Room Air 06/24/17 07:45 36.9 109 20 109/81 (90) 98 Physical Exam Constitutional: General Apperance: heathly-appearing Level of Distress: NAD Ambulation: ambulating normally Psychiatric: Mental Status: active & alert Orientation: to time, to place, to person Head: normocephalic Eyes: Pupils: PERRLA Neck: supple Lungs: Respiratory effort: no dyspnea Auscultation: no wheezing, no rales/crackles, no rhonchi Cardiovascular: Heart Auscultation: RRR, no murmurs Abdomen: Bowel Sounds: normal Inspection & Palpation: soft, non-distended Extremities: no edema Assessment and Plan Assessment and Plan FINAL IMPRESSION: 31-year-old female. 1. Sinus tachycardia, likely physiologic response to acute illness/UC flare, high dose steroids, anemia of chronic disease. 2. No pericardial effusion. Normal LV function 3. Borderline LVH RECOMMENDATIONS: Symptoms improved with re-initiating metoprolol 25 mg BID. This provided symptomatic relief previously. Would continue current dose. Stable to transfer off telemetry. No further cardiac testing indicated at this time. Will sign off. Please notify fire investigation lieutenant provider with additional questions or concerns. Case discussed with Dr. Roberts Laboratory Results Last 24 Hours Test 06/24/17 05:19 White Blood Count 16.05 K/uL Red Blood Count 4.25 M/uL Hemoglobin 9.5 g/dL Hematocrit 32.7 % Mean Corpuscular Volume 76.9 fL Mean Corpuscular Hemoglobin 22.4 pg Mean Corpuscular Hemoglobin Concent 29.1 g/dl Platelet Count 343 K/uL Mean Platelet Volume 8.7 fL Neutrophils (%) (Auto) 63.1 % Lymphocytes (%) (Auto) 29.2 % Monocytes (%) (Auto) 5.6 % Eosinophils (%) (Auto) 1.2 % Basophils (%) (Auto) 0.2 % Neutrophils # (Auto) 10.12 K/uL Lymphocytes # (Auto) 4.68 K/uL Monocytes # (Auto) 0.90 K/uL Eosinophils # (Auto) 0.19 K/uL Basophils # (Auto) 0.04 K/uL Immature Granulocyte % (Auto) 0.7 % Immature Granulocyte # (Auto) 0.12 K/uL Polychromasia 1+ Hypochromasia PRESENT Anisocytosis PRESENT Microcytosis PRESENT Ovalocytes 1+ Sodium Level 142 mmol/L Potassium Level 4.0 mmol/L Chloride Level 106 mmol/L Carbon Dioxide Level 31 mmol/L Anion Gap 5.0 mmol/L Blood Urea Nitrogen 18 mg/dl Creatinine 0.63 mg/dl Est Creatinine Clear Calc Drug Dose 118.8 ml/min Estimated GFR () 136.6 Estimated GFR (Non- 117.9 BUN/Creatinine Ratio 28.6 Random Glucose 76 mg/dl Calcium Level 8.7 mg/dl
[2017-06-24 10:51] VITALS: BP 109/81; PULSE 109; TEMP 36.9; O2SAT 98
[2017-06-24 12:00] VITALS: BP 109/76; PULSE 104; TEMP 36.5; O2SAT 98
[2017-06-24] MEDS ORDERED: hydrOXYzine HCL 25 MG TAB PO PRN (13:30)
[2017-06-24] MEDS ORDERED: KETOROLAC TROMETHAMINE 15 MG/ML VIAL IV SCH (14:00)
[2017-06-24 15:54] VITALS: BP 102/65; PULSE 110; TEMP 36.7; O2SAT 97
[2017-06-24] MEDS: DEXAMETHASONE 1 MG TAB PO SCH (21:02)
[2017-06-25 00:22] VITALS: BP 104/72; PULSE 95; TEMP 36.9; O2SAT 96
[2017-06-25] MEDS: TAPENTADOL HCL 50 MG TAB PO PRN ×4 (02:06→16:35)
[2017-06-25] MEDS: PANTOprazole SOD 40 MG TAB PO SCH (07:40)
[2017-06-25] MEDS: DEXAMETHASONE 1 MG TAB PO SCH (07:41)
[2017-06-25] MEDS: DULOXETINE HCL 60 MG CAP PO SCH (07:41)
[2017-06-25] MEDS: DOCUSATE SODIUM 100 MG CAP PO SCH (07:42)
[2017-06-25] MEDS: METOPROLOL TARTRATE 25 MG TAB PO SCH (07:42)
[2017-06-25] MEDS: HYDROCORTISONE VAL 0.2% OINT 15GM TUBE EXT SCH (07:43)
[2017-06-25] MEDS: MESALAMINE 4 GM/60 ML ENEMA BTL PR SCH (07:44)
[2017-06-25 08:00] VITALS: O2SAT 96
[2017-06-25 08:07] VITALS: BP 113/78; PULSE 85; TEMP 36.6; O2SAT 98
[2017-06-25 08:27] LABS: BUN/CREATININE RATIO 25.7 (10-20); CALCIUM 9.2 mg/dl (8.5-10.1); CREATININE 0.65 mg/dl (0.60-1.20); POTASSIUM 4.1 mmol/L (3.5-5.1)
--- NOTE | 2017-06-25 09:45 | Pain Management Consultation ---
Pain Management Consultation Date of Consultation Jun 25, 2017. Reason for Consultation Opioid dependency History Mrs. Valladares is a 31 year old white female that has been seen at the [facility] for ulcerative colitis and chronic opioid dependency. She was recently discharged from the hospital on 06/16/17 and readmitted on . She states that when she was discharged on Tramadol (since Nucynta required a prior authorization) she started to develop diffuse arthralgias so she returned to the hospital and was readmitted. Patient states that her pain is well controlled with Nucynta IR 50mg QID. Pain is currently 3/10. Mrs. Valladares does continue to refuse IV Toradol. She did agree to additional Decadron PO for the next several days. Patient does have an appointment with her PCP in 6 days. Patient denies any constitutional complaints, neurological symptoms, weakness, vomiting, nausea. Case discussed with Dr. Sheffield Past Medical/Surgical History (1) Myalgia (2) Arthralgia (3) Depression (4) Anxiety (5) Kidney stone (6) Ulcerative colitis (7) Hx of appendectomy (8) Hx of cholecystectomy (9) H/O section Family History FHx: heart disease FATHER UNCLES Hypertension Kidney disease THYROID DISEASE MOTHER Social / Work History Smoking Status: Former smoker Smokeless Tobacco Use: No Marital Status: in relationship Housing Status: lives with significant other Occupation: unemployed Allergies Coded Allergies: Diphenhydramine (Verified Allergy, Intermediate, Crawling out of skin, ) Levofloxacin (Verified Allergy, Unknown, ., 06/19/17) Morphine (Verified Allergy, Unknown, RASH, 06/19/17) Metoclopramide (Verified Adverse Reaction, Mild, ., 06/19/17) makes skin crawl as per px Promethazine (Verified Adverse Reaction, Mild, ., 06/01/17) makes skin crawl as per px Fentanyl (Verified Adverse Reaction, Unknown, "aggitates me", 06/19/17) Medications Current Inpatient Medications Medications (Trade) Dose Ordered Sig/Sally Route Start Time Stop Time Status Last Admin Dose Admin Clonazepam (Klonopin Tab) 1 mg BID PRN PO 06/19/17 19:15 07/19/17 19:14 06/24/17 21:03 1 MG Docusate Sodium (coLACE CAP) 100 mg BID PO 06/19/17 20:17 07/19/17 20:59 06/25/17 07:42 100 MG Duloxetine HCl (Cymbalta Cap) 120 mg DAILY PO 06/20/17 08:00 07/20/17 08:59 06/25/17 07:41 120 MG Lamotrigine (Lamictal Tab) 200 mg DAILY PO 06/20/17 08:00 07/20/17 08:59 06/25/17 07:40 200 MG Mesalamine (Rowasa Enema) 4 gm BID KS 06/19/17 20:17 07/19/17 20:59 06/21/17 08:30 4 GM Ondansetron HCl (Zofran Odt) 4 mg Q6H PRN SL 06/19/17 19:15 07/19/17 19:14 06/25/17 04:16 4 MG Pantoprazole Sodium (Protonix Tab) 40 mg DAILY PO 06/20/17 08:00 07/20/17 08:59 06/25/17 07:40 40 MG Polyethylene (Miralax Powder Packet) 17 gm BID PRN PO 06/19/17 19:15 07/19/17 19:14 06/24/17 09:11 17 GM Acetaminophen (Tylenol Tab) 650 mg Q4H PRN PO 06/19/17 19:30 07/19/17 19:29 Tapentadol (Nucynta Tab) 50 mg Q4H PRN PO 06/20/17 17:15 07/19/17 19:14 06/25/17 07:39 50 MG Hydrocortisone Valerate (Westcort 0.2% Oint) 1 appln BID EXT 06/21/17 20:00 07/21/17 07:59 Lorazepam (Ativan Tab) 0.5 mg Q6 PRN PO 06/21/17 20:30 07/21/17 20:29 Prednisone (PredniSONE TAB) 35 mg DAILY PO 06/23/17 09:00 07/20/17 08:59 06/25/17 07:40 35 MG Metoprolol Tartrate (Lopressor Tab) 25 mg BID PO 06/23/17 21:00 07/23/17 20:59 06/25/17 07:42 25 MG Hydroxyzine HCl (Vistaril Tab) 25 mg Q8 PRN PO 06/24/17 13:30 07/24/17 13:29 06/24/17 13:30 25 MG Dexamethasone (Decadron Tab) 5 mg BID PO 06/24/17 20:00 07/24/17 19:59 06/25/17 07:41 5 MG Review of Systems Denies any constitutional, cardiac, pulmonary, neurological, GI, , extremity, endocrine, neuro, ENT, dermatological, or musculoskeletal complaints other than stated in HPI Physical Exam Height & Weight: Height 5 feet, 6.00 inches. Weight 67.100 (Kilograms) 147 (Pounds) Last Vital Signs Documentation Date Time Temp Pulse Resp B/P (MAP) Pulse Ox O2 Delivery O2 Flow Rate FiO2 06/25/17 08:07 36.6 85 16 113/78 (90) 98 Room Air Exam: GENERAL: Mrs. Valladares is a 31 y/o white female that appears her stated age. Speech and cognition is intact. Flat affect. Accompanied by mother. HEAD: Normocephalic; atraumatic. EYES: Pupils are round, equal, and reactive to light; EOM intact. ENT: No external ear discharge or lesions. No rhinorrhea or epistaxis. No mucosal lesions. CHEST: Regular chest respiration and excursion. EXTREMITIES: Using all extremities appropriately. No tenderness to palpation of extremities. NEURO: CN II-XII grossly intact with no focal deficits noted. AAO x 3. SKIN: No lesions, erythema, or rashes noted. Laboratory Laboratory Results (Last CBC): 06/24/17 05:19 Red Blood Count 4.25, Mean Corpuscular Volume 76.9 L, Mean Corpuscular Hemoglobin 22.4 L, Mean Corpuscular Hemoglobin Concent 29.1 L, Mean Platelet Volume 8.7, Neutrophils (%) (Auto) 63.1, Lymphocytes (%) (Auto) 29.2, Monocytes (%) (Auto) 5.6, Eosinophils (%) (Auto) 1.2, Basophils (%) (Auto) 0.2, Neutrophils # (Auto) 10.12 H, Lymphocytes # (Auto) 4.68 H, Monocytes # (Auto) 0.90 H, Eosinophils # (Auto) 0.19, Basophils # (Auto) 0.04 Imaging Other Findings See EMR Assessment 1. Chronic ulcerative colitis 2. Opioid dependency 3. Diffuse arthralgias Recommendations 1. Continue Nucynta 50mg IR x 4 hours PRN pain. 2. Continue Decadron PO as well as Prednisone. 3. She has an appointment with her PCP in 6 days. I have explained to the patient that there is an effort to get a 1 week prior authorization for Nucynta for her. If Nucynta cannot be authorized, may try Tylenol with codeine for discharge until she can see PCP. 4. Would recommend that PCP have a strict weaning schedule for the patient. Likely decrease one tablet x week until she is completely off of narcotics.
--- NOTE | 2017-06-25 13:32 | DIAGNOSTIC IMAGING REPORT ---
BONE SCAN 3 PHASE LIMITED HISTORY: Bilateral hip pain. R/O Avascular Necrosis (Pelvis and B/L lower extremities) TECHNIQUE: Immediately and 3 hours following the intravenous administration of 26.1 mCi of technetium 99 M MDP, 3 phase bone scan of the pelvis and hips were performed. Additional delayed images of the lower extremity were obtained. COMPARISON STUDY: Abdomen and pelvis CT 06/15/2017. FINDINGS: No abnormal radiotracer uptake seen within the pelvis or hips on the blood flow, blood pool, or delayed sequences. Mild radiotracer uptake seen within the medial tibial plateaus bilaterally. No abnormal radiotracer uptake seen within the ankles or feet. IMPRESSION: 1. Mild radiotracer uptake seen within the medial tibial plateaus bilaterally. The prior radiographs are within normal limits. Recommend MRI of the right or left knee. The patient is symptomatic to exclude the possibility of underlying avascular necrosis. 2. No abnormal radiotracer uptake seen within the pelvis or hips. Electronically signed by: Jose Alfredo Allan M.D. 06/25/2017 1:31 PM Dictated Date/Time: 06/25/2017 1:24 PM
--- NOTE | 2017-06-25 15:52 | Progress Note ---
Internal Med Progress Note Date of Service: Jun 25, 2017. Provider Documentation: SUBJECTIVE: Seen and examined at bedside. Extremity pain is controlled Denies chest pain, SOB, diarrhea, blood in stools, tolerates diet Offers no other symptoms Family at bedside OBJECTIVE: Vital Signs-as noted below Physical Exam: General Appearance:Moderately built and nourished, no apparent distress Head: normocephalic, Atraumatic Eyes: normal inspection, EOMI, PERRL Neck: supple, Trachea midline Respiratory/Chest: Normal breath sounds, CTA Cardiovascular: S1, S2, No murmur Abdomen/GI:Soft, Non tender, Bowel sounds present Extremities/Musculoskelatal:normal inspection, no edema Neurologic/Psych:grossly no focal neurological deficits Skin: normal color, warm Lab data as noted below. ASSESSMENT & PLAN: Patient is a 31 yr female with H/O Ulcerative Colitis, presenting with diffuse "bone pains". Persistent Arthralgias (?IBD arthritis), Facial Rash ? Possible side effects of Humira continue Nucynta Q4H PRN Discussed with on 06/24/17: IV Toradol 15mg Q8H for 2 days. Stop Nucynta ER for now Consider short course of Decadron 5mg BID for 3-5 days if not a candidate for IV Toradol (OK to continue PO Prednisone while on Decadron) Needs referral from PCP once discharged to follow up with Pain clinic as outpatient Other Outpatient options : Tylenol with Codeine Also discussed with on 06/24/17 (Agreed with use of IV Toradol but avoid any narcotics) but patient refused IV Toradol Discussed again with as patient refused IV toradol. Recommendations : Absolutely no Opioids upon discharge Decadron 5mg BID for 5 days Humira discontinued, plan to start Entyvio as outpatient (As Non formulary) Previously seen by Dr. Izquierdo, unfortunately cannot see the patient as outpatient due to Insurance coverage Got appointment with her latex thread machine operator on Jul 01 for follow up as outpatient Appreciate Rheumatology Input. X rays of Knees and ankles:unremarkable. May consider starting on gabapentin Appreciate Dermatology input likely Acneiform reaction, Improved Appreciate pain management input Discussed with radiology about bone scan. Recommended MRI knee MRI knee pending Ulcerative Colitis GI symptoms have been stable since discharge after Humira loading dose 06/12/17 continue Prednisone taper, Rowasa, Colace Needs follow up with latex thread machine operator on Jul 01 for follow up as outpatient for further management (Possible Entyvio therapy as outpatient) Sinus Tachycardia: ? Physiological/ Secondary to steroids Clonidine patch re-started (patient was receiving this last week for possible hypersympathetic activity while being weaned off narcotics) ECHO:mild LVH TSH normal, D dimer, CT chest normal Appreciate cardiology Input Continue Metoprolol Chronic Anemia stable denies GI bleeding Chronic Pain patient's Nucynta was only approved for 4 days during last admission, discharged on Tramadol which did not help with her pain will avoid IV narcotics restarted Nucynta per Pain Mgt SVC recommendations during last admission Appreciate pain management Input Plan to discharge on Nucynta PRN DVT x SCDs has history of hematochezia encouraged to ambulate Code Status Full Code Disposition Plan to discharge home Follow up with your PCP Dr.Brandon Quach on Jun 30, 2017 at 1:30 pm Follow up with your latex thread machine operator on Jul 01 at 9:30 am Follow up with Pain Management Dr. Sheffield as advised Seek immediate medical attention if your symptoms reoccur or worsen Vital Signs: Date Time Temp Pulse Resp B/P (MAP) Pulse Ox O2 Delivery O2 Flow Rate FiO2 06/25/17 08:07 36.6 85 16 113/78 (90) 98 Room Air 06/25/17 08:00 96 Room Air 06/25/17 00:22 36.9 95 18 104/72 (83) 96 Room Air 06/24/17 23:15 Room Air 06/24/17 16:00 Room Air 06/24/17 15:54 36.7 110 16 102/65 (77) 97 Room Air Lab Results: Results Past 24 Hours Test 06/25/17 07:08 Range/Units Sodium Level 139 136-145 mmol/L Potassium Level 4.1 3.5-5.1 mmol/L Chloride Level 103 98-107 mmol/L Carbon Dioxide Level 29 21-32 mmol/L Anion Gap 7.0 3-11 mmol/L Blood Urea Nitrogen 17 7-18 mg/dl Creatinine 0.65 0.60-1.20 mg/dl Est Creatinine Clear Calc Drug Dose 115.2 ml/min Estimated GFR () 135.2 Estimated GFR (Non- 116.7 BUN/Creatinine Ratio 25.7 10-20 Random Glucose 96 70-99 mg/dl Calcium Level 9.2 8.5-10.1 mg/dl
[2017-06-25] MEDS ORDERED: PRED10TA PO (15:56)
[2017-06-25] MEDS ORDERED: LPR25 PO (15:56)
[2017-06-25] MEDS ORDERED: NCY50 PO (15:56)
--- NOTE | 2017-06-25 15:59 | Discharge Instructions ---
Discharge Instructions Date of Service Jun 25, 2017. Admission Reason for Admission: Arthralgia Discharge Discharge Diagnosis / Problem: Arthralgia Discharge Goals Goal(s): Decrease discomfort, Improve function Activity Recommendations Activity Limitations: resume your previous activity Exercise/Sports Limitations: as tolerated . Instructions / Follow-Up Instructions / Follow-Up Follow up with your PCP Dr.Brandon Quach on Jun 30, 2017 at 1:30 pm Follow up with your network design architect on Jul 01 at 9:30 am Follow up with Pain Management Dr. Sheffield as advised Follow up with your Court Officer Discuss with your primary care physician regarding further need to follow with your ceramic products sales engineer if necessary Seek immediate medical attention if your symptoms reoccur or worsen Discuss with your network design architect regarding prednisone taper as advised Current Hospital Diet Patient's current hospital diet: Regular Diet Discharge Diet Recommended Diet: Regular Diet Pending Studies Studies pending at discharge: no Medical Emergencies . Who to Call and When: Medical Emergencies: If at any time you feel your situation is an emergency, please call 911 immediately. . Non-Emergent Contact Non-Emergency issues call your: Primary Care Provider, Coffee Break Attendant Call Non-Emergent contact if: you have a fever, your pain is not controlled, your pain is worsening, your pain is unusual for you, your pain is concerning you, you have any medication questions . . "Provider Documentation" section prepared by Jian Gaytan. . VTE Core Measure Inpt VTE Proph given/why not?: SCD's
[2017-06-25 16:10] VITALS: BP 106/76; PULSE 114; TEMP 36.6; O2SAT 97
[2017-06-25] MEDS: CLONAZEPAM 1 MG TAB PO PRN (16:36)
--- NOTE | 2017-06-25 17:54 | DIAGNOSTIC IMAGING REPORT ---
RIGHT LOWER EXT JOINT WITHOUT CLINICAL HISTORY: 31 years-old Female presenting with Rule out Avascular necrosis, extreme lower Huggins he pain that started one week ago after being placed on Humira. TECHNIQUE: Multisequence, multiplanar MR imaging of the right knee was performed without the use of intravenous contrast. IV contrast: None. COMPARISON: Correlation made to plain radiographs of the right knee from 06/22/2017 and nuclear medicine bone scan from 06/25/2017. FINDINGS: Localizer images: Unremarkable. No bony edema. No abnormal signal intensity within the medullary space to suggest osteonecrosis. Articular cartilage intact. Medial and lateral menisci intact. Anterior and posterior cruciate ligaments intact. Medial collateral ligament intact. Lateral collateral ligament complex including the biceps femoris tendon, fibular collateral ligament, popliteus tendon, and iliotibial band intact. No significant joint effusion. Tiny popliteal cyst. Adjacent to this, ganglion cyst noted immediately superior to the posterior articular surface of the medial femoral condyle. Normal muscle bulk. Normal in signal intensity of the muscles. IMPRESSION: 1. No evidence of osteonecrosis. 2. Ganglion cyst superior to the posterior articular surface of the medial femoral condyle, which may suggest prior injury. No injury is apparent on the current exam. Electronically signed by: Matthew Tuttle M.D. 06/25/2017 5:53 PM Dictated Date/Time: 06/25/2017 5:43 PM
--- NOTE | 2017-06-25 17:58 | Discharge Summary ---
Discharge Summary Date of Service Jun 25, 2017. Discharge Summary Admission Date: Jun 19, 2017 at 19:04 Discharge Date: Jun 25, 2017 Discharge Disposition: Home Principal Diagnosis: Arthralgia Procedures: CT chest: 1. No pericardial effusion. 2. No acute intrathoracic findings on unenhanced chest CT. Bone Scan: 1. Mild radiotracer uptake seen within the medial tibial plateaus bilaterally. The prior radiographs are within normal limits. Recommend MRI of the right or left knee. The patient is symptomatic to exclude the possibility of underlying avascular necrosis. 2. No abnormal radiotracer uptake seen within the pelvis or hips. MRI knee: 1. No evidence of osteonecrosis. 2. Ganglion cyst superior to the posterior articular surface of the medial femoral condyle, which may suggest prior injury. No injury is apparent on the current exam. Consultations: Cardiology, GI, Rheumatology, Pain management, Dermatology Pending Studies/Follow-Up: Follow up with your PCP Dr.Brandon Quach on Jun 30, 2017 at 1:30 pm Follow up with your precision lens grinder on Jul 01 at 9:30 am Follow up with Pain Management Dr. Sheffield as advised Follow up with your Patient Access Manager Discuss with your primary care physician regarding further need to follow with your brazing furnace operator if necessary Seek immediate medical attention if your symptoms reoccur or worsen Discuss with your precision lens grinder regarding prednisone taper as advised Medication Reconciliation New Medications: Metoprolol Tartrate (Lopressor) 25 Mg Tab 25 MG PO BID for 30 Days, #60 TAB Tapentadol HCl (Nucynta) 50 Mg Tab 50 MG PO Q4H PRN for Pain for 4 Days, #16 TAB Changed Medications: Prednisone (Prednisone) 10 Mg Tab 35 MG PO UD, #1 TAB (Changed from: 0 ; 126) 40 mg (4 pills) daily for first week, then taper as directed Continued Medications: Acetaminophen (Mapap) 325 Mg Tab 650 MG PO Q6H PRN for Pain or Fever for 30 Days, #240 TAB No prescription necessary. Clonazepam (Clonazepam) 1 Mg Tab 1 MG PO BID PRN for severe anxiety, #28 TAB May cause drowsiness- do not drive after taking. Docusate Sodium (Docusate Sodium) 100 Mg Cap 100 MG PO BID, #60 CAP No prescription necessary. Duloxetine Hcl (Cymbalta) 60 Mg Cap 120 MG PO DAILY, CAP Hydroxyzine HCl (Hydroxyzine HCl) 25 Mg Tab 25 MG PO Q8 PRN for anxiety or allergy symptoms, #42 TAB Try hydroxyzine before clonazepam. May cause drowsiness- do not drive after taking. Iud's (Paragard Intrauterine Lead Infrastructure Architect) 1 Iud Iud 1 DOSE INT UTER CONTINOUS Lamotrigine (Lamictal) 200 Mg Tab 200 MG PO DAILY, TAB Mesalamine (Mesalamine) 4 Gm/60 Ml Enem 4 GM ME BID, #60 BTL 5 Refills Ondasetron Odt (Zofran Odt) 4 Mg Tab 4 MG SL Q6H PRN for Nausea, #12 TAB 5 Refills Pantoprazole (Pantoprazole Sodium) 40 Mg Tab 40 MG PO DAILY, #30 TAB 1 Refill Polyethylene (Miralax) 17 Gm Pow 17 GM PO BID PRN for Constipation, #1 BTL No prescription necessary. Use as directed on bottle twice a day as needed for constipation. Discontinued Medications: Tramadol (Ultram) 50 Mg Tab 50 MG PO UD PRN for Pain, #60 TAB Take 1 pill twice a day. May take extra pill every 6 hrs as needed for severe pain. Admission Information HPI (per Admitting provider): 31 year old female with history of Ulcerative Colitis, presenting with diffuse "bone pains". Patient was recently admitted for Ulcerative Colitis flare. She received Humira Injection 06/12/17 and since then , has been having diffuse bone and joints pain. While admitted, patient was receiving PRN Nucynta which managed the pain adequately. Upon discharge, patient was taking Tramadol PRN for pain. Patient reports increasing diffuse bone and joint pain since discharge to the point that she has difficulty ambulating, hence sought consult at the ER. Patient denies fever but reports occasional chills, sweats. Denies abdominal pain, nausea, hematochezia/melena, poor appetite. At the ER, patient was afebrile, tachycardic with elevated WBC. She was given IV fluids and Dilaudid IV. On exam, patient seen resting in bed, not in distress. States she feels slightly improved. Denies any other active symptoms except for diffuse bone and joint pains. Physical Exam (per Admitting): General Appearance: WD/WN, no apparent distress Head: normocephalic, atraumatic Eyes: normal inspection, sclerae normal ENT: normal ENT inspection, hearing grossly normal, TMs normal, pharynx normal Neck: supple, no adenopathy, thyroid normal, no JVD Respiratory/Chest: chest non-tender, lungs clear, normal breath sounds, no respiratory distress, no accessory muscle use Cardiovascular: regular rate, rhythm, no edema, no JVD, no murmur, normal peripheral pulses Abdomen/GI: normal bowel sounds, non tender, soft, no organomegaly Back: normal inspection, no CVA tenderness Extremities/Musculoskelatal: normal inspection, no calf tenderness, normal capillary refill, no pedal edema Neurologic/Psych: district resource officer II-XII nml as tested, no motor/sensory deficits, alert , normal mood/affect, oriented x 3 Skin: normal color, warm/dry, no rash Lymphatic: no adenopathy Hospital Course Patient is a 31 yr female with H/O Ulcerative Colitis, presenting with diffuse "bone pains". Persistent Arthralgias (?IBD arthritis), Facial Rash ? Possible side effects of Humira continue Nucynta Q4H PRN Discussed with on 06/24/17: IV Toradol 15mg Q8H for 2 days. Stop Nucynta ER for now Consider short course of Decadron 5mg BID for 3-5 days if not a candidate for IV Toradol (OK to continue PO Prednisone while on Decadron) Needs referral from PCP once discharged to follow up with Pain clinic as outpatient Other Outpatient options : Tylenol with Codeine Also discussed with on 06/24/17 (Agreed with use of IV Toradol but avoid any narcotics) but patient refused IV Toradol Discussed again with as patient refused IV toradol. Recommendations : Absolutely no Opioids upon discharge Decadron 5mg BID for 5 days Humira discontinued, plan to start Entyvio as outpatient (As Non formulary) Previously seen by Dr. Izquierdo, unfortunately cannot see the patient as outpatient due to Insurance coverage Got appointment with her precision lens grinder on Jul 01 for follow up as outpatient Appreciate Rheumatology Input. X rays of Knees and ankles:unremarkable. May consider starting on gabapentin Appreciate Dermatology input likely Acneiform reaction, Improved Appreciate pain management input Discussed with radiology about bone scan. Recommended MRI knee MRI knee: showed no evidence of osteonecrosis Ulcerative Colitis GI symptoms have been stable since discharge after Humira loading dose 06/12/17 continue Prednisone taper, Jeanette Umaña Needs follow up with precision lens grinder on Jul 01 for follow up as outpatient for further management (Possible Entyvio therapy as outpatient) Sinus Tachycardia: ? Physiological/ Secondary to steroids Clonidine patch re-started (patient was receiving this last week for possible hypersympathetic activity while being weaned off narcotics) ECHO:mild LVH TSH normal, D dimer, CT chest normal Appreciate cardiology Input Continue Metoprolol Chronic Anemia stable denies GI bleeding Chronic Pain patient's Nucynta was only approved for 4 days during last admission, discharged on Tramadol which did not help with her pain will avoid IV narcotics restarted Nucynta per Pain Mgt SVC recommendations during last admission Appreciate pain management Input Plan to discharge on Nucynta PRN DVT x SCDs has history of hematochezia encouraged to ambulate Code Status Full Code Disposition Plan to discharge home Patient agreed with current plan for discharge and follow up Follow up with your PCP Dr.Brandon Quach on Jun 30, 2017 at 1:30 pm Follow up with your precision lens grinder on Jul 01 at 9:30 am Follow up with Pain Management Dr. Sheffield as advised Seek immediate medical attention if your symptoms reoccur or worsen Total time spent on discharge = 35 minutes This includes examination of the patient, discharge planning, medication reconciliation, and communication with other providers. Discharge Instructions Discharge Instructions Date of Service Jun 25, 2017. Admission Reason for Admission: Arthralgia Discharge Discharge Diagnosis / Problem: Arthralgia Discharge Goals Goal(s): Decrease discomfort, Improve function Activity Recommendations Activity Limitations: resume your previous activity Exercise/Sports Limitations: as tolerated . Instructions / Follow-Up Instructions / Follow-Up Follow up with your PCP Dr.Brandon Quach on Jun 30, 2017 at 1:30 pm Follow up with your precision lens grinder on Jul 01 at 9:30 am Follow up with Pain Management Dr. Sheffield as advised Follow up with your Patient Access Manager Discuss with your primary care physician regarding further need to follow with your brazing furnace operator if necessary Seek immediate medical attention if your symptoms reoccur or worsen Discuss with your precision lens grinder regarding prednisone taper as advised Current Hospital Diet Patient's current hospital diet: Regular Diet Discharge Diet Recommended Diet: Regular Diet Pending Studies Studies pending at discharge: no Medical Emergencies . Who to Call and When: Medical Emergencies: If at any time you feel your situation is an emergency, please call 911 immediately. . Non-Emergent Contact Non-Emergency issues call your: Primary Care Provider, Bias Cutter Call Non-Emergent contact if: you have a fever, your pain is not controlled, your pain is worsening, your pain is unusual for you, your pain is concerning you, you have any medication questions . . "Provider Documentation" section prepared by Jian Gaytan. . VTE Core Measure Inpt VTE Proph given/why not?: SCD's
[2017-06-25 18:26] VITALS: BP 106/76; PULSE 114; TEMP 36.6; O2SAT 97
== END 2017-06-25 19:20 | disposition home or self-care (01) | DRG 556 ==
LOC: C.EDB 13:00 → C.MS4W 19:04 → ENRESERV 19:14 → C.2E 06-21 19:34 → ENRESERV 06-24 10:14 → C.MS4W 06-24 11:34
PROVIDERS: ADMIT Internal Medicine; ATTEND Internal Medicine
DX: M25.50 Pain in unspecified joint (principal); K51.80 Other ulcerative colitis without complications; F11.20 Opioid dependence, uncomplicated; T39.4X5A Adverse effect of antirheumatics, not elsewhere classified, initial encounter; M07.60 Enteropathic arthropathies, unspecified site; L27.1 Localized skin eruption due to drugs and medicaments taken internally; T38.0X5A Adverse effect of glucocorticoids and synthetic analogues, initial encounter; R00.0 Tachycardia, unspecified; D63.8 Anemia in other chronic diseases classified elsewhere; G89.29 Other chronic pain; Z87.891 Personal history of nicotine dependence; Z90.49 Acquired absence of other specified parts of digestive tract; Z79.899 Other long term (current) drug therapy; Z82.49 Family history of ischemic heart disease and other diseases of the circulatory system; Z84.1 Family history of disorders of kidney and ureter; Z83.49 Family history of other endocrine, nutritional and metabolic diseases; Z88.1 Allergy status to other antibiotic agents; Z88.5 Allergy status to narcotic agent; Z88.8 Allergy status to other drugs, medicaments and biological substances